=== PATIENT | female | born 1950 | race Caucasian/White ===

== ENCOUNTER 2019-12-30 11:19 | Outpatient (CLI) | payer MEDICARE, SELFPAY ==
--- NOTE | ~2019-12-30 | MM_ITS ---
EXAMINATION: MM screening marie BI w melnida HISTORY: Screening mammogram TECHNIQUE: Craniocaudal and mediolateral oblique 3-D tomosynthesis images were obtained and synthetic 2-D images were generated. CAD analysis was submitted and interpreted. COMPARISON: No prior mammogram is available for comparison at this institution. BREAST PARENCHYMAL COMPOSITION: The breasts are almost entirely fatty. FINDINGS: There is no evidence of suspicious mass, calcification, or architectural distortion to sugg est malignancy in either breast. There has been no suspicious interval change. IMPRESSION: 1. No mammographic evidence of malignancy. 2. Recommend routine screening mammography in one year. BI-RADS Category 1: Negative Reviewed, dictated and finalized at location A. [employer]
== END 2019-12-30 11:20 | disposition home or self-care (01) ==
LOC: ANHIMG 11:23
PROVIDERS: PCP Internal Medicine; Visit Provider Obstetrics & Gynecology
DX: Z12.31 Encounter for screening mammogram for malignant neoplasm of breast (principal)
CPT/HCPCS: 77063; 77067

== ENCOUNTER 2021-01-09 09:30 | Outpatient (CLI) | payer MEDICARE, SELFPAY ==
--- NOTE | ~2021-01-09 | MM_ITS ---
EXAMINATION: MM screening marie BI w melinda HISTORY: Screening mammogram TECHNIQUE: Craniocaudal and mediolateral oblique 3-D tomosynthesis images were obtained and synthetic 2-D images were generated. CAD analysis was submitted and interpreted. COMPARISON: 12/30/2019, 12/21/2018, 10/25/2017 bilateral digital screening mammogram examinations BREAST PARENCHYMAL COMPOSITION: The breasts are almost entirely fatty. FINDINGS: There is no evidence of suspicious mass, calcification, or architectural distortion to sugg est malignancy in either breast. There has been no suspicious interval change. IMPRESSION: 1. No mammographic evidence of malignancy. 2. Recommend routine screening mammography in one year. BI-RADS Category 1: Negative Reviewed, dictated and finalized at location A. [employer]
== END 2021-01-09 09:31 | disposition home or self-care (01) ==
LOC: ANHIMG 09:32
PROVIDERS: Family Provider Internal Medicine; PCP Internal Medicine; Visit Provider Obstetrics & Gynecology
DX: Z12.31 Encounter for screening mammogram for malignant neoplasm of breast (principal)
CPT/HCPCS: 77063; 77067

== ENCOUNTER 2021-10-02 02:57 | Emergency (ER) | payer MEDICARE, SELFPAY ==
--- NOTE | ~2021-10-02 | CT_ITS ---
EXAMINATION: CT abdomen pelvis wo con DATE: 10/02/2021 03:56 INDICATION: Left flank pain TECHNIQUE: Computed tomography (CT) of the abdomen and pelvis was performed without intravenous contr ast. The dose-length product (DLP) was 681.24 mGy-cm. Automated exposure control and iterative recons truction technique were employed. COMPARISON: 07/17/2013 FINDINGS: Minimal dependent atelectasis is present in the lung bases. The heart size is normal. There is a small sliding hiatal hernia. The liver, spleen, pancreas, gallbladder, and adrenal glands are n ormal. The right kidney is unremarkable. There is an 8 mm stone proximal left ureter which causes mod erate hydroureteronephrosis. No pathologically enlarged abdominal or pelvic lymph nodes are identifie d. There is no free intraperitoneal gas or evidence of bowel obstruction. Colonic diverticulosis is p resent without evidence of diverticulitis. There is a moderate-sized right inguinal hernia containing fat and nonobstructed small bowel. There is a fat-containing left inguinal hernia. There is severe l umbar spondylosis. IMPRESSION: 1. 8 mm stone of the proximal left ureter causing moderate hydroureteronephrosis. 2. Moderate size right inguinal hernia containing fat and nonobstructed small bowel. Reviewed, dictated and finalized at location B. IMPRESSION: 1. 8 mm stone of the proximal left ureter causing moderate hydroureteronephrosi s. 2. Moderate size right inguinal hernia containing fat and nonobstructed small b owel.
[2021-10-02 03:03] VITALS: BP 169/117; PULSE 85; RESP 20; TEMP 36.7; O2SAT 97
--- NOTE | 2021-10-02 03:32 | ED.ABDPAIN ---
HPI - Abdominal Pain General Chief Complaint: Abdominal Pain Stated Complaint: SICKNESS Time Seen by Provider: 10/02/21 02:59 Source: patient and RN notes reviewed Mode of arrival: ambulatory Limitations: no limitations History of Present Illness MD elicited complaint: abdominal pain and flank pain Pertinent past history: kidney stones Onset (ago): hour(s) (6) Pain Consistency: constant Location: L flank Severity: moderate Pain scale (0-10): 6 Quality: cramping and aching Radiation: L flank Migration to: no migration Exacerbating factors: nothing Relieving factors: nothing Associated symptoms: nausea and vomiting Treatments prior to arrival: other (none) Related Data Home Medications Medication Instructions Recorded Confirmed lisinopril 10 mg PO DAILY 10/02/21 10/02/21 Allergies Allergy/AdvReac Type Severity Reaction Status Date / Time No Known Allergies Allergy Unknown Unverified 10/02/21 03:09 Review of Systems Review of Systems: All systems reviewed & are unremarkable except as noted in HPI and below Gastrointestinal: Gastrointestinal: Reports nausea and Reports vomiting Comments: left flank pain PMFSH Past Medical History Medical History (Updated 10/02/21 @ 06:00 by Matthew Hernandez MD) Flank pain Kidney stones Exam Const: General: no acute distress and alert Nutritional Appearance: obese Orientation/consciousness: patient oriented x3 Limitations: no limitations HENMT: Head: normal to inspection Ears: external ears normal and TM's normal bilaterally General nose exam: Normal external nose present and Normal nares present Face and sinus: normal facial exam Mouth: Yes lip normal and Yes moist mucous membranes Teeth and gingiva: dentition normal Eyes: Conjunctivae: conjunctivae normal Pupils: Equal, round and reactive pupils present EOM: EOMs intact bilaterally Neck: Neck: normal visual inspection Chest: Chest palpation & inspection: normal inspection of the chest Resp: Effort & Inspection: normal respiratory effort Auscultation: clear to auscultation bilaterally Cardio: Rate: regular rate Rhythm: regular rhythm GI: GI Palp: Yes Soft to palpation and No Tenderness to palpation present (GI) Percussion: Yes normal to percussion Auscultation: normal bowel sounds : General: Yes CVA tenderness (minimal left CVA to left flank tenderness) Back/Spine/Pelvis: Back: no CVA tenderness Skin: General skin exam: normal color Rashes: no rashes Neuro: General: patient oriented x3, moves all extremities, no meningeal signs, no focal motor deficits and CN's II-XI intact bilaterally Extrem: General: normal to inspection Psych: Appearance: grossly normal and well kempt Mental Status: mental status grossly normal Affect: normal affect Thought content: Yes Normal thought content present Course Course Emergency Course: Pt was stable in the ED with less abdominal pain. She had a 9mm left ureteric stone and will be transferred to Urology at [facility]. Reevaluation(s) Reevaluation #1: Pt had decreased left flank pain. Date: 10/02/21 Time: 01:55 Vital Signs Vital signs: Vital Signs Temperature 36.7 C 10/02/21 03:03 Pulse Rate 85 10/02/21 03:03 Respiratory Rate 20 10/02/21 03:03 Blood Pressure 169/117 H 10/02/21 03:03 Pulse Oximetry 97 10/02/21 03:03 Temperature 36.7 C 10/02/21 03:03 Pulse Rate 85 10/02/21 03:03 Respiratory Rate 20 10/02/21 03:03 Blood Pressure 169/117 H 10/02/21 03:03 Pulse Oximetry 97 10/02/21 03:03 MDM - Abdominal Pain Differential Diagnosis Differential diagnosis: Likely abdominal pain, calculus of kidney, diverticulitis, gastroenteritis and small bowel obstruction Medical Records Attestation: I reviewed the patient's medical records. Lab Data Attestation: I reviewed the patient's lab results. Result diagrams: 10/02/21 03:41 10/02/21 03:41 Labs: Lab Results 10/02/21 10/02/21 1
[2021-10-02] MEDS: ONDANSETRON INJ 4 MG/2 ML VIAL IV PUSH (03:39)
[2021-10-02] MEDS: MORPHINE SULFATE (*CRX) 2 MG/ML INJ IV PUSH ×2 (03:41→04:47)
[2021-10-02] MEDS: PANTOPRAZOLE SODIUM IV 40 MG VIAL IV PUSH (03:41)
[2021-10-02] MEDS: SODIUM CHLORIDE 0.9% IV 1,000 ML 999 ML IV CONT (03:41)
--- NOTE | 2021-10-02 03:46 | PC.NURSE ---
pt states moved heavy desk on saturday.
--- NOTE | 2021-10-02 03:49 | PC.NURSE ---
pt to xray per wheelchair with xray staff --cally.
[2021-10-02 03:52] LABS: Basophils Absolute Auto 0.03 K/mm3 (0.00-0.10); Basophils Percent Auto 0.3 % (0.0-1.0); Eosinophils Absolute Auto 0.01 K/mm3 (0.02-0.50); Eosinophils Percent Auto 0.1 % (1.0-6.0); Hematocrit 38.1 % (35.0-42.0); Immature Granulocyte Absolute 0.02 K/mm3 (0.00-0.00); Immature Granulocyte Percent A 0.2 % (0.0-0.0); Lymphocytes Absolute Auto 0.71 K/mm3 (1.10-4.50); Lymphocytes Percent Auto 6.8 % (18.0-42.0); Mean Corpuscular HGB Conc 31.5 g/dL (32.0-36.0); Mean Corpuscular Hemoglobin 29.9 pg (27.0-31.0); Mean Corpuscular Volume 94.8 fL (78.0-102.0); Mean Platelet Volume 9.1 fl (9.2-11.8); Monocytes Absolute Auto 0.65 K/mm3 (0.10-0.90); Monocytes Percent Auto 6.2 % (2.0-11.0); Neutrophils Absolute Auto 9.1 K/mm3 (1.7-7.2); Neutrophils Percent Auto 86.4 % (50.0-70.0); Platelet Count Result 229 K/mm3 (150-420); Red Blood Count 4.02 M/mm3 (4.20-5.40); Red Cell Distribution Width 13.5 % (11.6-14.4); White Blood Count 10.5 K/mm3 (4.8-10.8)
[2021-10-02 03:59] LABS: Alanine Aminotransferase 23 U/L (14-59); Albumin Level 3.5 g/dL (3.4-5.0); Alkaline Phosphatase 80 U/L (46-116); Anion Gap 11 mmol/L (8-16); Aspartate Amino Transferase 15 U/L (15-37); Bilirubin,Total 0.7 mg/dL (0.00-1.00); Blood Urea Nitrogen 16 mg/dL (7-18); Calcium 8.5 mg/dL (8.5-10.1); Carbon Dioxide 26 mmol/L (21-32); Chloride 103 mmol/L (98-108); Estimated CRCL calculation 58 ml/min; Estimated Glomerular Filt Rate 58; Glucose 163 mg/dL (70-99); Lipase 116 U/L (73-393); Osmolality Calculated 295 mOsm/kg (285-295); Potassium 3.7 mmol/L (3.5-5.1); Sodium 140 mmol/L (136-145); Total Protein 7.1 g/dL (6.4-8.2)
--- NOTE | 2021-10-02 04:48 | PC.NURSE ---
pt declines need to urinate. erp dr jung notified
[2021-10-02] MEDS: KETOROLAC (*BKC) 60 MG/2 ML VIAL IM (05:35)
--- NOTE | 2021-10-02 06:23 | PC.NURSE ---
0500 138/79, 80, 20, 95% ra 0600 137/66. 80. 18. 97% ra
[2021-10-02 06:47] VITALS: BP 133/66; PULSE 80; RESP 18; TEMP 37.1; O2SAT 97
== END 2021-10-02 07:20 | disposition short-term general hospital (02) ==
PROVIDERS: Emergency Provider Emergency Medicine; PCP Internal Medicine
DX: N20.0 Calculus of kidney (principal)
CPT/HCPCS: 36415; 74176; 80053; 83605; 83690; 85025; 96361; 96372; 96374; 96375; 96376; 99285; A9270; C9113; J1885; J2270; J2405; J7030

== ENCOUNTER 2021-10-02 08:53 | Observation (INO) | payer MEDICARE, SELFPAY ==
[2021-10-02] VITALS (11 sets, daily range): BP systolic 111–163; BP diastolic 51–102; PULSE 86–114; RESP 14–22; TEMP 36–37.7; O2SAT 86–100; BMI 41.8
--- NOTE | ~2021-10-02 | XR_ITS ---
EXAMINATION: XR retrograde pyelo w/stent LT EXAM DATE: 10/02/2021 21:21 INDICATION: Left ureteral stone removal, stent placement. TECHNIQUE: Fluoroscopy used during XR retrograde pyelo w/stent LT performed by Dr. Alberto Bennett MD, urologist. The radiologist Reilly Edward M.D. dictating this report of the image(s) available wa s not present for the procedure. Total fluoroscopic time of 30 seconds. The DAP for this procedure was 670 radcm2. A total of 24 images sent to PACS from the exam. Cine run(s) available for review. FINDINGS: Left ureter was cannulated and injected. There is mild left hydroureteronephrosis. A doubl e-J ureteral stent was placed. Correlate with procedure note. IMPRESSION: Mild left hydroureteronephrosis. Stent in position. Reviewed, dictated and finalized at location A.
--- NOTE | 2021-10-02 07:50 | ADMGEN ---
This patient, Dia Hall, was admitted to Medical Room 349-01. Patient/family oriented to hospital policies and general routines including ID bracelet, bed and alarms, visiting hours, pain management, procedures, bathroom and other care routines, personal items, smoking policy, room service/diet, and visiting hours. Information on how to activate the Rapid Response Team has been discussed. Patient/Family are encouraged to report perceived risks to care and to ask questions if they do not understand what they are told or what they should do.
[2021-10-02] MEDS: CIPROFLOXACIN 400 MG/D5W 200ML 200 ML 200 MG IVPB ×2 (09:36→22:42)
[2021-10-02 10:04] LABS: INR 0.9; Prothrombin Time 12.5 Seconds (11.1-14.7)
[2021-10-02 10:05] LABS: Partial Thromboplastin Time 25.2 SECONDS (22.3-36.8)
[2021-10-02 10:27] LABS: Anion Gap 7 mmol/L (8-16); Blood Urea Nitrogen 20 mg/dL (7-17); Calcium 8.7 mg/dL (8.4-10.2); Carbon Dioxide 26 mmol/L (22-30); Chloride 105 mmol/L (98-107); Estimated Glomerular Filt Rate > 60; Glucose 133 mg/dL (65-110); Potassium 4.3 mmol/L (3.4-5.0); Sodium 138 mmol/L (137-145)
[2021-10-02 10:51] LABS: Thyroid Stimulating Hormone Reflex 0.734 uIU/mL (0.465-4.68)
[2021-10-02 11:38] LABS: Glucose Point of Care 114 mg/dl (65-105)
--- NOTE | 2021-10-02 12:52 | WPDURCON ---
Assessment and Plan Assessment and plan (1) Left ureteral stone: Code(s): N20.1 - Calculus of ureter Status: Acute Assessment and Plan: cystoscopy, laser lithotripsy with ureteral stone extraction and stent placement Urology Consult Note HPI Date Seen: 10/02/21 Requesting Physician: Kimmy Hampton MD Primary Care Provider: Loi Chen, MD Consult Narrative Narrative: Dia Hall is a 70 year old female who spontaneously passed 1 ureteral calculus several years ago. She is transferred from [facility] ER where she presented with a 2 day history of intermittent, progressively severe left flank pain. This was associated with nausea vomiting but no fevers chills or gross hematuria. Imaging reveals an obstructing left mid ureteral calculus PMFSH Past Medical History Medical History Flank pain Kidney stones Social History Social History Smoking status: Never smoker Alcohol intake: never Substance use: never Substance use type: does not use Spiritual care concerns: No Meds Home Medications and Allergies Home Medications Medication Instructions Recorded Confirmed Type lisinopril 10 mg PO DAILY 10/02/21 10/02/21 History multivit with min-folic acid 1 tablet PO DAILY 10/02/21 10/02/21 History [Adult One Daily Multivitamin] Allergies Allergy/AdvReac Type Severity Reaction Status Date / Time No Known Allergies Allergy Unknown Unverified 10/02/21 03:09 Vital Signs Vital Signs - 24 hr 10/02/21 08:52 Temperature 96.8 F L Pulse Rate 86 Respiratory Rate 16 Blood Pressure 124/65 Pulse Oximetry 86 L Exam Const: General: no acute distress Resp: Effort & Inspection: normal respiratory effort GI: Inspection: non-distended GI Palp: No abdominal tenderness and No Guarding due to palpation present (GI) Auscultation: normal bowel sounds Results Labs CBC & Chem 7: 10/02/21 09:33 Labs: BMP 10/02/21 09:33 Sodium 138 Potassium 4.3 Chloride 105 Carbon Dioxide 26 BUN 20 H Creatinine 0.80 Glucose 133 H Calcium 8.7
--- NOTE | 2021-10-02 13:03 | WPDHPUPDATE1 ---
History and Physical Update Update Date/Time: 10/02/21 13:03 History and Physical has been reviewed, including an updated exam of the patient. There are NO changes in the patient's condition. Risks, benefits, and alternatives have been discussed and questions answered. Patient agrees to proceed with procedure.
--- NOTE | 2021-10-02 13:04 | PM.IMHP ---
H&P: HPI History of Present Illness Date/Time: PATIENT ADMITTED UNDER OBSERVATION STATUS 10/02/21 13:04 Chief Complaint: Abdominal pain Narrative: 70yo female with HTn and hx of kidney stones here for abdominal pain. Patient developed abdominal pain left upper quadrant radiating to the back 1 day prior to admission. Later in the evening she developed nausea and vomiting with dry heaves. No hematuria or dysuria. Nothing seemed to make the pain better. For this reason she presented to an outside emergency room and ultimately was transferred to our facility for further management when she was found to have a left 9 mm ureteral stone with hydronephrosis. She does have a history of kidney stones in 2012 and she states she was given a medication to 'dissolve the stone'. Review of system negative. She has mild chronic pedal edema. In the Emergency room, her blood pressure was 169/117. She was treated with pain medications with improvement. She is transferred for further care. Review of Systems Review of Systems: All systems reviewed & are unremarkable except as noted in HPI and below PMFSH Past Medical History Medical History (Updated 10/02/21 @ 13:19 by Per Zafar MD) Essential hypertension Kidney stones Surgical History Surgical History (Updated 10/02/21 @ 13:11 by Per Zafar MD) H/O total vaginal hysterectomy 2004 Family History Family History (Updated 10/02/21 @ 13:12 by Per Zafar MD) Mother Fibromyalgia Father Heart disease Social History Social History (Updated 10/02/21 @ 13:14 by Per Zafar MD) Social History: Patient lives alone. She is . Her granddaughter may be moving in with her in November. She is a lifelong nonsmoker. She rarely drinks alcohol. No drug use. She is a full code. She nominated her son Alberto Hall to be the individual would make medical decisions for her if she is unable. Smoking status: Never smoker Alcohol intake: never Substance use: never Substance use type: does not use Spiritual care concerns: No Meds Home Medications and Allergies Home Medications Medication Instructions Recorded Confirmed Type lisinopril 10 mg PO DAILY 10/02/21 10/02/21 History multivit with min-folic acid 1 tablet PO DAILY 10/02/21 10/02/21 History [Adult One Daily Multivitamin] hydrocodone-acetaminophen 1 - 2 tablet PO Q6H PRN #20 tablet 10/03/21 Rx Allergies Allergy/AdvReac Type Severity Reaction Status Date / Time No Known Allergies Allergy Unknown Verified 10/02/21 18:10 Vital Signs Vital Signs - 24 hr 10/02/21 08:52 Temperature 96.8 F L Pulse Rate 86 Respiratory Rate 16 Blood Pressure 124/65 Pulse Oximetry 86 L Exam Narrative: AF 96.8 124/65 86 16 97% ra Gen - well-nourished, well-developed female in no acute respiratory distress who is nontoxic-appearing lying semi recumbent in bed. HEENT - normocephalic. Atraumatic. Pupils equal round and reactive. Extraocular motions intact. Sclera clear and anicteric. Nares patent. Oropharynx was not visualized. No oral lesions. Moist mucous membranes. Tongue was midline. Palate marcello symmetrically. No facial asymmetry. mild lid lag. Neck - neck was supple. No dominant adenopathy, thyromegaly or masses. 2+ carotid upstrokes without bruits. Chest - lungs are clear to auscultation bilaterally. No wheezes or crackles. Breast exam was deferred. CV - heart was regular rate and rhythm wih a 2/6 systolic murmur Rt USB. S1-S2. No gallops or rubs. Abd - abdomen was soft. Nontender. Nondistended. Positive bowel sounds. No organomegaly or masses. Back - no CVA tenderness Ext - trace pedal edema. 2+ DP pulses bilaterally. Neuro - patient is alert and oriented x4. Strength is 5/5 in both upper and lower extremities. Cranial nerves 2-12 are intact. Speech is clear. Psych - normal mood and affect. Patient is pleasant and cooperative. Skin - warm and
[2021-10-02 13:34] LABS: Add Urine Microscopic? YES; Appearance Urine Cloudy (Clear); Bacteria Urine Trace /hpf; Bilirubin Urine Negative (Negative); Blood Urine 2+ (Negative); Color Urine Amber (Yellow); Glucose Urine UA Negative (Negative); Ketones Urine Trace mg/dL (Negative); Leukocyte Esterase Ur 2+ LEU/UL (Negative); Mucus Urine Heavy /lpf; Nitrate Urine Positive (Negative); Protein Urine 2+ mg/dL (Negative); RBC Urine 21-50 /hpf (0-2); Specific Grav Ur 1.025 (1.001-1.035); Squamous Epithelial Cell Urine Few /hpf (Few); WBC Urine >75 /hpf
[2021-10-02] MEDS: SODIUM CHLORIDE 0.9% IV 1,000 ML 100 ML IV CONT (13:36)
[2021-10-02 16:34] LABS: Glucose Point of Care 110 mg/dl (65-105)
--- NOTE | 2021-10-02 17:36 | WPDANESEPPF ---
Anes - Initial Pre Proc Eval Procedure: Operation Date: 10/02/21 18:00 Proposed Procedures p Cystoscopy, Left Ureteroscopy, Left Stone Extraction, Possible Left Stent Placement, - Alberto Bennett MD s Laser Lithotripsy - Alberto Bennett MD Date/Time: 10/02/21 17:36 Surgeon: Sabrina Pre Op Diagnosis: 09x5 mid l ureyeral stone Patient Data Age: 70 Gender: F Height: Weight: Last Vital Signs Temp 36.4 C 10/02/21 16:08 Pulse 103 H 10/02/21 16:08 Resp 16 10/02/21 16:08 BP 142/68 H 10/02/21 16:08 Pulse Ox 94 10/02/21 16:08 Allergies Allergy/AdvReac Type Severity Reaction Status Date / Time No Known Allergies Allergy Unknown Verified 10/02/21 18:10 Home Medications Medication Instructions Recorded Confirmed Type lisinopril 10 mg PO DAILY 10/02/21 10/02/21 History multivit with min-folic acid 1 tablet PO DAILY 10/02/21 10/02/21 History [Adult One Daily Multivitamin] Laboratory Tests 10/02/21 10/02/21 10/02/21 09:33 09:33 09:33 PT 12.5 Seconds Seconds (11.1-14.7) INR 0.9 APTT 25.2 SECONDS SECONDS (22.3-36.8) Sodium 138 mmol/L mmol/L (137-145) Potassium 4.3 mmol/L mmol/L (3.4-5.0) Chloride 105 mmol/L mmol/L (98-107) Carbon Dioxide 26 mmol/L mmol/L (22-30) Anion Gap 7 mmol/L L mmol/L (8-16) BUN 20 mg/dL H mg/dL (7-17) Creatinine 0.80 mg/dL mg/dL (0.7-1.0) Estim Creat Clear Calc Not Reportable Estimated GFR > 60 (59 - ) Glucose 133 mg/dL H mg/dL (65-110) POC Capillary Glucose Hemoglobin A1c Calcium 8.7 mg/dL mg/dL (8.4-10.2) TSH (Reflex) 0.734 uIU/mL uIU/mL (0.465-4.68) Urine Color Urine Appearance Urine pH Ur Specific Radcliffe Urine Protein Urine Glucose (UA) Urine Ketones Ur Blood (Man) Urine Nitrate Urine Bilirubin Urine Urobilinogen Leukocyte Esterase Rfl Urine RBC Urine WBC Ur Squamous Epith Cells Urine Bacteria Urine Mucus 10/02/21 10/02/21 10/02/21 09:33 11:35 13:12 PT INR APTT Sodium Potassium Chloride Carbon Dioxide Anion Gap BUN Creatinine Estim Creat Clear Calc Estimated GFR Glucose POC Capillary Glucose 114 mg/dl H mg/dl (65-105) Hemoglobin A1c Pending Calcium TSH (Reflex) Urine Color Sherrie (Yellow) Urine Appearance Cloudy H (Clear) Urine pH 5.0 (5.0-9.0) Ur Specific Radcliffe 1.025 (1.001-1.035) Urine Protein 2+ mg/dL H mg/dL (Negative) Urine Glucose (UA) Negative mg/dL mg/dL (Negative) Urine Ketones Trace mg/dL mg/dL (Negative) Ur Blood (Man) 2+ H (Negative) Urine Nitrate Positive H (Negative) Urine Bilirubin Negative (Negative) Urine Urobilinogen 4.0 mg/dL H mg/dL (<2.0) Leukocyte Esterase Rfl 2+ JOSEPH/UL H JOSEPH/UL (Negative) Urine RBC 21-50 /hpf H /hpf (0-2) Urine WBC >75 /hpf H /hpf Ur Squamous Epith Cells Few /hpf /hpf (Few) Urine Bacteria Trace /hpf /hpf Urine Mucus Heavy /lpf H /lpf 10/02/21 16:32 PT INR APTT Sodium Potassium Chloride Carbon Dioxide Anion Gap BUN Creatinine Estim Creat Clear Calc Estimated GFR Glucose POC Capillary Glucose 110 mg/dl H mg/dl (65-105) Hemoglobin A1c Calcium TSH (Reflex) Urine Color Ur
--- NOTE | 2021-10-02 17:41 | PC.NURSE ---
To OR per TONY parra RAC. Report given to Rebeca ARAGON.
--- NOTE | 2021-10-02 20:11 | SUR.PHASEI ---
PATIENT AND FAMILY UPDATED ON TIME DELAY
[2021-10-02] MEDS: LIDOCAINE HCL 2% GEL UROJET 10 ML PKG MUCOUS MEM (21:01)
--- NOTE | 2021-10-02 21:20 | W.PM.PROC2 ---
Procedure Note - Detailed Date of Procedure 10/02/21 Pre-op Diagnosis Left ureteral stone Post-op Diagnosis same Procedure Performed Cystoscopy, left ureteroscopy with laser lithotripsy, ureteral stone extraction, left retrograde pyelogram and ureteral stent placement Surgeon Alberto Bennett MD Anesthesia general Description of Procedure The patient was brought to the operative suite where she is prepped and draped in a routine sterile fashion while in the dorsal lithotomy position after the uneventful induction of a general LMA anesthetic. A 19F rigid cystoscope was placed in the bladder. The patient had no evidence of urethral stricture or bladder neck contracture. The bladder mucosa was endoscopically normal without hyperemia or neoplasm. There was a single, orthotopic ureteral orifice bilaterally. A 0.035 glidewire was advanced into the left renal pelvis under fluoroscopy. The distal ureter was dilated with an 8F/10F ureteral dilator. Ureteroscopy was undertaken with a short tapered semi-rigid ureteroscope. With ureteroscopy I fractured the stone into smaller pieces using a 273micron Holmium laser fiber with the Holmium laser. I was able to then extract the stone pieces using a 1.9F Escape, Nitinol, disposable stone basket. Due to the extent of this manipulation I did place a 4.8F double-J ureteral stent. The proximal coil of the stent was confirmed to be in the renal pelvis and the distal coil in the bladder. The patient's bladder was emptied and he was taken to the recovery room having tolerated this procedure well. Estimated Blood Loss 0 Drains Yes Packing No Pathology yes Complications No immediate complications Condition stable Disposition PACU
[2021-10-02] MEDS: LACTATED RINGERS 1,000 ML 30 ML IV CONT (21:24)
[2021-10-02 21:44] LABS: Hemoglobin A1C 5.3 % (<5.7)
[2021-10-02 22:00] LABS: Glucose Point of Care 103 mg/dl (65-105)
--- NOTE | 2021-10-02 23:02 | PCDIET ---
Received from PACU alert and oriented voices no c/o pain , ambulated to bed with assist of 1.Skin warm and dry.
[2021-10-03 00:22] VITALS: BP 124/68; PULSE 107; RESP 20; TEMP 37.3; O2SAT 94
[2021-10-03 06:04] VITALS: BP 106/48; PULSE 99; RESP 18; TEMP 37; O2SAT 94
[2021-10-03] MEDS: SODIUM CHLORIDE 0.9% IV 1,000 ML 100 ML IV CONT (06:08)
--- NOTE | 2021-10-03 06:45 | WPDUROPN2 ---
Progress Note: A&P Assessment and Plan (1) Left ureteral stone: Code(s): N20.1 - Calculus of ureter Status: Acute Assessment and Plan: Doing well following ureteral stone removal. Home today. My office will contact regarding stent removal 5-7 days. Subjective Subjective Date/Time Seen: 10/03/21 06:45 Comfortable, minimal stent discomfort with voiding. Review of Systems Cardiovascular: Cardiovascular: Denies chest pain, Denies lightheadedness, Denies palpitations and Denies dyspnea Respiratory: Respiratory: Denies dyspnea Gastrointestinal: Gastrointestinal: Denies diarrhea, Denies nausea and Denies vomiting Genitourinary: Genitourinary: Denies hematuria and Denies dysuria Endocrine: Endocrine: Denies palpitations Exam Const: General: no acute distress Resp: Effort & Inspection: normal respiratory effort GI: Inspection: non-distended GI Palp: No abdominal tenderness and No Guarding due to palpation present (GI) Auscultation: normal bowel sounds Objective Data Vital Signs Vital Signs: Vital Signs - 24 hr 10/02/21 08:52 10/02/21 13:26 10/02/21 16:08 Temperature 96.8 F L 97.1 F L 97.6 F Pulse Rate 86 91 103 H Respiratory Rate 16 16 16 Blood Pressure 124/65 156/81 H 142/68 H Pulse Oximetry 86 L 99 94 10/02/21 17:50 10/02/21 21:24 10/02/21 21:35 Temperature 99.9 F H 97.6 F Pulse Rate 101 H 110 H 114 H Respiratory Rate 18 14 20 Blood Pressure 111/51 L 148/56 H 123/102 H Pulse Oximetry 92 100 100 10/02/21 21:50 10/02/21 22:05 10/02/21 22:20 Temperature Pulse Rate 108 H 106 H 104 H Respiratory Rate 16 20 22 H Blood Pressure 163/98 H 156/83 H 131/80 Pulse Oximetry 98 93 95 10/02/21 22:44 10/02/21 22:59 10/03/21 00:22 Temperature 98.5 F 99.1 F Pulse Rate 110 H 110 H 107 H Respiratory Rate 20 20 20 Blood Pressure 150/74 H 124/68 Pulse Oximetry 92 92 94 10/03/21 06:04 Temperature 98.6 F Pulse Rate 99 Respiratory Rate 18 Blood Pressure 106/48 L Pulse Oximetry 94 Intake/Output Intake/Output: Intake & Output 09/30/21 10/01/21 10/02/21 10/03/21 23:59 23:59 23:59 23:59 Intake Total 1450 400 Output Total 200 300 Balance 1250 100 Meds/Results Medications: Active Medications Generic Name Dose Route Start Last Admin Trade Name Freq PRN Reason Stop Dose Admin Acetaminophen 650 mg 10/02/21 08:53 Acetaminophen 325 Mg Tablet PO Q4H PRN Mild Pain (1-3) or Fever Hydrocodone Bitart/Acetaminophen 1 tab 10/02/21 08:59 Hydrocodone/Acetaminophen (*Crx) 5-325 Mg Tablet PO Q4H PRN Moderate Pain (4-6) Al Hydrox/Mg Hydrox/Simethicone 30 ml 10/02/21 08:53 Mag Hydrox/Al Hydrox/Simeth 30 Ml Udc PO QID PRN Dyspepsia Dextrose 12.5 gm 10/02/21 08:53 Dextrose 50% 25 Gm/50 Ml Syringe IV PUSH PRN PRN Hypoglycemia Protocol Glucagon 1 mg 10/02/21 08:53 Glucagon For Inj 1 Mg Vial IM PRN PRN Hypoglycemia Protocol Glucose 15 gm 10/02/21 08:53 Glucose Oral Gel 15 Gm Of Glucse In 37.5 Gm Tube PO PRN PRN Hypoglycemia Protocol Dextrose 1,000 mls @ 100 mls/hr 10/02/21 08:53 Dextrose 5% 1,000 Ml IVPB PRN PRN Hypoglycemia Protocol Ciprofloxacin/Dextrose 200 mls @ 200 mls/hr 10/02/21 09:00 10/02/21 23:50 Cipro 400 Mg/D5w 200 Ml IVPB Infused Q12H SAAD Infusion Sodium Chloride 1,000 mls @ 100 mls/hr 10/02/21 13:30 10/03/21 06:08 Normal Saline Iv IV CONT 100 mls/hr .Q10H SAAD Administration Insulin Aspart 3 - 6 units 10/02/21 12:00 10/02/21 16:32 Insulin Aspart (*Bkc) 100 Units/Ml SUB-Q Not Given TIDWM SAAD Protocol Lisinopril 10 mg 10/03/21 09:00 Lisinopril 10 Mg Tablet PO DAILY SAAD Morphine Sulfate 2 mg 10/02/21 08:53 Morphine Sulfate (*Crx) 2 Mg/Ml Inj IV PUSH Q4H PRN Pain Rated 7-10 Multivitamins/Calcium 1 tablet 10/03/21 09:00 Therapeutic Multivitamins/Minerals
[2021-10-03 07:53] LABS: Glucose Point of Care 136 mg/dl (65-105)
[2021-10-03] MEDS: CIPROFLOXACIN 400 MG/D5W 200ML 200 ML 200 MG IVPB (09:56)
[2021-10-03] MEDS: lisinopriL 10 MG TABLET PO (09:57)
[2021-10-03] MEDS: THERAPEUTIC MULTIVITAMINS/MINERALS TAB (*BKC) 1 TABLET PO (09:57)
--- NOTE | 2021-10-03 10:43 | PM.DS ---
DS: Admitting Diagnosis Discharge Date 10/03/21 Admitting Diagnosis Abdominal pain DS: Discharge Diagnosis Discharge Diagnosis (1) Left ureteral stone: Code(s): N20.1 - Calculus of ureter Status: Acute (2) Hydronephrosis due to obstruction of ureter: Code(s): N13.1 - Hydronephrosis with ureteral stricture, not elsewhere classified Status: Acute (3) Inguinal hernia: Code(s): K40.90 - Unilateral inguinal hernia, without obstruction or gangrene, not specified as recurrent Status: Acute (4) Hyperglycemia: Code(s): R73.9 - Hyperglycemia, unspecified Status: Acute (5) Essential hypertension: Code(s): I10 - Essential (primary) hypertension Status: Acute DS: Summary Hospital Course Reason for hospitalization: 70yo female with HTN and hx of kidney stones here for abdominal pain. Please see H&P for details Hospital Course: Patient developed abdominal pain left upper quadrant radiating to the back 1 day prior to admission. For this reason she presented to an outside emergency room and ultimately was transferred to our facility for further management when she was found to have a left 9 mm ureteral stone with hydronephrosis. In the Emergency room, her blood pressure was 169/117. She was treated with pain medications with improvement. CT scan also showed moderate size right inguinal containing fat and nonobstructed small bowel. Lab evaluation was mostly unrevealing. She did have mildly elevated glucose levels but her hemoglobin A1c was 5.3. Urinalysis was concerning for UTI. Urine culture is pending. She was started on ciprofloxacin. Urology was consulted and she underwent a cystoscopy with left ureteroscopy with laser lithotripsy, ureteral stone extraction, left retrograde pyelogram and ureteral stent placement. She tolerated this well. Pain has resolved. Patient overall did well as a to be discharged home on 10/03/2021. Status at Discharge Cognitive/behavioral status at discharge: Stable Time Spent with Patient Time attestation: Total time spent providing and/or coordinating discharge services: 32 minutes Time spent: Greater than 30 minutes Specific discharge activities: Discussed with patient Exam Narrative: AF 98.6 106/48 99 18 94% ra Gen - NARD Chest - CTA bilaterally, nml RR CV - RRR S1/S2 Abd - soft, NT/ND, +BS Ext - trace pedal edema. Neuro - patient is alert and appropriate Psych - normal mood and affect. Skin - warm and dry. DS: Data Data Completed and Pending Pending studies at discharge: Pending at discharge 10/02/21 21:08 Surgical [PTH] Routine Labs on day of discharge: Labs from last 24 hours 10/03/21 10/02/21 10/02/21 07:51 21:58 16:32 POC Capillary Glucose 136 H 103 110 H Hemoglobin A1c TSH (Reflex) Urine Color Urine Appearance Urine pH Ur Specific [place] Urine Protein Urine Glucose (UA) Urine Ketones Ur Blood (Man) Urine Nitrate Urine Bilirubin Urine Urobilinogen Leukocyte Esterase Rfl Urine RBC Urine WBC Ur Squamous Epith Cells Urine Bacteria Urine Mucus 10/02/21 10/02/21 10/02/21 13:12 11:35 09:33 POC Capillary Glucose 114 H Hemoglobin A1c 5.3 TSH (Reflex) Urine Color Sherrie Urine Appearance Cloudy H Urine pH 5.0 Ur Specific [place] 1.025 Urine Protein 2+ H Urine Glucose (UA) Negative Urine Ketones Trace Ur Blood (Man) 2+ H Urine Nitrate Positive H Urine Bilirubin Negative Urine Urobilinogen 4.0 H Leukocyte Esterase Rfl 2+ H Urine RBC 21-50 H Urine WBC >75 H Ur Squamous Epith Cells Few Urine Bacteria Trace Urine Mucus Heavy H 10/02/21 09:33 POC Capillary Glucose Hemoglobin A1c TSH (Reflex) 0.734 Urine Color Urine Appearance Urine pH Ur Specific [place] Urine Protein Urine Glucose (UA) Urine Ketones Ur Blood (Man) Urine Nitrate U
[2021-10-03 12:08] LABS: Glucose Point of Care 118 mg/dl (65-105)
--- NOTE | 2021-10-06 10:02 | PC.NURSE ---
Urine cx is negative.
--- NOTE | 2021-10-06 11:42 | PC.NURSE ---
Urine cx is negative.
== END 2021-10-03 13:00 | disposition home or self-care (01) ==
PROVIDERS: Urology; Admitting Provider Internal Medicine; PCP Internal Medicine; Visit Provider Internal Medicine
PROC: (CPT 52352; principal; 2021-10-02 18:00)
DX: N13.2 Hydronephrosis with renal and ureteral calculous obstruction (principal); Z87.442 Personal history of urinary calculi; I10 Essential (primary) hypertension; K40.90 Unilateral inguinal hernia, without obstruction or gangrene, not specified as recurrent; R73.9 Hyperglycemia, unspecified
CPT/HCPCS: 52356; 36415; 74420; 80048; 81001; 82365; 82948; 83036; 84443; 85610; 85730; 87086; 87088; 88300; 96361; 96365; A9270; C1769; C2617; G0378; G0379; J0744; J3010; J7030; J7120; Q9966

== ENCOUNTER 2022-03-07 13:45 | Outpatient (CLI) | payer MEDICARE, SELFPAY ==
--- NOTE | ~2022-03-07 | MM_ITS ---
EXAMINATION: MM screening [facility] BI w melinda HISTORY: Screening TECHNIQUE: Craniocaudal and mediolateral oblique 3-D tomosynthesis images were obtained and synthetic 2-D images were generated. CAD analysis was submitted and interpreted. COMPARISON: Comparison to multiple prior studies sequentially, with oldest reviewed study dated 10/02. BREAST PARENCHYMAL COMPOSITION: The breasts are almost entirely fatty. FINDINGS: There is no evidence of suspicious mass, calcification, or architectural distortion to sugg est malignancy in either breast. There has been no suspicious interval change. IMPRESSION: 1. No mammographic evidence of malignancy. 2. Recommend routine screening mammography in one year. BI-RADS Category 1: Negative Reviewed, dictated and finalized at location A.
== END 2022-03-07 13:46 | disposition home or self-care (01) ==
LOC: ANHIMG 13:47
PROVIDERS: PCP Internal Medicine; Visit Provider Obstetrics & Gynecology
DX: Z12.31 Encounter for screening mammogram for malignant neoplasm of breast (principal)
CPT/HCPCS: 77063; 77067

== ENCOUNTER 2022-08-20 09:37 | Outpatient (CLI) | payer MEDICARE, SELFPAY ==
--- NOTE | ~2022-08-20 | XR_ITS ---
EXAM: XR abdomen/kub 1V DATE: 08/20/2022 09:56 HISTORY: LEFT URETERAL STONE ANNUAL. HX HYSTERECTOMY . COMPARISON: CT abdomen pelvis 10/02/2021. FINDINGS: Clear lung bases. Tubal ligation clips. Normal bowel gas pattern. Right inguinal hernia co ntaining loops of bowel. No organomegaly. Pelvic phleboliths. 8 by 13 mm ovoid calcification projecti ng over the midline pelvis. Degenerative changes in the lumbar spine and bilateral hips. Scattered pr oximal femoral and pelvic enthesopathy. IMPRESSION: Left ureteral stone appears to have passed into the bladder. Reviewed, dictated and finalized at location K.
== END 2022-08-20 09:38 | disposition home or self-care (01) ==
PROVIDERS: PCP Internal Medicine; Visit Provider Urology
DX: N20.1 Calculus of ureter (principal)
CPT/HCPCS: 74018

== ENCOUNTER 2023-04-17 08:28 | Outpatient (CLI) | payer MEDICARE, SELFPAY ==
--- NOTE | ~2023-04-17 | MM_ITS ---
EXAMINATION: MM screening [facility] BI w melinda HISTORY: Screening mammogram TECHNIQUE: Craniocaudal and mediolateral oblique 3-D tomosynthesis images were obtained and synthetic 2-D images were generated. CAD analysis was submitted and interpreted. COMPARISON: 03/07/2022, 01/09/2021, 12/30/2019 BREAST PARENCHYMAL COMPOSITION: The breasts are almost entirely fatty. FINDINGS: No suspicious mass, calcification, or architectural distortion are identified in either david ast to suggest malignancy. There has been no suspicious interval change. IMPRESSION: 1. No mammographic evidence of malignancy. 2. Recommend routine screening mammography in one year. BI-RADS Category 1: Negative Reviewed, dictated and finalized at location A.
== END 2023-04-17 08:29 | disposition home or self-care (01) ==
LOC: ANHIMG 08:30
PROVIDERS: PCP Internal Medicine; Visit Provider Obstetrics & Gynecology
DX: Z12.31 Encounter for screening mammogram for malignant neoplasm of breast (principal)
CPT/HCPCS: 77063; 77067

== ENCOUNTER 2024-04-24 08:20 | Outpatient (CLI) | payer MEDICARE, SELFPAY ==
--- NOTE | ~2024-04-24 | MM_ITS ---
EXAMINATION: MM screening marie BI w melinda HISTORY: Screening mammogram TECHNIQUE: Craniocaudal and mediolateral oblique 3-D tomosynthesis images were obtained and synthetic 2-D images were generated. CAD analysis was submitted and interpreted. COMPARISON: 04/17/2023, 03/07/2022 bilateral screening mammogram examinations BREAST PARENCHYMAL COMPOSITION: The breasts are almost entirely fatty. FINDINGS: There is no evidence of suspicious mass, calcification, or architectural distortion to sugg est malignancy in either breast. There has been no suspicious interval change. IMPRESSION: 1. No mammographic evidence of malignancy. 2. Recommend routine screening mammography in one year. BI-RADS Category 1: Negative Reviewed, dictated and finalized at location B.
== END 2024-04-24 08:21 | disposition home or self-care (01) ==
LOC: ANHIMG 08:22
PROVIDERS: PCP Internal Medicine; Visit Provider Obstetrics & Gynecology
DX: Z12.31 Encounter for screening mammogram for malignant neoplasm of breast (principal)
CPT/HCPCS: 77063; 77067

== ENCOUNTER 2024-09-02 00:37 | Day surgery (SDC) | payer MEDICARE, SELFPAY ==
[2024-08-11 10:04] VITALS: BMI 36.3
[2024-09-02 06:50] VITALS: BMI 36.3
[2024-09-02 07:00] VITALS: BP 151/79; PULSE 77; RESP 16; TEMP 36.3; O2SAT 95
[2024-09-02] MEDS: LACTATED RINGERS 1,000 ML 150 ML IV CONT (07:16)
--- NOTE | 2024-09-02 07:28 | WPDANESEPPF ---
Anes - Initial Pre Proc Eval Procedure: Operation Date: 09/02/24 08:00 Proposed Procedures p Screening Colonoscopy - Dudley Gipson MD Date/Time: 09/02/24 07:28 Surgeon: Dudley Gipson MD Pre Op Diagnosis: screening neoplasm of colon Patient Data Age: 73 Gender: F Height: 1.63 m Weight: 95.9 kg Allergies Allergy/AdvReac Type Severity Reaction Status Date / Time Sulfa (Sulfonamide Allergy Mild Rash Verified 09/02/24 06:49 Antibiotics) sulfamethoxazole Allergy Mild Rash Verified 09/02/24 06:49 [From Bactrim] trimethoprim [From Bactrim] Allergy Mild Rash Verified 09/02/24 06:49 Home Medications Medication Instructions Recorded Confirmed Type lisinopril 10 mg tablet 10 mg PO DAILY 10/02/21 09/02/24 History multivitamin with minerals-folic 1 tablet PO DAILY 10/02/21 09/02/24 History acid 0.4 mg tablet Patient hx anesthesia problems: none Family hx anesthesia problems: none Results Review: All pre-operative results and documents have been reviewed as part of the pre-operative evaluation. [facility] Past Medical History Medical History Essential hypertension Kidney stones (~10/2021) Peripheral venous insufficiency Screening mammogram, encounter for Surgical History Surgical History History of arthroscopic knee surgery (09/11/22) w/medial meniscectomy History of colposcopy (07/23/02) colpo/ bx History of vaginal hysterectomy (~2004) total vaginal hysterectomy/posterior colphorrhapy Family History Family History Mother Fibromyalgia Hypertension Osteoporosis Father Heart disease Hypertension Social History Social History Social History: Patient lives alone. She is . Her granddaughter may be moving in with her in November. She is a lifelong nonsmoker. She rarely drinks alcohol. No drug use. She is a full code. She nominated her son Alberto Hall to be the individual would make medical decisions for her if she is unable. Smoking status: Never smoker Alcohol intake: never Substance use: never Substance use type: does not use Living arrangements: with family Additional living arrangements comments: GRANDDAUGHTER LIVES WITH PT Occupation/Education: retired Gender identity (if verbalized by the patient): Female Sexual Orientation (if Verbalized by the Patient): Straight or Heterosexual Spiritual care concerns: No Anes - Eval Final PreProcedure Day of Procedure 09/02/24 07:28 Patient weight: obese Heart: regular rate and rhythm Lungs: clear to auscultation Airway: Mallampati scale class II Neurological: alert and oriented Last oral intake: >/= 8 hours ASA classification: II Emergent: no Anesthetic plan: proceed Anesthesia type and monitoring: general GIVS and standard monitoring Results Review: All pre-operative results and documents have been reviewed as part of the pre-operative evaluation. Informed Consent: The patient's anesthetic plan and its attendant risks and benefits were discussed with the patient/family/POA. Questions were solicited and answers provided to the satisfaction of the patient/family/POA.
--- NOTE | 2024-09-02 08:07 | PM.IMHP ---
H&P: HPI History of Present Illness Date/Time: 09/02/24 08:07 Chief Complaint: This patient is here for her surveillance colonoscopy. She has a history of colonic polyps, her last colonoscopy was about 10 years ago. [facility] Past Medical History Medical History Essential hypertension Kidney stones (~10/2021) Peripheral venous insufficiency Screening mammogram, encounter for Surgical History Surgical History History of arthroscopic knee surgery (09/11/22) w/medial meniscectomy History of colposcopy (07/23/02) colpo/ bx History of vaginal hysterectomy (~2004) total vaginal hysterectomy/posterior colphorrhapy Family History Family History Mother Fibromyalgia Hypertension Osteoporosis Father Heart disease Hypertension Social History Social History Social History: Patient lives alone. She is . Her granddaughter may be moving in with her in November. She is a lifelong nonsmoker. She rarely drinks alcohol. No drug use. She is a full code. She nominated her son Alberto Hall to be the individual would make medical decisions for her if she is unable. Smoking status: Never smoker Alcohol intake: never Substance use: never Substance use type: does not use Living arrangements: with family Additional living arrangements comments: GRANDDAUGHTER LIVES WITH PT Occupation/Education: retired Gender identity (if verbalized by the patient): Female Sexual Orientation (if Verbalized by the Patient): Straight or Heterosexual Spiritual care concerns: No Meds Home Medications and Allergies Home Medications Medication Instructions Recorded Confirmed Type lisinopril 10 mg tablet 10 mg PO DAILY 10/02/21 09/02/24 History multivitamin with minerals-folic 1 tablet PO DAILY 10/02/21 09/02/24 History acid 0.4 mg tablet Allergies Allergy/AdvReac Type Severity Reaction Status Date / Time Sulfa (Sulfonamide Allergy Mild Rash Verified 09/02/24 06:49 Antibiotics) sulfamethoxazole Allergy Mild Rash Verified 09/02/24 06:49 [From Bactrim] trimethoprim [From Bactrim] Allergy Mild Rash Verified 09/02/24 06:49 Vital Signs Vital Signs - 24 hr 09/02/24 07:00 Temperature 97.3 F L Pulse Rate 77 Respiratory Rate 16 Blood Pressure 151/79 H Pulse Oximetry 95 Oxygen Delivery Room Air Exam Narrative: Physical exam within normal limits. Assessment and Plan Assessment and plan (1) Screening for malignant neoplasm of colon performed: Code(s): Z12.11 - Encounter for screening for malignant neoplasm of colon Status: Acute Plan patient is a good candidate for colonoscopy, will proceed.
[2024-09-02 08:35] VITALS: BP 116/64; PULSE 68; RESP 13; O2SAT 98
[2024-09-02 08:45] VITALS: BP 124/69; PULSE 76; RESP 18; O2SAT 99
[2024-09-02 08:55] VITALS: BP 127/71; PULSE 68; RESP 18; O2SAT 100
== END 2024-09-02 09:02 | disposition home or self-care (01) ==
PROVIDERS: PCP Internal Medicine; Visit Provider Internal Medicine Gastroenterology
PROC: 0DJD8ZZ Inspection of Lower Intestinal Tract, Via Natural or Artificial Opening Endoscopic (ICD-10-PCS; CPT 45378; principal; 2024-09-02 08:00)
DX: Z12.11 Encounter for screening for malignant neoplasm of colon (principal); I87.2 Venous insufficiency (chronic) (peripheral); I10 Essential (primary) hypertension
CPT/HCPCS: G0105; J2003; J2704; J7120

== ENCOUNTER 2025-01-27 12:29 | Outpatient (CLI) | payer MEDICARE, SELFPAY ==
[2025-01-27 12:50] LABS: Basophils Absolute Auto 0.02 K/mm3 (0.00-0.10); Basophils Percent Auto 0.4 % (0.0-1.0); Eosinophils Absolute Auto 0.14 K/mm3 (0.02-0.50); Eosinophils Percent Auto 2.7 % (1.0-6.0); Hematocrit 37.7 % (35.0-42.0); Hemoglobin 11.5 g/dL (11.7-13.8); Immature Granulocyte Absolute 0.02 K/mm3 (0.00-0.00); Immature Granulocyte Percent A 0.4 % (0.0-0.0); Lymphocytes Absolute Auto 1.99 K/mm3 (1.10-4.50); Lymphocytes Percent Auto 38.1 % (18.0-42.0); Mean Corpuscular HGB Conc 30.5 g/dL (32-36); Mean Corpuscular Volume 98.4 fL (78.0-102.0); Mean Platelet Volume 8.8 fl (9.2-11.8); Monocytes Absolute Auto 0.41 K/mm3 (0.10-0.90); Monocytes Percent Auto 7.9 % (2.0-11.0); Neutrophils Absolute Auto 2.64 K/mm3 (1.70-7.20); Neutrophils Percent Auto 50.5 % (50.0-70.0); Platelet Count Result 227 K/mm3 (150-420); Red Blood Count 3.83 M/mm3 (4.20-5.40); Red Cell Distribution Width 13.6 % (11.6-14.4); White Blood Count 5.2 K/mm3 (4.8-10.8)
[2025-01-27 13:15] LABS: Alanine Aminotransferase 17 U/L (14-59); Albumin Level 3.6 g/dL (3.4-5.0); Alkaline Phosphatase 82 U/L (46-116); Anion Gap 7 mmol/L (4-12); Aspartate Amino Transferase 14 U/L (15-37); Bilirubin,Total 0.5 mg/dL (0.00-1.00); Blood Urea Nitrogen 19 mg/dL (7-18); Calcium 8.6 mg/dL (8.5-10.1); Carbon Dioxide 32 mmol/L (21-32); Chloride 106 mmol/L (98-108); Cholesterol 148 mg/dL (0-200); Estimated Glomerular Filt Rate > 60; Glucose 87 mg/dL (70-99); HDL Direct 78 mg/dL (40-60); LDL Cholesterol Calculated 61 mg/dL (<130); Osmolality Calculated 301 mOsm/kg (285-295); Potassium 3.9 mmol/L (3.5-5.1); Sodium 145 mmol/L (136-145); Total Protein 6.9 g/dL (6.4-8.2); Triglycerides 43 mg/dL (0-150)
--- OUTSIDE RECORDS SUMMARY | 2025-01-27 14:01 | XMS_ITS | CONTINUITY OF CARE DOCUMENT ---
Author Name don ochoa Address Unknown Organization [facility] Address [address] [place] [address] Phone [phone] Care Team Providers Care Design Lead Name Role Phone Carlos PARKER, [facility] Unavailable [phone] ANJANA BRAVO MD Unavailable ANJANA BRAVO MD Unavailable INSURANCE PROVIDERS Payer name Policy type / Coverage type [place] [employer] party ID [id number] [employer] Medicare [id number]
--- OUTSIDE RECORDS SUMMARY | 2025-01-27 14:01 | XMS_ITS | Data Portability ---
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 Worse with activity somewhat relieved by rest she is tender laterally has pain to palpation manipulation the knee is stable quadriceps strength intact neurovascular examination unremarkable she walks with a bit of antalgic gait. Her x-rays show some degenerative change not [id number]. Recommended we try conservative treatment I injected with 20 mg Kenalog 4 cc 1% lidocaine the left knee. For prescription drug management will try Voltaren for pain and inflammation. I will see her back in a month for follow-up if she has any changes or problems she will call discussed. [email or web address] Not available 05/20/2023 11:43:58 06/20/2023 06/20/2023 Continue with current therapy diagnosis discussed see me in 6 months [email or web address] Not available 06/21/2023 18:26:23 06/24/2023 06/24/2023 Patient returns knee pain left grade continues to be symptomatic on left knee has pain mostly anteriorly. She has degenerative changes in the knee she has wear of not interested in a flexed knee surgery. She overall she is doing okay we will change her prescription to Voltaren for prescription drug management pain and inflammation she can wrap the knee and use as tolerated in the meantime. If gets worse or changes will reassess. [email or web address] Not available 06/24/2023 11:12:53 12/12/2023 12/12/2023 Continue current therapy stay physically active by walking little bit of strength training follow-up in 6 months [email or web address] Not available 01/03/2024 08:51:05 Plan of Treatment Reminders Order Date Submit Date Provider Last Modified By Organization Details Last Modified Time Details Appointments None recorded. Lab lipid panel, serum 2023 024 SCOTT Not available 4 13:56:46 CBC w/ auto diff 2023 024 SCOTT Not available 4 13:48:27 CMP, serum or plasma 2023 024 SCOTT Not available 4 13:56:51 Referral None recorded. Procedures injection/a spiration joint/bursa (PROC) - in office procedure, administere d by provider 2022 023 [email or web address] In-Office Order, Internal Use Only DO Not Attach Compendium DO Not Attach Compendium, Do Not Delete/merge, 119[address] 3 10:32:52 Surgeries None recorded. Imaging XR, knee 2022 023 alexy 158 [facility] [place], [facility] [facility] [address], [place], [address], 3 11:42:51 Medication Orders diclofenac sodium 75 mg tablet,latonia yed release 2022 023 alexy 158 [facility] [address] [place], [address], 3 11:10:35 Kenalog 10 mg/mL suspension for injection 2022 023 [id number] 223 [facility] [address] [place], [address], 4 07:40:33 ropivacaine (PF) 5 mg/mL (0.5 %) injection solution 2022 023 [id number] 223 [facility] [address] [place], [address], 4 07:40:33 diclofenac sodium 75 mg tablet,latonia yed release 2022 023 alexy 158 [facility] [address] [place], [address], 3 10:40:37 Patient TargetsNo targets recorded. Patient InstructionsNo instructions recorded. Reason for Referral None Reported. Results Created Date Observation Date Name Description Value Unit Range Abnormal Flag Note LastModifiedBy Organization Detail LastModifiedTime 12/12/19 24 12/12/2023 CBC/C OMPLE TE BLD COUNT W/DIF F white blood cells 6.5 x10'3 /uL 4.2-10 .8 Not Available [facility] (Lab) [address] [place], [address], 12/12/2023 13:48:27 12/12/19 24 12/12/2023 CBC/C OMPLE TE BLD COUNT W/DIF F red blood cells 4.03 x10'6 /uL 3.80-5 .20 Not Available [facility] (Lab) [address] [place], [address], 12/12/2023 13:48:27 12/12/19 24 12/12/2023 CBC/C OMPLE TE BLD COUNT W/DIF F hemoglobin 12.2 g/dL 12.0-1 5.6 Not Available [facility] (Lab) [address] [place], [address], 12/12/2023 13:48:27 12/12/19 24 12/12/2023 CBC/C OMPLE TE BLD COUNT W/DIF F hematocrit 40.4 % 35.7-4 5.7 Not Available [facility] (Lab) [address] [place], [address], 12/12/2023 13:48:27 12/12/19 24 12/12/2023 CBC/C OMPLE TE BLD COUNT W/DIF F mean red cell volume 100.2 fL 82.0-9 9.0 high Not Available [facility] (Lab) [address] [place], [address], 12/12/2023 13:48:27 12/12/19 24 12/12/2023 CBC/C OMPLE TE BLD COUNT W/DIF F mean red cell hemoglobin 30.3 pg 27.0-3 3.0 Not Available [facility] (Lab) [address] [place], [address], 12/12/2023 13:48:27 12/12/19 24 12/12/2023 CBC/C OMPLE TE BLD COUNT W/DIF F mean RBC HGB concentratio n 30.2 g/dL 31.0-3 6.0 low Not Available [facility] (Lab) [address] [facility] [place], [address], 12/12/2023 13:48:27 12/12/19 24 12/12/2023 CBC/C OMPLE TE BLD COUNT W/DIF F red cell distribution width 14.2 % 11.8-1 5.5 Not Available [facility] (Lab) [address] [place], [address], 12/12/2023 13:48:27 12/12/19 24 12/12/2023 CBC/C OMPLE TE BLD COUNT W/DIF F platelets 263 x10'3 /uL 150-40 0 Not Available [facility] (Lab) [address] [place], [address], 12/12/2023 13:48:27 12/12/19 24 12/12/2023 CBC/C OMPLE TE BLD COUNT W/DIF F mean platelet volume 9.8 fL 9.0-12 .4 Not Available [facility] (Lab) [address] [place], [address], 12/12/2023 13:48:27 12/12/19 24 12/12/2023 CBC/C OMPLE TE BLD COUNT W/DIF F neutrophils 60.1 % 39.0-7 2.0 Not Available [facility] (Lab) [address] [place], [address], 12/12/2023 13:48:27 12/12/19 24 12/12/2023 CBC/C OMPLE TE BLD COUNT W/DIF F lymphocytes 28.4 % 16.0-4 7.0 Not Available [facility] (Lab) [address] [place], [address], 12/12/2023 13:48:27 12/12/19 24 12/12/2023 CBC/C OMPLE TE BLD COUNT W/DIF F monocytes 8.1 % 5.0-12 .0 Not Available [facility] (Lab) [address] [place], [address], 12/12/2023 13:48:27 12/12/19 24 12/12/2023 CBC/C OMPLE TE BLD COUNT W/DIF F eosinophils 2.5 % 1.0-7. 0 Not Available [facility] (Lab) [address] [place], [address], 12/12/2023 13:48:27 12/12/19 24 12/12/2023 CBC/C OMPLE TE BLD COUNT W/DIF F basophils 0.6 % 0.0-2. 0 Not Available [facility] (Lab) [address] [place], [address], 12/12/2023 13:48:27 12/12/19 24 12/12/2023 CBC/C OMPLE TE BLD COUNT W/DIF F immature granulocytes 0.3 % 0.00-0 .50 Not Available [facility] (Lab) [address] [place], [address], 12/12/2023 13:48:27 12/12/19 24 12/12/2023 CBC/C OMPLE TE BLD COUNT W/DIF F neutrophils, absolute count 3.91 x10'3 /uL 1.5-8. 0 Not Available [facility] (Lab) [address] [place], [address], 12/12/2023 13:48:27 12/12/19 24 12/12/2023 CBC/C OMPLE TE BLD COUNT W/DIF F lymphocytes, absolute count 1.85 x10'3 /uL 1.07-3 .43 Not Available [facility] (Lab) [address] [place], [address], 12/12/2023 13:48:27 12/12/19 24 12/12/2023 CBC/C OMPLE TE BLD COUNT W/DIF F monocytes, absolute count 0.53 x10'3 /uL 0.29-0 .99 Not Available [facility] (Lab) [address] [place], [address], 12/12/2023 13:48:27 12/12/19 24 12/12/2023 CBC/C OMPLE TE BLD COUNT W/DIF F eosinophils, absolute count 0.16 x10'3 /uL 0.02-0 .53 Not Available [facility] (Lab) [address] [place], [address], 12/12/2023 13:48:27 12/12/19 24 12/12/2023 CBC/C OMPLE TE BLD COUNT W/DIF F basophils, absolute count 0.04 x10'3 /uL 0.01-0 .08 Not Available [facility] (Lab) [address] [place], [address], 12/12/2023 13:48:27 12/12/19 24 12/12/2023 CBC/C OMPLE TE BLD COUNT W/DIF F immature granulocytes ,absolute 0.02 x10'3 /uL 0.00-0 .05 Not Available [facility] (Lab) [address] [place], [address], 12/12/2023 13:48:27 12/12/19 24 12/12/2023 CBC/C OMPLE TE BLD COUNT W/DIF F nucleated red blood cells 0.0 % -0 Not Available [facility] (Lab) [address] [place], [address], 12/12/2023 13:48:27 12/12/19 24 12/12/2023 CBC/C OMPLE TE BLD COUNT W/DIF F NRBC# 0.00 x10'3 /uL Not Available [facility] (Lab) [address] [place], [address], 12/12/2023 13:48:27 12/12/19 24 12/12/2023 LIPID PANEL cholesterol 160 mg/dL 140-19 9 NIH CHEL NSUS RECOM MENDA TION FOR TONYA STERO L: ADULT CHILD LOW RISK: <200 <170 BORDE RLINE : <200- 239 ----- HIGH RISK: >240 >200 Not Available [facility] (Lab) [address] [place], [address], 12/12/2023 13:56:46 12/12/19 24 12/12/2023 LIPID PANEL triglyceride s 79 mg/dL 0-150 NIH CHEL NSUS REPOR T RECOM MENDA TION FOR TRIGL YCERI GUIDO: ADULT CHILD LOW RISK: <150 ----- BODER LINE: 150-1 99 ----- HIGH RISK: >200 ----- Not Available [facility] (Lab) [address] [place], [address], 12/12/2023 13:56:46 12/12/19 24 12/12/2023 LIPID PANEL HDL cholesterol 79 mg/dL 40- Not Available [facility] (Lab) [address] [place], [address], 12/12/2023 13:56:46 12/12/19 24 12/12/2023 LIPID PANEL LDL cholesterol, calculated 65 mg/dL 0-130 NIH CHEL NSUS REPOR T RECOM MENDA TIONS FOR LDL: ADULT CHILD LOW RISK <130 <110 (OPTI MAL LDL) <100 ----- MALCOLM RLINE : 130-1 59 ----- HIGH RISK: >160 >130 A TRIGL YCERI DE RESUL T >400 INVAL IDATE S THE CALCU LATIO N FOR LDL FRACT IONAT ION - THE LDL RESUL T WILL NOT BE REPOR XAVIER. Not Available [facility] (Lab) [address] [place], [address], 12/12/2023 13:56:46 12/12/19 24 12/12/2023 COMPR EHENS NIELS METAB OLIC PANEL sodium 141 mmol/ L 137-14 5 Not Available [facility] (Lab) [address] [place], [address], 12/12/2023 13:56:51 12/12/19 24 12/12/2023 COMPR EHENS NIELS METAB OLIC PANEL potassium 4.4 mmol/ L 3.5-5. 1 Not Available [facility] (Lab) [address] [place], [address], 12/12/2023 13:56:51 12/12/19 24 12/12/2023 COMPR EHENS NIELS METAB OLIC PANEL chloride 106 mmol/ L 98-107 Not Available [facility] (Lab) [address] [place], [address], 12/12/2023 13:56:51 12/12/19 24 12/12/2023 COMPR EHENS NIELS METAB OLIC PANEL carbon dioxide 29 mmol/ L 22-30 Not Available [facility] (Lab) [address] [place], [address], 12/12/2023 13:56:51 12/12/19 24 12/12/2023 COMPR EHENS NIELS METAB OLIC PANEL anion gap 10.4 mmol/ L 14-22 low Not Available [facility] (Lab) [address] [place], [address], 12/12/2023 13:56:51 12/12/19 24 12/12/2023 COMPR EHENS NIELS METAB OLIC PANEL glucose 99 mg/dL 70-99 Not Available [facility] (Lab) [address] [place], [address], 12/12/2023 13:56:51 12/12/19 24 12/12/2023 COMPR EHENS NIELS METAB OLIC PANEL BUN 20 mg/dL 8-19 high Not Available [facility] (Lab) [address] [place], [address], 12/12/2023 13:56:51 12/12/19 24 12/12/2023 COMPR EHENS NIELS METAB OLIC PANEL creatinine 0.62 mg/dL 0.66-1 .25 low Not Available [facility] (Lab) [address] [place], [address], 12/12/2023 13:56:51 12/12/19 24 12/12/2023 COMPR EHENS NIELS METAB OLIC PANEL GFR >60 Refer ence Range : [place] ge GFR Healt hy Adult : >60 mL/mi n/1.7 3 m2 Chron ic Kidne y Disea se: 15-60 mL/mi n/1.7 3 m2 Kidne y Failu re: <15/m L/min /1.73 m2 www.n iddk. nih.g ov The MDRD study equat ion has not been valid ated in child katarzyna <18 years of age; pregn ant women ; the elder ly >85 years of age; or in some racia l or ethni c subgr oups, such as Hispa nics. Outsi de the valid ated nerissa eters , estim ated GFR is less accur ate, requi ring clini angie judgm ent on a case- by-ca se basis . Clini angie inter preta tion for other races and ages must be made by the clini faheem. The MDRD study equat ion has not been valid ated for the evalu ation of serum creat inine relat ed to nutri diana l statu s or medic ation usage . For perso ns <18 years of age, a pedia tric GFR calcu laturvashi is avail able on the [facility] websi te: https ://samra villalobos.o rg/pr ofess ional s/kdo qi/gf r_cal culat or Not Available [facility] (Lab) [address] [place], [address], 12/12/2023 13:56:51 12/12/19 24 12/12/2023 COMPR EHENS NIELS METAB OLIC PANEL alkaline phosphatase 72 U/L 38-126 Not Available [facility] (Lab) [address] [place], [address], 12/12/2023 13:56:51 12/12/19 24 12/12/2023 COMPR EHENS NIELS METAB OLIC PANEL alanine aminotransfe rase 18 U/L 0-35 Not Available [facility] (Lab) [address] [place], [address], 12/12/2023 13:56:51 12/12/19 24 12/12/2023 COMPR EHENS NIELS METAB OLIC PANEL aspartate aminotransfe rase 25 U/L 15-37 Not Available [facility] (Lab) [address] [place], [address], 12/12/2023 13:56:51 12/12/19 24 12/12/2023 COMPR EHENS NIELS METAB OLIC PANEL bilirubin, total 0.60 mg/dL 0.20-1 .30 Not Available [facility] (Lab) [address] [place], [address], 12/12/2023 13:56:51 12/12/19 24 12/12/2023 COMPR EHENS NIELS METAB OLIC PANEL calcium 9.3 mg/dL 8.4-10 .2 Not Available [facility] (Lab) [address] [place], [address], 12/12/2023 13:56:51 12/12/19 24 12/12/2023 COMPR EHENS NIELS METAB OLIC PANEL total protein 7.1 g/dL 6.3-8. 2 Not Available [facility] (Lab) [address] [place], [address], 12/12/2023 13:56:51 12/12/19 24 12/12/2023 COMPR EHENS NIELS METAB OLIC PANEL albumin 4.0 g/dL 3.0-4. 4 Not Available [facility] (Lab) [address] [place], [address], 12/12/2023 13:56:51 12/12/19 24 12/12/2023 COMPR EHENS NIELS METAB OLIC PANEL globulin 3.1 g/dL 2.6-4. 2 Not Available [facility] (Lab) [address] [place], [address], 12/12/2023 13:56:51 12/12/19 24 12/12/2023 COMPR EHENS NIELS METAB OLIC PANEL A/G ratio 1.3 ratio 1.0-2. 0 Not Available [facility] (Lab) [address] [place], [address], 12/12/2023 13:56:51 04/17/20 23 04/17/2023 MAMMO , scree shahnaz, digit al, bilat eral No observ ation record ed. [email or web address] [place] [address] [address], [place], [address], 06/21/2023 09:34:28 05/20/20 23 XR, knee No observ ation record ed. [email or web address] [facility] [address], [place], [address], 05/20/2023 11:42:50 Result Notes None recorded. Problems Name Problem SNOMED Code Status Onset Date Resolution Date Notes Provider Name and Address Organization Details Recorded Time Benign essential hypertensi on 5688831 Active Not Available [facility] 4 07:40:33 Acquired trigger finger 3093131 Active Not Available [facility] 4 07:40:33 Chondromal acia of right patella 8341472617589 9108 Active 2021 Not Available [facility] 4 07:40:33 Peripheral venous insufficie ncy 31283404 Active Not Available [facility] 4 07:40:33 Pain in thumb 629875371 Active Not Available [facility] 4 07:40:33 Tear of medial meniscus of knee 248995819 Active 2021 Not Available [facility] 4 07:40:34 Tear of medial meniscus of knee 529670632 Active 2021 Not Available [facility] 4 07:40:33 Tear of lateral meniscus of knee 817691059 Active 2021 Not Available [facility] 4 07:40:34 Tear of lateral meniscus of knee 838481951 Active 2021 Not Available [facility] 4 07:40:34 Knee pain Active Not Available [facility] 4 07:40:34 Ureteric stone 24537848 Active Not Available [facility] 4 07:40:34 Diastolic dysfunctio n 5346225 Active Not Available [facility] 4 07:40:34 Pain of left knee joint 4738144904793 07 Active 2021 Not Available [facility] 4 07:40:34 Pain of bilateral knee joints 9827296637563 04 Active 2021 Not Available [facility] 4 07:40:34 Upper respirator y infection 99123300 Active Not Available [facility] 4 07:40:34 Heart disease 18048305 Active Not Available [facility] 4 07:40:34 Carpal tunnel syndrome 93544969 Active Not Available [facility] 4 07:40:34 COVID-19 758446716 Active 2021 Not Available [facility] 4 07:40:34 Osteoarthr itis 150525066 Active 2022 Not Available [facility] 4 07:40:34 Osteoarthr itis of right knee joint 8924412323093 00 Active 2022 Not Available [facility] 4 07:40:34 Problem Notes None recorded. Procedures Surgical History Date Name Laterality Status Provider Name and Address Organization Details Recorded Time 05/20/20 23 Ortho - Cortisone Injection completed Marco Antonio Soliz MD [address] [place] [address], [facility] [address], [place], [address], [facility] 05/20/2023 11:45:09 09/12/20 22 KNEE ARTHROSCOPY WITH MEDIAL MENISCECTOMY (SURG) completed Not Available [facility] 01/30/2023 01:31:46 09/11/20 22 KNEE ARTHROSCOPY WITH MEDIAL MENISCECTOMY (SURG) completed Not Available [facility] 01/30/2023 01:31:46 09/11/20 22 KNEE ARTHROSCOPY WITH MEDIAL MENISCECTOMY (SURG) completed Not Available [facility] 01/30/2023 01:31:46 02/16/20 21 Most Recent Bone Density completed Not Available [facility] 01/30/2023 00:58:34 02/06/20 18 Date of Last Colonoscopy completed Not Available [facility] 01/30/2023 00:58:34 07/23/20 02 colposcopy completed Not Available [facility] 00:58:42 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, [place], [address], 05/20/2023 11:42:50 Procedure Notes None recorded. Medical Equipment None Reported. Allergies Allergen ID Allergen Name Allergen Category Reaction Reaction Severity Criticality Documentation Date Start Date Code Code System Note Provider Name and Address Organization Details Recorded Time 2583 Substance with sulfonami de structure and antibacte rial mechanism of action (substanc e) medicatio n rash Not available Not available 01/30/2023 69261 8003 SNOMED Not Available [facility] 3 01:31:03 2585 Bactrim medicatio n rash Not available Not available 01/30/2023 32754 9 RxNorm Not Available [facility] 3 01:31:03 Medications Name Sig Start Date Stop Date Status Note LastModified by Organization Details LastModified Time prednisone 10 mg tablet TAKE 1 TABLET BY MOUTH 3 TIMES DAILY FOR 3 DAYS, THEN TAKE 1 TABLET TWICE DAILY FOR 2 DAYS, THEN TAKE 1 TABLET DAILY FOR 1 DAY. 08/16 completed Not Available Not Available Not Available hydrocodone 5 mg-acetamin ophen 325 mg tablet TAKE 1 TABLET BY MOUTH EVERY 4 HOURS NEEDED 12/20 completed Not Available Not Available Not Available phenazopyri dine 200 mg tablet active Not Available Not Available Not Available Zithromax Z-Delvis 250 mg tablet use as directed 05/12 completed Not Available Not Available Not Available ciprofloxac in 500 mg tablet 09/10 completed Not Available Not Available Not Available prednisone 10 mg tablets in a dose pack Take 1 tab by mouth, 3 times a day for 3 daysTake 1 tab by mouth 2 times a day for 2 daysTake 1 tab by mouth once a day for 1 day 08/16 completed Not Available Not Available Not Available Celebrex 200 mg capsule Take 1 capsule every day by oral route. 08/16 completed Not Available Not Available Not Available tamsulosin 0.4 mg capsule 09/10 completed Not Available Not Available Not Available Kenalog 10 mg/mL suspension for injection in office 2022 active ND: 0003- 0494- 20 Not Available Not Available Not Available cephalexin 500 mg capsule 03/01 completed Not Available Not Available Not Available lisinopril 10 mg tablet active Not Available Not Available Not Available Xylocaine 20 mg/mL (2 %) injection solution Take 80 mg by injection route. 08/16 completed Not Available Not Available Not Available diclofenac sodium 75 mg tablet,latonia yed release Take 1 tablet by mouth twice daily 2023 active Not Available Not Available Not Avai lable hydrocodone 5 mg-acetamin ophen 500 mg tablet 09/10 completed Not Available Not Available Not Available ondansetron 4 mg disintegrat ing tablet 09/10 completed Not Available Not Available Not Available fluticasone propionate 50 mcg/actuati on nasal spray,suspe nsion 09/10 completed Not Available Not Available Not Available diazepam 5 mg tablet 09/10 completed Not Available Not Available Not Available Ventolin HFA 90 mcg/actuati on aerosol inhaler 09/10 completed Not Available Not Available Not Available multivitami n 1 Gummy daily 03/08 completed Not Available Not Available Not Available Suprep Bowel Prep Kit 17.5 gram-3.13 gram-1.6 gram oral solution 09/10 completed Not Available Not Available Not Available ropivacaine (PF) 5 mg/mL (0.5 %) injection solution in office 2022 active [facility] [phone] Not Available Not Available Not Available Paxlovid 300 mg (150 mg x 2)-100 mg tablets in a dose pack TAKE 3 TABLETS TWICE A DAY BY ORAL ROUTE FOR 5 DAYS 05/20 completed Not Available Not Available Not Available Vitals Date Recorded Body mass index (BMI) Body height Heart rate Body temperature Body weight Systolic blood pressure Diastolic blood pressure Provider Name and Address Organization Details Last Updated DateTime 3 41.2 kg/m2 162.56 cm 72 /min 98.7 [degF] 040643. 17 g 120 mm[Hg] 76 mm[Hg] Not Available [facility] 3 01:02:22 Date Recorded Body height Body mass index (BMI) Body weight Provider Name and Address Organization Details Last Updated DateTime 05/20/2023 162.56 cm 38.6 kg/m2 102315.28 g RANDY Phelps - [facility] [employer] [facility] 05/20/2023 09:46:56 Date Recorded Body height Body mass index (BMI) Body weight Body temperature Heart rate Systolic blood pressure Diastolic blood pressure Provider Name and Address Organization Details Last Updated DateTime 3 162.56 cm 38.8 kg/m2 087711. 88 g 97.4 [degF] 70 /min 136 mm[Hg] 80 mm[Hg] Rita Jeffries [facility] [employer] [facility] 3 10:10:40 Date Recorded Body height Body mass index (BMI) Body weight Provider Name and Address Organization Details Last Updated DateTime 06/24/2023 162.56 cm 28.8 kg/m2 22396.52 g Ruma Jone [facility] [employer] [facility] 06/24/2023 09:18:31 Date Recorded Body height Body mass index (BMI) Body weight Body temperature Heart rate Systolic blood pressure Diastolic blood pressure Provider Name and Address Organization Details Last Updated DateTime 4 162.56 cm 36.7 kg/m2 24693.7 7 g 97.5 [degF] 78 /min 136 mm[Hg] 90 mm[Hg] Rita Jeffries Kailash [facility] [employer] [facility] 4 10:19:27 Social History Question Answer Notes LastModified by Organization Details LastModified Time Tobacco Smoking Status Never Smoker Elijah Car[facility] [employer] [facility] 12/12/2023 10:15:25 Do You Have An Advance Directive? No Patient Declined Informatio n. [id number] Information not available 01/30/2023 What Is Your Level Of Alcohol Consumption? Occasional MIGRATION.[id number] Information not available 01/30/2023 Are You Blind Or Do You Have Difficulty Seeing? No Information not available 12/12/2023 What Is Your Level Of Caffeine Consumption? Heavy MIGRATION.030 [id number] Information not available 01/30/2023 How Much Tobacco Do You Chew? None [id number].030 [id number] Information not available 01/30/2023 In The 14 Days Before Symptom Onset, Have You Had Close Contact With A Laboratory-conf jenn REEDERID-19 While That Case Was Ill? No Information not available 12/12/2023 In The 14 Days Before Symptom Onset, Have You Had Close Contact With A Person Who Is Under Investigation For COVID-19 While That Person Was Ill? No Information not available 12/12/2023 Are You Deaf Or Do You Have Serious Difficulty Hearing? No Information not available 12/12/2023 What Type Of Diet Are You Following? REGULAR [id number] Information not available 01/30/2023 Which Illicit Or Recreational Drugs Have You Used? None Information not available 12/12/2023 Do You Or Have You Ever Used E-cigarettes Or Vape? Never Used Electronic Cigarettes Information not available 12/12/2023 What Is The Highest Grade Or Level Of School You Have Completed Or The Highest Degree You Have Received? [id number] Information not available 12/12/2023 What Is Your Occupation? Retired Information not available 12/12/2023 Have There Been Any Changes To Your Family Or Social Situation? No Information not available 12/12/2023 What Is The Fluoride Status Of Your Home? Unknown Information not available 12/12/2023 Are There Any Guns Present In Your Home? No Information not available 12/12/2023 Do You Use Insect Repellent Routinely? No Information not available 12/12/2023 Where Do You Live? SingleLevelHouse Information not available 12/12/2023 Do You Have A Medical Power Of Senior It Auditor? No Information not available 12/12/2023 What Was The Date Of Your Most Recent Tobacco Screening? 12/12/2023 [email or web address] Information not available 12/12/2023 Have You Ever Been Counseled For Unhealthy Alcohol Use? No Information not available 12/12/2023 Do You Have Any Pets? Yes Information not available 12/12/2023 What Is Your Relationship Status? [id number] Information not available 01/30/2023 Do You Use Your Seat Belt Or Car Seat Routinely? Yes Information not available 12/12/2023 Do You Have Smoke And Carbon Monoxide Detectors In Your Home? Yes Information not available 12/12/2023 Are You Passively Exposed To Smoke? No Information not available 12/12/2023 Do You Or Have You Ever Used Smokeless Tobacco? Never Used Smokeless Tobacco MIGRATION.[id number] Information not available 01/30/2023 Are There Any Smokers In Your House? No Information not available 12/12/2023 How Much Tobacco Do You Smoke? No MIGRATION.[id number] [id number] Information not available 01/30/2023 What Types Of Sporting Activities Do You Participate In? None Information not available 12/12/2023 Do You Feel Stressed (tense, Restless, Nervous, Or Anxious, Or Unable To Sleep At Night)? [id number] Information not available 12/12/2023 Do You Use Any Illicit Or Recreational Drugs? No Information not available 12/12/2023 Do You Use Sunscreen Routinely? Yes Information not available 12/12/2023 Has Tobacco Cessation Counseling Been Provided? No Not Needed-nev er Smoked Information not available 12/12/2023 How Many Years Have You Smoked Tobacco? 0 Information not available 12/12/2023 Have You Recently Traveled Abroad? No Information not available 12/12/2023 Do You Have Any Dietary Restrictions? No Information not available 12/12/2023 Do You Or Have You Ever Used Any Other Forms Of Tobacco Or Nicotine? No Information not available 12/12/2023 Sex: Female Functional Status Question Answer Note LastModified by Organizat ion Details LastModified Time Do you have difficulty walking or climbing stairs? No Information not available 12/12/2023 Do you have transportation difficulties? No Information not available 12/12/2023 Are you able to walk? YESWOREST Information not available 12/12/2023 Do you have difficulty doing errands alone? No Information not available 12/12/2023 Are you able to care for yourself? Yes Information n ot available 12/12/2023 Do you have difficulty dressing or bathing? No Information not available 12/12/2023 What is your exercise level? None [id number] Information not available 01/30/2023 Mental Status Question Answer Note LastModified by Organization D etails LastModified Time Do you have difficulty concentrating, remembering or making decisions? No Information no t available 12/12/2023 Family History Relationship Description Onset Age of this Age Resolved Age Notes LastModified by Organization Details LastModified Time Father Heart disease [id number] Not available 01/30/2023 00:58:45 Father Hypertensive disorder [id number].[id number] Not available 01/30/2023 00:58:45 Father Kidney disease MIGRATION.685 [id number] Not available 01/30/2023 00:58:45 Mother Osteoporosis cyahl Not availab le 12/12/2023 10:15:25 Mother Hypertensive disorder MIGRATION.008 [id number] Not available 01/30/2023 00:58:45 Notes:GRANDMOTHER & AUNT - [facility] Medical History Condition Response NERVE DISEASE N BLINDNESS N RHEUMATIC FEVER N KIDNEY STONES Y BLADDER PROBLEMS N MRSA N OTHER # 1 Y POLIO N LUNG DISEASE/DISORDER N HISTORY OF DRUG ABUSE N RADIATION / CHEMOTHERAPY N COPD N Other # 2 N BLOOD DISEASES N EAR OR HEARING PROBLEMS N MUMPS N SHINGLES N BOWEL PROBLEMS N DEPRESSION (INCLUDING POST ) N STROKE/TIA N ULCERS N BENIGN PROSTATIC HYPERPLASIA N MEASLES N HYPOTENSION N MYOCARDIAL INFARCTION N OBESITY N GERD/NAUSEA N ANEURYSM N URINARY/BLADDER/KIDNEY PROBLEMS Y CORONARY ARTERY DISEASE (CAD) N ADDICTION CONCERNS N ENDOMETRIOSIS N Impotence N USE OF BLOOD THINNERS N SKIN PROBLEMS N GASTROINTESTINAL DISORDER N PERIPHERAL VASCULAR DISEASE N MUSCLE,JOINT OR BONE PROBLEMS N GASTROINTESTINAL BLEEDING N BLOOD CLOTS N ASTHMA N CATARACTS N ERECTILE DYSFUNCTION N VARICOSITIES N GI PROBLEMS N Low Testosterone N INFERTILITY N AIDS/HIV N CHEMOTHERAPY / RADIATION N LIVER DISEASE N MALE HYPOGONADISM N HYPERTENSION Y Deficiency N TOURETTE'S N ANXIETY DISORDER N BLOOD TRANSFUSION N ANEMIA/BLOOD DISORDER N CHRONIC EAR INFECTIONS N BRONCHITIS N TUBERCULOSIS N GLAUCOMA N FOOT PROBLEM N DIVERTICULITIS N CHICKENPOX N SLEEP APNEA N INFECTIOUS DISEASE N HEART ARRHYTHMIA N PROSTATE N INSOMNIA N HIGH CHOLESTEROL / HYPERLIPIDEMIA N HYPERTHYROIDISM N EYE PROBLEMS N EDEMA N CHRONIC PAIN SYNDROME N HYPOTHYROIDISM N CAROTID BLOCKAGE N CONSTIPATION N BACK / NECK PROBLEMS N HAVE YOU BEEN HOSPITALIZED OR SEEN IN [facility] IN THE PAST YEAR ? N ATHEROSCLEROSIS N BREAST PROBLEMS N DIALYSIS N ECZEMA N OSTEOPOROSIS N ARTHRITIS N APPENDICITIS N DIABETES, TYPE N BAD TEETH N ENT N HEARTBURN / REFLUX N AUTISM SPECTRUM DISORDER (ASD) N HEPATITIS / LIVER DISEASE N GOUT N SLEEP DISORDER N ALZHEIMER'S DISEASE N Brain Problems N HERPES N DEMENTIA N HEADACHES/MIGRAINES N SEIZURES/EPILEPSY N VASCULAR DISEASE N PACEMAKER N Blood Disorder N DIZZINESS N HEART DISEASE/HEART PROBLEMS Y KIDNEY DISEASE N MULTIPLE SCLEROSIS N CARDIAC ARRHYTHMIA N CANCER: SPECIFY N ATRIAL FIBRILLATION N Gall Stones N PULMONARY EMBOLISM N AUTOIMMUNE DISEASE N Gynecological History Statement/Question Response Menses Monthly N How many live births 2 Abnormal Pap Y Date of Last Pap 12/19/2020 Date of Last Mammogram 01/09/2021 Date of Last Colonoscopy 02/05/2018 Most Recent Bone Density 02/15/2021 Obstetrics History GPAL:G 2 P 2 0 0 2 Type Value Full Term 2 Living 2 Total 2 Immunizations Vaccine Type Date Status Note Provider Nam e and Address Organization Details Recorded Time COVID-19, mRNA, LNP-S, PF, 100 mcg/0.5mL dose or 50 mcg/0.25mL dose 03/10/2021 completed Not Available [facility] 4 07:40:34 COVID-19, mRNA, LNP-S, PF, 100 mcg/0.5mL dose or 50 mcg/0.25mL dose 02/08/2021 completed Not Available [facility] 4 07:40:34 COVID-19, mRNA, LNP-S, bivalent, PF, 50 mcg/0.5 mL or 25mcg/0.25 mL dose 12/27/2022 completed Not Available [facility] 4 07:40:34 Tdap 10/08/2014 completed Not Available [facility] 12/16/2023 07:40:34 Past Encounters Encounter ID Performer Location Encounter Start Date Encounter Closed Date Diagnosis/Indication Diagnosis SNOMED-CT Code Diagnosis ICD10 Code Diagnosis Note [id number] [facility] [address] , [facility] [address] [place] [address] 01/30/2021 00:00:00 02/18/2021 13:50:36 [id number] [facility] [place] [address] [facility] [address] [facility] [place] [address] 08/03/2021 00:00:00 08/06/2021 20:42:37 [id number] [facility] [place] [address] [facility] [place] [address] [address] [place] [address] 03/01/2022 00:00:00 03/01/2022 13:22:34 [id number] [facility] [place] [address] [place] [address] 03/08/2022 00:00:00 03/08/2022 11:18:56 [id number] [facility] [place] [address] [place] [address] 03/19/2022 00:00:00 03/19/2022 11:47:59 [id number] [facility] [place] [address] [place] [address] 04/16/2022 00:00:00 04/16/2022 09:22:09 [id number] [facility] [place] [address] [place] [address] 05/28/2022 00:00:00 05/28/2022 09:36:34 [id number] [facility] [place] [address] [place] [address] 07/26/2022 00:00:00 07/26/2022 13:01:01 [id number] [facility] [place] [address] [place] [address] 08/02/2022 00:00:00 08/02/2022 10:48:03 [id number] [facility] [address] [place] [address], [facility] [address] [place] [address] 08/16/2022 00:00:00 09/23/2022 21:07:54 [id number] [facility] [place] [address] [place] [address] 09/24/2022 00:00:00 09/24/2022 11:09:36 [id number] [facility] [place] [address] [place] [address] 12/20/2022 00:00:00 01/06/2023 22:23:11 [id number] Marco Antonio Soliz MD [facility] [place] [address] [place] [address] 05/20/2023 09:21:24 05/20/2023 11:08:02 Pain of bilateral knee joints 7744109070 39173 M25.561 M25.562 Tear of la teral meniscus of knee 149695520 S83.282D Chondromal acia of right patella 5566898614 [id number] M22.41 [id number] Anjana Chen MD [facility] [place] [address] [facility] [place] [address] 06/20/2023 10:05:31 06/20/2023 10:45:42 Benign essential hypertension 3031336 I10 Diastolic dysfunction 35 50055 I51.9 Osteoarthritis 861309265 M19.90 [id number] Marco Antonio Soliz MD [facility] [place] [address] [place] [address] 06/24/2023 09:10:14 06/24/2023 11:13:34 Osteoarthritis of right knee joint 9512483529 83453 M17.11 Tear of la teral meniscus of knee 149220902 S83.282D [id number] Anjana Chen MD [facility] [place] [address] [facility] [place] [address] 12/12/2023 10:14:20 12/12/2023 11:06:23 Benign essential hypertension 5465996 I10 Osteoarthritis 260469824 M19.90 Diastolic dysfunction 35 09356 I51.9 Health Concerns Section Related Observation LastModified by Organization Detai ls LastModified Time None Recorded Concern Status LastModified by Organization Details LastModified Time None Recorded Advance Directives Directive N: Patient declined informat ion. Payers Encounter Date Sequence Insurance Name Policy Number Policy Walsh Covered Member ID Walsh Member ID Guarantor Name 05/20/2023 1 [place] Dia Hall [id number] Dia Hall 05/20/2023 2 [employer] OPTIONS (MEDICARE SUPPLEMENT) Dia Hall [id number] Dia Hall 06/20/2023 1 [place] Dia Hall [id number] Dia Hall 06/20/2023 2 [employer] OPTIONS (MEDICARE SUPPLEMENT) Dia Hall [id number] Dia Hall 06/24/2023 1 [place] Dia Hall [id number] Dia Hall 06/24/2023 2 [employer] OPTIONS (MEDICARE SUPPLEMENT) Dia Hall [id number] Dia Hall 12/12/2023 1 [place] Dia Hall [id number] Dia Hall 12/12/2023 2 [employer] OPTIONS (MEDICARE SUPPLEMENT) Dia Hall [id number] Dia Lord [facility] Notes Date Note Type Note Provider Name and Address Organization Details Recorded Time 05/20/2023 text/html Patient returns knee pain LEFT. I scoped her knee 8 months ago over the last month the pain is begun returning primarily with activity. She has she has a catching and locking but mostly pain and aching in the knee. This is her left knee. Marco Antonio Soliz MD [address] [employer] [place], [address], [employer] 05/20/2023 11:45:46 06/20/2023 text/html Hypertension no headache or dizziness diastolic dysfunction no PND orthopnea osteoarthritis stable uses anti-inflammatories sparingly Anjana Chen MD [address], [place], [address], [employer] 06/21/2023 18:26:40 06/24/2023 text/html Patient returns knee pain LEFT. I scoped her knee 8 months ago over the last month the pain is begun returning primarily with activity. She has she has a catching and locking but mostly pain and aching in the knee. This is her left knee. Marco Antonio Soliz MD [address], [place], [address], [employer] 06/24/2023 11:13:25 12/12/2023 text/html Hypertension no headache or dizziness diastolic dysfunction no PND orthopnea osteoarthritis stable uses anti-inflammatories sparingly Anjana Chen MD [address] [facility], [facility] [address], [place], [address], [facility] [employer] [facility] 01/03/2024 08:51:21 OBGyn Episode No OBEpisode recorded.
--- OUTSIDE RECORDS SUMMARY | 2025-01-27 14:01 | XMS_ITS | Data Portability ---
Author Organization [facility] Address [address] [facility] [place] [address] Care Team Providers Care Leach Cell Operator Name Role Phone LOI CHEN Primary Care Provider AMBAR TOMPKINS Medical Laboratory Technical Officer Assessment Encounter Date Assessment Date Assessment LastModified by Organization Details LastModified Time 06/29/2024 06/29/2024 obtain old records. Blood pressure appears to be controlled. use diclofenac sparingly we will get set up for colonoscopy screening. Follow up with me in 6 months she had blood work earlier this year we will get her old records so that can be looked at Not available 07/02/2024 18:36:08 Plan of Treatment Reminders Order Date Submit Date Provider Last Modified By Organization Details Last Modified Time Details Appointments ANY 15 2024 09:30A M Loi Chen MD Not available Not available Not available Lab None recorded. Referral None recorded. Procedures colonosco py screening (PROC) 2023 024 [facility], [address], [address], [address], 10/01/2024 16:22:39 Surgeries None recorded. Imaging None recorded. Medication Orders None recorded. Patient TargetsNo targets recorded. Patient InstructionsNo instructions recorded. Reason for Referral None Reported. Results Created Date Observation Date Name Description Value Unit Range Abnormal Flag Note LastModifiedBy Organization Detail LastModifiedTime 07/03/20 24 02/05/2018 colon oscop y proce dure (PROC ) No observ ation record ed. [facility] [id number], [place], [address], 07/03/2024 15:58:13 07/03/20 24 04/17/2023 MAMMO , chapoe shahnaz, digit al, bilat eral No observ ation record ed. BARCODE Not Available 2023 15:58:14 Result Notes None recorded. Problems Name Problem SNOMED Code Status Onset Date Resolution Date Notes Provider Name and Address Organization Details Recorded Time Essential hypertension 33921705 Active 2023 Loi Chen MD Attn: Rox schofield,[address] [facility], [place], [address], [place] - [facility] 4 18:35:38 Osteoarthritis 386720774 Active 2023 Loi Chen MD Attn: Rox schofield,[address] [facility], [place], [address], [facility] - [facility] 4 18:35:39 Peripheral venous insufficiency 96021195 Active 2023 Loi Chen MD Attn: Rox schofield,[address] [facility], [place], [address], [place] - [facility] 4 18:35:40 Hyperlipidemia 60707275 Active 2023 Loi Chen MD Attn: Rox schofield,[address] [facility], [place], [address], [place] [facility] 4 18:35:43 Left ventricular diastolic dysfunction 753582405 Active 2023 Loi Chen MD Attn: Rox schofield,[address] [facility], [place], [address], [place] - [facility] 4 18:35:45 Problem Notes None recorded. Procedures Surgical History Date Name Laterality Status Provider Name and Address Organization Details Recorded Time 12/02/19 15 Partial hysterectomy completed Tanja Soliz MA [place] - [facility] 06/29/2024 10:27:13 Imaging Results Imaging Date Name Status LastModified by Organization Details LastModified Time 02/05/2018 colonoscopy procedure (PROC) completed [facility] [address] [facility], [place], [address], 07/03/2024 15:58:13 04/17/2023 MAMMO, screening, digital, bilateral completed BARCODE Information not available 07/03/2024 15:58:14 Procedure Notes None recorded. Medical Equipment None Reported. Allergies Allergen ID Allergen Name Allergen Category Reaction Reaction Severity Criticality Documentation Date Start Date Code Code System Note Provider Name and Address Organization Details Recorded Time 829658 Bactrim medicatio n rash Not available Not available 01/18/2025 79314 9 RxNorm Not Available Not Available Not Available 083425 Substance with sulfonami de structure and antibacte rial mechanism of action (substanc e) medicatio n rash Not available Not available 01/18/2025 34490 8003 SNOMED Not Available Not Available Not Available Medications Name Sig Start Date Stop Date Status Note LastModified by Organization Details LastModified Time lisinopril 10 mg tablet Take 1 tablet by mouth once daily 2023 active Not Available Not Available Not Avai lable diclofenac sodium 75 mg tablet,delay ed release TAKE 1 TABLET BY MOUTH TWICE DAILY 01/18 completed Not Available Not Available Not Available Vitals Date Recorded Body height Body mass index (BMI) Body weight Oxygen saturation Oxygen saturation in Arterial blood by Pulse oximetry Heart rate Systolic blood pressure Diastolic blood pressure Provider Name and Address Organization Details Last Updated DateTime 4 162.56 cm 36.9 kg/m2 76072.3 6 g 96 % 96 % 67 /min 126 mm[Hg] 74 mm[Hg] Tanja Soliz MA [facility] 4 10:29:32 Date Recorded Body height Body mass index (BMI) Body weight Heart rate Oxygen saturation Oxygen saturation in Arterial blood by Pulse oximetry Systolic blood pressure Diastolic blood pressure Provider Name and Address Organization Details Last Updated DateTime 5 162.56 cm 37.7 kg/m2 69149.8 8 g 75 /min 96 % 96 % 124 mm[Hg] 78 mm[Hg] Kiki Smith MA [facility] 5 11:38:17 Date Recorded Pain severity - 0-10 verbal numeric rating [Score] - Reported Provider Name and Address Organization Details Last Updated DateTime 01/18/2025 0 Alexa Clements [facility] 01/18/2025 11:42:02 Social History Question Answer Notes LastModified by Organizat ion Details LastModified Time Tobacco Smoking Status Never Smoker Tanja Soliz MA [facility], [place] - [facility] 06/29/2024 10:25:11 Do You Have An Advance Directive? No Information not available 06/29/2024 What Is Your Level Of Alcohol Consumption? Occasional Information not available 06/29/2024 Are You Blind Or Do You Have Difficulty Seeing? No Information not available 06/29/2024 What Is Your Level Of Caffeine Consumption? Occasional Information not available 06/29/2024 In The 14 Days Before Symptom Onset, Have You Had Close Contact With A Person Who Is Under Investigation For COVID-19 While That Person Was Ill? No Information not available 01/18/2025 Have You Been To An Area Known To Be High Risk For COVID-19? No Information not available 01/18/2025 Are You Currently Employed? No Retired/ Part-time Information not available 06/29/2024 Are You Deaf Or Do You Have Serious Difficulty Hearing? No Information not available 06/29/2024 What Type Of Diet Are You Following? REGULAR Information not available 06/29/2024 Are There Any Guns Present In Your Home? No Information not available 01/18/2025 In The Past 7 Days, How Many Days Did You Exercise? -1 Information not available 01/18/2025 In The Past 7 Days, How Much Pain Have You [place]? None Information not available 01/18/2025 In General, Would You Say You Health Is: Good Information not available 01/18/2025 How Would You Describe The Condition Of Your Mouth And Teeth- Including False Teeth Or Dentures? Good Information not available 01/18/2025 Each Night, How Many Hours Of Sleep Do You Get? 5 Information no t available 01/18/2025 Has Anyone Ever Told You That You Snore? Yes Information not available 01/18/2025 In The Past 7 Days, How Often Have You [place] Sleepy In The Daytime? Sometimes Information not available 01/18/2025 # Alcohol Drinks Per Week 0 Information not available 01/18/2025 What Was The Date Of Your Most Recent Tobacco Screening? 01/18/2025 Information not available 01/18/2025 What Is Your Relationship Status? Information not available 01/18/2025 Do You Use Your Seat Belt Or Car Seat Routinely? Yes Information not available 06/29/2024 Do You Have Smoke And Carbon Monoxide Detectors In Your Home? Yes Information not available 06/29/2024 Do You Feel Stressed (tense, Restless, Nervous, Or Anxious, Or Unable To Sleep At Night)? [id number] Information not available 06/29/2024 Do You Use Any Illicit Or Recreational Drugs? No Information not available 06/29/2024 Do You Use Sunscreen Routinely? No Information not available 01/18/2025 Has Tobacco Cessation Counseling Been Provided? No Information not available 06/29/2024 Do You Or Have You Ever Used Any Other Forms Of Tobacco Or Nicotine? No Information not available 06/29/2024 Sex: Female Functional Status Question Answer Note LastModified by Organizat ion Details LastModified Time Are you able to care for yourself? Yes Information not available 06/29/2024 What is your exercise level? None active lifestyle Information not available 01/18/2025 Mental Status None recorded. Family History Relationship Description Onset Age of this Age Resolved Age Notes LastModified by Organization Details LastModified Time Father Heart disease bandersonma Not available 06/02 10:24:22 Father Kidney disease bandersonma Not available 06/02 10:24:34 Father Migraine bandersonma Not availa ble 06/29/2024 10:24:46 Medical History Condition Response Coronary Artery Disease N Other N High Blood Pressure Y Atrial Fibrillation N Kidney or Bladder Problems N Thyroid Problems N GI Problems N Depression N COPD N Blood Clots N Have you had a mammogram in the last yea r? Y Skin Problems N Anemia N Heart Attack (SD) N Anxiety Disorder N Diabetes N Muscle, Joint, or Bone Problems Y Seizures/Epilepsy N Have you had a colonoscopy in the last 1 0 years? Y Acid Reflux (GERD) N Cancer N Stroke N Asthma N Allergies N Have you had a PSA blood test in the t year? N High Cholesterol Y Hepatitis N Liver Disease N Headaches N Heart Failure N Osteoporosis N Gynecological HistoryNo gynecological history recorded. Obstetrics History GPAL:G 0 P 0 0 0 0 Immunizations Vaccine Type Date Status Note Provider Nam e and Address Organization Details Recorded Time COVID-19, mRNA, LNP-S, PF, 100 mcg/0.5mL dose or 50 mcg/0.25mL dose 02/08/2021 completed [place], [place] - [facility] 06/29/2024 10:23:27 COVID-19, mRNA, LNP-S, PF, 100 mcg/0.5mL dose or 50 mcg/0.25mL dose 03/10/2021 [place], [place] - [facility] 06/29/2024 10:23:27 COVID-19, mRNA, LNP-S, bivalent, PF, 50 mcg/0.5 mL or 25mcg/0.25 mL dose 12/27/2022 [place] [facility] 06/29/2024 10:23:27 Tdap 10/08/2014 [place] - [facility] 06/29/2024 10:23:27 Hep A, adult 05/03/2000 [facility] [place], [place] - [facility] 06/29/2024 10:23:27 Past Encounters Encounter ID Performer Location Encounter Start Date Encounter Closed Date Diagnosis/Indication Diagnosis SNOMED-CT Code Diagnosis ICD10 Code Diagnosis Note [id number] Loi Chen MD [facility] [place] [address] [place] [address] 06/29/2024 10:01:45 06/29/2024 10:41:01 Screening for malignant neoplasm of colon 546199141 Z12.11 Essential hypertension 39605368 I10 Osteoarthritis 298941591 M19.90 Peripheral venous insufficiency 97955720 I87.2 Hyperlipidemia 11070347 E78.5 Left ventr icular diastolic dysfunction 718221749 I51.9 [id number] Elijah Carrera MA [facility] [employer] [place] [address] [place] [address] 01/18/2025 11:01:56 01/18/2025 12:12:01 Body mass index 30+ - obesity 576927177 Z68.37 Obesity 812819278 E66.9 Adult heal th examination 552049212 Z00.00 Health Risk Assessment collected and reviewed Left ventr icular diastolic dysfunction 865721418 I51.9 Osteoarthritis 464091375 M19.90 Peripheral venous insufficiency 51061471 I87.2 Hyperlipidemia 17961241 E78.5 Essential hypertension 65411216 I10 Health Concerns Section Related Observation LastModified by Organization Detai ls LastModified Time None Recorded Concern Status LastModified by Organization Details LastModified Time None Recorded Advance Directives Directive N: Payers Encounter Date Sequence Insurance Name Policy Number Policy Walsh Covered Member ID Walsh Member ID Guarantor Name 06/29/2024 1 [place] ([place]ARE[place] [facility] [id number] [facility] 06/29/2024 2 [employer] OPTIONS (MEDICARE SUPPLEMENT) [facility] [id number] [facility] Notes Date Note Type Note Provider Name and Address Organization Details Recorded Time 06/29/2024 text/html 73-year-old following problems hypertension or chest pain or shortness breath palpitations. Osteoarthritis does use diclofenac sparingly. History of kidney stones stable peripheral venous insufficiency some swelling from time to time Loi Chen MD Attn: [employer] [place], [address], [facility] - [facility] 07/02/2024 18:36:28 OBGyn Episode No OBEpisode recorded.
== END 2025-01-27 12:30 | disposition home or self-care (01) ==
LOC: CHSLAB 12:33
PROVIDERS: PCP Internal Medicine; Visit Provider Internal Medicine
DX: I10 Essential (primary) hypertension (principal)
CPT/HCPCS: 36415; 80053; 80061; 85025

== ENCOUNTER 2025-02-04 09:14 | Outpatient (CLI) | payer MEDICARE, SELFPAY ==
--- NOTE | ~2025-02-04 | CT_ITS ---
EXAMINATION: CT abdomen pelvis w con DATE: 02/04/2025 10:07 INDICATION: Right lower quadrant abdominal swelling TECHNIQUE: Computed tomography (CT) of the abdomen and pelvis was performed with 100 mL Omnipaque-350 intravenous contrast. Automated exposure control and iterative reconstruction technique were employe d. The dose-length product was 1056.50 mGy-cm. COMPARISON: 10/02/2021 FINDINGS: Mild dependent atelectasis in the bilateral lower lobes. Heart size is normal. No pericardial or pleu ral effusion. Small sliding-type hiatal hernia. Liver, gallbladder, spleen, pancreas, bilateral adren al glands and kidneys are normal. Sigmoid predominant diverticulosis without adjacent inflammatory ch jasper to suggest diverticulitis. A loop of nonobstructed distal small bowel extends into a moderate-s ized right inguinal hernia. Small fat-containing left inguinal hernia. Bladder is normal. The uterus and bilateral ovaries are not identified and have likely been surgically resected with surgical clips at the bilateral adnexal regions. No free intraperitoneal gas or fluid. No pathologically enlarged a bdominal or pelvic lymphadenopathy. Severe lumbar spondylosis. IMPRESSION: 1. Loop of nonobstructed small bowel extends into a moderate-sized right inguinal hernia. 2. Small fat-containing left inguinal hernia. 2. Small sliding-type hiatal hernia. 4. Sigmoid diverticulosis. Reviewed, dictated and finalized at location L. RIFUGAL DRIER OPERATOR IMPRESSION: 1. Loop of nonobstructed small bowel extends into a moderate-sized right inguin al hernia. 2. Small fat-containing left inguinal hernia. 2. Small sliding-type hiatal hernia. 4. Sigmoid diverticulosis.
[2025-02-04 09:43] LABS: Estimated Glomerular Filt Rate > 60
== END 2025-02-04 09:15 | disposition home or self-care (01) ==
LOC: GOSHIMG 09:15
PROVIDERS: PCP Internal Medicine; Visit Provider Obstetrics & Gynecology
DX: K40.20 Bilateral inguinal hernia, without obstruction or gangrene, not specified as recurrent (principal); K44.9 Diaphragmatic hernia without obstruction or gangrene; K57.32 Diverticulitis of large intestine without perforation or abscess without bleeding
CPT/HCPCS: 74177; Q9967

== ENCOUNTER 2025-02-22 08:24 | Outpatient (CLI) | payer MEDICARE, SELFPAY ==
--- NOTE | 2025-02-22 08:34 | ECG_ITS ---
Test Date: 2025-02-22 08:45:27 Measurements Intervals [place] Rate: 70 P: 39 IN: 134 QRS: 4 QRSD: 97 T: 12 QT: 395 QTc: 427 Interpretive Statements SINUS RHYTHM POSSIBLE ANTERIOR MYOCARDIAL INFARCTION [30 ms Q WAVE IN V3/V4, OR R < 0.2 mV IN V4], PROBABLY OLD No previous ECG available for comparison Electronically Signed On 02-23-2025 15:28:30 CDT by Kobe Bautista M.D.
--- OUTSIDE RECORDS SUMMARY | 2025-02-22 08:53 | XMS_ITS | Data Portability ---
Author Organization [place] - [facility] [employer], Main Office Address [address] [place] [address] Care Team Providers Care Geography Professor Name Role Phone ANJANA CHEN Primary Care Provider ANJANA CHEN Referring Provider Assessment Encounter Date [...] Her x-rays show some degenerative change not ucij-[id number]. Recommended we try conservative treatment I injected with 20 mg Kenalog 4 cc 1% lidocaine the left knee. For prescription drug management will try Voltaren for pain and inflammation. I will see her back in a month for follow-up if she has any changes or problems she will call discussed. [email or web address] Not available 05/20/2023 11:43:58 06/20/2023 06/20/2023 Continue with current therapy diagnosis discussed see me in 6 months [email or web address] Not available 06/21/2023 18:26:23 06/24/2023 06/24/2023 Patient [...] If gets worse or changes will reassess. [email or web address] Not available 06/24/2023 11:12:53 12/12/2023 12/12/2023 Continue current therapy stay physically active by walking little bit of strength training follow-up in 6 months [email or web address] Not available 01/03/2024 08:51:05 Plan of Treatment [...] procedure, administere d by provider 2022 023 In-Office Order, Internal Use Only DO Not Attach Compendium DO Not Attach Compendium, Do Not Delete/merge, [id number] 3 10:32:52 Surgeries None recorded. Imaging XR, knee 2022 023 alexy 158 [facility] [place], [facility] [facility] [address], [place], [address], 3 11:42:51 Medication Orders diclofenac sodium 75 mg tablet,latonia yed release 2022 023 alexy 158 [facility] [address] [place], [address], 3 11:10:35 Kenalog 10 mg/mL suspension for injection 2022 023 [id number] 223 [facility] [address] [place], [address], 4 07:40:33 ropivacaine (PF) 5 mg/mL (0.5 %) injection solution 2022 023 [id number] 223 [facility] [address] [place], [address], 4 07:40:33 diclofenac sodium 75 mg tablet,latonia yed release 2022 023 alexy 158 [facility] [address] [place], [address], 3 10:40:37 Patient TargetsNo targets recorded. Patient InstructionsNo instructions recorded. Reason for Referral None Reported. Results Created Date Observation Date Name Description Value Unit Range Abnormal Flag Note LastModifiedBy Organization Detail LastModifiedTime 12/12/19 24 12/12/2023 CBC/C OMPLE TE BLD COUNT W/DIF F white blood cells 6.5 x10'3 /uL 4.2-10 .8 Not Available [facility] (Lab) [address] [place], [address], 12/12/2023 13:48:27 12/12/19 24 12/12/2023 CBC/C OMPLE TE BLD COUNT W/DIF F red blood cells 4.03 x10'6 /uL 3.80-5 .20 Not Available [facility] (Lab) [address] [place], [address], 12/12/2023 13:48:27 12/12/19 24 12/12/2023 CBC/C OMPLE TE BLD COUNT W/DIF F hemoglobin 12.2 g/dL 12.0-1 5.6 Not Available [facility] (Lab) [address] [place], [address], 12/12/2023 13:48:27 12/12/19 24 12/12/2023 CBC/C OMPLE TE BLD COUNT W/DIF F hematocrit 40.4 % 35.7-4 5.7 Not Available [facility] (Lab) [address] [place], [address], 12/12/2023 13:48:27 12/12/19 24 12/12/2023 CBC/C OMPLE TE BLD COUNT W/DIF F mean red cell volume 100.2 fL 82.0-9 9.0 high Not Available [facility] (Lab) [address] [place], [address], 12/12/2023 13:48:27 12/12/19 24 12/12/2023 CBC/C OMPLE TE BLD COUNT W/DIF F mean red cell hemoglobin 30.3 pg 27.0-3 3.0 Not Available [facility] (Lab) [address] [place], [address], 12/12/2023 13:48:27 12/12/19 24 12/12/2023 CBC/C OMPLE TE BLD COUNT W/DIF F mean RBC HGB concentratio n 30.2 g/dL 31.0-3 6.0 low Not Available [facility] (Lab) [address] [facility] [place], [address], 12/12/2023 13:48:27 12/12/19 24 12/12/2023 CBC/C OMPLE TE BLD COUNT W/DIF F red cell distribution width 14.2 % 11.8-1 5.5 Not Available [facility] (Lab) [address] [place], [address], 12/12/2023 13:48:27 12/12/19 24 12/12/2023 CBC/C OMPLE TE BLD COUNT W/DIF F platelets 263 x10'3 /uL 150-40 0 Not Available [facility] (Lab) [address] [place], [address], 12/12/2023 13:48:27 12/12/19 24 12/12/2023 CBC/C OMPLE TE BLD COUNT W/DIF F mean platelet volume 9.8 fL 9.0-12 .4 Not Available [facility] (Lab) [address] [place], [address], 12/12/2023 13:48:27 12/12/19 24 12/12/2023 CBC/C OMPLE TE BLD COUNT W/DIF F neutrophils 60.1 % 39.0-7 2.0 Not Available [facility] (Lab) [address] [place], [address], 12/12/2023 13:48:27 12/12/19 24 12/12/2023 CBC/C OMPLE TE BLD COUNT W/DIF F lymphocytes 28.4 % 16.0-4 7.0 Not Available [facility] (Lab) [address] [place], [address], 12/12/2023 13:48:27 12/12/19 24 12/12/2023 CBC/C OMPLE TE BLD COUNT W/DIF F monocytes 8.1 % 5.0-12 .0 Not Available [facility] (Lab) [address] [place], [address], 12/12/2023 13:48:27 12/12/19 24 12/12/2023 CBC/C OMPLE TE BLD COUNT W/DIF F eosinophils 2.5 % 1.0-7. 0 Not Available [facility] (Lab) [address] [place], [address], 12/12/2023 13:48:27 12/12/19 24 12/12/2023 CBC/C OMPLE TE BLD COUNT W/DIF F basophils 0.6 % 0.0-2. 0 Not Available [facility] (Lab) [address] [place], [address], 12/12/2023 13:48:27 12/12/19 24 12/12/2023 CBC/C OMPLE TE BLD COUNT W/DIF F immature granulocytes 0.3 % 0.00-0 .50 Not Available [facility] (Lab) [address] [place], [address], 12/12/2023 13:48:27 12/12/19 24 12/12/2023 CBC/C OMPLE TE BLD COUNT W/DIF F neutrophils, absolute count 3.91 x10'3 /uL 1.5-8. 0 Not Available [facility] (Lab) [address] [place], [address], 12/12/2023 13:48:27 12/12/19 24 12/12/2023 CBC/C OMPLE TE BLD COUNT W/DIF F lymphocytes, absolute count 1.85 x10'3 /uL 1.07-3 .43 Not Available [facility] (Lab) [address] [place], [address], 12/12/2023 13:48:27 12/12/19 24 12/12/2023 CBC/C OMPLE TE BLD COUNT W/DIF F monocytes, absolute count 0.53 x10'3 /uL 0.29-0 .99 Not Available [facility] (Lab) [address] [place], [address], 12/12/2023 13:48:27 12/12/19 24 12/12/2023 CBC/C OMPLE TE BLD COUNT W/DIF F eosinophils, absolute count 0.16 x10'3 /uL 0.02-0 .53 Not Available [facility] (Lab) [address] [place], [address], 12/12/2023 13:48:27 12/12/19 24 12/12/2023 CBC/C OMPLE TE BLD COUNT W/DIF F basophils, absolute count 0.04 x10'3 /uL 0.01-0 .08 Not Available [facility] (Lab) [address] [place], [address], 12/12/2023 13:48:27 12/12/19 24 12/12/2023 CBC/C OMPLE TE BLD COUNT W/DIF F immature granulocytes ,absolute 0.02 x10'3 /uL 0.00-0 .05 Not Available [facility] (Lab) [address] [place], [address], 12/12/2023 13:48:27 12/12/19 24 12/12/2023 CBC/C OMPLE TE BLD COUNT W/DIF F nucleated red blood cells 0.0 % -0 Not Available [facility] (Lab) [address] [place], [address], 12/12/2023 13:48:27 12/12/19 24 12/12/2023 CBC/C OMPLE TE BLD COUNT W/DIF F NRBC# 0.00 x10'3 /uL Not Available [facility] (Lab) [address] [place], [address], 12/12/2023 13:48:27 12/12/19 24 12/12/2023 LIPID PANEL cholesterol 160 mg/dL 140-19 9 NIH CHEL NSUS RECOM MENDA TION FOR TONYA STERO L: ADULT CHILD LOW RISK: <200 <170 BORDE RLINE : <200- 239 ----- HIGH RISK: >240 >200 Not Available [facility] (Lab) [address] [place], [address], 12/12/2023 13:56:46 12/12/19 24 12/12/2023 LIPID PANEL triglyceride s 79 mg/dL 0-150 NIH CHEL NSUS REPOR T RECOM MENDA TION FOR TRIGL YCERI GUIDO: ADULT CHILD LOW RISK: <150 ----- BODER LINE: 150-1 99 ----- HIGH RISK: >200 ----- Not Available [facility] (Lab) [address] [place], [address], 12/12/2023 13:56:46 12/12/19 24 12/12/2023 LIPID PANEL HDL cholesterol 79 mg/dL 40- Not Available [facility] (Lab) [address] [place], [address], 12/12/2023 13:56:46 12/12/19 24 12/12/2023 LIPID PANEL [...] WILL NOT BE REPOR XAVIER. Not Available [facility] (Lab) [address] [place], [address], 12/12/2023 13:56:46 12/12/19 24 12/12/2023 COMPR EHENS NIELS METAB OLIC PANEL sodium 141 mmol/ L 137-14 5 Not Available [facility] (Lab) [address] [place], [address], 12/12/2023 13:56:51 12/12/19 24 12/12/2023 COMPR EHENS NIELS METAB OLIC PANEL potassium 4.4 mmol/ L 3.5-5. 1 Not Available [facility] (Lab) [address] [place], [address], 12/12/2023 13:56:51 12/12/19 24 12/12/2023 COMPR EHENS NIELS METAB OLIC PANEL chloride 106 mmol/ L 98-107 Not Available [facility] (Lab) [address] [place], [address], 12/12/2023 13:56:51 12/12/19 24 12/12/2023 COMPR EHENS NIELS METAB OLIC PANEL carbon dioxide 29 mmol/ L 22-30 Not Available [facility] (Lab) [address] [place], [address], 12/12/2023 13:56:51 12/12/19 24 12/12/2023 COMPR EHENS NIELS METAB OLIC PANEL anion gap 10.4 mmol/ L 14-22 low Not Available [facility] (Lab) [address] [place], [address], 12/12/2023 13:56:51 12/12/19 24 12/12/2023 COMPR EHENS NIELS METAB OLIC PANEL glucose 99 mg/dL 70-99 Not Available [facility] (Lab) [address] [place], [address], 12/12/2023 13:56:51 12/12/19 24 12/12/2023 COMPR EHENS NIELS METAB OLIC PANEL BUN 20 mg/dL 8-19 high Not Available [facility] (Lab) [address] [place], [address], 12/12/2023 13:56:51 12/12/19 24 12/12/2023 COMPR EHENS NIELS METAB OLIC PANEL creatinine 0.62 mg/dL 0.66-1 .25 low Not Available [facility] (Lab) [address] [place], [address], 12/12/2023 13:56:51 12/12/19 24 12/12/2023 COMPR EHENS NIELS METAB OLIC PANEL GFR >60 Refer ence Range : [place] ge GFR Healt hy Adult : >60 [...] calcu laturvashi is avail able on the [facility] websi te: https ://samra villalobos.o rg/pr ofess ional s/kdo qi/gf r_cal culat or Not Available [facility] (Lab) [address] [place], [address], 12/12/2023 13:56:51 12/12/19 24 12/12/2023 COMPR EHENS NIELS METAB OLIC PANEL alkaline phosphatase 72 U/L 38-126 Not Available [facility] (Lab) [address] [place], [address], 12/12/2023 13:56:51 12/12/19 24 12/12/2023 COMPR EHENS NIELS METAB OLIC PANEL alanine aminotransfe rase 18 U/L 0-35 Not Available [facility] (Lab) [address] [place], [address], 12/12/2023 13:56:51 12/12/19 24 12/12/2023 COMPR EHENS NIELS METAB OLIC PANEL aspartate aminotransfe rase 25 U/L 15-37 Not Available [facility] (Lab) [address] [place], [address], 12/12/2023 13:56:51 12/12/19 24 12/12/2023 COMPR EHENS NIELS METAB OLIC PANEL bilirubin, total 0.60 mg/dL 0.20-1 .30 Not Available [facility] (Lab) [address] [place], [address], 12/12/2023 13:56:51 12/12/19 24 12/12/2023 COMPR EHENS NIELS METAB OLIC PANEL calcium 9.3 mg/dL 8.4-10 .2 Not Available [facility] (Lab) [address] [place], [address], 12/12/2023 13:56:51 12/12/19 24 12/12/2023 COMPR EHENS NIELS METAB OLIC PANEL total protein 7.1 g/dL 6.3-8. 2 Not Available [facility] (Lab) [address] [place], [address], 12/12/2023 13:56:51 12/12/19 24 12/12/2023 COMPR EHENS NIELS METAB OLIC PANEL albumin 4.0 g/dL 3.0-4. 4 Not Available [facility] (Lab) [address] [place], [address], 12/12/2023 13:56:51 12/12/19 24 12/12/2023 COMPR EHENS NIELS METAB OLIC PANEL globulin 3.1 g/dL 2.6-4. 2 Not Available [facility] (Lab) [address] [place], [address], 12/12/2023 13:56:51 12/12/19 24 12/12/2023 COMPR EHENS NIELS METAB OLIC PANEL A/G ratio 1.3 ratio 1.0-2. 0 Not Available [facility] (Lab) [address] [place], [address], 12/12/2023 13:56:51 04/17/20 23 04/17/2023 MAMMO , scree shahnaz, digit al, bilat eral No observ ation record ed. [email or web address] [place] [address] [address], [place], [address], 06/21/2023 09:34:28 05/20/20 23 XR, knee No observ ation record ed. [facility] [place] [address], [place], [address], 05/20/2023 11:42:50 Result Notes None recorded. Problems Name Problem SNOMED Code Status Onset Date Resolution Date Notes Provider Name and Address Organization Details Recorded Time Benign essential hypertensi on 3282252 Active Not Available [employer] 4 07:40:33 Acquired trigger finger 6981388 Active Not Available [employer] 4 07:40:33 Chondromal acia of right patella 6370270970669 9108 Active 2021 Not Available [employer] 4 07:40:33 Peripheral venous insufficie ncy 41173132 Active Not Available [facility] 4 07:40:33 Pain in thumb 828972095 Active Not Available [facility] 4 07:40:33 Tear of medial meniscus of knee 016841545 Active 2021 Not Available [facility] 4 07:40:34 Tear of medial meniscus of knee 260696706 Active 2021 Not Available [facility] 4 07:40:33 Tear of lateral meniscus of knee 768982913 Active 2021 Not Available [facility] 4 07:40:34 Tear of lateral meniscus of knee 646300361 Active 2021 Not Available [facility] 4 07:40:34 Knee pain Active Not Available [facility] 4 07:40:34 Ureteric stone 99467597 Active Not Available [facility] 4 07:40:34 Diastolic dysfunctio n 1270060 Active Not Available [facility] 4 07:40:34 Pain of left knee joint 3430851977085 07 Active 2021 Not Available [facility] 4 07:40:34 Pain of bilateral knee joints 4320559762336 04 Active 2021 Not Available [facility] 4 07:40:34 Upper respirator y infection 11770129 Active Not Available [facility] 4 07:40:34 Heart disease 22042792 Active Not Available [facility] 4 07:40:34 Carpal tunnel syndrome 43072449 Active Not Available [employer] 4 07:40:34 COVID-19 690932521 Active 2021 Not Available [facility] 4 07:40:34 Osteoarthr itis 819423925 Active 2022 Not Available [facility] 4 07:40:34 Osteoarthr itis of right knee joint 3611805038859 00 Active 2022 Not Available [facility] 4 07:40:34 Problem Notes None recorded. Procedures Surgical History Date Name Laterality Status Provider Name and Address Organization Details Recorded Time 05/20/20 23 Ortho - Cortisone Injection completed Marco Antonio Soliz MD [address] [place] [address], [facility] [address], [place], [address], [facility] 05/20/2023 11:45:09 09/12/20 22 KNEE ARTHROSCOPY WITH MEDIAL MENISCECTOMY (SURG) completed Not Available [facility] 01/30/2023 01:31:46 09/11/20 22 KNEE ARTHROSCOPY WITH MEDIAL MENISCECTOMY (SURG) completed Not Available [facility] 01/30/2023 01:31:46 09/11/20 22 KNEE ARTHROSCOPY WITH MEDIAL MENISCECTOMY (SURG) completed Not Available [facility] 01/30/2023 01:31:46 02/16/20 21 Most Recent Bone Density completed Not Available formerly [facility] 01/30/2023 00:58:34 02/06/20 18 Date of Last Colonoscopy completed Not Available [facility] 01/30/2023 00:58:34 07/23/20 02 colposcopy completed Not Available formerly [facility] 00:58:42 ADVICE NURSE Surgery completed Not Available [facility] 01/30/2023 00:58:42 Kidney Stones completed Not Available [facility] 01/30/2023 00:58:42 Imaging Results Imaging Date Name Status LastModified by Organiz ation Details LastModified Time 04/17/2023 MAMMO, screening, digital, bilateral completed [email or web address] [place] [address] [address], [place], [address], 06/21/2023 09:34:28 05/20/2023 XR, knee completed [email or web address] [facility] [place] [address], [place], [address], 05/20/2023 11:42:50 Procedure Notes None recorded. Medical Equipment None Reported. Allergies Allergen ID Allergen Name Allergen Category Reaction Reaction Severity Criticality Documentation Date Start Date Code Code System Note Provider Name and Address Organization Details Recorded Time 2583 Substance with sulfonami de structure and antibacte rial mechanism of action (substanc e) medicatio n rash Not available Not available 01/30/2023 93509 8003 SNOMED Not Available [facility] 3 01:31:03 2585 Bactrim medicatio n rash Not available Not available 01/30/2023 22075 9 RxNorm Not Available formerly [facility] 3 01:31:03 Medications Name Sig Start Date [...] %) injection solution in office 2022 active [facility] 13824 -064- 01 Not Available Not Available Not [...] kg/m2 162.56 cm 72 /min 98.7 [degF] 726460. 17 g 120 mm[Hg] 76 mm[Hg] Not Available [facility] 3 01:02:22 Date Recorded Body height Body mass index (BMI) Body weight Provider Name and Address Organization Details Last Updated DateTime 05/20/2023 162.56 cm 38.6 kg/m2 798398.28 g RANDY Phelps - [facility] [facility] 05/20/2023 09:46:56 Date Recorded Body height Body mass index (BMI) Body weight Body temperature Heart rate Systolic blood pressure Diastolic blood pressure Provider Name and Address Organization Details Last Updated DateTime 3 162.56 cm 38.8 kg/m2 839970. 88 g 97.4 [degF] 70 /min 136 mm[Hg] 80 mm[Hg] Rita Jeffries [facility] 3 10:10:40 Date Recorded Body height Body mass index (BMI) Body weight Provider Name and Address Organization Details Last Updated DateTime 06/24/2023 162.56 cm 28.8 kg/m2 10173.52 g Ruma Jone [facility] 06/24/2023 09:18:31 Date Recorded Body height Body mass index (BMI) Body weight Body temperature Heart rate Systolic blood pressure Diastolic blood pressure Provider Name and Address Organization Details Last Updated DateTime 4 162.56 cm 36.7 kg/m2 00070.7 7 g 97.5 [degF] 78 /min 136 mm[Hg] 90 mm[Hg] Rita Jeffries Kailash [facility] 4 10:19:27 Social History Question Answer Notes LastModified by Organization Details LastModified Time Tobacco Smoking Status Never Smoker Elijah Carrera [facility] [employer] [facility] 12/12/2023 10:15:25 Do You Have An Advance Directive? No Patient Declined Informatio n. [id number] Information not available 01/30/2023 What Is Your Level Of Alcohol Consumption? Occasional MIGRATION.030 [id number] Information not available 01/30/2023 Are You Blind Or Do You Have Difficulty Seeing? No Information not available 12/12/2023 What Is Your Level Of Caffeine Consumption? Heavy MIGRATION.030 [id number] Information not available 01/30/2023 How Much Tobacco Do You Chew? None MIGRATION.030 [id number] Information not available 01/30/2023 In The 14 [...] Of Diet Are You Following? REGULAR MIGRATION.0301 [id number] Information not available 01/30/2023 Which Illicit Or Recreational Drugs Have You Used? None Information not available 12/12/2023 Do You Or Have You Ever Used E-cigarettes Or Vape? Never Used Electronic Cigarettes Information not available 12/12/2023 What Is The Highest Grade Or Level Of School You Have Completed Or The Highest Degree You Have Received? VC03435-2 Information not available 12/12/2023 What Is Your [...] Do You Have A Medical Power Of Actuarial Analyst? No Information not available 12/12/2023 What Was The Date Of Your Most Recent Tobacco Screening? 12/12/2023 Information not available 12/12/2023 Have You Ever Been Counseled For Unhealthy Alcohol Use? No Information not available 12/12/2023 Do You Have Any Pets? Yes Information not available 12/12/2023 What Is Your Relationship Status? MIGRATION.0301 [id number] Information not available 01/30/2023 Do You Use Your Seat Belt Or Car Seat Routinely? Yes Information not available 12/12/2023 Do You Have Smoke And Carbon Monoxide Detectors In Your Home? Yes Information not available 12/12/2023 Are You Passively Exposed To Smoke? No Information not available 12/12/2023 Do You Or Have You Ever Used Smokeless Tobacco? Never Used Smokeless Tobacco MIGRATION.0301 [id number] Information not available 01/30/2023 Are There Any Smokers In Your House? No Information not available 12/12/2023 How Much Tobacco Do You Smoke? No MIGRATION.0301 [id number] Information not available 01/30/2023 What Types Of Sporting Activities Do You Participate In? None Information not available 12/12/2023 Do You Feel Stressed (tense, Restless, Nervous, Or Anxious, Or Unable To Sleep At Night)? [id number] Information not available 12/12/2023 Do You Use [...] 12/12/2023 What is your exercise level? None [id number] Information not available 01/30/2023 Mental Status Question Answer Note LastModified by Organization D etails LastModified Time Do you have difficulty concentrating, remembering or making decisions? No Information no t available 12/12/2023 Family History Relationship Description Onset Age of this Age Resolved Age Notes LastModified by Organization Details LastModified Time Father Heart disease [id number].653 [id number] Not available 01/30/2023 00:58:45 Father Hypertensive disorder MIGRATION.284 [id number] Not available 01/30/2023 00:58:45 Father Kidney disease MIGRATION.435 [id number] Not available 01/30/2023 00:58:45 Mother Osteoporosis cyahl Not availab le 12/12/2023 10:15:25 Mother Hypertensive disorder MIGRATION.870 [id number] Not available 01/30/2023 00:58:45 Notes:GRANDMOTHER & AUNT [...] HAVE YOU BEEN HOSPITALIZED OR SE[facility] IN [facility] IN THE PAST YEAR ? N [...] 50 mcg/0.25mL dose 03/10/2021 completed Not Available formerly [facility] 4 07:40:34 COVID-19, mRNA, LNP-S, PF, 100 mcg/0.5mL dose or 50 mcg/0.25mL dose 02/08/2021 completed Not Available formerly [facility] 4 07:40:34 COVID-19, mRNA, LNP-S, bivalent, PF, 50 mcg/0.5 mL or 25mcg/0.25 mL dose 12/27/2022 completed Not Available formerly [facility] 4 07:40:34 Tdap 10/08/2014 completed Not Available formerly [facility] 12/16/2023 07:40:34 Past Encounters Encounter ID Performer Location Encounter Start Date Encounter Closed Date Diagnosis/Indication Diagnosis SNOMED-CT Code Diagnosis ICD10 Code Diagnosis Note [id number] [facility] [address] , [facility] [address] [place] [address] 01/30/2021 00:00:00 02/18/2021 13:50:36 [id number] [facility] [place] [address] [facility] [address] [facility] [place] [address] 08/03/2021 00:00:00 08/06/2021 20:42:37 [id number] [facility] [place] [address] [facility] [place] [address] [address] [address] 03/01/2022 00:00:00 03/01/2022 13:22:34 [id number] [facility] [place] [address] [place] [address] 03/08/2022 00:00:00 03/08/2022 11:18:56 [id number] [facility] [place] [address] [place] [address] 03/19/2022 00:00:00 03/19/2022 11:47:59 [id number] [facility] [place] [address] [place] [address] 04/16/2022 00:00:00 04/16/2022 09:22:09 [id number] [facility] [place] [address] [place] [address] 05/28/2022 00:00:00 05/28/2022 09:36:34 [id number] [facility] [place] [address] [place] [address] 07/26/2022 00:00:00 07/26/2022 13:01:01 [id number] [facility] [place] [address] [place] [address] 08/02/2022 00:00:00 08/02/2022 10:48:03 [id number] [facility] [address] [place] [address], [facility] [address] [place] [address] 08/16/2022 00:00:00 09/23/2022 21:07:54 [id number] [facility] [place] [address] [place] [address] 09/24/2022 00:00:00 09/24/2022 11:09:36 [id number] [facility] Prabhu llbertha [address] [place] [address] [address] 12/20/2022 00:00:00 01/06/2023 22:23:11 [id number] Marco Antonio Soliz MD [facility] [place] [address] [place] [address] 05/20/2023 09:21:24 05/20/2023 11:08:02 Pain of bilateral knee joints 6677156627 25889 M25.561 M25.562 Tear of la teral meniscus of knee 867122077 S83.282D Chondromal acia of right patella 1810744905 [id number] M22.41 [id number] Anjana Chen MD [facility] [facility] [place] [address] [facility] [place] [address] 06/20/2023 10:05:31 06/20/2023 10:45:42 Benign essential hypertension 0044455 I10 Diastolic dysfunction 35 92670 I51.9 Osteoarthritis 144069669 M19.90 [id number] Marco Antonio Soliz MD [facility] [place] [address] [place] [address] 06/24/2023 09:10:14 06/24/2023 11:13:34 Osteoarthritis of right knee joint 9159627364 25256 M17.11 Tear of la teral meniscus of knee 194481737 S83.282D [id number] Anjana Chen MD [facility] [place] [address] [facility] [place] [address] 12/12/2023 10:14:20 12/12/2023 11:06:23 Benign essential hypertension 5650273 I10 Osteoarthritis 282304611 M19.90 Diastolic dysfunction 35 75418 I51.9 Health Concerns Section Related Observation LastModified by Organization Detai ls LastModified Time None Recorded Concern Status LastModified by Organization Details LastModified Time None Recorded Advance Directives Directive N: Patient declined informat ion. Payers Encounter Date Sequence Insurance Name Policy Number Policy Walsh Covered Member ID Walsh Member ID Guarantor Name 05/20/2023 1 [place] Dia Hall [id number] Dia Hall 05/20/2023 2 AARP HEALTHCARE OPTIONS (MEDICARE SUPPLEMENT) Dia Hall [id number] Dia Hall 06/20/2023 1 [place] Dia [place] [id number] Dia Hall 06/20/2023 2 [employer]ARP HEALTHCARE OPTIONS (MEDICARE SUPPLEMENT) Dia Hall [id number] Dia Hall 06/24/2023 1 [place] Dia Hall [id number] Dia Hall 06/24/2023 2 [employer]ARP HE[employer] OPTIONS (MEDICARE SUPPLEMENT) Dia Hall [id number] Dia Hall 12/12/2023 1 [place] Dia Hall [id number] Dia Hall 12/12/2023 2 [employer] HE[employer] OPTIONS (MEDICARE SUPPLEMENT) Dia Hall [id number] Dia Lord [facility] Notes Date Note Type [...] left knee. Marco Antonio Soliz MD [address], [place], [address], [facility] 05/20/2023 11:45:46 06/20/2023 text/html Hypertension no headache or dizziness diastolic dysfunction no PND orthopnea osteoarthritis stable uses anti-inflammatories sparingly Anjana Chen MD [address], [place], [address], [facility] 06/21/2023 18:26:40 06/24/2023 text/html Patient returns knee pain LEFT. I scoped her knee 8 months ago over the last month the pain is begun returning primarily with activity. She has she has a catching and locking but mostly pain and aching in the knee. This is her left knee. Marco Antonio Soliz MD [address], [place], [address], [facility] 06/24/2023 11:13:25 12/12/2023 text/html Hypertension no headache or dizziness diastolic dysfunction no PND orthopnea osteoarthritis stable uses anti-inflammatories sparingly Anjana Chen MD [address] [facility] [facility] [address], [place], [address], [facility] 01/03/2024 08:51:21 OBGyn Episode No OBEpisode recorded.
--- OUTSIDE RECORDS SUMMARY | 2025-02-22 08:53 | XMS_ITS | CONTINUITY OF CARE DOCUMENT ---
Author Name don ochoa Address Unknown Organization [facility] Address [address] [place] [address] Phone [phone] Care Team Providers Care Telegraphic Typewriter Mechanic Name Role Phone Carlos PARKER, [facility] Unavailable ANJANA BRAVO MD Unavailable ANJANA BRAVO MD Unavailable INSURANCE PROVIDERS Payer name Policy type / Coverage type [place] red libertarian [place] [id number]
--- OUTSIDE RECORDS SUMMARY | 2025-02-22 08:54 | XMS_ITS | Data Portability ---
Author Organization [facility] [place] Address [address] [place] [address] Care Team Providers Care Lactation Specialist Name Role Phone LOI CHEN Primary Care Provider AMBAR TOMPKINS Transportation Inspector Assessment Encounter Date Assessment Date Assessment LastModified by Organization Details LastModified Time 06/29/2024 06/29/2024 obtain old records. Blood pressure appears to be controlled. use diclofenac sparingly we will get set up for colonoscopy screening. Follow up with me in 6 months she had blood work earlier this year we will get her old records so that can be looked at [email or web address] Not available 07/02/2024 18:36:08 01/18/2025 01/18/2025 blood work ordered continue current therapy assessments screenings and immunizations ordered and give him where appropriate and patient agreeable healthy lifestyle care instructions. She declined a DEXA she will follow up in 4 months declined flu declined pneumonia and declined Tdap [email or web address] Not available 02/01/2025 20:46:13 Plan of Treatment Reminders Order Date Submit Date Provider Last Modified By Organization Details Last Modified Time Details Appointments ANY 15 2024 09:30A M Loi Chen MD Not available Not available Not available Lab lipid panel, serum 2024 025 [facility]), [address] [place] [address], [address], 01/27/2025 17:27:06 CBC w/ auto diff 2024 025 [facility]), [address] [place] [address], [address], 01/27/2025 17:27:06 CMP, serum or plasma 2024 025 [facility]), [address] [facility], [place], [address], 01/27/2025 17:27:05 Referral None recorded. Procedures colonosco py screening (PROC) 2023 024 [facility], [address], [place], [address], 10/01/2024 16:22:39 Surgeries None recorded. Imaging None recorded. Medication Orders None recorded. Patient TargetsNo targets recorded. Patient Instructions Encounter Date Encounter Id Patient Instructions Last Modified By Organization Details Last Modified Time 01/18/2025 [id number] A healthy lifestyle: care instructions Not available 01/18/2025 11:48:06 Medicare [facility] Preventive Checklist [email or web address] Not available 01/18/2025 11:48:06 Reason for Referral None Reported. Results Created Date Observation Date Name Description Value Unit Range Abnormal Flag Note LastModifiedBy Organization Detail LastModifiedTime 07/03/20 24 02/05/2018 colon oscop y proce dure (PROC ) No observ ation record ed. [facility] [address], [place], [address], 07/03/2024 15:58:13 07/03/20 24 04/17/2023 MAMMO , scree shahnaz, digit al, bilat eral No observ ation record ed. BARCODE Not Available 2023 15:58:14 02/05/20 25 02/04/2025 CT, abdom en + pelvi s, w/ contr ast No observ ation record ed. [facility] [address] [facility] [address], [place], [address], 02/05/2025 15:58:47 Result Notes None recorded. Problems Name Problem SNOMED Code Status Onset Date Resolution Date Notes Provider Name and Address Organization Details Recorded Time Essential hypertension 57170463 Active 2023 Loi Chen MD Attn: Rox chandu,[address] [facility], [place], [address], [place] [facility] 4 18:35:38 Osteoarthritis 513288983 Active 2023 Loi Chen MD Attn: Rox schofield,[address] [facility], [place], [address], [place] [facility] 4 18:35:39 Peripheral venous insufficiency 80938912 Active 2023 Loi Chen MD Attn: Rox schofield,[address] [facility], [place], [address], [place] [facility] 4 18:35:40 Hyperlipidemia 73642093 Active 2023 Loi Chen MD Attn: Rox schofield,[address] [facility], [place], [address], [place] [facility] 4 18:35:43 Left ventricular diastolic dysfunction 785104831 Active 2023 Loi Chen MD Attn: Rox schofield,[address] [facility], [place], [address], [place] [facility] 4 18:35:45 Pneumococcal vaccination declined 649901626 Active 2024 Loi Chen MD Attn: Rox schofield,[address] [facility], [place], [address], [place] [facility] 5 20:46:41 Tetanus vaccination declined by patient 238502449 Active 2024 Loi Chen MD Attn: Rox schofield,[address] [facility], [place], [address], [place] [facility] 5 20:46:41 Influenza vaccination declined 376125145 Active 2024 Loi Chen MD Attn: Rox schofield,[address] [facility], [place], [address], [place] [facility] 5 20:46:43 Problem Notes None recorded. Procedures Surgical History Date Name Laterality Status Provider Name and Address Organization Details Recorded Time 12/02/19 15 Partial hysterectomy completed Tanja Soliz [place] [facility] 06/29/2024 10:27:13 Imaging Results Imaging Date Name Status LastModified by Organization Details LastModified Time 02/05/2018 colonoscopy procedure (PROC) completed [facility] [address], [place], [address], 07/03/2024 15:58:13 04/17/2023 MAMMO, screening, digital, bilateral completed BARCODE Information not available 07/03/2024 15:58:14 02/04/2025 CT, abdomen + pelvis, w/ contrast completed [facility] [address] [facility] [address], [place], [address], 02/05/2025 15:58:47 Procedure Notes None recorded. Medical Equipment None Reported. Allergies Allergen ID Allergen Name Allergen Category Reaction Reaction Severity Criticality Documentation Date Start Date Code Code System Note Provider Name and Address Organization Details Recorded Time 959778 Bactrim medicatio n rash Not available Not available 01/18/2025 02917 9 RxNorm Not Available Not Available Not Available 417525 Substance with sulfonami de structure and antibacte rial mechanism of action (substanc e) medicatio n rash Not available Not available 01/18/2025 93702 8003 SNOMED Not Available Not Available Not [...] Updated DateTime 4 162.56 cm 36.9 kg/m2 31227.3 6 g 96 % 96 % 67 /min 126 mm[Hg] 74 mm[Hg] Tanja Soliz [place] [facility] 4 10:29:32 Date Recorded Body height Body mass index (BMI) Body weight Heart rate Oxygen saturation Oxygen saturation in Arterial blood by Pulse oximetry Systolic blood pressure Diastolic blood pressure Provider Name and Address Organization Details Last Updated DateTime 162.56 cm 37.7 kg/m2 39117.8 8 g 75 /min 96 % 96 % 124 mm[Hg] 78 mm[Hg] Kiki Smith MA [facility] 11:38:17 Date Recorded Pain severity - 0-10 verbal numeric rating [Score] - Reported Provider Name and Address Organization Details Last Updated DateTime 01/18/2025 Thomas Clements [facility] 01/18/2025 11:42:02 Social History Question Answer Notes LastModified by Organizat ion Details LastModified Time Tobacco Smoking Status Never Smoker VAL Monsalve, [facility] 06/29/2024 10:25:11 Do You [...] 7 Days, How Much Pain Have You [place]? None Information not available 01/18/2025 In General, [...] Past 7 Days, How Often Have You [place] Sleepy In The Daytime? Sometimes Information not [...] Anxious, Or Unable To Sleep At Night)? [id number] Information not available 06/29/2024 Do You Use [...] Response Coronary Artery Disease N Other N Atrial Fibrillation N High Blood Pressure Y Kidney or Bladder Problems N Thyroid Problems N GI Problems N Depression N COPD N Blood Clots N Have you had a mammogram in the last yea r? Y Skin Problems N Anemia N Heart Attack ([place]) N Anxiety Disorder N Diabetes N Muscle, Joint, or Bone Problems Y Seizures/Epilepsy N Have you had a colonoscopy in the last 1 0 years? Y Acid Reflux (GERD) N Cancer N Stroke N Asthma N Allergies N Have you had a PSA blood test in the las t year? N High Cholesterol Y Hepatitis N Liver Disease N Headaches N Heart Failure N Osteoporosis N Gynecological HistoryNo gynecological history recorded. Obstetrics History GPAL:G 0 P 0 0 0 0 Immunizations Vaccine Type Date Status Note Provider Nam e and Address Organization Details Recorded Time COVID-19, mRNA, LNP-S, PF, 100 mcg/0.5mL dose or 50 mcg/0.25mL dose 02/08/2021 [place], [place] - [facility] 06/29/2024 10:23:27 COVID-19, mRNA, LNP-S, PF, 100 mcg/0.5mL dose or 50 mcg/0.25mL dose 03/10/2021 [place] [facility] 06/29/2024 10:23:27 COVID-19, mRNA, LNP-S, bivalent, PF, 50 mcg/0.5 mL or 25mcg/0.25 mL dose 12/27/2022 [place] [facility] 06/29/2024 10:23:27 Tdap 10/08/2014 [place] [facility] 06/29/2024 10:23:27 Hep A, adult 05/03/2000 [place], [place] [facility] 06/29/2024 10:23:27 Past Encounters Encounter ID Performer Location Encounter Start Date Encounter Closed Date Diagnosis/Indication Diagnosis SNOMED-CT Code Diagnosis ICD10 Code Diagnosis Note [id number] Loi Chen MD [facility] [place] [address] [place] [address] 06/29/2024 10:01:45 06/29/2024 10:41:01 Screening for malignant neoplasm of colon 498139596 Z12.11 Essential hypertension 47835156 I10 Osteoarthritis 068303895 M19.90 Peripheral venous insufficiency 65557386 I87.2 Hyperlipidemia 12844227 E78.5 Left ventr icular diastolic dysfunction 996767887 I51.9 [id number] Loi Chen MD [facility] [place] [address] [place] [address] 01/18/2025 11:01:56 01/18/2025 12:12:01 Body mass index 30+ - obesity 980703083 Z68.37 Obesity 871556664 E66.9 Adult heal th examination 354895770 Z00.00 Health Risk Assessment collected and reviewed Left ventr icular diastolic dysfunction 249883527 I51.9 Osteoarthritis 123928957 M19.90 Peripheral venous insufficiency 83638802 I87.2 Hyperlipidemia 33628158 E78.5 Essential hypertension 77974504 I10 Influenza vaccination declined 269088853 Z28.21 Tetanus va ccination declined by patient 424971652 Z28.21 Pneumococc al vaccination declined 793664789 Z28.21 Health Concerns Section Related Observation LastModified by Organization Detai ls LastModified Time None Recorded Concern Status LastModified by Organization Details LastModified Time None Recorded Advance Directives Directive N: Payers Encounter Date Sequence Insurance Name Policy Number Policy Walsh Covered Member ID Walsh Member ID Guarantor Name 06/29/2024 1 [place] [facility] [id number] [facility] 06/29/2024 2 AARP HEALTHCARE OPTIONS (MEDICARE SUPPLEMENT) [facility] [id number] [facility] 01/18/2025 2 AARP HEALTHCARE OPTIONS (MEDICARE SUPPLEMENT) [facility] [id number] [facility] 01/18/2025 [place] NGS - C - [facility] [id number] [facility] Notes Date Note Type Note Provider Name and Address Organization Details Recorded Time 06/29/2024 text/html 73-year-old following problems hypertension or chest pain or shortness breath palpitations. Osteoarthritis does use diclofenac sparingly. History of kidney stones stable peripheral venous insufficiency some swelling from time to time Loi Chen MD Attn: Accounting,[address], [place], [address], [facility] 07/02/2024 18:36:28 01/18/2025 text/html MAW 2Reported bypatient.Diet and Nutrition:healthy diet Fracture Risk:no history of fractures; no sudden unexplained fractures Concentration and Memory:no decreased concentrating ability; no memory lapses or loss; does not forget words Speech/Motor difficulties:no speech difficulties; no difficulty expressing formulated concepts; no difficulty with fine manipulative tasks; no difficulty writing/copying; no slowed reaction time; does not knock things over when trying to pick them up Hearing:no loss of hearing Vision:worse with distance(glasses) Activities of Daily Living:able to bathe with limited or no assistance; able to contol urination and bowels; able to dress with limited or no assistance; able to feed self with limited or no assistance; able to get out of chair or bed with limited or no assistance; able to groom with limited or no assistance; able to toilet with limited or no assistance Instrumental Activities of Daily Living:able to do house work with limited or no assistance; able to grocery shop with limited or no assistance; able to manage medications with limited or no assistance; able to manage money with limited or no assistance; able to prepare meals with limited or no assistance; able to use the phone with limited or no assistance Falls Risk Assessment:no frequent falls while walking; no fall in the past year; no fall since last visit; no dizziness/vertigo Home Safety:reviewed sun protection; no unsafe karie hazzards; no unsafe stairs; working smoke/CO detectors; practicing 'safer sex'; no fire arms; has hand bars in the bathroom/shower; good lighting in the home hypertension has been controlled she has not had any problems with decompensated left ventricular diastolic dysfunction osteoarthritis in his doing okay peripheral venous insufficiency stable trying to follow low-fat for dyslipidemia Loi Chen MD Attn: Accounting,[address], [place], [address], [facility] 02/01/2025 20:47:06 OBGyn Episode No OBEpisode recorded.
== END 2025-02-22 08:25 | disposition home or self-care (01) ==
LOC: ANHSURGERY 08:29
PROVIDERS: PCP Internal Medicine; Visit Provider Surgery
DX: Z01.818 Encounter for other preprocedural examination (principal); K40.20 Bilateral inguinal hernia, without obstruction or gangrene, not specified as recurrent; I10 Essential (primary) hypertension
CPT/HCPCS: 36415; 86850; 86900; 86901; 93005

== ENCOUNTER 2025-03-19 08:06 | Outpatient (CLI) | payer MEDICARE, SELFPAY ==
--- NOTE | 2025-03-19 | EST_ITS ---
Patient Info Name: Dia Hall Age: 74 years : 1950 Gender: Female Ht: 64 in Wt: 220 lbs BSA: 2.17 m2 HR: 69 bpm BP: 135 / 73 mmHg Heart Rhythm: Sinus Rhythm Exam Date: 03/19/2025 9:08 AM Exam Location: Echo Lab Patient Status: Outpatient Admit Date: 03/19/2025 Staff Ordering Physician: Gustavo, Loi PARKER Attending Provider: Gustavo, Loi PARKER Exercise Technologist: Genesis Suarez [facility] Exercise Physician: Kevin Eldridge DO Exam Type: CA stress jorge alberto w NM Study Info Indications R94.31 - Abnormal electrocardiogram ECG EKG A regadenoson stress test was performed. Summary 1. 1. Negative lexiscan stress test for ischemic ST changes by ECG criteria. 2. 2. Stable hemodynamics throughout the test. 3. 3. Nuclear scan to follow and will be reported separately. Please correlate with it. 4. 4. Patient informed of the above results. Protocol: Lexiscan Stress ECG Details Stage: REST Duration (min): 1 min : 0 sec HR (bpm): 69 SBP (mmHg): 135 DBP (mmHg): 73 Stage: REST Duration (min): 4 min : 11 sec HR (bpm): 67 SBP (mmHg): 135 DBP (mmHg): 73 Stage: STAGE 1 Duration (min): 1 min : 0 sec HR (bpm): 86 SBP (mmHg): 133 DBP (mmHg): 78 Stage: RECOVERY Duration (min): 1 min : 0 sec HR (bpm): 93 SBP (mmHg): 133 DBP (mmHg): 78 Stage: RECOVERY Duration (min): 2 min : 0 sec HR (bpm): 89 SBP (mmHg): 133 DBP (mmHg): 78 Stage: RECOVERY Duration (min): 3 min : 0 sec HR (bpm): 88 SBP (mmHg): 128 DBP (mmHg): 74 Stage: RECOVERY Duration (min): 3 min : 5 sec HR (bpm): 88 SBP (mmHg): 128 DBP (mmHg): 74 Rest HR: 67 bpm Peak HR: 94 bpm Rest Sys BP: 135 mmHg Peak Sys BP: 133 mmHg Max Pred HR: 147 bpm % Max Pred HR: 64 % Target HR: 125 bpm Max RPP: 12,502 bpm*mmHg Termination Reason: Completed protocol Cardiac Symptoms: None Total Time: 1 min : 0 sec Rest Pulido BP: 73 mmHg Peak Pulido BP: 78 mmHg Total Dose: 0.4 mg Resting ECG Sinus rhythm. Stress ECG No ST changes. Arrhythmias None. Report Signatures
--- NOTE | 2025-03-19 | ECHO_ITS ---
Patient Info Name: Dia Hall Age: 74 years : 1950 Gender: Female Ht: 65 in Wt: 220 lbs BSA: 2.18 m2 HR: 66 bpm BP: 170 / 94 mmHg Heart Rhythm: Sinus Arrhythmia Technical Quality: Fair Exam Date: 03/19/2025 10:00 AM Exam Location: Echo Lab Patient Status: Outpatient Admit Date: 03/19/2025 Staff Ordering Physician: GustavoLoi MD Engineer: Kari Conley RDCS Attending Provider: IanLoi MD Exam Type: CA echo doppler color flow Study Info Indications - Abnormal EKG Complete two-dimensional, color flow and Doppler transthoracic echocardiogram is performed. Summary 1. Complete two-dimensional, color flow and Doppler transthoracic echocardiogram is performed. 2. Left ventricular chamber dimension is normal. 3. Left ventricular systolic function is normal, estimated at 60-65%. 4. The left ventricular diastolic function is grade I diastolic dysfunction. 5. E/e' 9 is minimally elevated. 6. Left atrial chamber dimension is mildly enlarged. 7. Right atrial chamber dimension is mildly enlarged. 8. The mitral valve has moderately calcified annulus. 9. There is mild tricuspid valve regurgitation. 10. Moderate pulmonary hypertension, estimated pulmonary arterial systolic pressure is 51 mmHg. 11. Dilated inferior vena cava with >50% collapse upon inspiration consistent with elevated right atrial pressure, 10 mmHg. Left Ventricle E/e' 9 is minimally elevated. Left ventricular chamber dimension is normal. Left ventricular systolic function is normal, estimated at 60-65%. The left ventricular diastolic function is grade I diastolic dysfunction. Right Ventricle Right ventricular chamber dimension is normal. Right ventricular systolic function is normal. Left Atria Left atrial chamber dimension is mildly enlarged. Right Atria Right atrial chamber dimension is mildly enlarged. Aortic Valve The aortic valve is trileaflet. There is no aortic valve stenosis. There is no aortic valve regurgitation. Pulmonic Valve There is no pulmonic regurgitation. Mitral Valve The mitral valve has moderately calcified annulus. There is no mitral valve stenosis. There is no mitral valve regurgitation. Tricuspid Valve There is mild tricuspid valve regurgitation. Moderate pulmonary hypertension, estimated pulmonary arterial systolic pressure is 51 mmHg. Pericardium/Pleural There is no pericardial effusion. Inferior Vena Cava Dilated inferior vena cava with >50% collapse upon inspiration consistent with elevated right atrial pressure, 10 mmHg. Aorta The aortic root size at the sinus of Valsalva is normal. Left Ventricular Outflow Tract Name Value Normal LVOT 2D LVOT Diameter 2.0 cm LVOT Doppler LVOT Peak Gradient 7 mmHg LVOT Mean Gradient 3 mmHg LVOT VTI 31 cm LVOT VTI/AV VTI Ratio 0.9 LVOT Stroke Volume 93 ml LVOT CO 14.1 l/min LVOT CI 6.5 l/min/m2 Pulmonic Valve Name Value Normal RVOT Doppler RVOT Peak Gradient 2 mmHg PV Doppler PV Peak Gradient 4 mmHg Mitral Valve Name Value Normal MV Doppler MV Decel [place] 321 cm/s2 MV PHT 64 ms MV Area (PHT) 3.5 cm2 4.0-5.0 MV Diastolic Function MV E Peak Velocity 70 cm/s MV A Peak Velocity 117 cm/s MV E/A 0.6 MV Decel Time 219 ms MV Annular TDI MV E/e' (Septal) 9.8 <=8.0 MV E/e' (Lateral) 9.2 <=8.0 MV E/e' (Average) 9.5 Tricuspid Valve Name Value Normal TV Regurgitation Doppler TR Peak Velocity 319 cm/s TR Peak Gradient 41 mmHg Estimated PAP/RSVP RA Pressure 10 mmHg <=5 PA Systolic Pressure 51 mmHg <36 RV Systolic Pressure 51 mmHg <36 Aortic Valve Name Value Normal AV Doppler AV Peak Velocity 165 cm/s AV Peak Gradient 11 mmHg AV Mean Gradient 5 mmHg AV VTI 34 cm AV Area (Cont Eq VTI) 2.7 cm2 >=3.0 AV Area (Cont Eq Rebel) 2.4 cm2 AV Regurgitation 2D LVOT Area 3.0 cm2 Ventricles Name Value Normal LV Dimensions 2D/MM IVS Diastolic Thickness (2D) 1.1 cm 0.6-1.0 LVID Diastole (2D) 4.8 cm 3.8-5.2 LVIW Diastolic Thickness (2D) 0.9 cm 0.6-0.9 LVID Systole (2D) 3.0 cm 2.2-3.5 LVOT Diameter 2.0 cm LV Mass (2D Cubed) 173.89 g 67.00-162.00 LV Mass Index (2D Cubed) 80 g/m2 43-95 Relative Wall Thickness (2D) 0.39 LV Fractional Shortening/Ejection Fraction 2D/MM LV Fractional Shortening (2D) 37 % 27-45 LV EF (2D Teicholz) 67 % 54-74 LV Diastolic Volume (4C MOD) 135 ml LV EF (4C MOD) 64 % LV Diastolic Volume (2C MOD) 169 ml LV EF (2C MOD) 65 % LV Diastolic Volume (BP MOD) 153 ml 46-106 LV Diastolic Volume Index (BP MOD) 70 ml/m2 29-61 LV Systolic Volume (BP MOD) 55 ml 14-42 LV Systolic Volume Index (BP MOD) 25 ml/m2 8-24 LV EF (BP MOD) 64 % 54-74 LV Diastolic Length (4C) 8.9 cm LV Systolic Length (4C) 6.5 cm LV Stroke Volume (4C MOD) 87 ml Atria Name Value Normal LA Dimensions LA Volume (4C A-L) 79 ml LA Volume (BP A-L) 74 ml RA Dimensions RA Area (4C) 20.8 cm2 <=18.0 Report Signatures
--- NOTE | ~2025-03-19 | NM_ITS ---
EXAMINATION: NM jorge alberto stress w perfusion DATE: 03/19/2025 10:40 CDT INDICATION: Abnormal EKG TECHNIQUE: Rest images were obtained following intravenous administration of 10 mCi Tc99m tetrofosmin (Myoview). The patient was infused intravenously with Lexiscan (regadenoson). Then, 32.8 mCi Tc99m t etrofosmin (Myoview) was administered intravenously, and stress images were obtained. Data was recons tructed into short axis and horizontal and vertical long axis SPECT images. Gated SPECT images were a lso obtained. COMPARISON: None. FINDINGS: There is a small reversible perfusion abnormality of the anterior wall. There is no segmen heather wall motion abnormality. Left ventricular ejection fraction measures 73%. IMPRESSION: 1. Small reversible perfusion abnormality of the anterior wall, consistent with impaired coronary joselin w reserve. 2. Normal left ventricular ejection fraction measuring 73%. Reviewed, dictated and finalized at location B. IMPRESSION: 1. Small reversible perfusion abnormality of the anterior wall, consistent with impaired coronary flow reserve. 2. Normal left ventricular ejection fraction measuring 73%.
--- OUTSIDE RECORDS SUMMARY | 2025-03-19 08:12 | XMS_ITS | CONTINUITY OF CARE DOCUMENT ---
Author Name don ochoa Address Unknown Organization [facility] Address [address] [place] [address] Phone [phone] Care Team Providers Care Newspaper Photo Editor Name Role Phone Carlos PARKER, [facility] Unavailable ANJNAA BRAVO MD Unavailable [phone] ANJANA BRAVO MD Unavailable INSURANCE PROVIDERS Payer name Policy type / Coverage type [employer] red alliance party ID [place] Medicare [id number]
--- OUTSIDE RECORDS SUMMARY | 2025-03-19 08:12 | XMS_ITS | Data Portability ---
Author Organization [place] [facility], Main Office Address [address] [place] [address] Care Team Providers Care Alarm Operator Name Role Phone ANJANA CHEN Primary Care Provider ANJANA CHEN Referring Provider [phone] Assessment Encounter Date Assessment Date Assessment LastModified by Organization Details LastModified Time 05/20/2023 05/20/2023 Patient presents knee pain left. Worse with activity somewhat relieved by rest she is tender laterally has pain to palpation manipulation the knee is stable quadriceps strength intact neurovascular examination unremarkable she walks with a bit of antalgic gait. Her x-rays show some degenerative change not [id number]. Recommended we try conservative treatment I injected with 20 mg Kenalog 4 cc 1% lidocaine the left knee. For prescription drug management will try Voltaren for pain and inflammation. I will see her back in a month for follow-up if she has any changes or problems she will call discussed. [email or web address] Not available 05/20/2023 11:43:58 06/20/2023 06/20/2023 Continue with current therapy diagnosis discussed see me in 6 months Not available 06/21/2023 18:26:23 06/24/2023 06/24/2023 Patient [...] If gets worse or changes will reassess. [email or web address] Not available 06/24/2023 11:12:53 12/12/2023 12/12/2023 Continue current therapy stay physically active by walking little bit of strength training follow-up in 6 months [email or web address] Not available 01/03/2024 08:51:05 Plan of Treatment [...] procedure, administere d by provider 2022 023 [email or web address] In-Office Order, Internal Use Only DO Not Attach Compendium DO Not Attach Compendium, Do Not Delete/merge, [id number] 3 10:32:52 Surgeries None recorded. Imaging XR, knee 2022 023 alexy 158 [facility] [place], [facility] [facility] [address], [place], [address], 3 11:42:51 Medication Orders diclofenac sodium 75 mg tablet,latonia yed release 2022 023 alexy 158 [facility] [address] [place], [address], 3 11:10:35 Kenalog 10 mg/mL suspension for injection 2022 023 [id number] 223 [facility] [address], [address] [place], [address], 4 07:40:33 ropivacaine (PF) 5 mg/mL (0.5 %) injection solution 2022 023 [id number] 223 [facility] [address], [address] [place], [address], 4 07:40:33 diclofenac sodium 75 mg tablet,latonia yed release 2022 023 alexy 158 [facility] [address] [place], [address], 3 10:40:37 Patient TargetsNo targets recorded. Patient InstructionsNo instructions recorded. Reason for Referral None Reported. Results Created Date Observation Date Name Description Value Unit Range Abnormal Flag Note LastModifiedBy Organization Detail LastModifiedTime 12/12/19 24 12/12/2023 CBC/C OMPLE TE BLD COUNT W/DIF F white blood cells 6.5 x10'3 /uL 4.2-10 .8 Not Available [facility] (Lab) [address] [place], [address], 12/12/2023 13:48:27 12/12/19 24 12/12/2023 CBC/C OMPLE TE BLD COUNT W/DIF F red blood cells 4.03 x10'6 /uL 3.80-5 .20 Not Available [facility] (Lab) [address] [place], [address], 12/12/2023 13:48:27 12/12/19 24 12/12/2023 CBC/C OMPLE TE BLD COUNT W/DIF F hemoglobin 12.2 g/dL 12.0-1 5.6 Not Available [facility] (Lab) [address] [place], [address], 12/12/2023 13:48:27 12/12/19 24 12/12/2023 CBC/C OMPLE TE BLD COUNT W/DIF F hematocrit 40.4 % 35.7-4 5.7 Not Available [facility] (Lab) [address] [place], [address], 12/12/2023 13:48:27 12/12/19 24 12/12/2023 CBC/C OMPLE TE BLD COUNT W/DIF F mean red cell volume 100.2 fL 82.0-9 9.0 high Not Available [facility] (Lab) [address] [place], [address], 12/12/2023 13:48:27 12/12/19 24 12/12/2023 CBC/C OMPLE TE BLD COUNT W/DIF F mean red cell hemoglobin 30.3 pg 27.0-3 3.0 Not Available [facility] (Lab) [address] [place], [address], 12/12/2023 13:48:27 12/12/19 24 12/12/2023 CBC/C OMPLE TE BLD COUNT W/DIF F mean RBC HGB concentratio n 30.2 g/dL 31.0-3 6.0 low Not Available [facility] (Lab) [address] [facility] [place], [address], 12/12/2023 13:48:27 12/12/19 24 12/12/2023 CBC/C OMPLE TE BLD COUNT W/DIF F red cell distribution width 14.2 % 11.8-1 5.5 Not Available [facility] (Lab) [address] [place], [address], 12/12/2023 13:48:27 12/12/19 24 12/12/2023 CBC/C OMPLE TE BLD COUNT W/DIF F platelets 263 x10'3 /uL 150-40 0 Not Available [facility] (Lab) [address] [place], [address], 12/12/2023 13:48:27 12/12/19 24 12/12/2023 CBC/C OMPLE TE BLD COUNT W/DIF F mean platelet volume 9.8 fL 9.0-12 .4 Not Available [facility] (Lab) [address] [place], [address], 12/12/2023 13:48:27 12/12/19 24 12/12/2023 CBC/C OMPLE TE BLD COUNT W/DIF F neutrophils 60.1 % 39.0-7 2.0 Not Available [facility] (Lab) [address] [place], [address], 12/12/2023 13:48:27 12/12/19 24 12/12/2023 CBC/C OMPLE TE BLD COUNT W/DIF F lymphocytes 28.4 % 16.0-4 7.0 Not Available [facility] (Lab) [address] [place], [address], 12/12/2023 13:48:27 12/12/19 24 12/12/2023 CBC/C OMPLE TE BLD COUNT W/DIF F monocytes 8.1 % 5.0-12 .0 Not Available [facility] (Lab) [address] [place], [address], 12/12/2023 13:48:27 12/12/19 24 12/12/2023 CBC/C OMPLE TE BLD COUNT W/DIF F eosinophils 2.5 % 1.0-7. 0 Not Available [facility] (Lab) [address] [place], [address], 12/12/2023 13:48:27 12/12/19 24 12/12/2023 CBC/C OMPLE TE BLD COUNT W/DIF F basophils 0.6 % 0.0-2. 0 Not Available [facility] (Lab) [address] [place], [address], 12/12/2023 13:48:27 12/12/19 24 12/12/2023 CBC/C OMPLE TE BLD COUNT W/DIF F immature granulocytes 0.3 % 0.00-0 .50 Not Available [facility] (Lab) [address] [place], [address], 12/12/2023 13:48:27 12/12/19 24 12/12/2023 CBC/C OMPLE TE BLD COUNT W/DIF F neutrophils, absolute count 3.91 x10'3 /uL 1.5-8. 0 Not Available [facility] (Lab) [address] [place], [address], 12/12/2023 13:48:27 12/12/19 24 12/12/2023 CBC/C OMPLE TE BLD COUNT W/DIF F lymphocytes, absolute count 1.85 x10'3 /uL 1.07-3 .43 Not Available [facility] (Lab) [address] [place], [address], 12/12/2023 13:48:27 12/12/19 24 12/12/2023 CBC/C OMPLE TE BLD COUNT W/DIF F monocytes, absolute count 0.53 x10'3 /uL 0.29-0 .99 Not Available [facility] (Lab) [address] [place], [address], 12/12/2023 13:48:27 12/12/19 24 12/12/2023 CBC/C OMPLE TE BLD COUNT W/DIF F eosinophils, absolute count 0.16 x10'3 /uL 0.02-0 .53 Not Available [facility] (Lab) [address] [place], [address], 12/12/2023 13:48:27 12/12/19 24 12/12/2023 CBC/C OMPLE TE BLD COUNT W/DIF F basophils, absolute count 0.04 x10'3 /uL 0.01-0 .08 Not Available [facility] (Lab) [address] [place], [address], 12/12/2023 13:48:27 12/12/19 24 12/12/2023 CBC/C OMPLE TE BLD COUNT W/DIF F immature granulocytes ,absolute 0.02 x10'3 /uL 0.00-0 .05 Not Available [facility] (Lab) [address] [place], [address], 12/12/2023 13:48:27 12/12/19 24 12/12/2023 CBC/C OMPLE TE BLD COUNT W/DIF F nucleated red blood cells 0.0 % -0 Not Available [facility] (Lab) [address] [place], [address], 12/12/2023 13:48:27 12/12/19 24 12/12/2023 CBC/C OMPLE TE BLD COUNT W/DIF F NRBC# 0.00 x10'3 /uL Not Available [facility] (Lab) [address] [place], [address], 12/12/2023 13:48:27 12/12/19 24 12/12/2023 LIPID PANEL cholesterol 160 mg/dL 140-19 9 NIH CHEL NSUS RECOM MENDA TION FOR TONYA STERO L: ADULT CHILD LOW RISK: <200 <170 BORDE RLINE : <200- 239 ----- HIGH RISK: >240 >200 Not Available [facility] (Lab) [address] [place], [address], 12/12/2023 13:56:46 12/12/19 24 12/12/2023 LIPID PANEL triglyceride s 79 mg/dL 0-150 NIH CHEL NSUS REPOR T RECOM MENDA TION FOR TRIGL YCERI GUIDO: ADULT CHILD LOW RISK: <150 ----- BODER LINE: 150-1 99 ----- HIGH RISK: >200 ----- Not Available [facility] (Lab) [address] [place], [address], 12/12/2023 13:56:46 12/12/19 24 12/12/2023 LIPID PANEL HDL cholesterol 79 mg/dL 40- Not Available [facility] (Lab) [address] [place], [address], 12/12/2023 13:56:46 12/12/19 24 12/12/2023 LIPID PANEL [...] WILL NOT BE REPOR XAVIER. Not Available [facility] (Lab) [address] [place], [address], 12/12/2023 13:56:46 12/12/19 24 12/12/2023 COMPR EHENS NIELS METAB OLIC PANEL sodium 141 mmol/ L 137-14 5 Not Available [facility] (Lab) [address] [place], [address], 12/12/2023 13:56:51 12/12/19 24 12/12/2023 COMPR EHENS NIELS METAB OLIC PANEL potassium 4.4 mmol/ L 3.5-5. 1 Not Available [facility] (Lab) [address] [place], [address], 12/12/2023 13:56:51 12/12/19 24 12/12/2023 COMPR EHENS NIELS METAB OLIC PANEL chloride 106 mmol/ L 98-107 Not Available [facility] (Lab) [address] [place], [address], 12/12/2023 13:56:51 12/12/19 24 12/12/2023 COMPR EHENS NIELS METAB OLIC PANEL carbon dioxide 29 mmol/ L 22-30 Not Available [facility] (Lab) [address] [place], [address], 12/12/2023 13:56:51 12/12/19 24 12/12/2023 COMPR EHENS NIELS METAB OLIC PANEL anion gap 10.4 mmol/ L 14-22 low Not Available [facility] (Lab) [address] [place], [address], 12/12/2023 13:56:51 12/12/19 24 12/12/2023 COMPR EHENS NIELS METAB OLIC PANEL glucose 99 mg/dL 70-99 Not Available [facility] (Lab) [address] [place], [address], 12/12/2023 13:56:51 12/12/19 24 12/12/2023 COMPR EHENS NIELS METAB OLIC PANEL BUN 20 mg/dL 8-19 high Not Available [facility] (Lab) [address] [place], [address], 12/12/2023 13:56:51 12/12/19 24 12/12/2023 COMPR EHENS NIELS METAB OLIC PANEL creatinine 0.62 mg/dL 0.66-1 .25 low Not Available [facility] (Lab) [address] [place], [address], 12/12/2023 13:56:51 12/12/19 24 12/12/2023 COMPR EHENS NIELS METAB OLIC PANEL GFR >60 Refer ence Range : [place] ge GFR Healt hy Adult : >60 [...] calcu laturvashi is avail able on the [facility] websi te: https :[email or web address] villalobos.o rg/pr ofess ional s/kdo qi/gf r_cal culat or Not Available [facility] (Lab) [address] [place], [address], 12/12/2023 13:56:51 12/12/19 24 12/12/2023 COMPR EHENS NIELS METAB OLIC PANEL alkaline phosphatase 72 U/L 38-126 Not Available [facility] (Lab) [address] [place], [address], 12/12/2023 13:56:51 12/12/19 24 12/12/2023 COMPR EHENS NIELS METAB OLIC PANEL alanine aminotransfe rase 18 U/L 0-35 Not Available [facility] (Lab) [address] [place], [address], 12/12/2023 13:56:51 12/12/19 24 12/12/2023 COMPR EHENS NIELS METAB OLIC PANEL aspartate aminotransfe rase 25 U/L 15-37 Not Available [facility] (Lab) [address] [place], [address], 12/12/2023 13:56:51 12/12/19 24 12/12/2023 COMPR EHENS NIELS METAB OLIC PANEL bilirubin, total 0.60 mg/dL 0.20-1 .30 Not Available [facility] (Lab) [address] [place], [address], 12/12/2023 13:56:51 12/12/19 24 12/12/2023 COMPR EHENS NIELS METAB OLIC PANEL calcium 9.3 mg/dL 8.4-10 .2 Not Available [facility] (Lab) [address] [place], [address], 12/12/2023 13:56:51 12/12/19 24 12/12/2023 COMPR EHENS NIELS METAB OLIC PANEL total protein 7.1 g/dL 6.3-8. 2 Not Available [facility] (Lab) [address] [place], [address], 12/12/2023 13:56:51 12/12/19 24 12/12/2023 COMPR EHENS NIELS METAB OLIC PANEL albumin 4.0 g/dL 3.0-4. 4 Not Available [facility] (Lab) [address] [place], [address], 12/12/2023 13:56:51 12/12/19 24 12/12/2023 COMPR EHENS NIELS METAB OLIC PANEL globulin 3.1 g/dL 2.6-4. 2 Not Available [facility] (Lab) [address] [place], [address], 12/12/2023 13:56:51 12/12/19 24 12/12/2023 COMPR EHENS NIELS METAB OLIC PANEL A/G ratio 1.3 ratio 1.0-2. 0 Not Available [facility] (Lab) [address] [place], [address], 12/12/2023 13:56:51 04/17/20 23 04/17/2023 MAMMO , scree shahnaz, digit al, bilat eral No observ ation record ed. [email or web address] [place] [address] [address], [place], [address], 06/21/2023 09:34:28 05/20/20 23 XR, knee No observ ation record ed. [email or web address] [facility] [place] [address], [place], [address], 05/20/2023 11:42:50 Result Notes None recorded. Problems Name Problem SNOMED Code Status Onset Date Resolution Date Notes Provider Name and Address Organization Details Recorded Time Benign essential hypertensi on 2112689 Active Not Available [facility] 4 07:40:33 Acquired trigger finger 1616799 Active Not Available [facility] 4 07:40:33 Chondromal acia of right patella 8054801255011 9108 Active 2021 Not Available [facility] 4 07:40:33 Peripheral venous insufficie ncy 55867302 Active Not Available [facility] 4 07:40:33 Pain in thumb 115580172 Active Not Available [facility] 4 07:40:33 Tear of medial meniscus of knee 911381110 Active 2021 Not Available [facility] 4 07:40:34 Tear of medial meniscus of knee 798284010 Active 2021 Not Available [facility] 4 07:40:33 Tear of lateral meniscus of knee 306175549 Active 2021 Not Available [facility] 4 07:40:34 Tear of lateral meniscus of knee 829791831 Active 2021 Not Available [facility] 4 07:40:34 Knee pain Active Not Available [facility] 4 07:40:34 Ureteric stone 59164008 Active Not Available [facility] 4 07:40:34 Diastolic dysfunctio n 6613194 Active Not Available [facility] 4 07:40:34 Pain of left knee joint 6943248808693 07 Active 2021 Not Available [facility] 4 07:40:34 Pain of bilateral knee joints 6300703529304 04 Active 2021 Not Available [facility] 4 07:40:34 Upper respirator y infection 50517388 Active Not Available [facility] 4 07:40:34 Heart disease 88081971 Active Not Available [facility] 4 07:40:34 Carpal tunnel syndrome 97928446 Active Not Available [facility] 4 07:40:34 COVID-19 463071780 Active 2021 Not Available [facility] 4 07:40:34 Osteoarthr itis 556914335 Active 2022 Not Available [facility] 4 07:40:34 Osteoarthr itis of right knee joint 9371039239879 00 Active 2022 Not Available [facility] 4 07:40:34 Problem Notes None recorded. Procedures Surgical History Date Name Laterality Status Provider Name and Address Organization Details Recorded Time 05/20/20 23 Ortho - Cortisone Injection completed Marco Antonio Soliz MD [address] [place] [address], [facility] [address], [place], [address], [facility] 05/20/2023 11:45:09 09/12/20 22 KNEE ARTHROSCOPY WITH MEDIAL MENISCECTOMY (SURG) completed Not Available [facility] 01/30/2023 01:31:46 09/11/20 22 KNEE ARTHROSCOPY WITH MEDIAL MENISCECTOMY (SURG) completed Not Available [facility] 01/30/2023 01:31:46 09/11/20 22 KNEE ARTHROSCOPY WITH MEDIAL MENISCECTOMY (SURG) completed Not Available [facility] 01/30/2023 01:31:46 02/16/20 21 Most Recent Bone Density completed Not Available [facility] 01/30/2023 00:58:34 02/06/20 18 Date of Last Colonoscopy completed Not Available [facility] 01/30/2023 00:58:34 07/23/20 02 colposcopy completed Not Available [facility] hospital 00:58:42 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, [place], [address], 05/20/2023 11:42:50 Procedure Notes None recorded. Medical Equipment None Reported. Allergies Allergen ID Allergen Name Allergen Category Reaction Reaction Severity Criticality Documentation Date Start Date Code Code System Note Provider Name and Address Organization Details Recorded Time 2583 Substance with sulfonami de structure and antibacte rial mechanism of action (substanc e) medicatio n rash Not available Not available 01/30/2023 53511 8003 SNOMED Not Available [facility] 3 01:31:03 2585 Bactrim medicatio n rash Not available Not available 01/30/2023 62169 9 RxNorm Not Available [facility] hospital 3 01:31:03 Medications Name Sig Start Date [...] %) injection solution in office 2022 active [facility] [address]20 -064- 01 Not Available Not Available Not [...] kg/m2 162.56 cm 72 /min 98.7 [degF] 716286. 17 g 120 mm[Hg] 76 mm[Hg] Not Available [facility] 3 01:02:22 Date Recorded Body height Body mass index (BMI) Body weight Provider Name and Address Organization Details Last Updated DateTime 05/20/2023 162.56 cm 38.6 kg/m2 741151.28 g RANDY Phelps - [facility] 05/20/2023 09:46:56 Date Recorded Body height Body mass index (BMI) Body weight Body temperature Heart rate Systolic blood pressure Diastolic blood pressure Provider Name and Address Organization Details Last Updated DateTime 3 162.56 cm 38.8 kg/m2 984909. 88 g 97.4 [degF] 70 /min 136 mm[Hg] 80 mm[Hg] Rita Jeffries [facility] [employer] [facility] 3 10:10:40 Date Recorded Body height Body mass index (BMI) Body weight Provider Name and Address Organization Details Last Updated DateTime 06/24/2023 162.56 cm 28.8 kg/m2 [address]57.[address] [facility] [employer] [facility] 06/24/2023 09:18:31 Date Recorded Body height Body mass index (BMI) Body weight Body temperature Heart rate Systolic blood pressure Diastolic blood pressure Provider Name and Address Organization Details Last Updated DateTime 4 162.56 cm 36.7 kg/m2 21572.7 7 g 97.5 [degF] 78 /min 136 mm[Hg] 90 mm[Hg] Rita Jeffries Kailash [facility] [employer] [facility] 4 10:19:27 Social History Question Answer Notes LastModified by Organization Details LastModified Time Tobacco Smoking Status Never Smoker Elijah Carrera MOUNAKailash [facility]ED[facility] [employer] [facility] 12/12/2023 10:15:25 Do You Have An Advance Directive? No Patient Declined Informatio n. [id number] Information not available 01/30/2023 What Is Your Level Of Alcohol Consumption? Occasional [id number].030 [id number] Information not available 01/30/2023 Are You Blind Or Do You Have Difficulty Seeing? No Information not available 12/12/2023 What Is Your Level Of Caffeine Consumption? Heavy MIGRATION.030 [id number] Information not available 01/30/2023 How Much Tobacco Do You Chew? None [id number].030 [id number] Information not available 01/30/2023 In The 14 [...] Of Diet Are You Following? REGULAR [id number] [id number] Information not available 01/30/2023 Which Illicit Or Recreational Drugs Have You Used? None Information not available 12/12/2023 Do You Or Have You Ever Used E-cigarettes Or Vape? Never Used Electronic Cigarettes Information not available 12/12/2023 What Is The Highest Grade Or Level Of School You Have Completed Or The Highest Degree You Have Received? [id number] Information not available 12/12/2023 What Is Your [...] Do You Have A Medical Power Of Director [facility]? No Information not available 12/12/2023 What Was The Date Of Your Most Recent Tobacco Screening? 12/12/2023 [email or web address] Information not available 12/12/2023 Have You Ever Been Counseled For Unhealthy Alcohol Use? No Information not available 12/12/2023 Do You Have Any Pets? Yes Information not available 12/12/2023 What Is Your Relationship Status? MIGRATION.0301 [id number] Information not available 01/30/2023 Do You Use Your Seat Belt Or Car Seat Routinely? Yes Information not available 12/12/2023 Do You Have Smoke And Carbon Monoxide Detectors In Your Home? Yes Information not available 12/12/2023 Are You Passively Exposed To Smoke? No Information not available 12/12/2023 Do You Or Have You Ever Used Smokeless Tobacco? Never Used Smokeless Tobacco [id number].[id number] [id number] Information not available 01/30/2023 Are There Any Smokers In Your House? No Information not available 12/12/2023 How Much Tobacco Do You Smoke? No MIGRATION.0301 [id number] Information not available 01/30/2023 What Types Of Sporting Activities Do You Participate In? None Information not available 12/12/2023 Do You Feel Stressed (tense, Restless, Nervous, Or Anxious, Or Unable To Sleep At Night)? [id number] Information not available 12/12/2023 Do You Use [...] 12/12/2023 What is your exercise level? None [id number] Information not available 01/30/2023 Mental Status Question Answer Note LastModified by Organization D etails LastModified Time Do you have difficulty concentrating, remembering or making decisions? No Information no t available 12/12/2023 Family History Relationship Description Onset Age of this Age Resolved Age Notes LastModified by Organization Details LastModified Time Father Heart disease [id number].665 [id number] Not available 01/30/2023 00:58:45 Father Hypertensive disorder [id number].113 [id number] Not available 01/30/2023 00:58:45 Father Kidney disease MIGRATION.551 [id number] Not available 01/30/2023 00:58:45 Mother Osteoporosis cyahl Not availab le 12/12/2023 10:15:25 Mother Hypertensive disorder [id number].506 [id number] Not available 01/30/2023 00:58:45 Notes:GRANDMOTHER & AUNT [...] GLAUCOMA N FOOT PROBLEM N DIVERTICULITIS N SLEEP APNEA N CHICKENPOX N INFECTIOUS DISEASE N PROSTATE N HEART ARRHYTHMIA N INSOMNIA N HIGH CHOLESTEROL / HYPERLIPIDEMIA N EYE PROBLEMS N HYPERTHYROIDISM N EDEMA N CHRONIC PAIN SYNDROME N HYPOTHYROIDISM N CAROTID BLOCKAGE N CONSTIPATION N BACK / NECK PROBLEMS N HAVE YOU BEEN HOSPITALIZED OR SEEN IN [facility] IN THE PAST YEAR ? N ATHEROSCLEROSIS N BREAST PROBLEMS N DIALYSIS N ECZEMA N OSTEOPOROSIS N ARTHRITIS N APPENDICITIS N DIABETES, TYPE N BAD TEETH N ENT N HEARTBURN / REFLUX N AUTISM SPECTRUM DISORDER (ASD) N HEPATITIS / LIVER DISEASE N GOUT N SLEEP DISORDER N ALZHEIMER'S DISEASE N Brain Problems N DEMENTIA N HERPES N SEIZURES/EPILEPSY N HEADACHES/MIGRAINES N VASCULAR DISEASE N PACEMAKER N Blood Disorder N DIZZINESS N HEART DISEASE/HEART PROBLEMS Y KIDNEY DISEASE N MULTIPLE SCLEROSIS N CANCER: SPECIFY N CARDIAC ARRHYTHMIA N ATRIAL FIBRILLATION N Gall Stones N [...] 50 mcg/0.25mL dose 03/10/2021 completed Not Available [facility] 4 07:40:34 COVID-19, mRNA, LNP-S, PF, 100 mcg/0.5mL dose or 50 mcg/0.25mL dose 02/08/2021 completed Not Available [facility] 4 07:40:34 COVID-19, mRNA, LNP-S, bivalent, PF, 50 mcg/0.5 mL or 25mcg/0.25 mL dose 12/27/2022 completed Not Available [facility] hospital 4 07:40:34 Tdap 10/08/2014 completed Not Available [facility] hospital 12/16/2023 07:40:34 Past Encounters Encounter ID Performer Location Encounter Start Date Encounter Closed Date Diagnosis/Indication Diagnosis SNOMED-CT Code Diagnosis ICD10 Code Diagnosis Note [id number] [facility] [address] , [facility] [address] [place] [address] 01/30/2021 00:00:00 02/18/2021 13:50:36 [id number] [facility] [place] [address] [facility] [place] [address] 08/03/2021 00:00:00 08/06/2021 20:42:37 [id number] [facility] [place] [address] [facility] [place] [address] [address] [address] 03/01/2022 00:00:00 03/01/2022 13:22:34 [id number] [facility] [place] [address] [place] [address] 03/08/2022 00:00:00 03/08/2022 11:18:56 [id number] [facility] [place] [address] [place] [address] 03/19/2022 00:00:00 03/19/2022 11:47:59 [id number] [facility] [place] [address] [place] [address] 04/16/2022 00:00:00 04/16/2022 09:22:09 [id number] [facility] [place] [address] [place] [address] 05/28/2022 00:00:00 05/28/2022 09:36:34 [id number] [facility] [place] [address] [place] [address] 07/26/2022 00:00:00 07/26/2022 13:01:01 [id number] [facility] [place] [address] [place] [address] 08/02/2022 00:00:00 08/02/2022 10:48:03 [id number] [facility] [address] [place] [address], [facility] 15 [place] [address] 08/16/2022 00:00:00 09/23/2022 21:07:54 [id number] [facility] [place] [address] [place] [address] 09/24/2022 00:00:00 09/24/2022 11:09:36 [id number] [facility] [address] [place] [address] 12/20/2022 00:00:00 01/06/2023 22:23:11 [id number] Marco Antonio Soliz MD [facility] [place] [address] [place] [address] 05/20/2023 09:21:24 05/20/2023 11:08:02 Pain of bilateral knee joints 1109282306 82070 M25.561 M25.562 Tear of la teral meniscus of knee 499453888 S83.282D Chondromal acia of right patella [id number] 4016946 M22.41 [id number] Anjana Chen MD [facility] Internal [facility] [place] [address] [facility] [place] [address] 06/20/2023 10:05:31 06/20/2023 10:45:42 Benign essential hypertension 0032513 I10 Diastolic dysfunction 35 31597 I51.9 Osteoarthritis 208752377 M19.90 [id number] Marco Antonio Soliz MD [facility] [place] [address] [place] [address] 06/24/2023 09:10:14 06/24/2023 11:13:34 Osteoarthritis of right knee joint 1860868209 91569 M17.11 Tear of la teral meniscus of knee 081854975 S83.282D [id number] Anjana Chen MD [facility] Internal [facility] [place] [address] [facility] [place] [address] 12/12/2023 10:14:20 12/12/2023 11:06:23 Benign essential hypertension 8736260 I10 Osteoarthritis 363929015 M19.90 Diastolic dysfunction 35 12226 I51.9 Health Concerns Section Related Observation LastModified by Organization Detai ls LastModified Time None Recorded Concern Status LastModified by Organization Details LastModified Time None Recorded Advance Directives Directive N: Patient declined informat ion. Payers Encounter Date Sequence Insurance Name Policy Number Policy Walsh Covered Member ID Walsh Member ID Guarantor Name 05/20/2023 1 [place] Dia Hall [id number] Dia Hall 05/20/2023 2 [employer] OPTIONS (MEDICARE SUPPLEMENT) Dia Hall [id number] Dia Hall 06/20/2023 1 [place] Dia Hall [id number] Dia Hall 06/20/2023 2 [employer] OPTIONS (MEDICARE SUPPLEMENT) Dia Hall [id number] Dia Hall 06/24/2023 1 [place] Dia Hall [id number] Dia Hall 06/24/2023 2 [employer] OPTIONS (MEDICARE SUPPLEMENT) Dia Hall [id number] Dia Hall 12/12/2023 1 [place] Dia Hall [id number] Dia Hall 12/12/2023 2 [employer] OPTIONS (MEDICARE SUPPLEMENT) Dia Hall [id number] Dia [facility] Notes Date Note Type [...] left knee. Marco Antonio Soliz MD [address], [place], [address], Pounce 05/20/2023 11:45:46 06/20/2023 text/html Hypertension no headache or dizziness diastolic dysfunction no PND orthopnea osteoarthritis stable uses anti-inflammatories sparingly Anjana Chen MD [address], [place], [address], Pounce 06/21/2023 18:26:40 06/24/2023 text/html Patient returns knee pain LEFT. I scoped her knee 8 months ago over the last month the pain is begun returning primarily with activity. She has she has a catching and locking but mostly pain and aching in the knee. This is her left knee. Marco Antonio Soliz MD [address], [place], [address], Pounce 06/24/2023 11:13:25 12/12/2023 text/html Hypertension no headache or dizziness diastolic dysfunction no PND orthopnea osteoarthritis stable uses anti-inflammatories sparingly Anjana Chen MD [address] [facility], [facility] [address], [place], [address], [facility] [employer] [facility] 01/03/2024 08:51:21 OBGyn Episode No OBEpisode recorded.
== END 2025-03-19 08:07 | disposition home or self-care (01) ==
PROVIDERS: PCP Internal Medicine; Visit Provider Internal Medicine
DX: R94.31 Abnormal electrocardiogram [ECG] [EKG] (principal); R94.39 Abnormal result of other cardiovascular function study
CPT/HCPCS: 78452; 93017; 93306; A9502

== ENCOUNTER 2025-04-21 09:05 | Outpatient (CLI) | payer MEDICARE, SELFPAY ==
--- OUTSIDE RECORDS SUMMARY | 2025-04-21 09:50 | XMS_ITS | CONTINUITY OF CARE DOCUMENT ---
Author Name don ochoa Address Unknown Organization [facility] Address [address] [place] [address] Phone [phone] Care Team Providers Care Family Law Mediator Name Role Phone José Luis PARKER, Ramona Unavailable LAWRENCE PARKER, ANJANA Gerber Unavailable [phone] LAWRENCE PARKER, ANJANA Gerber Unavailable PROBLEMS Condition Status Date Provider Notes Cardiology examination active Ramona mike MD Hypertension active Ramona Ordonez MD Abnormal nuclear stress test active Grace Ordonez MD Preoperative cardiovascular examination active Ramona Ordonez MD ENCOUNTERS Date Type Provider Location Encounter Diag nosis - In-person encounter Office Visit Ramona Ordonez MD [facility] Cardiology examinationPreoperative cardiovascular examinationAbnormal nuclear stress testHypertension VITAL SIGNS Date Observation Value Provider Body Mass Index (Ratio) 37.76 kg/m2 Analilia Ordonez MD blood pressure, diastolic 95 mm[Hg] Abida Andrew blood pressure, systolic 157 mm[Hg] Katty Andrew oxygen saturation, oximetry 97 % Ruby Andrew pulse rate 70 /min Ruby Andrew respiratory rate E&M 12 /min Ruby Andrew weight E&M 220 [lb_av] Ruby Andrew height E&M 64 [in_i] Ruby Andrew blood pressure, cuff size regular An josevilma Andrew ALLERGIES No Known Drug Allergies HISTORY OF MEDICATION USE Medication Status Instructions Dates Provider Indications Com ments lisinopril 10 mg tablet active TAKE 1 TABLET BY MOUTH ONCE DAILY Ruby Kamran INSURANCE PROVIDERS Payer name Policy type / Coverage type Soquel red republican ID A[employer] Commercial insurance company [id number] [place] Medicare [id number] ADVANCE DIRECTIVES Name Date DISCUSSED - NO DECISION MADE TREATMENT PLAN Date Name Performer Cardiology:Letter of clearance p rovided to the patient. Ramona Ordonez MD Cardiology: H er updated medication list for this problem includes: Lisinopril 10 Mg Tablet (Lisinopril) ..... Take 1 tablet by mouth once daily BP today: 157/95 Ramona Ordonez MD HISTORY OF PROCEDURES Procedure Date Procedure Name Provider Procedure Notes S tatus EKG Ramona Ordonez MD complet ed
--- OUTSIDE RECORDS SUMMARY | 2025-04-21 09:50 | XMS_ITS | Data Portability ---
Author Organization [place] - [facility], Main Office Address [address] [place] [address] Care Team Providers Care Summer Associate Name Role Phone ANJANA CHEN Primary Care Provider [phone] ANJANA CHEN Referring Provider Assessment Encounter Date [...] Her x-rays show some degenerative change not [id number]. Recommended we try conservative treatment I injected with 20 mg Kenalog 4 cc 1% lidocaine the left knee. For prescription drug management will try Voltaren for pain and inflammation. I will see her back in a month for follow-up if she has any changes or problems she will call discussed. [email or web address] Not available 05/20/2023 11:43:58 06/20/2023 06/20/2023 Continue with current therapy diagnosis discussed see me in 6 months [email or web address] Not available 06/21/2023 18:26:23 06/24/2023 06/24/2023 Patient [...] If gets worse or changes will reassess. [email or web address] Not available 06/24/2023 11:12:53 12/12/2023 12/12/2023 Continue current therapy stay physically active by walking little bit of strength training follow-up in 6 months [email or web address] Not available 01/03/2024 08:51:05 Plan of Treatment [...] procedure, administere d by provider 2022 023 [email or web address] In-Office Order, Internal Use Only DO Not Attach Compendium DO Not Attach Compendium, Do Not Delete/merge, 97800 3 10:32:52 Surgeries None recorded. Imaging XR, knee 2022 023 [email or web address] 158 [facility] [place], [facility] [facility] [address], [place], [address], 3 11:42:51 Medication Orders diclofenac sodium 75 mg tablet,latonia yed release 2022 023 [email or web address] 158 [facility] [address] [place], [address], 3 11:10:35 Kenalog 10 mg/mL suspension for injection 2022 023 [id number] 223 [facility] [address], [address] [place], [address], 4 07:40:33 ropivacaine (PF) 5 mg/mL (0.5 %) injection solution 2022 023 [id number] 223 [facility] [address], [address] [place], [address], 4 07:40:33 diclofenac sodium 75 mg tablet,latonia yed release 2022 023 [email or web address] 158 [facility] [address] [place], [address], 3 10:40:37 Patient TargetsNo targets recorded. Patient InstructionsNo instructions recorded. Reason for Referral None Reported. Results Created Date Observation Date Name Description Value Unit Range Abnormal Flag Note LastModifiedBy Organization Detail LastModifiedTime 12/12/19 24 12/12/2023 CBC/C OMPLE TE BLD COUNT W/DIF F white blood cells 6.5 x10'3 /uL 4.2-10 .8 Not Available [facility] (Lab) [address] [place], [address], 12/12/2023 13:48:27 12/12/19 24 12/12/2023 CBC/C OMPLE TE BLD COUNT W/DIF F red blood cells 4.03 x10'6 /uL 3.80-5 .20 Not Available [facility] (Lab) [address] [place], [address], 12/12/2023 13:48:27 12/12/19 24 12/12/2023 CBC/C OMPLE TE BLD COUNT W/DIF F hemoglobin 12.2 g/dL 12.0-1 5.6 Not Available [facility] (Lab) [address] [place], [address], 12/12/2023 13:48:27 12/12/19 24 12/12/2023 CBC/C OMPLE TE BLD COUNT W/DIF F hematocrit 40.4 % 35.7-4 5.7 Not Available [facility] (Lab) [address] [place], [address], 12/12/2023 13:48:27 12/12/19 24 12/12/2023 CBC/C OMPLE TE BLD COUNT W/DIF F mean red cell volume 100.2 fL 82.0-9 9.0 high Not Available [facility] (Lab) [address] [place], [address], 12/12/2023 13:48:27 12/12/19 24 12/12/2023 CBC/C OMPLE TE BLD COUNT W/DIF F mean red cell hemoglobin 30.3 pg 27.0-3 3.0 Not Available [facility] (Lab) [address] [place], [address], 12/12/2023 13:48:27 12/12/19 24 12/12/2023 CBC/C OMPLE TE BLD COUNT W/DIF F mean RBC HGB concentratio n 30.2 g/dL 31.0-3 6.0 low Not Available [facility] (Lab) [address] [facility] [place], [address], 12/12/2023 13:48:27 12/12/19 24 12/12/2023 CBC/C OMPLE TE BLD COUNT W/DIF F red cell distribution width 14.2 % 11.8-1 5.5 Not Available [facility] (Lab) [address] [place], [address], 12/12/2023 13:48:27 12/12/19 24 12/12/2023 CBC/C OMPLE TE BLD COUNT W/DIF F platelets 263 x10'3 /uL 150-40 0 Not Available [facility] (Lab) [address] [place], [address], 12/12/2023 13:48:27 12/12/19 24 12/12/2023 CBC/C OMPLE TE BLD COUNT W/DIF F mean platelet volume 9.8 fL 9.0-12 .4 Not Available [facility] (Lab) [address] [place], [address], 12/12/2023 13:48:27 12/12/19 24 12/12/2023 CBC/C OMPLE TE BLD COUNT W/DIF F neutrophils 60.1 % 39.0-7 2.0 Not Available [facility] (Lab) [address] [place], [address], 12/12/2023 13:48:27 12/12/19 24 12/12/2023 CBC/C OMPLE TE BLD COUNT W/DIF F lymphocytes 28.4 % 16.0-4 7.0 Not Available [facility] (Lab) [address] [place], [address], 12/12/2023 13:48:27 12/12/19 24 12/12/2023 CBC/C OMPLE TE BLD COUNT W/DIF F monocytes 8.1 % 5.0-12 .0 Not Available [facility] (Lab) [address] [place], [address], 12/12/2023 13:48:27 12/12/19 24 12/12/2023 CBC/C OMPLE TE BLD COUNT W/DIF F eosinophils 2.5 % 1.0-7. 0 Not Available [facility] (Lab) [address] [place], [address], 12/12/2023 13:48:27 12/12/19 24 12/12/2023 CBC/C OMPLE TE BLD COUNT W/DIF F basophils 0.6 % 0.0-2. 0 Not Available [facility] (Lab) [address] [place], [address], 12/12/2023 13:48:27 12/12/19 24 12/12/2023 CBC/C OMPLE TE BLD COUNT W/DIF F immature granulocytes 0.3 % 0.00-0 .50 Not Available [facility] (Lab) [address] [place], [address], 12/12/2023 13:48:27 12/12/19 24 12/12/2023 CBC/C OMPLE TE BLD COUNT W/DIF F neutrophils, absolute count 3.91 x10'3 /uL 1.5-8. 0 Not Available [facility] (Lab) [address] [place], [address], 12/12/2023 13:48:27 12/12/19 24 12/12/2023 CBC/C OMPLE TE BLD COUNT W/DIF F lymphocytes, absolute count 1.85 x10'3 /uL 1.07-3 .43 Not Available [facility] (Lab) [address] [place], [address], 12/12/2023 13:48:27 12/12/19 24 12/12/2023 CBC/C OMPLE TE BLD COUNT W/DIF F monocytes, absolute count 0.53 x10'3 /uL 0.29-0 .99 Not Available [facility] (Lab) [address] [place], [address], 12/12/2023 13:48:27 12/12/19 24 12/12/2023 CBC/C OMPLE TE BLD COUNT W/DIF F eosinophils, absolute count 0.16 x10'3 /uL 0.02-0 .53 Not Available [facility] (Lab) [address] [place], [address], 12/12/2023 13:48:27 12/12/19 24 12/12/2023 CBC/C OMPLE TE BLD COUNT W/DIF F basophils, absolute count 0.04 x10'3 /uL 0.01-0 .08 Not Available [facility] (Lab) [address] [place], [address], 12/12/2023 13:48:27 12/12/19 24 12/12/2023 CBC/C OMPLE TE BLD COUNT W/DIF F immature granulocytes ,absolute 0.02 x10'3 /uL 0.00-0 .05 Not Available [facility] (Lab) [address] [place], [address], 12/12/2023 13:48:27 12/12/19 24 12/12/2023 CBC/C OMPLE TE BLD COUNT W/DIF F nucleated red blood cells 0.0 % -0 Not Available [facility] (Lab) [address] [place], [address], 12/12/2023 13:48:27 12/12/19 24 12/12/2023 CBC/C OMPLE TE BLD COUNT W/DIF F NRBC# 0.00 x10'3 /uL Not Available [facility] (Lab) [address] [place], [address], 12/12/2023 13:48:27 12/12/19 24 12/12/2023 LIPID PANEL cholesterol 160 mg/dL 140-19 9 NIH CHEL NSUS RECOM MENDA TION FOR TONYA STERO L: ADULT CHILD LOW RISK: <200 <170 BORDE RLINE : <200- 239 ----- HIGH RISK: >240 >200 Not Available [facility] (Lab) [address] [place], [address], 12/12/2023 13:56:46 12/12/19 24 12/12/2023 LIPID PANEL triglyceride s 79 mg/dL 0-150 NIH CHEL NSUS REPOR T RECOM MENDA TION FOR TRIGL YCERI GUIDO: ADULT CHILD LOW RISK: <150 ----- BODER LINE: 150-1 99 ----- HIGH RISK: >200 ----- Not Available [facility] (Lab) [address] [place], [address], 12/12/2023 13:56:46 12/12/19 24 12/12/2023 LIPID PANEL HDL cholesterol 79 mg/dL 40- Not Available [facility] (Lab) [address] [place], [address], 12/12/2023 13:56:46 12/12/19 24 12/12/2023 LIPID PANEL [...] WILL NOT BE REPOR XAVIER. Not Available [facility] (Lab) [address] [place], [address], 12/12/2023 13:56:46 12/12/19 24 12/12/2023 COMPR EHENS NIELS METAB OLIC PANEL sodium 141 mmol/ L 137-14 5 Not Available [facility] (Lab) [address] [place], [address], 12/12/2023 13:56:51 12/12/19 24 12/12/2023 COMPR EHENS NIELS METAB OLIC PANEL potassium 4.4 mmol/ L 3.5-5. 1 Not Available [facility] (Lab) [address] [place], [address], 12/12/2023 13:56:51 12/12/19 24 12/12/2023 COMPR EHENS NIELS METAB OLIC PANEL chloride 106 mmol/ L 98-107 Not Available [facility] (Lab) [address] [place], [address], 12/12/2023 13:56:51 12/12/19 24 12/12/2023 COMPR EHENS NIELS METAB OLIC PANEL carbon dioxide 29 mmol/ L 22-30 Not Available [facility] (Lab) [address] [place], [address], 12/12/2023 13:56:51 12/12/19 24 12/12/2023 COMPR EHENS NIELS METAB OLIC PANEL anion gap 10.4 mmol/ L 14-22 low Not Available [facility] (Lab) [address] [place], [address], 12/12/2023 13:56:51 12/12/19 24 12/12/2023 COMPR EHENS NIELS METAB OLIC PANEL glucose 99 mg/dL 70-99 Not Available [facility] (Lab) [address] [place], [address], 12/12/2023 13:56:51 12/12/19 24 12/12/2023 COMPR EHENS NIELS METAB OLIC PANEL BUN 20 mg/dL 8-19 high Not Available [facility] (Lab) [address] [place], [address], 12/12/2023 13:56:51 12/12/19 24 12/12/2023 COMPR EHENS NIELS METAB OLIC PANEL creatinine 0.62 mg/dL 0.66-1 .25 low Not Available [facility] (Lab) [address] [place], [address], 12/12/2023 13:56:51 12/12/19 24 12/12/2023 COMPR EHENS NIELS METAB OLIC PANEL GFR >60 Refer ence Range : Dutton ge GFR Healt hy Adult : >60 [...] calcu laturvashi is avail able on the [facility] websi te: [email or web address] :[email or web address] [email or web address] rg/pr ofess ional s/kdo qi/gf r_cal culat or Not Available [facility] (Lab) [address] [place], [address], 12/12/2023 13:56:51 12/12/19 24 12/12/2023 COMPR EHENS NIELS METAB OLIC PANEL alkaline phosphatase 72 U/L 38-126 Not Available [facility] (Lab) [address] [place], [address], 12/12/2023 13:56:51 12/12/19 24 12/12/2023 COMPR EHENS NIELS METAB OLIC PANEL alanine aminotransfe rase 18 U/L 0-35 Not Available [facility] (Lab) [address] [place], [address], 12/12/2023 13:56:51 12/12/19 24 12/12/2023 COMPR EHENS NIELS METAB OLIC PANEL aspartate aminotransfe rase 25 U/L 15-37 Not Available [facility] (Lab) [address] [place], [address], 12/12/2023 13:56:51 12/12/19 24 12/12/2023 COMPR EHENS NIELS METAB OLIC PANEL bilirubin, total 0.60 mg/dL 0.20-1 .30 Not Available [facility] (Lab) [address] [place], [address], 12/12/2023 13:56:51 12/12/19 24 12/12/2023 COMPR EHENS NIELS METAB OLIC PANEL calcium 9.3 mg/dL 8.4-10 .2 Not Available [facility] (Lab) [address] [place], [address], 12/12/2023 13:56:51 12/12/19 24 12/12/2023 COMPR EHENS NIELS METAB OLIC PANEL total protein 7.1 g/dL 6.3-8. 2 Not Available [facility] (Lab) [address] [place], [address], 12/12/2023 13:56:51 12/12/19 24 12/12/2023 COMPR EHENS NIELS METAB OLIC PANEL albumin 4.0 g/dL 3.0-4. 4 Not Available [facility] (Lab) [address] [place], [address], 12/12/2023 13:56:51 12/12/19 24 12/12/2023 COMPR EHENS NIELS METAB OLIC PANEL globulin 3.1 g/dL 2.6-4. 2 Not Available [facility] (Lab) [address] [place], [address], 12/12/2023 13:56:51 12/12/19 24 12/12/2023 COMPR EHENS NIELS METAB OLIC PANEL A/G ratio 1.3 ratio 1.0-2. 0 Not Available [facility] (Lab) [address] [place], [address], 12/12/2023 13:56:51 04/17/20 23 04/17/2023 MAMMO , scree shahnaz, digit al, bilat eral No observ ation record ed. [email or web address] [place] [address] [address], [place], [address], 06/21/2023 09:34:28 05/20/20 23 XR, knee No observ ation record ed. [email or web address] [facility] [place] [address], [place], [address], 05/20/2023 11:42:50 Result Notes None recorded. Problems Name Problem SNOMED Code Status Onset Date Resolution Date Notes Provider Name and Address Organization Details Recorded Time Benign essential hypertensi on 6616372 Active Not Available [facility] 4 07:40:33 Acquired trigger finger 6692828 Active Not Available [facility] 4 07:40:33 Chondromal acia of right patella 7284184798533 9108 Active 2021 Not Available [facility] 4 07:40:33 Peripheral venous insufficie ncy 62517906 Active Not Available [facility] 4 07:40:33 Pain in thumb 483638966 Active Not Available [facility] 4 07:40:33 Tear of medial meniscus of knee 921426919 Active 2021 Not Available [facility] 4 07:40:34 Tear of medial meniscus of knee 979147448 Active 2021 Not Available [facility] 4 07:40:33 Tear of lateral meniscus of knee 562592049 Active 2021 Not Available [facility] 4 07:40:34 Tear of lateral meniscus of knee 610100407 Active 2021 Not Available [facility] 4 07:40:34 Knee pain Active Not Available [facility] 4 07:40:34 Ureteric stone 68064257 Active Not Available [facility] 4 07:40:34 Diastolic dysfunctio n 0656812 Active Not Available [facility] 4 07:40:34 Pain of left knee joint 6633127346994 07 Active 2021 Not Available [facility] 4 07:40:34 Pain of bilateral knee joints 8836577363070 04 Active 2021 Not Available [facility] 4 07:40:34 Upper respirator y infection 56364858 Active Not Available [facility] 4 07:40:34 Heart disease 01971530 Active Not Available [facility] 4 07:40:34 Carpal tunnel syndrome 15829602 Active Not Available [facility] 4 07:40:34 COVID-19 222168382 Active 2021 Not Available [facility] 4 07:40:34 Osteoarthr itis 970659456 Active 2022 Not Available [facility] 4 07:40:34 Osteoarthr itis of right knee joint 3831269432280 00 Active 2022 Not Available [facility] 4 07:40:34 Problem Notes None recorded. Procedures Surgical History Date Name Laterality Status Provider Name and Address Organization Details Recorded Time 05/20/20 23 Ortho - Cortisone Injection completed Marco Antonio Soliz MD [address] [place] [address], [facility] [address], [place], [address], [facility] 05/20/2023 11:45:09 09/12/20 22 KNEE ARTHROSCOPY WITH MEDIAL MENISCECTOMY (SURG) completed Not Available [facility] 01/30/2023 01:31:46 09/11/20 22 KNEE ARTHROSCOPY WITH MEDIAL MENISCECTOMY (SURG) completed Not Available [facility] 01/30/2023 01:31:46 09/11/20 22 KNEE ARTHROSCOPY WITH MEDIAL MENISCECTOMY (SURG) completed Not Available [facility] 01/30/2023 01:31:46 02/16/20 21 Most Recent Bone Density completed Not Available [facility] 01/30/2023 00:58:34 02/06/20 18 Date of Last Colonoscopy completed Not Available [facility] 01/30/2023 00:58:34 07/23/20 02 colposcopy completed Not Available [facility] 00:58:42 [employer] Surgery completed Not Available [facility] 01/30/2023 00:58:42 Kidney Stones completed [facility] 01/30/2023 00:58:42 Imaging Results Imaging Date Name Status LastModified by Organiz ation Details LastModified Time 04/17/2023 MAMMO, screening, digital, bilateral completed [email or web address] [place] [address] [address], [place], [address], 06/21/2023 09:34:28 05/20/2023 XR, knee completed [email or web address] [facility] [place] [address], [place], [address], 05/20/2023 11:42:50 Procedure Notes None recorded. Medical Equipment None Reported. Allergies Allergen ID Allergen Name Allergen Category Reaction Reaction Severity Criticality Documentation Date Start Date Code Code System Note Provider Name and Address Organization Details Recorded Time 2583 Substance with sulfonami de structure and antibacte rial mechanism of action (substanc e) medicatio n rash Not available Not available 01/30/2023 41903 8003 SNOMED Not Available [facility] 3 01:31:03 2585 Bactrim medicatio n rash Not available Not available 01/30/2023 36908 9 RxNorm Not Available [facility] 3 01:31:03 Medications Name Sig Start [...] %) injection solution in office 2022 active [facility] 35619 -[phone]- [phone] Not Available Not Available Not [...] kg/m2 162.56 cm 72 /min 98.7 [degF] 367597. 17 g 120 mm[Hg] 76 mm[Hg] Not Available [facility] 3 01:02:22 Date Recorded Body height Body mass index (BMI) Body weight Provider Name and Address Organization Details Last Updated DateTime 05/20/2023 162.56 cm 38.6 kg/m2 893491.28 g RANDY Phelps - [facility] Simmery [facility] 05/20/2023 09:46:56 Date Recorded Body height Body mass index (BMI) Body weight Body temperature Heart rate Systolic blood pressure Diastolic blood pressure Provider Name and Address Organization Details Last Updated DateTime 3 162.56 cm 38.8 kg/m2 216900. 88 g 97.4 [degF] 70 /min 136 mm[Hg] 80 mm[Hg] Rita Jeffries [facility] 3 10:10:40 Date Recorded Body height Body mass index (BMI) Body weight Provider Name and Address Organization Details Last Updated DateTime 06/24/2023 162.56 cm 28.8 kg/m2 16515.52 g Ruma Jone [facility] 06/24/2023 09:18:31 Date Recorded Body height Body mass index (BMI) Body weight Body temperature Heart rate Systolic blood pressure Diastolic blood pressure Provider Name and Address Organization Details Last Updated DateTime 4 162.56 cm 36.7 kg/m2 66417.7 7 g 97.5 [degF] 78 /min 136 mm[Hg] 90 mm[Hg] Rita Jeffries Kailash [facility] 4 10:19:27 Social History Question Answer Notes LastModified by Organization Details LastModified Time Tobacco Smoking Status Never Smoker Elijah Carrera [facility] 12/12/2023 10:15:25 Do You Have An Advance Directive? No Patient Declined Informatio n. [id number] Information not available 01/30/2023 Are You Blind Or Do You Have Difficulty Seeing? No Information not available 12/12/2023 What Is Your Level Of Caffeine Consumption? Heavy [id number] Information not available 01/30/2023 How Much Tobacco Do You Chew? None [id number] [id number] Information not available 01/30/2023 In The 14 Days Before Symptom Onset, Have You Had Close Contact With A Laboratory-confi rmed COVID-19 While That Case Was Ill? No Information [...] Type Of Diet Are You Following? REGULAR MIGRATION.030 [id number] Information not available 01/30/2023 Which Illicit Or Recreational Drugs Have You Used? None Information not available 12/12/2023 What Is The Highest Grade Or Level Of School You Have Completed Or The Highest Degree You Have Received? [id number] Information not available 12/12/2023 Have There Been [...] Do You Have A Medical Power Of Blender Helper? No Information not available 12/12/2023 What Was The Date Of Your Most Recent Tobacco Screening? 12/12/2023 [email or web address] Information not available 12/12/2023 Have You Ever Been Counseled For Unhealthy Alcohol Use? No Information not available 12/12/2023 Do You Have Any Pets? Yes Information not available 12/12/2023 What Is Your Relationship Status? MIGRATION.030 [id number] Information not available 01/30/2023 Do You Use Your Seat Belt Or Car Seat Routinely? Yes Information not available 12/12/2023 Do You Have Smoke And Carbon Monoxide Detectors In Your Home? Yes Information not available 12/12/2023 Are You Passively Exposed To Smoke? No Information not available 12/12/2023 Are There Any Smokers In Your House? No Information not available 12/12/2023 How Much Tobacco Do You Smoke? No MIGRATION.030 [id number] Information not available 01/30/2023 What Types Of Sporting Activities Do You Participate In? None Information not available 12/12/2023 Do You Use Sunscreen Routinely? Yes Information not available 12/12/2023 Has Tobacco Cessation Counseling Been Provided? No Not Needed-nev er Smoked Information not available 12/12/2023 How Many Years Have You Smoked Tobacco? 0 Information not available 12/12/2023 Have You Recently Traveled Abroad? No Information not available 12/12/2023 Do You Have Difficulty Walking Or Climbing Stairs? No Information not available 12/12/2023 Do You Have Any Dietary Restrictions? No Information not available 12/12/2023 Sex: Female Functional Status Question Answer Note LastModified by Organizat ion Details LastModified Time Do you use any illicit or recreational drugs? No Information not available 12/12/2023 Do you or have you ever used any other forms of tobacco or nicotine? No Information not available 12/12/2023 What is your level of alcohol consumption? Occasional [id number] Information not available 01/30/2023 Do you or have you ever used smokeless tobacco? Never used smokeless tobacco [id number] Information not available 01/30/2023 Do you have transportation difficulties? No Information not available 12/12/2023 Are you able to walk? YESWOREST Information not available 12/12/2023 Do you have difficulty doing errands alone? No Information not available 12/12/2023 Are you able to care for yourself? Yes Information n ot available 12/12/2023 What is your occupation? Retired Information not available 12/12/2023 Do you have difficulty dressing or bathing? No Information not available 12/12/2023 Do you or have you ever used e-cigarettes or vape? Never used electronic cigarettes Information not available 12/12/2023 What is your exercise level? None [id number] Information not available 01/30/2023 Mental Status Question Answer Note LastModified by Organizat ion Details LastModified Time Do you feel stressed (tense, restless, nervous, or anxious, or unable to sleep at night)? [id number] Information not available 12/12/2023 Do you have difficulty concentrating, remembering or making decisions? No Information no t available 12/12/2023 Family History Relationship Description Onset Age of this Age Resolved Age Notes LastModified by Organization Details LastModified Time Father Heart disease [id number] [id number] Not available 01/30/2023 00:58:45 Father Hypertensive disorder [id number].366 [id number] Not available 01/30/2023 00:58:45 Father Kidney disease MIGRATION.150 [id number] Not available 01/30/2023 00:58:45 Mother Osteoporosis cyahl Not availab le 12/12/2023 10:15:25 Mother Hypertensive disorder [id number].253 [id number] Not available 01/30/2023 00:58:45 Notes:GRANDMOTHER & AUNT [...] HAVE YOU BEEN HOSPITALIZED OR SEEN IN [facility] IN THE PAST YEAR ? N [...] 50 mcg/0.25mL dose 03/10/2021 completed Not Available [facility] 4 07:40:34 COVID-19, mRNA, LNP-S, PF, 100 mcg/0.5mL dose or 50 mcg/0.25mL dose 02/08/2021 completed Not Available [facility] 4 07:40:34 COVID-19, mRNA, LNP-S, bivalent, PF, 50 mcg/0.5 mL or 25mcg/0.25 mL dose 12/27/2022 completed Not Available [facility] 4 07:40:34 Tdap 10/08/2014 completed Not Available [facility] 12/16/2023 07:40:34 Past Encounters Encounter ID Performer Location Encounter Start Date Encounter Closed Date Diagnosis/Indication Diagnosis SNOMED-CT Code Diagnosis ICD10 Code Diagnosis Note [id number] Anjana Chen MD [facility] Internal Med [facility] [address] [facility] [address] [place] [address] 01/30/2021 00:00:00 02/18/2021 13:50:36 [id number] Anjana Chen MD [facility] Internal Med [place] freedman [address] [facility] [place] [address] 08/03/2021 00:00:00 08/06/2021 20:42:37 [id number] Anjana Chen MD [facility] [place] [address] [facility], [facility] [place] [address] 03/01/2022 00:00:00 03/01/2022 13:22:34 [id number] Marco Antonio Soliz MD [facility] [place] [address] [place] [address] 03/08/2022 00:00:00 03/08/2022 11:18:56 [id number] Marco Antonio Soliz MD [facility] [place] [address] [place] [address] 03/19/2022 00:00:00 03/19/2022 11:47:59 [id number] Marco Antonio Soliz MD [facility] [place] [address] [place] [address] 04/16/2022 00:00:00 04/16/2022 09:22:09 [id number] Marco Antonio Soliz MD [facility] [place] [address] [place] [address] 05/28/2022 00:00:00 05/28/2022 09:36:34 [id number] Marco Antonio Soliz MD [facility] [place] [address] [place] [address] 07/26/2022 00:00:00 07/26/2022 13:01:01 [id number] Marco Antonio Soliz MD [facility] [place] [address] [place] [address] 08/02/2022 00:00:00 08/02/2022 10:48:03 [id number] Anjana Chen MD [facility] Internal Med [facility] [address] [facility], [address] [place] [address] 08/16/2022 00:00:00 09/23/2022 21:07:54 [id number] Marco Antonio Soliz MD [facility] [place] [address] [place] [address] 09/24/2022 00:00:00 09/24/2022 11:09:36 [id number] Anjana Chen MD [facility] Internal [place] [address] [place] [address] [place] [address] 12/20/2022 00:00:00 01/06/2023 22:23:11 [id number] Marco Antonio Soliz MD [facility] [place] [address] [place] [address] 05/20/2023 09:21:24 05/20/2023 11:08:02 Pain of bilateral knee joints 5161626682 09740 M25.561 M25.562 Tear of la teral meniscus of knee 393829722 S83.282D Chondromal acia of right patella 4793212340 5711344 M22.41 [id number] Anjnaa Chen MD [facility] [place] [address] [place] [address] [place] [address] 06/20/2023 10:05:31 06/20/2023 10:45:42 Benign essential hypertension 4130481 I10 Diastolic dysfunction 35 17454 I51.9 Osteoarthritis 787964398 M19.90 [id number] Marco Antonio Soliz MD [facility] [place] [address] [place] [address] 06/24/2023 09:10:14 06/24/2023 11:13:34 Osteoarthritis of right knee joint 8734597657 44445 M17.11 Tear of la teral meniscus of knee 255735378 S83.282D [id number] Anjana Chen MD [facility] Internal [facility] [place] [address] [place] [address] [place] [address] 12/12/2023 10:14:20 12/12/2023 11:06:23 Benign essential hypertension 3006836 I10 Osteoarthritis 273437660 M19.90 Diastolic dysfunction 35 92580 I51.9 Health Concerns Section Related Observation LastModified by Organization Detai ls LastModified Time None Recorded Concern Status LastModified by Organization Details LastModified Time None Recorded Advance Directives Directive N: Patient declined informat ion. Payers Encounter Date Sequence Insurance Name Policy Number Policy Walsh Covered Member ID Walsh Member ID Guarantor Name 05/20/2023 1 [place] Dia Hall [id number] Dia Hall 05/20/2023 2 AARP (MEDICARE SUPPLEMENT) Dia Hall [id number] Dia Hall 06/20/2023 1 [place] [id number] Dia Hall 06/20/2023 2 AARP (MEDICARE SUPPLEMENT) Dia Hall [id number] Dia Hall 06/24/2023 1 [place] Dia [place] [id number] Dia Hall 06/24/2023 2 AARP (MEDICARE SUPPLEMENT) Dia Hall [id number] Dia Hall 12/12/2023 1 [place] Dia [place] [id number] Dia Hall 12/12/2023 2 AARP (MEDICARE SUPPLEMENT) Dia Hall [id number] Dia Hall Notes Date Note Type Note [...] left knee. Marco Antonio Soliz MD [address], [place], [address], [facility] 05/20/2023 11:45:46 06/20/2023 text/html Hypertension no headache or dizziness diastolic dysfunction no PND orthopnea osteoarthritis stable uses anti-inflammatories sparingly Anjana Chen MD [address], [place], [address], [facility] 06/21/2023 18:26:40 06/24/2023 text/html Patient returns knee pain LEFT. I scoped her knee 8 months ago over the last month the pain is begun returning primarily with activity. She has she has a catching and locking but mostly pain and aching in the knee. This is her left knee. Marco Antonio Soliz MD [address] [email or web address], [place], [address], [facility] 06/24/2023 11:13:25 12/12/2023 text/html Hypertension no headache or dizziness diastolic dysfunction no PND orthopnea osteoarthritis stable uses anti-inflammatories sparingly Anjana Chen MD [address] [place] [address], [address] [address], [place], [address], [facility] 01/03/2024 08:51:21 OBGyn Episode No OBEpisode recorded.
--- OUTSIDE RECORDS SUMMARY | 2025-04-21 09:50 | XMS_ITS | Data Portability ---
Author Organization [facility] [address] [place] Address [address] [facility] [place] [address] Care Team Providers Care Pickup Driver Name Role Phone ANJANA CHEN Primary Care Provider AMBAR TOMPKINS Gold Frame Assembler Assessment Encounter Date Assessment Date Assessment LastModified by Organization Details LastModified Time 06/29/2024 06/29/2024 obtain old records. Blood pressure appears to be controlled. use diclofenac sparingly we will get set up for colonoscopy screening. Follow up with me in 6 months she had blood work earlier this year we will get her old records so that can be looked at [email or web address] Not available 07/02/2024 18:36:08 01/18/2025 01/18/2025 blood work ordered continue current therapy assessments screenings and immunizations ordered and give him where appropriate and patient agreeable healthy lifestyle care instructions. She declined a DEXA she will follow up in 4 months declined flu declined pneumonia and declined Tdap [email or web address] Not available 02/01/2025 20:46:13 Plan of Treatment Reminders Order Date Submit Date Provider Last Modified By Organization Details Last Modified Time Details Appointments ANY 15 2024 09:30A M Anjana Chen MD Not available Not available Not available Lab lipid panel, serum 2024 025 [facility] [address] [place] [address], [address], 01/27/2025 17:27:06 CBC w/ auto diff 2024 025 [facility] [address] [place] [address], [address], 01/27/2025 17:27:06 CMP, serum or plasma 2024 025 [facility] [address] [facility], [place], [address], 01/27/2025 17:27:05 Referral None recorded. Procedures colonosco py screening (PROC) 2023 024 [facility], [address], [id number], [place], [address], 10/01/2024 16:22:39 Surgeries None recorded. Imaging None recorded. Medication Orders None recorded. Patient TargetsNo targets recorded. Patient Instructions Encounter Date Encounter Id Patient Instructions Last Modified By Organization Details Last Modified Time 01/18/2025 [id number] A healthy lifestyle: care instructions Not available 01/18/2025 11:48:06 Medicare Well[facility] s Preventive Checklist [email or web address] Not available 01/18/2025 11:48:06 Reason for Referral None Reported. Results Created Date Observation Date Name Description Value Unit Range Abnormal Flag Note LastModifiedBy Organization Detail LastModifiedTime 07/03/2002/05/2018 colon oscop y proce dure (PROC ) No observ ation record ed. [facility] [id number], [place], [address], 07/03/2024 15:58:13 07/03/20 24 04/17/2023 MAMMO , scree shahnaz, digit al, bilat eral No observ ation record ed. BARCODE Not Available 2023 15:58:14 02/05/20 25 02/04/2025 CT, abdom en + pelvi s, w/ contr ast No observ ation record ed. [facility] [address] [facility] [address], [place], [address], 02/05/2025 15:58:47 02/27/20 25 02/26/2025 elect mercedez preston am No observ ation record ed. [address], [place], [address], 03/01/2025 10:58:24 03/19/20 25 03/19/2025 gregorio can cardi olite stres s test (PROC ) No observ ation record ed. [address], [place], [address], 03/23/2025 15:12:20 03/19/20 25 03/19/2025 gregorio can cardi olite stres s test (PROC ) No observ ation record ed. [address], [place], [address], 03/23/2025 15:12:20 03/19/20 25 03/19/2025 , echo ardio gram No observ ation record ed. [address] [address], [place], [address], 03/26/2025 00:20:34 03/19/2003/19/2025 gregorio can cardi olite stres s test (PROC ) No observ ation record ed. [address], [place], [address], 03/23/2025 15:12:21 Result Notes None recorded. Problems Name Problem SNOMED Code Status Onset Date Resolution Date Notes Provider Name and Address Organization Details Recorded Time Essential hypertension 33045617 Active 2023 Anjana Chen MD Attn: Rox schofield,[address] [facility], [place], [address], [facility] 18:35:38 Osteoarthritis 460987602 Active 2023 Anjana Chen MD Attn: Rox schofield,[address] [facility], [place], [address], [facility] 18:35:39 Peripheral venous insufficiency 31729181 Active 2023 Anjana Chen MD Attn: Rox schofield,[address] [facility], [place], [address], [place] [facility] 4 18:35:40 Hyperlipidemia 17335752 Active 2023 Anjana Chen MD Attn: Rox schofield,[address] [facility], [place], [address], [place] [facility] 4 18:35:43 Left ventricular diastolic dysfunction 312224898 Active 2023 Anjana Chen MD Attn: Flaviakan schofield,[address] [facility], [place], [address], [place] [facility] 4 18:35:45 Pneumococcal vaccination declined 554133814 Active 2024 Anjana Chen MD Attn: Rox schofield,[address] [facility], [place], [place], [address] [place] [address], [place] [facility] 5 20:46:41 Tetanus vaccination declined by patient 253596721 Active 2024 Anjana Chen MD Attn: Flaviakan schofield,[address] [facility], [place], [address], [place] [facility] 5 20:46:41 Influenza vaccination declined 730033958 Active 2024 Anjana Chen MD Attn: Flaviakan schofield,[address] [facility], [place], [address], [place] [facility] 5 20:46:43 Electrocardiog [place] abnormal 334969372 Active 2024 Elijah Carrera MA null, [place] - [facility] 5 15:12:33 Problem Notes None recorded. Procedures Surgical History Date Name Laterality Status Provider Name and Address Organization Details Recorded Time 12/02/19 15 Partial hysterectomy completed Tanja Soliz MA [place] [facility] [place] 06/29/2024 10:27:13 Imaging Results Imaging Date Name Status LastModified by Organization Details LastModified Time 02/05/2018 colonoscopy procedure (PROC) completed [facility] [address] [facility], [place], [address], 07/03/2024 15:58:13 04/17/2023 MAMMO, screening, digital, bilateral completed BAR[facility] Information not available 07/03/2024 15:58:14 02/04/2025 CT, abdomen + pelvis, w/ contrast completed [facility] [address] [address], [place], [address], 02/05/2025 15:58:47 02/26/2025 electrocardiogram completed [address], [address], 03/01/2025 10:58:24 03/19/2025 lexiscan cardiolite stress test (PROC) completed [address], [address], 03/23/2025 15:12:20 03/19/2025 lexiscan cardiolite stress test (PROC) completed [address], [address], 03/23/2025 15:12:20 03/19/2025 US, echocardiogram completed [address], [address], 03/26/2025 00:20:34 03/19/2025 lexiscan cardiolite stress test (PROC) completed [address], [address], 03/23/2025 15:12:21 Procedure Notes None recorded. Medical Equipment None Reported. Allergies Allergen ID Allergen Name Allergen Category Reaction Reaction Severity Criticality Documentation Date Start Date Code Code System Note Provider Name and Address Organization Details Recorded Time 954051 Bactrim medicatio n rash Not available Not available 01/18/2025 31372 9 RxNorm [place] [facility] 11:38:31 245269 Substance with sulfonami de structure and antibacte rial mechanism of action (substanc e) medicatio n rash Not available Not available 01/18/2025 22958 8003 SNOMED [place] [facility] 5 11:38:34 Medications Name Sig Start Date Stop Date [...] Updated DateTime 4 162.56 cm 36.9 kg/m2 50389.3 6 g 96 % 96 % 67 /min 126 mm[Hg] 74 mm[Hg] Tanja Soliz MA [facility] 4 10:29:32 Date Recorded Body height Body mass index (BMI) Body weight Heart rate Oxygen saturation Oxygen saturation in Arterial blood by Pulse oximetry Systolic blood pressure Diastolic blood pressure Provider Name and Address Organization Details Last Updated DateTime 5 162.56 cm 37.7 kg/m2 42902.8 8 g 75 /min 96 % 96 % 124 mm[Hg] 78 mm[Hg] Kiki Smith MA [facility] 5 11:38:17 Social History Question Answer Notes LastModified by Organizat ion Details LastModified Time Tobacco Smoking Status [facility] 06/29/2024 10:25:11 Do You Have An Advance Directive? No Information n ot available 06/29/2024 Are You Blind Or Do You Have Difficulty Seeing? No Information n ot available 06/29/2024 What Is Your Level Of [...] No Information not available 01/18/2025 Are You Deaf Or Do You Have Serious Difficulty Hearing? No Information not available 06/29/2024 What Type Of Diet Are You Following? REGULAR Information n ot available 06/29/2024 Are There Any Guns Present In Your Home? No Information not available 01/18/2025 In The Past 7 Days, How Many Days Did You Exercise? -1 Information not available 01/18/2025 In The Past 7 Days, How Much Pain Have You [place]? None Information not available 01/18/2025 In General, Would You Say You Health Is: Good Information not available 01/18/2025 How Would You Describe The Condition Of Your Mouth And Teeth- Including False Teeth Or Dentures? Good Information n ot available 01/18/2025 Each Night, How Many Hours Of Sleep Do You Get? 5 Information no t available 01/18/2025 Has Anyone Ever Told You That You Snore? Yes Information not available 01/18/2025 In The Past 7 Days, How Often Have You [place] Sleepy In The Daytime? Sometimes Information not [...] Yes Information not available 06/29/2024 Do You Use Sunscreen Routinely? No Information not available 01/18/2025 Has Tobacco Cessation Counseling Been Provided? No Information not available 06/29/2024 Sex: Female Functional Status Question Answer Note LastModified by Organizat ion Details LastModified Time Do you use any illicit or recreational drugs? No Information not available 06/29/2024 Do you or have you ever used any other forms of tobacco or nicotine? No Information not available 06/29/2024 What is your level of alcohol consumption? Occasional Information not available 06/29/2024 Are you currently employed? No retired/ part-time Information not available 06/29/2024 Are you able to care for yourself? Yes Information not available 06/29/2024 What is your exercise level? None active lifestyle Information not available 01/18/2025 Mental Status Question Answer Note LastModified by Organization D etails LastModified Time Do you feel stressed (tense, restless, nervous, or anxious, or unable to sleep at night)? [id number] Information not available 06/29/2024 Family History Relationship Description Onset Age of [...] Skin Problems N Anemia N Heart Attack (DE) N Anxiety Disorder N Diabetes N Muscle, [...] dose or 50 mcg/0.25mL dose 03/10/2021 completed [place] [facility] 06/29/2024 10:23:27 COVID-19, mRNA, LNP-S, bivalent, PF, 50 mcg/0.5 mL or 25mcg/0.25 mL dose 12/27/2022 completed [place], [place] - [facility] 06/29/2024 10:23:27 Tdap 10/08/2014 completed [place] [facility] 06/29/2024 10:23:27 Hep A, adult 05/03/2000 completed [place], [place] [facility] 06/29/2024 10:23:27 Past Encounters Encounter ID Performer Location Encounter Start Date Encounter Closed Date Diagnosis/Indication Diagnosis SNOMED-CT Code Diagnosis ICD10 Code Diagnosis Note [id number] Anjana Chen MD [facility] [address] [place] [address] 06/29/2024 10:01:45 06/29/2024 10:41:01 Screening for malignant neoplasm of colon 889456692 Z12.11 Essential hypertension 09481718 I10 Osteoarthritis 431202140 M19.90 Peripheral venous insufficiency 82316780 I87.2 Hyperlipidemia 64783140 E78.5 Left ventr icular diastolic dysfunction 845183895 I51.9 [id number] Anjana Chen MD [facility] [address] [place] [address] 01/18/2025 11:01:56 01/18/2025 12:12:01 Body mass index 30+ - obesity 451997016 Z68.37 Obesity 666947714 E66.9 Adult heal th examination 988440538 Z00.00 Health Risk Assessment collected and reviewed Left ventr icular diastolic dysfunction 707601153 I51.9 Osteoarthritis 728535233 M19.90 Peripheral venous insufficiency 05916397 I87.2 Hyperlipidemia 16020961 E78.5 Essential hypertension 40189204 I10 Influenza vaccination declined 925442541 Z28.21 Tetanus va ccination declined by patient 413712864 Z28.21 Pneumococc al vaccination declined 921130577 Z28.21 Health Concerns Section Related Observation LastModified by Organization Detai ls LastModified Time None Recorded Concern Status LastModified by Organization Details LastModified Time None Recorded Advance Directives Directive N: Payers Encounter Date Sequence Insurance Name Policy Number Policy Walsh Covered Member ID Walsh Member ID Guarantor Name 06/29/2024 1 [place] Dia Hall [id number] [facility] 06/29/2024 2 AARP (MEDICARE SUPPLEMENT) Dia Hall [id number] [facility] 01/18/2025 2 AARP (MEDICARE SUPPLEMENT) Dia Hall [id number] [facility] 01/18/2025 [place] [facility] Dia Hall [id number] [facility] Notes Date Note Type Note Provider Name and Address Organization Details Recorded Time 06/29/2024 text/html 73-year-old following problems hypertension or chest pain or shortness breath palpitations. Osteoarthritis does use diclofenac sparingly. History of kidney stones stable peripheral venous insufficiency some swelling from time to time Anjana Chen MD Attn: [address] [place], [address], [facility] 07/02/2024 18:36:28 01/18/2025 text/html MAW [...] stable trying to follow low-fat for dyslipidemia Anjana Chen MD Attn: [address] [place], [address], [facility] 02/01/2025 20:47:06 OBGyn Episode No OBEpisode recorded.
== END 2025-04-21 09:06 | disposition home or self-care (01) ==
LOC: ANHSURGERY 09:10
PROVIDERS: PCP Internal Medicine; Visit Provider Surgery
DX: Z01.812 Encounter for preprocedural laboratory examination (principal); K40.20 Bilateral inguinal hernia, without obstruction or gangrene, not specified as recurrent
CPT/HCPCS: 36415; 86850; 86900; 86901

== ENCOUNTER 2025-04-28 00:21 | Day surgery (SDC) | payer MEDICARE, SELFPAY ==
[2025-02-18 15:04] VITALS: BMI 37.0
--- NOTE | 2025-02-18 15:24 | PC.NURSE ---
Report to the Outpatient Waiting Room, entrance under the green pavilion located off [facility], at time __12:00PM on date ___03/03/25____. Planned Procedure Time: ___2:00PM .? Time changes happen often and if your time is changed the preop area will call you the afternoon before. - You and your visitor will be asked to self-screen and do not enter if you have any COVID symptoms. Please call surgeon if you need to reschedule. - A mask is optional within the hospital at this time. Patients may have clear liquids (water, carbonated beverages, clear teas, apple juice) until 3 hours prior to surgery (11:00AM) with a maximum of 20 ounces. - No food from midnight until time of surgery and no smoking, or chewing tobacco (or any form of nicotine). No chewing gum, candy or mints. Take only the following medications with a SIP of water on the morning of surgery: NONE DO NOT STOP ANY OF YOUR OTHER PRESCRIPTION MEDICATIONS PRIOR TO SURGERY EXCEPT THE FOLLOWING Hold all vitamins and supplements for 3 days per anesthesiologist.-LAST DOSE 02/27/25 Medications to discontinue per physician __HOLD IBUPROFEN/NSAIDS PER DR MERIDA Date to take last dose Please no make-up, nail hungarian, hairspray, perfume, deodorant, or body powder the day of surgery.? No jewelry (including any body piercings) or valuables the day of surgery, leave them at home.? Please take a shower or bath the night before, or the morning of, surgery with an antibacterial soap.? Wear comfortable, loose fitting clothing.? - Jewelry must be removed prior to entering the operating room.? Rings and piercings that are not removed may be cut off. - The hospital will not accept responsibility for valuables.? - Please leave all valuables, including medications, at home the day of surgery. If you are going home after surgery, a licensed helper driver must drive you home.? - NO public transportation without another adult if you receive anesthesia. - We recommend that an adult stay with you for 24 hours following discharge. - We also recommend that you do not drive, make important decision, drink alcoholic beverages, or take any drugs that were not prescribed by your health care provider for at least 24 hours after your discharge time. Follow any additional instructions given to you from your surgeon. Telephone instructions given to ____PATIENT and asked if any additional questions and then verbalized understanding. Patient advised to call surgeon office or pre surgery nurse liaison [phone] if any additional questions.
--- OUTSIDE RECORDS SUMMARY | 2025-03-03 00:27 | XMS_ITS | CONTINUITY OF CARE DOCUMENT ---
Author Name don ochoa Address Unknown Organization [facility] Address [address] [place] [address] Phone [phone] Care Team Providers Care Senior Infrastructure Architect Name Role Phone Carlos PARKER, [facility] Unavailable [phone] ANJANA BRAVO MD Unavailable ANJANA BRAVO MD Unavailable INSURANCE PROVIDERS Payer name Policy type / Coverage type [place] red libertarian ID [place] Medicare [id number]
--- OUTSIDE RECORDS SUMMARY | 2025-03-03 00:27 | XMS_ITS | Data Portability ---
Author Organization [place] [facility], Main Office Address [address] [place] [address] Care Team Providers Care Blow Torch Burner Name Role Phone ANJANA CHEN Primary Care Provider [phone] ANJANA CHEN Referring Provider Assessment Encounter Date [...] Her x-rays show some degenerative change not nceh-qj-hyci. Recommended we try conservative treatment I injected with 20 mg Kenalog 4 cc 1% lidocaine the left knee. For prescription drug management will try Voltaren for pain and inflammation. I will see her back in a month for follow-up if she has any changes or problems she will call discussed. [email or web address] Not available 05/20/2023 11:43:58 06/20/2023 06/20/2023 Continue with current therapy diagnosis discussed see me in 6 months [email or web address] Not available 06/21/2023 18:26:23 06/24/2023 06/24/2023 Patient [...] If gets worse or changes will reassess. [email or web address] Not available 06/24/2023 11:12:53 12/12/2023 12/12/2023 Continue current therapy stay physically active by walking little bit of strength training follow-up in 6 months [email or web address] Not available 01/03/2024 08:51:05 Plan of Treatment [...] procedure, administere d by provider 2022 023 [email or web address] In-Office Order, Internal Use Only DO Not Attach Compendium DO Not Attach Compendium, Do Not Delete/merge, [id number] 3 10:32:52 Surgeries None recorded. Imaging XR, knee 2022 023 alexy 158 [facility], [facility] [facility] [address], [place], [address], 3 11:42:51 Medication Orders diclofenac sodium 75 mg tablet,latonia yed release 2022 023 alexy 158 [facility] [address] [place], [address], 3 11:10:35 Kenalog 10 mg/mL suspension for injection 2022 023 [id number] 223 [facility] [address] [place], [address], 4 07:40:33 ropivacaine (PF) 5 mg/mL (0.5 %) injection solution 2022 023 [id number] 223 [facility] [address] [place], [address], 4 07:40:33 diclofenac sodium 75 mg tablet,latonia yed release 2022 023 alexy 158 [facility] [address] [place], [address], 3 10:40:37 Patient TargetsNo targets recorded. Patient InstructionsNo instructions recorded. Reason for Referral None Reported. Results Created Date Observation Date Name Description Value Unit Range Abnormal Flag Note LastModifiedBy Organization Detail LastModifiedTime 12/12/19 24 12/12/2023 CBC/C OMPLE TE BLD COUNT W/DIF F white blood cells 6.5 x10'3 /uL 4.2-10 .8 Not Available [facility] (Lab) [address] [place], [address], 12/12/2023 13:48:27 12/12/19 24 12/12/2023 CBC/C OMPLE TE BLD COUNT W/DIF F red blood cells 4.03 x10'6 /uL 3.80-5 .20 Not Available [facility] (Lab) [address] [place], [address], 12/12/2023 13:48:27 12/12/19 24 12/12/2023 CBC/C OMPLE TE BLD COUNT W/DIF F hemoglobin 12.2 g/dL 12.0-1 5.6 Not Available [facility] (Lab) [address] [place], [address], 12/12/2023 13:48:27 12/12/19 24 12/12/2023 CBC/C OMPLE TE BLD COUNT W/DIF F hematocrit 40.4 % 35.7-4 5.7 Not Available [facility] (Lab) [address] [place], [address], 12/12/2023 13:48:27 12/12/19 24 12/12/2023 CBC/C OMPLE TE BLD COUNT W/DIF F mean red cell volume 100.2 fL 82.0-9 9.0 high Not Available [facility] (Lab) [address] [place], [address], 12/12/2023 13:48:27 12/12/19 24 12/12/2023 CBC/C OMPLE TE BLD COUNT W/DIF F mean red cell hemoglobin 30.3 pg 27.0-3 3.0 Not Available [facility] (Lab) [address] [place], [address], 12/12/2023 13:48:27 12/12/19 24 12/12/2023 CBC/C OMPLE TE BLD COUNT W/DIF F mean RBC HGB concentratio n 30.2 g/dL 31.0-3 6.0 low Not Available [facility] (Lab) [address] [facility] [place], [address], 12/12/2023 13:48:27 12/12/19 24 12/12/2023 CBC/C OMPLE TE BLD COUNT W/DIF F red cell distribution width 14.2 % 11.8-1 5.5 Not Available [facility] (Lab) [address] [place], [address], 12/12/2023 13:48:27 12/12/19 24 12/12/2023 CBC/C OMPLE TE BLD COUNT W/DIF F platelets 263 x10'3 /uL 150-40 0 Not Available [facility] (Lab) [address] [place], [address], 12/12/2023 13:48:27 12/12/19 24 12/12/2023 CBC/C OMPLE TE BLD COUNT W/DIF F mean platelet volume 9.8 fL 9.0-12 .4 Not Available [facility] (Lab) [address] [place], [address], 12/12/2023 13:48:27 12/12/19 24 12/12/2023 CBC/C OMPLE TE BLD COUNT W/DIF F neutrophils 60.1 % 39.0-7 2.0 Not Available [facility] (Lab) [address] [place], [address], 12/12/2023 13:48:27 12/12/19 24 12/12/2023 CBC/C OMPLE TE BLD COUNT W/DIF F lymphocytes 28.4 % 16.0-4 7.0 Not Available [facility] (Lab) [address] [place], [address], 12/12/2023 13:48:27 12/12/19 24 12/12/2023 CBC/C OMPLE TE BLD COUNT W/DIF F monocytes 8.1 % 5.0-12 .0 Not Available [facility] (Lab) [address] [place], [address], 12/12/2023 13:48:27 12/12/19 24 12/12/2023 CBC/C OMPLE TE BLD COUNT W/DIF F eosinophils 2.5 % 1.0-7. 0 Not Available [facility] (Lab) [address] [place], [address], 12/12/2023 13:48:27 12/12/19 24 12/12/2023 CBC/C OMPLE TE BLD COUNT W/DIF F basophils 0.6 % 0.0-2. 0 Not Available [facility] (Lab) [address] [place], [address], 12/12/2023 13:48:27 12/12/19 24 12/12/2023 CBC/C OMPLE TE BLD COUNT W/DIF F immature granulocytes 0.3 % 0.00-0 .50 Not Available [facility] (Lab) [address] [place], [address], 12/12/2023 13:48:27 12/12/19 24 12/12/2023 CBC/C OMPLE TE BLD COUNT W/DIF F neutrophils, absolute count 3.91 x10'3 /uL 1.5-8. 0 Not Available [facility] (Lab) [address] [place], [address], 12/12/2023 13:48:27 12/12/19 24 12/12/2023 CBC/C OMPLE TE BLD COUNT W/DIF F lymphocytes, absolute count 1.85 x10'3 /uL 1.07-3 .43 Not Available [facility] (Lab) [address] [place], [address], 12/12/2023 13:48:27 12/12/19 24 12/12/2023 CBC/C OMPLE TE BLD COUNT W/DIF F monocytes, absolute count 0.53 x10'3 /uL 0.29-0 .99 Not Available [facility] (Lab) [address] [place], [address], 12/12/2023 13:48:27 12/12/19 24 12/12/2023 CBC/C OMPLE TE BLD COUNT W/DIF F eosinophils, absolute count 0.16 x10'3 /uL 0.02-0 .53 Not Available [facility] (Lab) [address] [place], [address], 12/12/2023 13:48:27 12/12/19 24 12/12/2023 CBC/C OMPLE TE BLD COUNT W/DIF F basophils, absolute count 0.04 x10'3 /uL 0.01-0 .08 Not Available [facility] (Lab) [address] [place], [address], 12/12/2023 13:48:27 12/12/19 24 12/12/2023 CBC/C OMPLE TE BLD COUNT W/DIF F immature granulocytes ,absolute 0.02 x10'3 /uL 0.00-0 .05 Not Available [facility] (Lab) [address] [place], [address], 12/12/2023 13:48:27 12/12/19 24 12/12/2023 CBC/C OMPLE TE BLD COUNT W/DIF F nucleated red blood cells 0.0 % -0 Not Available [facility] (Lab) [address] [place], [address], 12/12/2023 13:48:27 12/12/19 24 12/12/2023 CBC/C OMPLE TE BLD COUNT W/DIF F NRBC# 0.00 x10'3 /uL Not Available [facility] (Lab) [address] [place], [address], 12/12/2023 13:48:27 12/12/19 24 12/12/2023 LIPID PANEL cholesterol 160 mg/dL 140-19 9 NIH CHEL NSUS RECOM MENDA TION FOR TONYA STERO L: ADULT CHILD LOW RISK: <200 <170 BORDE RLINE : <200- 239 ----- HIGH RISK: >240 >200 Not Available [facility] (Lab) [address] [place], [address], 12/12/2023 13:56:46 12/12/19 24 12/12/2023 LIPID PANEL triglyceride s 79 mg/dL 0-150 NIH CHEL NSUS REPOR T RECOM MENDA TION FOR TRIGL YCERI GUIDO: ADULT CHILD LOW RISK: <150 ----- BODER LINE: 150-1 99 ----- HIGH RISK: >200 ----- Not Available [facility] (Lab) [address] [place], [address], 12/12/2023 13:56:46 12/12/19 24 12/12/2023 LIPID PANEL HDL cholesterol 79 mg/dL 40- Not Available [facility] (Lab) [address] [place], [address], 12/12/2023 13:56:46 12/12/19 24 12/12/2023 LIPID PANEL [...] WILL NOT BE REPOR XAVIER. Not Available [facility] (Lab) [address] [place], [address], 12/12/2023 13:56:46 12/12/19 24 12/12/2023 COMPR EHENS NIELS METAB OLIC PANEL sodium 141 mmol/ L 137-14 5 Not Available [facility] (Lab) [address] [place], [address], 12/12/2023 13:56:51 12/12/19 24 12/12/2023 COMPR EHENS NIELS METAB OLIC PANEL potassium 4.4 mmol/ L 3.5-5. 1 Not Available [facility] (Lab) [address] [place], [address], 12/12/2023 13:56:51 12/12/19 24 12/12/2023 COMPR EHENS NIELS METAB OLIC PANEL chloride 106 mmol/ L 98-107 Not Available [facility] (Lab) [address] [place], [address], 12/12/2023 13:56:51 12/12/19 24 12/12/2023 COMPR EHENS NIELS METAB OLIC PANEL carbon dioxide 29 mmol/ L 22-30 Not Available [facility] (Lab) [address] [place], [address], 12/12/2023 13:56:51 12/12/19 24 12/12/2023 COMPR EHENS NIELS METAB OLIC PANEL anion gap 10.4 mmol/ L 14-22 low Not Available [facility] (Lab) [address] [place], [address], 12/12/2023 13:56:51 12/12/19 24 12/12/2023 COMPR EHENS NIELS METAB OLIC PANEL glucose 99 mg/dL 70-99 Not Available [facility] (Lab) [address] [place], [address], 12/12/2023 13:56:51 12/12/19 24 12/12/2023 COMPR EHENS NIELS METAB OLIC PANEL BUN 20 mg/dL 8-19 high Not Available [facility] (Lab) [address] [place], [address], 12/12/2023 13:56:51 12/12/19 24 12/12/2023 COMPR EHENS NIELS METAB OLIC PANEL creatinine 0.62 mg/dL 0.66-1 .25 low Not Available [facility] (Lab) [address] [place], [address], 12/12/2023 13:56:51 12/12/19 24 12/12/2023 COMPR EHENS NIELS METAB OLIC PANEL GFR >60 Refer ence Range : [place] ge GFR Healt hy Adult : >60 [...] calcu laturvashi is avail able on the [facility] websi te: https :[email or web address] [email or web address].o rg/pr ofess ional s/kdo qi/gf r_cal culat or Not Available [facility] (Lab) [address] [place], [address], 12/12/2023 13:56:51 12/12/19 24 12/12/2023 COMPR EHENS NIELS METAB OLIC PANEL alkaline phosphatase 72 U/L 38-126 Not Available [facility] (Lab) [address] [place], [address], 12/12/2023 13:56:51 12/12/19 24 12/12/2023 COMPR EHENS NIELS METAB OLIC PANEL alanine aminotransfe rase 18 U/L 0-35 Not Available [facility] (Lab) [address] [place], [address], 12/12/2023 13:56:51 12/12/19 24 12/12/2023 COMPR EHENS NIELS METAB OLIC PANEL aspartate aminotransfe rase 25 U/L 15-37 Not Available [facility] (Lab) [address] [place], [address], 12/12/2023 13:56:51 12/12/19 24 12/12/2023 COMPR EHENS NIELS METAB OLIC PANEL bilirubin, total 0.60 mg/dL 0.20-1 .30 Not Available [facility] (Lab) [address] [place], [address], 12/12/2023 13:56:51 12/12/19 24 12/12/2023 COMPR EHENS NIELS METAB OLIC PANEL calcium 9.3 mg/dL 8.4-10 .2 Not Available [facility] (Lab) [address] [place], [address], 12/12/2023 13:56:51 12/12/19 24 12/12/2023 COMPR EHENS NIELS METAB OLIC PANEL total protein 7.1 g/dL 6.3-8. 2 Not Available [facility] (Lab) [address] [place], [address], 12/12/2023 13:56:51 12/12/19 24 12/12/2023 COMPR EHENS NIELS METAB OLIC PANEL albumin 4.0 g/dL 3.0-4. 4 Not Available [facility] (Lab) [address] [place], [address], 12/12/2023 13:56:51 12/12/19 24 12/12/2023 COMPR EHENS NIELS METAB OLIC PANEL globulin 3.1 g/dL 2.6-4. 2 Not Available [facility] (Lab) [address] [place], [address], 12/12/2023 13:56:51 12/12/19 24 12/12/2023 COMPR EHENS NIELS METAB OLIC PANEL A/G ratio 1.3 ratio 1.0-2. 0 Not Available [facility] (Lab) [address] [place], [address], 12/12/2023 13:56:51 04/17/20 23 04/17/2023 MAMMO , scree shahnaz, digit al, bilat eral No observ ation record ed. [email or web address] [place] [address] [address], [place], [address], 06/21/2023 09:34:28 05/20/20 23 XR, knee No observ ation record ed. [facility] [address], [place], [address], 05/20/2023 11:42:50 Result Notes None recorded. Problems Name Problem SNOMED Code Status Onset Date Resolution Date Notes Provider Name and Address Organization Details Recorded Time Benign essential hypertensi on 6421950 Active Not Available [facility] 4 07:40:33 Acquired trigger finger 4480214 Active Not Available [facility] 4 07:40:33 Chondromal acia of right patella 3979622681795 9108 Active 2021 Not Available [facility] 4 07:40:33 Peripheral venous insufficie ncy 21875923 Active Not Available [facility] 4 07:40:33 Pain in thumb 172295365 Active Not Available [facility] 4 07:40:33 Tear of medial meniscus of knee 810270606 Active 2021 Not Available [facility] 4 07:40:34 Tear of medial meniscus of knee 894609122 Active 2021 Not Available [facility] 4 07:40:33 Tear of lateral meniscus of knee 151867770 Active 2021 Not Available [facility] 4 07:40:34 Tear of lateral meniscus of knee 406034427 Active 2021 Not Available [facility] 4 07:40:34 Knee pain Active Not Available [facility] 4 07:40:34 Ureteric stone 32238894 Active Not Available [facility] 4 07:40:34 Diastolic dysfunctio n 8081548 Active Not Available [facility] 4 07:40:34 Pain of left knee joint 6342601468907 07 Active 2021 Not Available [facility] 4 07:40:34 Pain of bilateral knee joints 8667443962147 04 Active 2021 Not Available [facility] 4 07:40:34 Upper respirator y infection 84728508 Active Not Available [facility] 4 07:40:34 Heart disease 35878604 Active Not Available [facility] 4 07:40:34 Carpal tunnel syndrome 38854728 Active Not Available [facility] 4 07:40:34 COVID-19 588219555 Active 2021 Not Available [facility] 4 07:40:34 Osteoarthr itis 074607688 Active 2022 Not Available [facility] 4 07:40:34 Osteoarthr itis of right knee joint 2200937884119 00 Active 2022 Not Available [facility] 4 07:40:34 Problem Notes None recorded. Procedures Surgical History Date Name Laterality Status Provider Name and Address Organization Details Recorded Time 05/20/20 23 Ortho - Cortisone Injection completed Marco Antonio Soliz MD [address] [place] [address], [facility] [address], [place], [address], [facility] 05/20/2023 11:45:09 09/12/20 22 KNEE ARTHROSCOPY WITH MEDIAL MENISCECTOMY (SURG) completed Not Available [facility] 01/30/2023 01:31:46 09/11/20 22 KNEE ARTHROSCOPY WITH MEDIAL MENISCECTOMY (SURG) completed Not Available [facility] 01/30/2023 01:31:46 09/11/20 22 KNEE ARTHROSCOPY WITH MEDIAL MENISCECTOMY (SURG) completed Not Available [facility] 01/30/2023 01:31:46 02/16/20 21 Most Recent Bone Density completed Not Available [facility] 01/30/2023 00:58:34 02/06/20 18 Date of Last Colonoscopy completed Not Available [facility] 01/30/2023 00:58:34 07/23/20 02 colposcopy completed Not Available [facility] 00:58:42 LEAD PRESSMAN Surgery completed Not Available [facility] 01/30/2023 00:58:42 Kidney Stones completed Not Available [facility] 01/30/2023 00:58:42 Imaging Results Imaging Date Name Status LastModified by Organiz ation Details LastModified Time 04/17/2023 MAMMO, screening, digital, bilateral completed [email or web address] [place] [address] [address], [place], [address], 06/21/2023 09:34:28 05/20/2023 XR, knee completed [email or web address] [facility] [place] [address], [place], [address], 05/20/2023 11:42:50 Procedure Notes None recorded. Medical Equipment None Reported. Allergies Allergen ID Allergen Name Allergen Category Reaction Reaction Severity Criticality Documentation Date Start Date Code Code System Note Provider Name and Address Organization Details Recorded Time 2583 Substance with sulfonami de structure and antibacte rial mechanism of action (substanc e) medicatio n rash Not available Not available 01/30/2023 91077 8003 SNOMED Not Available [facility] 3 01:31:03 2585 Bactrim medicatio n rash Not available Not available 01/30/2023 11418 9 RxNorm Not Available [facility] 3 01:31:03 Medications Name Sig Start Date [...] %) injection solution in office 2022 active [facility] [address] -064- 01 Not Available Not Available Not [...] kg/m2 162.56 cm 72 /min 98.7 [degF] 547814. 17 g 120 mm[Hg] 76 mm[Hg] Not Available [facility] 3 01:02:22 Date Recorded Body height Body mass index (BMI) Body weight Provider Name and Address Organization Details Last Updated DateTime 05/20/2023 162.56 cm 38.6 kg/m2 269544.28 g RANDY Phelps - [facility] [employer] [facility] 05/20/2023 09:46:56 Date Recorded Body height Body mass index (BMI) Body weight Body temperature Heart rate Systolic blood pressure Diastolic blood pressure Provider Name and Address Organization Details Last Updated DateTime 3 162.56 cm 38.8 kg/m2 229709. 88 g 97.4 [degF] 70 /min 136 mm[Hg] 80 mm[Hg] Rita Jeffries [facility] [employer] [facility] 3 10:10:40 Date Recorded Body height Body mass index (BMI) Body weight Provider Name and Address Organization Details Last Updated DateTime 06/24/2023 162.56 cm 28.8 kg/m2 08369.52 g Ruma Jone [facility] [employer] [facility] 06/24/2023 09:18:31 Date Recorded Body height Body mass index (BMI) Body weight Body temperature Heart rate Systolic blood pressure Diastolic blood pressure Provider Name and Address Organization Details Last Updated DateTime 4 162.56 cm 36.7 kg/m2 85403.7 7 g 97.5 [degF] 78 /min 136 mm[Hg] 90 mm[Hg] Rita Jeffries Kailash [facility] [employer] [facility] 4 10:19:27 Social History Question Answer Notes LastModified by Organization Details LastModified Time Tobacco Smoking Status Never Smoker Elijah Carrera [facility]utation [facility] 12/12/2023 10:15:25 Do You Have An Advance Directive? No Patient Declined Informatio n. [id number] Information not available 01/30/2023 What Is Your Level Of Alcohol Consumption? Occasional MIGRATION.030 [id number] Information not available 01/30/2023 Are You Blind Or Do You Have Difficulty Seeing? No Information not available 12/12/2023 What Is Your Level Of Caffeine Consumption? Heavy MIGRATION.030 [id number] Information not available 01/30/2023 How Much Tobacco Do You Chew? None MIGRATION.030 [id number] Information not available 01/30/2023 In The 14 [...] Of Diet Are You Following? REGULAR MIGRATION.0301 [id number] Information not available 01/30/2023 Which Illicit Or Recreational Drugs Have You Used? None Information not available 12/12/2023 Do You Or Have You Ever Used E-cigarettes Or Vape? Never Used Electronic Cigarettes Information not available 12/12/2023 What Is The Highest Grade Or Level Of School You Have Completed Or The Highest Degree You Have Received? [id number] Information not available 12/12/2023 What Is Your [...] Do You Have A Medical Power Of [employer]? No Information not available 12/12/2023 What Was The Date Of Your Most Recent Tobacco Screening? 12/12/2023 [email or web address] Information not available 12/12/2023 Have You Ever Been Counseled For Unhealthy Alcohol Use? No Information not available 12/12/2023 Do You Have Any Pets? Yes Information not available 12/12/2023 What Is Your Relationship Status? MIGRATION.0301 [id number] Information not available 01/30/2023 Do You Use Your Seat Belt Or Car Seat Routinely? Yes Information not available 12/12/2023 Do You Have Smoke And Carbon Monoxide Detectors In Your Home? Yes Information not available 12/12/2023 Are You Passively Exposed To Smoke? No Information not available 12/12/2023 Do You Or Have You Ever Used Smokeless Tobacco? Never Used Smokeless Tobacco MIGRATION.0301 [id number] Information not available 01/30/2023 Are There Any Smokers In Your House? No Information not available 12/12/2023 How Much Tobacco Do You Smoke? No MIGRATION.0301 [id number] Information not available 01/30/2023 What Types Of Sporting Activities Do You Participate In? None Information not available 12/12/2023 Do You Feel Stressed (tense, Restless, Nervous, Or Anxious, Or Unable To Sleep At Night)? [id number] Information not available 12/12/2023 Do You Use [...] 12/12/2023 What is your exercise level? None [id number] Information not available 01/30/2023 Mental Status Question Answer Note LastModified by Organization D etails LastModified Time Do you have difficulty concentrating, remembering or making decisions? No Information no t available 12/12/2023 Family History Relationship Description Onset Age of this Age Resolved Age Notes LastModified by Organization Details LastModified Time Father Heart disease [id number].640 [id number] Not available 01/30/2023 00:58:45 Father Hypertensive disorder MIGRATION.291 [id number] Not available 01/30/2023 00:58:45 Father Kidney disease MIGRATION.729 [id number] Not available 01/30/2023 00:58:45 Mother Osteoporosis cyahl Not availab le 12/12/2023 10:15:25 Mother Hypertensive disorder MIGRATION.939 [id number] Not available 01/30/2023 00:58:45 Notes:GRANDMOTHER & AUNT - [facility] Medical History Condition Response NERVE DISEASE N BLINDNESS N RHEUMATIC FEVER N KIDNEY STONES Y BLADDER PROBLEMS N MRSA N OTHER # 1 Y POLIO N LUNG DISEASE/DISORDER N HISTORY OF DRUG ABUSE N COPD N RADIATION / CHEMOTHERAPY N Other # 2 N BLOOD DISEASES N EAR OR HEARING PROBLEMS N MUMPS N SHINGLES N DEPRESSION (INCLUDING POST ) N BOWEL PROBLEMS N STROKE/TIA N ULCERS N BENIGN PROSTATIC HYPERPLASIA N MEASLES N HYPOTENSION N MYOCARDIAL INFARCTION N OBESITY N GERD/NAUSEA N ANEURYSM N URINARY/BLADDER/KIDNEY PROBLEMS Y CORONARY ARTERY DISEASE (CAD) N ADDICTION CONCERNS N Impotence N ENDOMETRIOSIS N USE OF BLOOD THINNERS N SKIN [...] INSOMNIA N HIGH CHOLESTEROL / HYPERLIPIDEMIA N EYE PROBLEMS N HYPERTHYROIDISM N EDEMA N CHRONIC PAIN SYNDROME N HYPOTHYROIDISM N CAROTID BLOCKAGE N CONSTIPATION N BACK / NECK PROBLEMS N HAVE YOU BEEN HOSPITALIZED OR SEEN IN [facility] IN THE PAST YEAR ? N ATHEROSCLEROSIS N BREAST PROBLEMS N DIALYSIS N ECZEMA N OSTEOPOROSIS N ARTHRITIS N APPENDICITIS N DIABETES, TYPE N BAD TEETH N ENT N HEARTBURN / REFLUX N AUTISM SPECTRUM DISORDER (ASD) N HEPATITIS / LIVER DISEASE N GOUT N SLEEP DISORDER N ALZHEIMER'S DISEASE N Brain Problems N HERPES N DEMENTIA N SEIZURES/EPILEPSY N HEADACHES/MIGRAINES N VASCULAR DISEASE N PACEMAKER N Blood Disorder N DIZZINESS N KIDNEY DISEASE N HEART DISEASE/HEART PROBLEMS Y MULTIPLE SCLEROSIS N CARDIAC ARRHYTHMIA N CANCER: SPECIFY N Gall Stones N ATRIAL FIBRILLATION N PULMONARY EMBOLISM N AUTOIMMUNE DISEASE N [...] 50 mcg/0.25mL dose 03/10/2021 completed Not Available [facility] 4 07:40:34 COVID-19, mRNA, LNP-S, PF, 100 mcg/0.5mL dose or 50 mcg/0.25mL dose 02/08/2021 completed Not Available [facility] 4 07:40:34 COVID-19, mRNA, LNP-S, bivalent, PF, 50 mcg/0.5 mL or 25mcg/0.25 mL dose 12/27/2022 completed Not Available [facility] 4 07:40:34 Tdap 10/08/2014 completed Not Available [facility] 12/16/2023 07:40:34 Past Encounters Encounter ID Performer Location Encounter Start Date Encounter Closed Date Diagnosis/Indication Diagnosis SNOMED-CT Code Diagnosis ICD10 Code Diagnosis Note [id number] [facility] [address] , [facility] [address] [place] [address] 01/30/2021 00:00:00 02/18/2021 13:50:36 [id number] [facility] [place] [address] [facility] [address] [facility] [place] [address] 08/03/2021 00:00:00 08/06/2021 20:42:37 [id number] [facility] [place] [address] [facility] [place] [address] [address] 03/01/2022 00:00:00 03/01/2022 13:22:34 [id number] [facility] [address] [place] [address] 03/08/2022 00:00:00 03/08/2022 11:18:56 [id number] [facility] [address] [place] [address] 03/19/2022 00:00:00 03/19/2022 11:47:59 [id number] [facility] [address] [place] [address] 04/16/2022 00:00:00 04/16/2022 09:22:09 [id number] [facility] [address] [place] [address] 05/28/2022 00:00:00 05/28/2022 09:36:34 [id number] [facility] [address] [place] [address] 07/26/2022 00:00:00 07/26/2022 13:01:01 [id number] [facility] [address] [place] [address] 08/02/2022 00:00:00 08/02/2022 10:48:03 [id number] [facility] [address] [place] [address], [facility] [address] [place] [address] 08/16/2022 00:00:00 09/23/2022 21:07:54 [id number] [facility] [address] [place] [address] 09/24/2022 00:00:00 09/24/2022 11:09:36 [id number] [facility] Prabhu llbertha [address] [place] [address] 12/20/2022 00:00:00 01/06/2023 22:23:11 [id number] Marco Antonio Soliz MD [facility] [address] [place] [address] 05/20/2023 09:21:24 05/20/2023 11:08:02 Pain of bilateral knee joints 0295795618 79015 M25.561 M25.562 Tear of la teral meniscus of knee 449624970 S83.282D Chondromal acia of right patella 0300721860 1011363 M22.41 [id number] Anjana Chen MD [facility] [place] [address] [facility] [place] [address] 06/20/2023 10:05:31 06/20/2023 10:45:42 Benign essential hypertension 2341023 I10 Diastolic dysfunction 35 87318 I51.9 Osteoarthritis 950806052 M19.90 [id number] Marco Antonio Soliz MD [facility] [address] [place] [address] 06/24/2023 09:10:14 06/24/2023 11:13:34 Osteoarthritis of right knee joint 2828129432 22805 M17.11 Tear of la teral meniscus of knee 845219808 S83.282D [id number] Anjana Chen MD [facility] Internal [facility] [place] [address] [facility] [address] 12/12/2023 10:14:20 12/12/2023 11:06:23 Benign essential hypertension 9719669 I10 Osteoarthritis 312048672 M19.90 Diastolic dysfunction 35 53607 I51.9 Health Concerns Section Related Observation LastModified by Organization Detai ls LastModified Time None Recorded Concern Status LastModified by Organization Details LastModified Time None Recorded Advance Directives Directive N: Patient declined informat ion. Payers Encounter Date Sequence Insurance Name Policy Number Policy Walsh Covered Member ID Walsh Member ID Guarantor Name 05/20/2023 1 [place] Dia Hall [id number] Dia Hall 05/20/2023 2 AARP HEALTHCARE OPTIONS (MEDICARE SUPPLEMENT) Dia Hall [id number] Dia Hall 06/20/2023 1 [place] Dia Hall [id number] Dia Hall 06/20/2023 2 [employer] HEALTHCARE OPTIONS (MEDICARE SUPPLEMENT) Dia Hall [id number] Dia Hall 06/24/2023 1 [place] Dia Hall [id number] Dia Hall 06/24/2023 2 [employer] HE[employer]CARE OPTIONS (MEDICARE SUPPLEMENT) Dia Hall [id number] Dia Hall 12/12/2023 1 [place] Dia Hall [id number] Dia Hall 12/12/2023 2 [employer] HE[employer]CARE OPTIONS (MEDICARE SUPPLEMENT) Dia Hall [id number] Dia Lord Hall Notes Date Note Type [...] left knee. Marco Antonio Soliz MD [address], [place], [address], [facility] 05/20/2023 11:45:46 06/20/2023 text/html Hypertension no headache or dizziness diastolic dysfunction no PND orthopnea osteoarthritis stable uses anti-inflammatories sparingly Anjana Chen MD [address], [place], [address], [facility] 06/21/2023 18:26:40 06/24/2023 text/html Patient returns knee pain LEFT. I scoped her knee 8 months ago over the last month the pain is begun returning primarily with activity. She has she has a catching and locking but mostly pain and aching in the knee. This is her left knee. Marco Antonio Soliz MD [address], [place], [address], [facility] 06/24/2023 11:13:25 12/12/2023 text/html Hypertension no headache or dizziness diastolic dysfunction no PND orthopnea osteoarthritis stable uses anti-inflammatories sparingly Anjana Chen MD [address] [facility], [facility] [address], [place], [address], [facility] [employer] [facility] 01/03/2024 08:51:21 OBGyn Episode No OBEpisode recorded.
--- OUTSIDE RECORDS SUMMARY | 2025-03-03 00:27 | XMS_ITS | Data Portability ---
Author Organization [facility] [place] Sanchez Address [address] [facility] [place] [id number] Care Team Providers Care Director Family Name Role Phone LOI CHEN Primary Care Provider AMBAR TOMPKINS Commercial Designer Assessment Encounter Date Assessment Date Assessment LastModified by Organization Details LastModified Time 06/29/2024 06/29/2024 obtain old records. Blood pressure appears to be controlled. use diclofenac sparingly we will get set up for colonoscopy screening. Follow up with me in 6 months she had blood work earlier this year we will get her old records so that can be looked at [email or web address] Not available 07/02/2024 18:36:08 01/18/2025 01/18/2025 blood work ordered continue current therapy assessments screenings and immunizations ordered and give him where appropriate and patient agreeable healthy lifestyle care instructions. She declined a DEXA she will follow up in 4 months declined flu declined pneumonia and declined Tdap [email or web address] Not available 02/01/2025 20:46:13 Plan of Treatment Reminders Order Date Submit Date Provider Last Modified By Organization Details Last Modified Time Details Appointments ANY 15 2024 09:30A M Loi Chen MD Not available Not available Not available Lab lipid panel, serum 2024 025 [facility]), [address] [place] [address], [address], 01/27/2025 17:27:06 CBC w/ auto diff 2024 025 [facility]), [address] [place] [address], [address], 01/27/2025 17:27:06 CMP, serum or plasma 2024 025 [facility]), [address] [facility], [place], [address], 01/27/2025 17:27:05 Referral None recorded. Procedures colonosco py screening (PROC) 2023 024 [facility], [address], [place], [address], 10/01/2024 16:22:39 Surgeries None recorded. Imaging None recorded. Medication Orders None recorded. Patient TargetsNo targets recorded. Patient Instructions Encounter Date Encounter Id Patient Instructions Last Modified By Organization Details Last Modified Time 01/18/2025 [id number] A healthy lifestyle: care instructions [email or web address] Not available 01/18/2025 11:48:06 Medicare [facility] Preventive Checklist [email or web address] Not available 01/18/2025 11:48:06 Reason for Referral None Reported. Results Created Date Observation Date Name Description Value Unit Range Abnormal Flag Note LastModifiedBy Organization Detail LastModifiedTime 07/03/2002/05/2018 colon oscop y proce dure (PROC ) No observ ation record ed. [facility] [id number], [place], [address], 07/03/2024 15:58:13 07/03/20 24 04/17/2023 MAMMO , scree shahnaz, digit al, bilat eral No observ ation record ed. BARCODE Not Available 2023 15:58:14 02/05/20 25 02/04/2025 CT, abdom en + pelvi s, w/ contr ast No observ ation record ed. [facility] [address] [facility] [address], [place], [address], 02/05/2025 15:58:47 02/27/20 25 02/26/2025 elect mercedez preston am No observ ation record ed. [facility] [address], [place], [address], 03/01/2025 10:58:24 Result Notes None recorded. Problems Name Problem SNOMED Code Status Onset Date Resolution Date Notes Provider Name and Address Organization Details Recorded Time Essential hypertension 10407655 Active 2023 Loi Chen MD Attn: Rox g,[address] [facility], [place], [address], [place] [facility] 4 18:35:38 Osteoarthritis 830739746 Active 2023 Loi Chen MD Attn: Accountin g,[address] [facility], [place], [address], [place] [facility] 4 18:35:39 Peripheral venous insufficiency 27490193 Active 2023 Loi Chen MD Attn: Rox g,[address] [facility], [place], [address], [place] [facility] 4 18:35:40 Hyperlipidemia 86778206 Active 2023 Loi Chen MD Attn: Rox g,[address] [facility], [place], [address], [place] [facility] 4 18:35:43 Left ventricular diastolic dysfunction 817411562 Active 2023 Loi Chen MD Attn: Rox schofield,[address] [facility], [place], [address], [place] [facility] 4 18:35:45 Pneumococcal vaccination declined 870804631 Active 2024 Loi Chen MD Attn: Rox g,[address] [facility], [place], [address], [place] [facility] 5 20:46:41 Tetanus vaccination declined by patient 012604355 Active 2024 Loi Chen MD Attn: Rox schofield,[address] [facility], [place], [address], [place] [facility] 5 20:46:41 Influenza vaccination declined 488733945 Active 2024 Loi Chen MD Attn: Rox schofield,[address], [place], [address], [facility] - [facility] 20:46:43 Problem Notes None recorded. Procedures Surgical History Date Name Laterality Status Provider Name and Address Organization Details Recorded Time 12/02/19 15 Partial hysterectomy completed Tanja Soliz MA [place] - [place] 06/29/2024 10:27:13 Imaging Results Imaging Date Name Status LastModified by Organization Details LastModified Time 02/05/2018 colonoscopy procedure (PROC) completed [facility] [address] [facility] [id number], [place], [address], 07/03/2024 15:58:13 04/17/2023 MAMMO, screening, digital, bilateral completed BARCODE Information not available 07/03/2024 15:58:14 02/04/2025 CT, abdomen + pelvis, w/ contrast completed [facility] [address] [facility] [address], [place], [address], 02/05/2025 15:58:47 02/26/2025 electrocardiogram completed [facility] [address] [facility] [address], [place], [address], 03/01/2025 10:58:24 Procedure Notes None recorded. Medical Equipment None Reported. Allergies Allergen ID Allergen Name Allergen Category Reaction Reaction Severity Criticality Documentation Date Start Date Code Code System Note Provider Name and Address Organization Details Recorded Time 665077 Bactrim medicatio n rash Not available Not available 01/18/2025 33402 9 RxNorm Not Available Not Available Not Available 679870 Substance with sulfonami de structure and antibacte rial mechanism of action (substanc e) medicatio n rash Not available Not available 01/18/2025 79094 8003 SNOMED Not Available Not Available Not [...] Updated DateTime 4 162.56 cm 36.9 kg/m2 77692.3 6 g 96 % 96 % 67 /min 126 mm[Hg] 74 mm[Hg] Tanja Soliz MA [facility] 4 10:29:32 Date Recorded Body height Body mass index (BMI) Body weight Heart rate Oxygen saturation Oxygen saturation in Arterial blood by Pulse oximetry Systolic blood pressure Diastolic blood pressure Provider Name and Address Organization Details Last Updated DateTime 5 162.56 cm 37.7 kg/m2 38420.8 8 g 75 /min 96 % 96 % 124 mm[Hg] 78 mm[Hg] Kiki Smith MA [facility] 5 11:38:17 Date Recorded Pain severity - 0-10 verbal numeric rating [Score] - Reported Provider Name and Address Organization Details Last Updated DateTime 01/18/2025 Thomas Liu Tyree [facility] 01/18/2025 11:42:02 Social History Question Answer Notes LastModified by Organizat ion Details LastModified Time Tobacco Smoking Status Never Smoker Tanja Soliz MA null, [facility] 06/29/2024 10:25:11 Do You Have An Advance [...] 7 Days, How Much Pain Have You Zenda? None Information not available 01/18/2025 In General, [...] Past 7 Days, How Often Have You Zenda Sleepy In The Daytime? Sometimes Information not [...] Anxious, Or Unable To Sleep At Night)? [id number] Information not available 06/29/2024 Do You Use [...] Atrial Fibrillation N High Blood Pressure Y Thyroid Problems N Kidney or Bladder Problems N Depression N COPD N Blood Clots N GI Problems N Have you had a mammogram in the last yea r? Y Skin Problems N Anemia N Heart Attack (DC) N Diabetes N Anxiety Disorder N Muscle, Joint, or Bone Problems Y Seizures/Epilepsy N Have you had a colonoscopy in the last 1 0 years? Y Acid Reflux (GERD) N Cancer N Stroke N Allergies N Asthma N Have you had a PSA blood test in the las t year? N High Cholesterol Y Hepatitis N Liver Disease N Headaches N Osteoporosis N Heart Failure N Gynecological HistoryNo gynecological history recorded. Obstetrics History GPAL:G 0 P 0 0 0 0 Immunizations Vaccine Type Date Status Note Provider Nam e and Address Organization Details Recorded Time COVID-19, mRNA, LNP-S, PF, 100 mcg/0.5mL dose or 50 mcg/0.25mL dose 02/08/2021 completed Tanja Sol[place], [place] [facility] 06/29/2024 10:23:27 COVID-19, mRNA, LNP-S, PF, 100 mcg/0.5mL dose or 50 mcg/0.25mL dose 03/10/2021 completed Tanja [place], [place] [facility] 06/29/2024 10:23:27 COVID-19, mRNA, LNP-S, bivalent, PF, 50 mcg/0.5 mL or 25mcg/0.25 mL dose 12/27/2022 completed Tanja Soliz [place], [place] [facility] 06/29/2024 10:23:27 Tdap 10/08/2014 completed Tanja Soliz MA null, [place] - [place] 06/29/2024 10:23:27 Hep A, adult 05/03/2000 completed Tanja Soliz MA null, [place] - [place] 06/29/2024 10:23:27 Past Encounters Encounter ID Performer Location Encounter Start Date Encounter Closed Date Diagnosis/Indication Diagnosis SNOMED-CT Code Diagnosis ICD10 Code Diagnosis Note [id number] Loi Chen MD [facility] [place] [address] [place] [address] [place] [address] 06/29/2024 10:01:45 06/29/2024 10:41:01 Screening for malignant neoplasm of colon 550719492 Z12.11 Essential hypertension 93164753 I10 Osteoarthritis 807958164 M19.90 Peripheral venous insufficiency 42803187 I87.2 Hyperlipidemia 73157501 E78.5 Left ventr icular diastolic dysfunction 262582230 I51.9 [id number] Loi Chen MD [facility] [place] [address] [place] [address] 01/18/2025 11:01:56 01/18/2025 12:12:01 Body mass index 30+ - obesity 699345534 Z68.37 Obesity 405954638 E66.9 Adult heal th examination 774713404 Z00.00 Health Risk Assessment collected and reviewed Left ventr icular diastolic dysfunction 888600722 I51.9 Osteoarthritis 472437280 M19.90 Peripheral venous insufficiency 01683040 I87.2 Hyperlipidemia 27424673 E78.5 Essential hypertension 94059004 I10 Influenza vaccination declined 014775331 Z28.21 Tetanus va ccination declined by patient 859789404 Z28.21 Pneumococc al vaccination declined 004552517 Z28.21 Health Concerns Section Related Observation LastModified by Organization Detai ls LastModified Time None Recorded Concern Status LastModified by Organization Details LastModified Time None Recorded Advance Directives Directive N: Payers Encounter Date Sequence Insurance Name Policy Number Policy Walsh Covered Member ID Wlash Member ID Guarantor Name 06/29/2024 1 [place] Dia Hall [id number] Dia Hall 06/29/2024 2 AARP HEALTHCARE OPTIONS (MEDICARE SUPPLEMENT) Dia Hall [id number] Dia Hall 01/18/2025 2 [employer]AR HEALTHCARE OPTIONS (MEDICARE SUPPLEMENT) Dia Hall [id number] Dia Hall 01/18/2025 [place] NGS - RHC - FQHC Dia Hall [id number] Dia Hall Notes Date Note Type Note Provider Name and Address Organization Details Recorded Time 06/29/2024 text/html 73-year-old following problems hypertension or chest pain or shortness breath palpitations. Osteoarthritis does use diclofenac sparingly. History of kidney stones stable peripheral venous insufficiency some swelling from time to time Loi Chen MD Attn: Accounting,[address] [facility], [place], [address], [facility] - [facility] 07/02/2024 18:36:28 01/18/2025 text/html MAW 2Reported bypatient.Diet [...] dyslipidemia Loi Chen MD Attn: [address] [facility], [place], [address], [place] [facility] 02/01/2025 20:47:06 OBGyn Episode No OBEpisode recorded.
[2025-04-15 09:24] VITALS: BMI 37.8
--- NOTE | 2025-04-15 09:47 | PC.NURSE ---
Report to the Outpatient Waiting Room, entrance under the green pavilion located off [facility], at time ___11:00AM___ on date ___04/28/25____. Planned Procedure Time: ____1:00PM___.? Time changes happen often and if your time is changed the preop area will call you the afternoon before. - You and your visitor will be asked to self-screen and do not enter if you have any COVID symptoms. Please call surgeon if you need to reschedule. - A mask is optional within the hospital at this time. Patients may have clear liquids (water, carbonated beverages, clear teas, apple juice) until 3 hours prior to surgery (10:00AM) with a maximum of 20 ounces. - No food from midnight until time of surgery and no smoking, or chewing tobacco (or any form of nicotine). No chewing gum, candy or mints. Take only the following medications with a SIP of water on the morning of surgery: ____NONE DO NOT STOP ANY OF YOUR OTHER PRESCRIPTION MEDICATIONS PRIOR TO SURGERY EXCEPT THE FOLLOWING Hold all vitamins and supplements for 3 days per anesthesiologist.- LAST DOSE 04/24/25. Please no make-up, nail kiswahili, hairspray, perfume, deodorant, or body powder the day of surgery.? No jewelry (including any body piercings) or valuables the day of surgery, leave them at home.? Please take a shower or bath the night before, or the morning of, surgery with an antibacterial soap.? Wear comfortable, loose fitting clothing.? - Jewelry must be removed prior to entering the operating room.? Rings and piercings that are not removed may be cut off. - The hospital will not accept responsibility for valuables.? - Please leave all valuables, including medications, at home the day of surgery. If you are going home after surgery, a licensed van cdl driver must drive you home.? - NO public transportation without another adult if you receive anesthesia. - We recommend that an adult stay with you for 24 hours following discharge. - We also recommend that you do not drive, make important decision, drink alcoholic beverages, or take any drugs that were not prescribed by your health care provider for at least 24 hours after your discharge time. Follow any additional instructions given to you from your surgeon. Telephone instructions given to ____PATIENT and asked if any additional questions and then verbalized understanding. Patient advised to call surgeon office or pre surgery nurse liaison [phone] if any additional questions.
[2025-04-28] VITALS (10 sets, daily range): BP systolic 152–196; BP diastolic 74–110; PULSE 61–90; RESP 12–16; TEMP 36.4–36.9; O2SAT 93–100
--- OUTSIDE RECORDS SUMMARY | 2025-04-28 00:26 | XMS_ITS | Data Portability ---
Author Organization [facility] [place] Address [address] [facility] [place] [address] Care Team Providers Care Residential Real Estate Appraiser Name Role Phone ANJANA CHEN Primary Care Provider AMBAR TOMPKINS Assembler [employer] [place] Assessment Encounter Date Assessment Date Assessment LastModified by Organization Details LastModified Time 06/29/2024 06/29/2024 obtain old records. Blood pressure appears to be controlled. use diclofenac sparingly we will get set up for colonoscopy screening. Follow up with me in 6 months she had blood work earlier this year we will get her old records so that can be looked at [email or web address] Not available 07/02/2024 18:36:08 01/18/2025 01/18/2025 blood work ordered continue current therapy assessments screenings and immunizations ordered and give him where appropriate and patient agreeable healthy lifestyle care instructions. She declined a DEXA she will follow up in 4 months declined flu declined pneumonia and declined Tdap [email or web address] Not available 02/01/2025 20:46:13 Plan of Treatment Reminders Order Date Submit Date Provider Last Modified By Organization Details Last Modified Time Details Appointments ANY 15 2024 09:30A M Anjana Chen MD Not available Not available Not available Lab lipid panel, serum 2024 025 [facility]), [address] [place] [address], [id number], 01/27/2025 17:27:06 CBC w/ auto diff 2024 025 [facility]), [address] [place] [address], [id number], 01/27/2025 17:27:06 CMP, serum or plasma 2024 025 [facility]), [address] [facility], [place], [address], 01/27/2025 17:27:05 Referral None recorded. Procedures colonosco py screening (PROC) 2023 024 [facility], [address], [address], [place], [address], 10/01/2024 16:22:39 Surgeries None recorded. Imaging None recorded. Medication Orders None recorded. Patient TargetsNo targets recorded. Patient Instructions Encounter Date Encounter Id Patient Instructions Last Modified By Organization Details Last Modified Time 01/18/2025 [id number] A healthy lifestyle: care instructions [email or web address] Not available 01/18/2025 11:48:06 Medicare Wellnes s Preventive Checklist [email or web address] Not available 01/18/2025 11:48:06 Reason for Referral None Reported. Results Created Date Observation Date Name Description Value Unit Range Abnormal Flag Note LastModifiedBy Organization Detail LastModifiedTime 07/03/2002/05/2018 colon oscop y proce dure (PROC ) No observ ation record ed. [facility] [address], [place], [address], 07/03/2024 15:58:13 07/03/20 24 04/17/2023 MAMMO , scree shahnaz, digit al, bilat eral No observ ation record ed. BARCODE Not Available 2023 15:58:14 02/05/20 25 02/04/2025 CT, abdom en + pelvi s, w/ contr ast No observ ation record ed. [facility] [address] [facility] [address], [place], [address], 02/05/2025 15:58:47 02/27/20 25 02/26/2025 elect mercedez preston am No observ ation record ed. [address], [place], [address], 03/01/2025 10:58:24 03/19/20 25 03/19/2025 gregorio can cardi olite stres s test (PROC ) No observ ation record ed. [address], [place], [address], 03/23/2025 15:12:20 03/19/20 25 03/19/2025 gregorio can cardi olite stres s test (PROC ) No observ ation record ed. [address], [place], [address], 03/23/2025 15:12:20 03/19/20 25 03/19/2025 , echo ardio gram No observ ation record ed. [address] [address], [place], [address], 03/26/2025 00:20:34 03/19/2003/19/2025 gregorio can cardi olite stres s test (PROC ) No observ ation record ed. [address], [place], [address], 03/23/2025 15:12:21 Result Notes None recorded. Problems Name Problem SNOMED Code Status Onset Date Resolution Date Notes Provider Name and Address Organization Details Recorded Time Essential hypertension 49338969 Active 2023 Anjana Chen MD Attn: Rox schofield,[address] [facility], [place], [address], [facility] 18:35:38 Osteoarthritis 810764713 Active 2023 Anjana Chen MD Attn: Rox schofield,[address] [facility], [place], [address], [facility] - [facility] 18:35:39 Peripheral venous insufficiency 49378251 Active 2023 Anjana Chen MD Attn: Rxo schofield,[address] [facility], [place], [address], [place] - [facility] 4 18:35:40 Hyperlipidemia 02716027 Active 2023 Anjana Chen MD Attn: Rox schofield,[address] [facility], [place], [address], [place] [facility] 4 18:35:43 Left ventricular diastolic dysfunction 722095876 Active 2023 Anjana Chen MD Attn: Flaviakan schofield,[address] [facility], [place], [place], [address] [place] [address] 2, [place] [facility] 4 18:35:45 Pneumococcal vaccination declined 655494099 Active 2024 Anjana Chen MD Attn: Rox schofield,[address] [facility], [place], [place], [address] [place] [address], [place] - [facility] 5 20:46:41 Tetanus vaccination declined by patient 916304839 Active 2024 Anjana Chen MD Attn: Flaviakan schofield,[address] [facility], [place], [address], [place] [facility] 5 20:46:41 Influenza vaccination declined 327276605 Active 2024 Anjana Chen MD Attn: Rox chandu,[address] [facility], [place], [address], [place] [facility] 5 20:46:43 Electrocardiog [place] abnormal 645935650 Active 2024 Elijah Carrera MA null, [place] - [facility] 5 15:12:33 Problem Notes None recorded. Procedures Surgical History Date Name Laterality Status Provider Name and Address Organization Details Recorded Time 12/02/19 15 Partial hysterectomy completed Tanja Soliz [place] - [place] 06/29/2024 10:27:13 Imaging Results None recorded. Procedure Notes None recorded. Medical Equipment None Reported. Allergies Allergen ID Allergen Name Allergen Category Reaction Reaction Severity Criticality Documentation Date Start Date Code Code System Note Provider Name and Address Organization Details Recorded Time 116897 Bactrim medicatio n rash Not available Not available 01/18/2025 62411 9 [facility] 11:38:31 428543 Substance with sulfonami de structure and antibacte rial mechanism of action (substanc e) medicatio n rash Not available Not available 01/18/2025 72835 8003 SNOMED VAL Ernandez, [facility] 5 11:38:34 Medications Name Sig Start Date [...] in Arterial blood by Pulse oximetry Systolic And Diastolic Provider Name and Address Organization Details Last Updated DateTime 5 162.56 cm 37.7 kg/m2 35279.8 8 g 75 /min 96 % 96 % 124/78 mm[Hg] Kiki Smith MA [facility] 5 11:38:17 Date Recorded Body height Body mass index (BMI) Body weight Oxygen saturation Oxygen saturation in Arterial blood by Pulse oximetry Heart rate Systolic And Diastolic Provider Name and Address Organization Details Last Updated DateTime 4 162.56 cm 36.9 kg/m2 31874.3 6 g 96 % 96 % 67 /min 126/74 mm[Hg] Tanja Soliz MA [facility] 4 10:29:32 Social History Question Answer Notes LastModified by Organizat ion Details LastModified Time Tobacco Smoking Status Never Smoker Tanja Soliz MA jovany, [facility] 06/29/2024 10:25:11 Do You Have An Advance [...] 7 Days, How Much Pain Have You [place]? None Information not available 01/18/2025 In General, [...] Past 7 Days, How Often Have You [place] Sleepy In The Daytime? Sometimes Information not [...] anxious, or unable to sleep at night)? [id number] Information not available 06/29/2024 Family History Relationship Description Onset Age of this Age Resolved Age Notes LastModified by Organization Details LastModified Time Father Heart disease [email or web address] Not available 06/02 10:24:22 Father Kidney disease bandersonma Not available 06/02 10:24:34 Father Migraine bandersonma Not availa ble 06/29/2024 10:24:46 Medical History Condition Response Coronary Artery Disease N Other N Atrial Fibrillation N High Blood Pressure Y Depression N COPD N Blood Clots N Anxiety Disorder N Muscle, Joint, or Bone Problems Y Acid Reflux (GERD) N Cancer N Stroke N High Cholesterol Y Liver Disease N Headaches N Kidney or Bladder Problems N Thyroid Problems N GI Problems N Have you had a mammogram in the last yea r? Y Skin Problems N Anemia N Heart Attack ([place]) N Diabetes N Seizures/Epilepsy N Have you had a colonoscopy in the last 1 0 years? Y Asthma N Allergies N Have you had a PSA blood test in the las t year? N Hepatitis N Osteoporosis N Heart Failure N Gynecological HistoryNo gynecological history recorded. Obstetrics History GPAL:G 0 P 0 0 0 0 Immunizations Vaccine Type Date Status Note Provider Nam bertha and Address Organization Details Recorded Time COVID-19, [...] 25mcg/0.25 mL dose 12/27/2022 completed [place] [facility] 06/29/2024 10:23:27 Tdap 10/08/2014 completed [place] [facility] 06/29/2024 10:23:27 Hep A, adult 05/03/2000 completed [place] [facility] 06/29/2024 10:23:27 Past Encounters Encounter ID Performer Location Encounter Start Date Encounter Closed Date Diagnosis/Indication Diagnosis SNOMED-CT Code Diagnosis ICD10 Code Diagnosis Note [id number] Anjana Chen MD [facility] [place] [address] [place] [id number] 06/29/2024 10:01:45 06/29/2024 10:41:01 Screening for malignant neoplasm of colon 678368844 Z12.11 Essential hypertension 07783642 I10 Osteoarthritis 452021908 M19.90 Peripheral venous insufficiency 29617754 I87.2 Hyperlipidemia 41801979 E78.5 Left ventr icular diastolic dysfunction 142559748 I51.9 [id number] Anjana Chen MD [facility] [place] [place] [address] [place] [id number] 01/18/2025 11:01:56 01/18/2025 12:12:01 Body mass index 30+ - obesity 122504593 Z68.37 Obesity 154378419 E66.9 Adult heal th examination 874812530 Z00.00 Health Risk Assessment collected and reviewed Left ventr icular diastolic dysfunction 018093475 I51.9 Osteoarthritis 821241280 M19.90 Peripheral venous insufficiency 27468755 I87.2 Hyperlipidemia 81009085 E78.5 Essential hypertension 16048003 I10 Influenza vaccination declined 838235909 Z28.21 Tetanus va ccination declined by patient 220836760 Z28.21 Pneumococc al vaccination declined 097393625 Z28.21 Health Concerns Section Related Observation LastModified by Organization Detai ls LastModified Time None Recorded Concern Status LastModified by Organization Details LastModified Time None Recorded Advance Directives Directive N: Payers Encounter Date Sequence Insurance Name Policy Number Policy Walsh Covered Member ID Walsh Member ID Guarantor Name 06/29/2024 1 [place] Dia Hall [id number] [facility] 06/29/2024 2 AARP (MEDICARE SUPPLEMENT) Dia Lundbergming [id number] [facility] 01/18/2025 2 [employer]ARP (MEDICARE SUPPLEMENT) Dia Hall [id number] [facility] 01/18/2025 [place] [facility] Dia Pop Hall [id number] [facility] Notes Date Note Type Note Provider Name and Address Organization Details Recorded Time 06/29/2024 text/html 73-year-old following problems hypertension or chest pain or shortness breath palpitations. Osteoarthritis does use diclofenac sparingly. History of kidney stones stable peripheral venous insufficiency some swelling from time to time Anjana Chen MD Attn: [address] [place], [address], [facility] - [facility] 07/02/2024 18:36:28 01/18/2025 text/html [...] dyslipidemia Anjana Chen MD Attn: [address] [place], [address], [facility] 02/01/2025 20:47:06 OBGyn Episode No OBEpisode recorded.
--- OUTSIDE RECORDS SUMMARY | 2025-04-28 00:26 | XMS_ITS | CONTINUITY OF CARE DOCUMENT ---
Author Name don ochoa Address Unknown Organization [facility] Address [address] [facility] [address] [place] [address] Phone [phone] Care Team Providers Care Clinical Laboratory Medical Director Name Role Phone José Luis PARKER, Ramona Unavailable LAWRENCE PARKER, ANJANA Gerber Unavailable [phone] LAWRENCE PARKER, ANJANA Gerber Unavailable [phone] PROBLEMS Condition Status Date Provider Notes Cardiology examination active Ramona mike MD Preoperative cardiovascular examination active Ramona Ordonez MD Abnormal nuclear stress test active Grace Ordonez MD Hypertension active Ramona Ordonez MD ENCOUNTERS Date Type Provider Location Encounter Diag nosis - In-person encounter Office Visit Ramona Ordonez MD [facility] Cardiology examinationPreoperative cardiovascular examinationAbnormal nuclear stress [...] Payer name Policy type / Coverage type [place] red republican ID AARP Commercial insurance company [id number] [place] MED[place] Medicare [id number] ADVANCE DIRECTIVES Name Date DISCUSSED - NO [...]
--- OUTSIDE RECORDS SUMMARY | 2025-04-28 00:26 | XMS_ITS | Data Portability ---
Author Organization [place] [facility], Main Office Address [address] [place] [address] Care Team Providers Care Beater Tender Name Role Phone ANJANA CHEN Primary Care [...] Her x-rays show some degenerative change not [id number]. Recommended we try conservative treatment I injected with 20 mg Kenalog 4 cc 1% lidocaine the left knee. For prescription drug management will try Voltaren for pain and inflammation. I will see her back in a month for follow-up if she has any changes or problems she will call discussed. [email or web address] Not available 05/20/2023 11:43:58 06/20/2023 06/20/2023 Continue with current therapy diagnosis discussed see me in 6 months [email or web address] Not available 06/21/2023 18:26:23 06/24/2023 06/24/2023 Patient [...] If gets worse or changes will reassess. [email or web address] Not available 06/24/2023 11:12:53 12/12/2023 12/12/2023 Continue current therapy stay physically active by walking little bit of strength training follow-up in 6 months Not available 01/03/2024 08:51:05 Plan of Treatment [...] procedure, administere d by provider 2022 023 [email or web address] In-Office Order, Internal Use Only DO Not Attach Compendium DO Not Attach Compendium, Do Not Delete/merge, [id number] 3 10:32:52 Surgeries None recorded. Imaging XR, knee 2022 023 [email or web address] 158 [facility] [place], [facility] [facility] [address], [place], [address], 3 11:42:51 Medication Orders diclofenac sodium 75 mg tablet,latonia yed release 2022 023 alexy 158 [facility] [address] [place], [address], 3 11:10:35 Kenalog 10 mg/mL suspension for injection 2022 023 [id number] 223 [facility] [address], [address] [place], [address], 4 07:40:33 ropivacaine (PF) 5 mg/mL (0.5 %) injection solution 2022 023 [id number] 223 [facility] [address], [address] [place], [address], 4 07:40:33 diclofenac sodium 75 mg tablet,latonia yed release 2022 023 [email or web address] 158 [facility] [address] [place], [address], 3 10:40:37 Patient TargetsNo targets recorded. Patient InstructionsNo instructions recorded. Reason for Referral None Reported. Results Created Date Observation Date Name Description Value Unit Range Abnormal Flag Note LastModifiedBy Organization Detail LastModifiedTime 12/12/19 24 12/12/2023 CBC/C OMPLE TE BLD COUNT W/DIF F white blood cells 6.5 x10'3 /uL 4.2-10 .8 Not Available [facility] (Lab) [address] [place], [address], 12/12/2023 13:48:27 12/12/19 24 12/12/2023 CBC/C OMPLE TE BLD COUNT W/DIF F red blood cells 4.03 x10'6 /uL 3.80-5 .20 Not Available [facility] (Lab) [address] [place], [address], 12/12/2023 13:48:27 12/12/19 24 12/12/2023 CBC/C OMPLE TE BLD COUNT W/DIF F hemoglobin 12.2 g/dL 12.0-1 5.6 Not Available [facility] (Lab) [address] [place], [address], 12/12/2023 13:48:27 12/12/19 24 12/12/2023 CBC/C OMPLE TE BLD COUNT W/DIF F hematocrit 40.4 % 35.7-4 5.7 Not Available [facility] (Lab) [address] [place], [address], 12/12/2023 13:48:27 12/12/19 24 12/12/2023 CBC/C OMPLE TE BLD COUNT W/DIF F mean red cell volume 100.2 fL 82.0-9 9.0 high Not Available [facility] (Lab) [address] [place], [address], 12/12/2023 13:48:27 12/12/19 24 12/12/2023 CBC/C OMPLE TE BLD COUNT W/DIF F mean red cell hemoglobin 30.3 pg 27.0-3 3.0 Not Available [facility] (Lab) [address] [place], [address], 12/12/2023 13:48:27 12/12/19 24 12/12/2023 CBC/C OMPLE TE BLD COUNT W/DIF F mean RBC HGB concentratio n 30.2 g/dL 31.0-3 6.0 low Not Available [facility] (Lab) [address] [facility] [place], [address], 12/12/2023 13:48:27 12/12/19 24 12/12/2023 CBC/C OMPLE TE BLD COUNT W/DIF F red cell distribution width 14.2 % 11.8-1 5.5 Not Available [facility] (Lab) [address] [place], [address], 12/12/2023 13:48:27 12/12/19 24 12/12/2023 CBC/C OMPLE TE BLD COUNT W/DIF F platelets 263 x10'3 /uL 150-40 0 Not Available [facility] (Lab) [address] [place], [address], 12/12/2023 13:48:27 12/12/19 24 12/12/2023 CBC/C OMPLE TE BLD COUNT W/DIF F mean platelet volume 9.8 fL 9.0-12 .4 Not Available [facility] (Lab) [address] [place], [address], 12/12/2023 13:48:27 12/12/19 24 12/12/2023 CBC/C OMPLE TE BLD COUNT W/DIF F neutrophils 60.1 % 39.0-7 2.0 Not Available [facility] (Lab) [address] [place], [address], 12/12/2023 13:48:27 12/12/19 24 12/12/2023 CBC/C OMPLE TE BLD COUNT W/DIF F lymphocytes 28.4 % 16.0-4 7.0 Not Available [facility] (Lab) [address] [place], [address], 12/12/2023 13:48:27 12/12/19 24 12/12/2023 CBC/C OMPLE TE BLD COUNT W/DIF F monocytes 8.1 % 5.0-12 .0 Not Available [facility] (Lab) [address] [place], [address], 12/12/2023 13:48:27 12/12/19 24 12/12/2023 CBC/C OMPLE TE BLD COUNT W/DIF F eosinophils 2.5 % 1.0-7. 0 Not Available [facility] (Lab) [address] [place], [address], 12/12/2023 13:48:27 12/12/19 24 12/12/2023 CBC/C OMPLE TE BLD COUNT W/DIF F basophils 0.6 % 0.0-2. 0 Not Available [facility] (Lab) [address] [place], [address], 12/12/2023 13:48:27 12/12/19 24 12/12/2023 CBC/C OMPLE TE BLD COUNT W/DIF F immature granulocytes 0.3 % 0.00-0 .50 Not Available [facility] (Lab) [address] [place], [address], 12/12/2023 13:48:27 12/12/19 24 12/12/2023 CBC/C OMPLE TE BLD COUNT W/DIF F neutrophils, absolute count 3.91 x10'3 /uL 1.5-8. 0 Not Available [facility] (Lab) [address] [place], [address], 12/12/2023 13:48:27 12/12/19 24 12/12/2023 CBC/C OMPLE TE BLD COUNT W/DIF F lymphocytes, absolute count 1.85 x10'3 /uL 1.07-3 .43 Not Available [facility] (Lab) [address] [place], [address], 12/12/2023 13:48:27 12/12/19 24 12/12/2023 CBC/C OMPLE TE BLD COUNT W/DIF F monocytes, absolute count 0.53 x10'3 /uL 0.29-0 .99 Not Available [facility] (Lab) [address] [place], [address], 12/12/2023 13:48:27 12/12/19 24 12/12/2023 CBC/C OMPLE TE BLD COUNT W/DIF F eosinophils, absolute count 0.16 x10'3 /uL 0.02-0 .53 Not Available [facility] (Lab) [address] [place], [address], 12/12/2023 13:48:27 12/12/19 24 12/12/2023 CBC/C OMPLE TE BLD COUNT W/DIF F basophils, absolute count 0.04 x10'3 /uL 0.01-0 .08 Not Available [facility] (Lab) [address] [place], [address], 12/12/2023 13:48:27 12/12/19 24 12/12/2023 CBC/C OMPLE TE BLD COUNT W/DIF F immature granulocytes ,absolute 0.02 x10'3 /uL 0.00-0 .05 Not Available [facility] (Lab) [address] [place], [address], 12/12/2023 13:48:27 12/12/19 24 12/12/2023 CBC/C OMPLE TE BLD COUNT W/DIF F nucleated red blood cells 0.0 % -0 Not Available [facility] (Lab) [address] [place], [address], 12/12/2023 13:48:27 12/12/19 24 12/12/2023 CBC/C OMPLE TE BLD COUNT W/DIF F NRBC# 0.00 x10'3 /uL Not Available [facility] (Lab) [address] [place], [address], 12/12/2023 13:48:27 12/12/19 24 12/12/2023 LIPID PANEL cholesterol 160 mg/dL 140-19 9 NIH CHEL NSUS RECOM MENDA TION FOR TONYA STERO L: ADULT CHILD LOW RISK: <200 <170 BORDE RLINE : <200- 239 ----- HIGH RISK: >240 >200 Not Available [facility] (Lab) [address] [place], [address], 12/12/2023 13:56:46 12/12/19 24 12/12/2023 LIPID PANEL triglyceride s 79 mg/dL 0-150 NIH CHEL NSUS REPOR T RECOM MENDA TION FOR TRIGL YCERI GUIDO: ADULT CHILD LOW RISK: <150 ----- BODER LINE: 150-1 99 ----- HIGH RISK: >200 ----- Not Available [facility] (Lab) [address] [place], [address], 12/12/2023 13:56:46 12/12/19 24 12/12/2023 LIPID PANEL HDL cholesterol 79 mg/dL 40- Not Available [facility] (Lab) [address] [place], [address], 12/12/2023 13:56:46 12/12/19 24 12/12/2023 LIPID PANEL [...] WILL NOT BE REPOR XAVIER. Not Available [facility] (Lab) [address] [place], [address], 12/12/2023 13:56:46 12/12/19 24 12/12/2023 COMPR EHENS NIELS METAB OLIC PANEL sodium 141 mmol/ L 137-14 5 Not Available [facility] (Lab) [address] [place], [address], 12/12/2023 13:56:51 12/12/19 24 12/12/2023 COMPR EHENS NIELS METAB OLIC PANEL potassium 4.4 mmol/ L 3.5-5. 1 Not Available [facility] (Lab) [address] [place], [address], 12/12/2023 13:56:51 12/12/19 24 12/12/2023 COMPR EHENS NIELS METAB OLIC PANEL chloride 106 mmol/ L 98-107 Not Available [facility] (Lab) [address] [place], [address], 12/12/2023 13:56:51 12/12/19 24 12/12/2023 COMPR EHENS NIELS METAB OLIC PANEL carbon dioxide 29 mmol/ L 22-30 Not Available [facility] (Lab) [address] [place], [address], 12/12/2023 13:56:51 12/12/19 24 12/12/2023 COMPR EHENS NIELS METAB OLIC PANEL anion gap 10.4 mmol/ L 14-22 low Not Available [facility] (Lab) [address] [place], [address], 12/12/2023 13:56:51 12/12/19 24 12/12/2023 COMPR EHENS NIELS METAB OLIC PANEL glucose 99 mg/dL 70-99 Not Available [facility] (Lab) [address] [place], [address], 12/12/2023 13:56:51 12/12/19 24 12/12/2023 COMPR EHENS NIELS METAB OLIC PANEL BUN 20 mg/dL 8-19 high Not Available [facility] (Lab) [address] [place], [address], 12/12/2023 13:56:51 12/12/19 24 12/12/2023 COMPR EHENS NIELS METAB OLIC PANEL creatinine 0.62 mg/dL 0.66-1 .25 low Not Available [facility] (Lab) [address] [place], [address], 12/12/2023 13:56:51 12/12/19 24 12/12/2023 COMPR EHENS NIELS METAB OLIC PANEL GFR >60 Refer ence Range : [place] ge GFR Healt hy Adult : >60 [...] laturvashi is avail able on the [facility] websi te: https :[email or web address] villalobos.o rg/pr ofess ional s/kdo qi/gf r_cal culat or Not Available [facility] (Lab) [address] [place], [address], 12/12/2023 13:56:51 12/12/19 24 12/12/2023 COMPR EHENS NIELS METAB OLIC PANEL alkaline phosphatase 72 U/L 38-126 Not Available [facility] (Lab) [address] [place], [address], 12/12/2023 13:56:51 12/12/19 24 12/12/2023 COMPR EHENS NIELS METAB OLIC PANEL alanine aminotransfe rase 18 U/L 0-35 Not Available [facility] (Lab) [address] [place], [address], 12/12/2023 13:56:51 12/12/19 24 12/12/2023 COMPR EHENS NIELS METAB OLIC PANEL aspartate aminotransfe rase 25 U/L 15-37 Not Available [facility] (Lab) [address] [place], [address], 12/12/2023 13:56:51 12/12/19 24 12/12/2023 COMPR EHENS NIELS METAB OLIC PANEL bilirubin, total 0.60 mg/dL 0.20-1 .30 Not Available [facility] (Lab) [address] [place], [address], 12/12/2023 13:56:51 12/12/19 24 12/12/2023 COMPR EHENS NIELS METAB OLIC PANEL calcium 9.3 mg/dL 8.4-10 .2 Not Available [facility] (Lab) [address] [place], [address], 12/12/2023 13:56:51 12/12/19 24 12/12/2023 COMPR EHENS NIELS METAB OLIC PANEL total protein 7.1 g/dL 6.3-8. 2 Not Available [facility] (Lab) [address] [place], [address], 12/12/2023 13:56:51 12/12/19 24 12/12/2023 COMPR EHENS NIELS METAB OLIC PANEL albumin 4.0 g/dL 3.0-4. 4 Not Available [facility] (Lab) [address] [place], [address], 12/12/2023 13:56:51 12/12/19 24 12/12/2023 COMPR EHENS NIELS METAB OLIC PANEL globulin 3.1 g/dL 2.6-4. 2 Not Available [facility] (Lab) [address] [place], [address], 12/12/2023 13:56:51 12/12/19 24 12/12/2023 COMPR EHENS NIELS METAB OLIC PANEL A/G ratio 1.3 ratio 1.0-2. 0 Not Available [facility] (Lab) [address] [place], [address], 12/12/2023 13:56:51 04/17/20 23 04/17/2023 MAMMO , scree shahnaz, digit al, bilat eral No observ ation record ed. [email or web address] [place] [address] [address], [place], [address], 06/21/2023 09:34:28 05/20/20 23 XR, knee No observ ation record ed. [email or web address] [facility] [place] [address], [place], [address], 05/20/2023 11:42:50 Result Notes None recorded. Problems Name Problem SNOMED Code Status Onset Date Resolution Date Notes Provider Name and Address Organization Details Recorded Time Benign essential hypertensi on 8727319 Active Not Available [facility] 4 07:40:33 Acquired trigger finger 2454689 Active Not Available [facility] 4 07:40:33 Chondromal acia of right patella 6000525765754 9108 Active 2021 Not Available [facility] 4 07:40:33 Peripheral venous insufficie ncy 92084485 Active Not Available [facility] 4 07:40:33 Pain in thumb 598637262 Active Not Available [facility] 4 07:40:33 Tear of medial meniscus of knee 692577275 Active 2021 Not Available [facility] 4 07:40:34 Tear of medial meniscus of knee 671339450 Active 2021 Not Available [facility] 4 07:40:33 Tear of lateral meniscus of knee 877039786 Active 2021 Not Available [facility] 4 07:40:34 Tear of lateral meniscus of knee 463371057 Active 2021 Not Available [facility] 4 07:40:34 Knee pain Active Not Available [facility] 4 07:40:34 Ureteric stone 39893741 Active Not Available [facility] 4 07:40:34 Diastolic dysfunctio n 3144084 Active Not Available [facility] 4 07:40:34 Pain of left knee joint 4844488406552 07 Active 2021 Not Available [facility] 4 07:40:34 Pain of bilateral knee joints 6901139087775 04 Active 2021 Not Available [facility] 4 07:40:34 Upper respirator y infection 86366132 Active Not Available [facility] 4 07:40:34 Heart disease 11416070 Active Not Available [facility] 4 07:40:34 Carpal tunnel syndrome 63622157 Active Not Available [facility] 4 07:40:34 COVID-19 584193690 Active 2021 Not Available [facility] 4 07:40:34 Osteoarthr itis 342057090 Active 2022 Not Available [facility] 4 07:40:34 Osteoarthr itis of right knee joint 0218334926882 00 Active 2022 Not Available [facility] 4 07:40:34 Problem Notes None recorded. Procedures Surgical History Date Name Laterality Status Provider Name and Address Organization Details Recorded Time 05/20/20 23 Ortho - Cortisone Injection completed Marco Antonio Soliz MD [address] [place] [address], [facility] [address], [place], [address], [facility] [employer] 05/20/2023 11:45:09 09/12/20 22 KNEE ARTHROSCOPY WITH MEDIAL MENISCECTOMY (SURG) completed Not Available [facility] 01/30/2023 01:31:46 09/11/20 22 KNEE ARTHROSCOPY WITH MEDIAL MENISCECTOMY (SURG) completed Not Available [facility] 01/30/2023 01:31:46 09/11/20 22 KNEE ARTHROSCOPY WITH MEDIAL MENISCECTOMY (SURG) completed Not Available [facility] 01/30/2023 01:31:46 02/16/20 21 Most Recent Bone Density completed Not Available [facility] 01/30/2023 00:58:34 02/06/20 18 Date of Last Colonoscopy completed Not Available [facility] 01/30/2023 00:58:34 07/23/20 02 colposcopy completed Not Available [facility] 3 00:58:42 OPHTHALMOLOGIST RETINA SPECIALIST Surgery completed Not Available [facility] 01/30/2023 00:58:42 Kidney Stones completed Not Available [facility] 01/30/2023 00:58:42 Imaging Results None recorded. Procedure Notes None recorded. Medical Equipment None Reported. Allergies Allergen ID Allergen Name Allergen Category Reaction Reaction Severity Criticality Documentation Date Start Date Code Code System Note Provider Name and Address Organization Details Recorded Time 2583 Substance with sulfonami de structure and antibacte rial mechanism of action (substanc e) medicatio n rash Not available Not available 01/30/2023 87686 8003 SNOMED Not Available [facility] 3 01:31:03 2585 Bactrim medicatio n rash Not available Not available 01/30/2023 32324 9 RxNorm Not Available [facility] 3 01:31:03 Medications Name Sig Start [...] suspension for injection in office 2022 active [facility]: 0003- 0494- 20 Not Available Not Available [...] injection solution in office 2022 active [facility] 00509 -064- 01 Not Available Not Available Not Available Paxlovid 300 mg (150 mg x 2)-100 mg tablets in a dose pack TAKE 3 TABLETS TWICE A DAY BY ORAL ROUTE FOR 5 DAYS 05/20 completed Not Available Not Available Not Available Vitals Date Recorded Body height Body mass index (BMI) Body weight Body temperature Heart rate Systolic And Diastolic Provider Name and Address Organization Details Last Updated DateTime 4 162.56 cm 36.7 kg/m2 94638.7 7 g 97.5 [degF] 78 /min 136/90 mm[Hg] RANDY Montalvo [employer] [facility] 4 10:19:27 Date Recorded Body mass index (BMI) Body height Heart rate Body temperature Body weight Systolic And Diastolic Provider Name and Address Organization Details Last Updated DateTime 3 41.2 kg/m2 162.56 cm 72 /min 98.7 [degF] 612801. 17 g 120/76 mm[Hg] Not Available [facility] 3 01:02:22 Date Recorded Body height Body mass index (BMI) Body weight Provider Name and Address Organization Details Last Updated DateTime 05/20/2023 162.56 cm 38.6 kg/m2 928987.28 g RANDY Phelps [employer] [facility] 05/20/2023 09:46:56 Date Recorded Body height Body mass index (BMI) Body weight Body temperature Heart rate Systolic And Diastolic Provider Name and Address Organization Details Last Updated DateTime 3 162.56 cm 38.8 kg/m2 980381. 88 g 97.4 [degF] 70 /min 136/80 mm[Hg] Rita JeffriesRANDY [employer] [facility] 3 10:10:40 Date Recorded Body height Body mass index (BMI) Body weight Provider Name and Address Organization Details Last Updated DateTime 06/24/2023 162.56 cm 28.8 kg/m2 37025.52 g Ruma Becerril RANDY [employer] [facility] 06/24/2023 09:18:31 Social History Question Answer Notes LastModified by Organization Details LastModified Time Tobacco Smoking Status Never Smoker RANDY Steele [facility] 12/12/2023 10:15:25 Do You Have An Advance Directive? No Patient Declined Informatio n. [id number] [id number] Information not available 01/30/2023 Are You Blind Or Do You Have Difficulty Seeing? No Information not available 12/12/2023 What Is Your Level Of Caffeine Consumption? Heavy [id number].0301 [id number] Information not available 01/30/2023 How Much Tobacco Do You Chew? None [id number].0301 [id number] Information not available 01/30/2023 In The 14 [...] Of Diet Are You Following? REGULAR MIGRATION.0301 [id number] Information not available 01/30/2023 Which Illicit Or Recreational Drugs Have You Used? None Information not available 12/12/2023 What Is The Highest Grade Or Level Of School You Have Completed Or The Highest Degree You Have Received? [id number] Information not available 12/12/2023 Have There Been [...] Do You Have A Medical Power Of Legal Records Clerk? No Information not available 12/12/2023 What Was The Date Of Your Most Recent Tobacco Screening? 12/12/2023 [email or web address] Information not available 12/12/2023 Have You Ever Been Counseled For Unhealthy Alcohol Use? No Information not available 12/12/2023 Do You Have Any Pets? Yes Information not available 12/12/2023 What Is Your Relationship Status? [id number].0301 [id number] Information not available 01/30/2023 Do You Use [...] Much Tobacco Do You Smoke? No MIGRATION.0301 [id number] Information not available 01/30/2023 What Types Of [...] is your level of alcohol consumption? Occasional [id number] Information not available 01/30/2023 Do you or have you ever used smokeless tobacco? Never used smokeless tobacco [id number] Information not available 01/30/2023 Do you have [...] 12/12/2023 What is your exercise level? None [id number] Information not available 01/30/2023 Mental Status Question Answer Note LastModified by Organizat ion Details LastModified Time Do you feel stressed (tense, restless, nervous, or anxious, or unable to sleep at night)? [id number] Information not available 12/12/2023 Do you have difficulty concentrating, remembering or making decisions? No Information no t available 12/12/2023 Family History Relationship Description Onset Age of this Age Resolved Age Notes LastModified by Organization Details LastModified Time Father Heart disease [id number] [id number] Not available 01/30/2023 00:58:45 Father Hypertensive disorder [id number].639 [id number] Not available 01/30/2023 00:58:45 Father Kidney disease MIGRATION.024 [id number] Not available 01/30/2023 00:58:45 Mother Osteoporosis cyahl Not availab le 12/12/2023 10:15:25 Mother Hypertensive disorder [id number].039 [id number] Not available 01/30/2023 00:58:45 Notes:GRANDMOTHER & AUNT [...] HAVE YOU BEEN HOSPITALIZED OR SEEN IN [facility] IN THE PAST YEAR ? N ATHEROSCLEROSIS [...] mcg/0.25mL dose 03/10/2021 completed Not Available [facility] 4 07:40:34 COVID-19, mRNA, LNP-S, PF, 100 mcg/0.5mL dose or 50 mcg/0.25mL dose 02/08/2021 completed Not Available [facility] 4 07:40:34 COVID-19, mRNA, LNP-S, bivalent, PF, 50 mcg/0.5 mL or 25mcg/0.25 mL dose 12/27/2022 completed Not Available [facility] 4 07:40:34 Tdap 10/08/2014 completed Not Available [facility] 12/16/2023 07:40:34 Past Encounters Encounter ID Performer Location Encounter Start Date Encounter Closed Date Diagnosis/Indication Diagnosis SNOMED-CT Code Diagnosis ICD10 Code Diagnosis Note [id number] Anjana Chen MD [facility] Internal Med [facility] [address] [facility] [address] [place] [address] 01/30/2021 00:00:00 02/18/2021 13:50:36 [id number] Anjana Chen MD [facility] Internal Med [address] [place] [address] 08/03/2021 00:00:00 08/06/2021 20:42:37 [id number] Anjana Chen MD [facility] Internal Med [address] [place] [address] 03/01/2022 00:00:00 03/01/2022 13:22:34 [id number] Marco Antonio Soliz MD [facility] [place] [address] [place] [address] 03/08/2022 00:00:00 03/08/2022 11:18:56 [id number] Marco Antonio Soliz MD [facility] [place] [address] [place] [address] 03/19/2022 00:00:00 03/19/2022 11:47:59 [id number] Marco Antonio Soliz MD [facility] [facility] [place] [address] [place] [address] 04/16/2022 00:00:00 04/16/2022 09:22:09 [id number] Marco Antonio Soliz MD [facility] [place] [facility] [place] [address] [place] [address] 05/28/2022 00:00:00 05/28/2022 09:36:34 [id number] Marco Antonio Soliz MD [facility] [place] [address] [place] [address] 07/26/2022 00:00:00 07/26/2022 13:01:01 [id number] Marco Antonio Soliz MD [facility] [place] [facility] [place] [address] [place] [address] 08/02/2022 00:00:00 08/02/2022 10:48:03 [id number] Anjana Chen MD [facility] [place] [facility] [address] [facility] [address] [place] [address] 08/16/2022 00:00:00 09/23/2022 21:07:54 [id number] Marco Antonio Soliz MD [facility] [place] [facility] [place] [address] [place] [address] 09/24/2022 00:00:00 09/24/2022 11:09:36 [id number] Anjana Chen MD [facility] [place] [facility] [address] [facility] [place] [address] 12/20/2022 00:00:00 01/06/2023 22:23:11 [id number] Marco Antonio Soliz MD [facility] [place] [facility] [place] [address] [place] [address] 05/20/2023 09:21:24 05/20/2023 11:08:02 Pain of bilateral knee joints 6605405204 52348 M25.561 M25.562 Tear of la teral meniscus of knee 805550725 S83.282D Chondromal acia of right patella [id number] M22.41 [id number] Anjana Chen MD [facility] Internal [place] [address] [place] [address] 06/20/2023 10:05:31 06/20/2023 10:45:42 Benign essential hypertension [id number] I10 Diastolic dysfunction 35 12954 I51.9 Osteoarthritis [id number] M19.90 [id number] Marco Antonio Soliz MD [facility] [place] [place] [address] [place] [address] 06/24/2023 09:10:14 06/24/2023 11:13:34 Osteoarthritis of right knee joint [id number] 99855 M17.11 Tear of la teral meniscus of knee [id number] S83.282D [id number] Anjana Chen MD [facility] Internal Med [facility] [address] [place] [address] 12/12/2023 10:14:20 12/12/2023 11:06:23 Benign essential hypertension [id number] I10 Osteoarthritis [id number] M19.90 Diastolic dysfunction 35 71050 I51.9 Health Concerns Section Related Observation LastModified by Organization Detai ls LastModified Time None Recorded Concern Status LastModified by Organization Details LastModified Time None Recorded Advance Directives Directive N: Patient declined informat ion. Payers Encounter Date Sequence Insurance Name Policy Number Policy Walsh Covered Member ID Walsh Member ID Guarantor Name 05/20/2023 1 [place] Dia Hall [id number] Dia Hall 05/20/2023 2 [employer] (MEDICARE SUPPLEMENT) Dia Hall [id number] Dia Hall 06/20/2023 1 [place] Dia Hall [id number] Dia Hall 06/20/2023 2 [employer] (MEDICARE SUPPLEMENT) Dia Hall [id number] Dia Hall 06/24/2023 1 [place] Dia Hall [id number] Dia Hall 06/24/2023 2 [employer] (MEDICARE SUPPLEMENT) Dia Hall [id number] Dia Hall 12/12/2023 1 [place] Dia Hall [id number] Dia Hall 12/12/2023 2 [employer] (MEDICARE SUPPLEMENT) Dia Hall [id number] Dia Hall Notes Date Note Type Note [...] her left knee. Marco Antonio Soliz MD [address], [place], [address], [employer] 05/20/2023 11:45:46 06/20/2023 text/html Hypertension no headache or dizziness diastolic dysfunction no PND orthopnea osteoarthritis stable uses anti-inflammatories sparingly Anjana Chen MD [address], [place], [address], [employer] 06/21/2023 18:26:40 06/24/2023 text/html Patient returns knee pain LEFT. I scoped her knee 8 months ago over the last month the pain is begun returning primarily with activity. She has she has a catching and locking but mostly pain and aching in the knee. This is her left knee. Marco Antonio Soliz MD [address], [place], [address], [employer] 06/24/2023 11:13:25 12/12/2023 text/html Hypertension no headache or dizziness diastolic dysfunction no PND orthopnea osteoarthritis stable uses anti-inflammatories sparingly Anjana Chen MD [address], [place], [address], [employer] 01/03/2024 08:51:21 OBGyn Episode No OBEpisode recorded.
--- NOTE | 2025-04-28 12:22 | P.HP_ITS ---
H&P: HPI History of Present Illness Date/Time: 04/28/25 12:22 Chief Complaint: Bilateral inguinal hernia Narrative: This is a 74-year-old woman who presents for bilateral inguinal hernia repair. She has a prior history of a large right inguinal hernia that was somewhat difficult to reduce. I was able to reduce this in the office with some manual pressure with the patient lying flat. A CT had been performed prior to this which showed evidence of bilateral inguinal hernias. She now presents for repair. She did have to have a stress test prior to proceeding with surgery but stress test was normal. She reports no other changes. Review of Systems Review of Systems: All systems reviewed & are unremarkable except as noted in HPI and below Constitutional: Constitutional: Denies chills, Denies fever(s), Denies headache(s) and Denies weight loss Eyes: Eyes: Denies change in vision ENT: Denies dizziness, Denies headache(s), Denies neck mass and Denies throat swelling Cardiovascular: Cardiovascular: Denies chest pain, Denies lightheadedness and Denies dyspnea Respiratory: Respiratory: Denies cough, Denies dyspnea and Denies wheezing Gastrointestinal: Gastrointestinal: Denies abdominal pain, Denies change in bowel habits, Denies nausea and Denies vomiting Genitourinary: Genitourinary: Denies hematuria and Denies dysuria Musculoskeletal: Musculoskeletal: Reports as per HPI Integumentary/Breasts: Skin/Breast: Reports as per HPI Neurologic: Denies dizziness and Denies headache(s) Allergic/Immunologic: Allergic/Immunologic: Denies throat swelling and Denies wheezing [facility] Past Medical History Medical History (Updated 02/12/25 @ 09:13 by Brooklyn Angel) Screening mammogram, encounter for Peripheral venous insufficiency Essential hypertension Kidney stones (~10/2021) Surgical History Surgical History (Updated 02/12/25 @ 09:09 by Brooklyn Angel) History of repair of rectocele History of arthroscopic knee surgery (09/11/22) w/medial meniscectomy History of vaginal hysterectomy (~2004) total vaginal hysterectomy/posterior colphorrhapy History of colposcopy (07/23/02) colpo/ bx Family History Family History Mother Fibromyalgia Hypertension Osteoporosis Father Heart disease Hypertension Social History Social History Social History: Patient lives alone. She is . Her granddaughter may be moving in with her in November. She is a lifelong nonsmoker. She rarely drinks alcohol. No drug use. She is a full code. She nominated her son Alberto Hall to be the individual would make medical decisions for her if she is unable. Smoking status: Never smoker Second hand tobacco smoke exposure: No Alcohol intake: current Substance use: never Substance use type: does not use Do You Feel Safe in your Home?: Yes Lack of Transportation: No Lack of Food: Never True Current Housing: I Have Housing Concerned About Future Housing: No Difficulty Paying Gas/Electric Bills: No Difficulty Paying for Meds: No Currently Unemployed: No Education: High School Diploma/GED Difficulty w/ Childcare or Family Care: No Living arrangements: alone Occupation/Education: retired Gender identity (if verbalized by the patient): Female Sexual Orientation (if Verbalized by the Patient): Straight or Heterosexual Spiritual care concerns: No Meds Home Medications and Allergies Home Medications ?Medication ?Instructions ?Recorded ?Confirmed ?Type lisinopril 10 mg tablet 10 mg PO DAILY 10/02/21 02/18/25 History multivitamin with minerals-folic 1 tablet PO DAILY 10/02/21 02/18/25 History acid 0.4 mg tablet turmeric root extract 500 mg 1,000 mg PO DAILY 02/18/25 02/18/25 History capsule Allergies Allergy/AdvReac Type Severity Reaction Status Date / Time sulfamethoxazole (From Allergy Mild Rash Verified 04/28/25 11:46 Bactrim) trimethoprim (From Bactrim) Allergy Mild Rash Verified 04/28/25 11:46 Vital Signs Vital Signs - 24 hr 04/28/25 11:49 Temperature 98.5 F Pulse Rate 73 Respiratory Rate 16 Pulse Oximetry 98 Oxygen Delivery Room Air Exam Const: General: no acute distress and alert Orientation/consciousness: patient oriented x3 HENMT: Head: normocephalic and atraumatic Ears: hearing grossly normal bilaterally Face/Nose/Sinus: Normal nares present Mouth: Yes Normal oral and palatal mucosa present Eyes: Periorbital: periorbital findings normal Sclera: sclerae normal EOM: EOMs intact bilaterally Neck: Neck: normal visual inspection, no lymphadenopathy and trachea midline Chest: Chest palpation & inspection: normal inspection of the chest Resp: Effort & Inspection: normal respiratory effort Auscultation: clear to auscultation bilaterally Cardio: Jugular venous distension: no JVD Rate: regular rate Rhythm: regular rhythm Heart sounds: S1 normal heart sound present and S2 normal heart sound present Peripheral pulses: Peripheral pulses 2+ throughout GI: Inspection: normal to inspection GI Palp: Yes Soft to palpation, No Tenderness to palpation present (GI), No Guarding due to palpation present (GI) and No Rebound tenderness present Percussion: Yes normal to percussion Auscultation: normal bowel sounds Other: Bilateral inguinal hernias, right slightly larger than left. : General: Yes no CVA tenderness Back/Spine/Pelvis: Back: no CVA tenderness Neuro: General: patient oriented x3, no focal motor deficits and CN's II-XI intact bilaterally Cognition (Neuro): normal cognition Speech: normal speech Motor exam (neuro): 5/5 motor strength present throughout Extrem: General: capillary refill normal and no clubbing, cyanosis or edema Assessment and Plan Assessment and plan (1) Bilateral inguinal hernia without obstruction or gangrene: Qualifiers: Recurrence: non-recurrent Qualified Code(s): K40.20 - Bilateral inguinal hernia, without obstruction or gangrene, not specified as recurrent Code(s): K40.20 - Bilateral inguinal hernia, without obstruction or gangrene, not specified as recurrent Status: Acute Assessment and Plan: I have recommended laparoscopic bilateral inguinal hernia repair with mesh, da Rochelle assisted. I have discussed the procedure, risks, benefits, and alternatives with the patient. All questions answered. No changes since last seen in office.
--- NOTE | 2025-04-28 12:22 | WPDHPUPDATE1 ---
History and Physical Update Update Date/Time: 04/28/25 12:22 History and Physical has been reviewed, including an updated exam of the patient. There are NO changes in the patient's condition. Risks, benefits, and alternatives have been discussed and questions answered. Patient agrees to proceed with procedure.
--- NOTE | 2025-04-28 12:23 | WPDANESEPPF ---
Anes - Initial Pre Proc Eval Procedure: Operation Date: 04/28/25 13:00 Proposed Procedures p Laparoscopic Bilateral Inguinal Hernia Repair with Mesh, Davinci Assisted - Pio Zafar DO Date/Time: 04/28/25 12:23 Surgeon: Pio Zafar DO Pre Op Diagnosis: bilateral inguinal hernias Patient Data Age: 74 Gender: F Height: 1.63 m Weight: 96.5 kg Last Vital Signs Temp 98.5 F 04/28/25 11:49 Pulse 73 04/28/25 11:49 Resp 16 04/28/25 11:49 Pulse Ox 98 04/28/25 11:49 O2 Del Method Room Air 04/28/25 11:49 Allergies Allergy/AdvReac Type Severity Reaction Status Date / Time sulfamethoxazole (From Allergy Mild Rash Verified 04/28/25 11:46 Bactrim) trimethoprim (From Bactrim) Allergy Mild Rash Verified 04/28/25 11:46 Home Medications ?Medication ?Instructions ?Recorded ?Confirmed ?Type lisinopril 10 mg tablet 10 mg PO DAILY 10/02/21 02/18/25 History multivitamin with minerals-folic 1 tablet PO DAILY 10/02/21 02/18/25 History acid 0.4 mg tablet turmeric root extract 500 mg 1,000 mg PO DAILY 02/18/25 02/18/25 History capsule Patient hx anesthesia problems: none Family hx anesthesia problems: none Results Review: All pre-operative results and documents have been reviewed as part of the pre-operative evaluation. [facility] Past Medical History Medical History Screening mammogram, encounter for Peripheral venous insufficiency Essential hypertension Kidney stones (~10/2021) Surgical History Surgical History History of repair of rectocele History of arthroscopic knee surgery (09/11/22) w/medial meniscectomy History of vaginal hysterectomy (~2004) total vaginal hysterectomy/posterior colphorrhapy History of colposcopy (07/23/02) colpo/ bx Family History Family History Mother Fibromyalgia Hypertension Osteoporosis Father Heart disease Hypertension Social History Social History Social History: Patient lives alone. She is . Her granddaughter may be moving in with her in November. She is a lifelong nonsmoker. She rarely drinks alcohol. No drug use. She is a full code. She nominated her son Alberto Hall to be the individual would make medical decisions for her if she is unable. Smoking status: Never smoker Second hand tobacco smoke exposure: No Alcohol intake: current Substance use: never Substance use type: does not use Do You Feel Safe in your Home?: Yes Lack of Transportation: No Lack of Food: Never True Current Housing: I Have Housing Concerned About Future Housing: No Difficulty Paying Gas/Electric Bills: No Difficulty Paying for Meds: No Currently Unemployed: No Education: High School Diploma/GED Difficulty w/ Childcare or Family Care: No Living arrangements: alone Occupation/Education: retired Gender identity (if verbalized by the patient): Female Sexual Orientation (if Verbalized by the Patient): Straight or Heterosexual Spiritual care concerns: No Anes - Eval Final PreProcedure Day of Procedure 04/28/25 12:23 Patient weight: normal Lungs: normal air movement Airway: Mallampati scale class II Neurological: alert and oriented Last oral intake: >/= 8 hours ASA classification: III Emergent: no Anesthetic plan: proceed Anesthesia type and monitoring: general ETT and standard monitoring Results Review: All pre-operative results and documents have been reviewed as part of the pre-operative evaluation. HTN, obesity. Active w walking without symptoms, no cp or sob. Informed Consent: The patient's anesthetic plan and its attendant risks and benefits were discussed with the patient/family/POA. Questions were solicited and answers provided to the satisfaction of the patient/family/POA.
[2025-04-28] MEDS: LACTATED RINGERS 1,000 ML 30 ML IV CONT ×2 (12:37→14:14)
[2025-04-28] MEDS: ACETAMINOPHEN 500 MG TABLET 1000 MG PO (12:38)
[2025-04-28] MEDS: KETOROLAC 15 MG/ML VIAL (*BKC) IV PUSH (12:39)
[2025-04-28] MEDS: ceFAZolin 2 GM/D5W 50 ML 2 GM/50 ML BAG IVPB (12:42)
[2025-04-28] MEDS: BUPIVACAINE/EPINEPHRINE 0.5% 50 ML VIAL 30 ML INFILTRATE (13:11)
--- NOTE | 2025-04-28 14:02 | P.OP_ITS ---
Procedure Note - Detailed Date of Procedure 04/28/25 Pre-op Diagnosis bilateral inguinal hernias Post-op Diagnosis Same (Bilateral indirect inguinal hernias) Procedure Performed Laparoscopic bilateral inguinal hernia repair with mesh, da Rochelle assisted Surgeon Pio Zafar, Anesthesia General and Local (0.5% bupivacaine with epinephrine) Indications This is a 74-year-old woman who presented with a right groin bulge that she 1st noticed about 4 months ago. She had noticed a bulge but was not having any significant pain. She was seen by her CHECK OUT CASHIER and this area appeared difficult to reduce at the time. She then was sent for CT which showed evidence of bilateral inguinal hernias. The right side was containing a loop of bowel and the left side was fat containing. Discussions were made with the patient about treatment options and decision was made to proceed with robotic assisted laparoscopic bi lateral inguinal hernia repair with mesh. Findings Robotic assisted laparoscopic bilateral inguinal hernia repair with mesh was performed. Patient was found to have a moderate-sized indirect right inguinal hernia defect along with a slightly smaller left inguinal hernia defect. There was no bowel contained within the hernia at the time of surgery. A robotic transabdominal preperitoneal approach was utilized for repair. Once a wide enough preperitoneal pocket was created on each side, a large 3DMax mid mesh was then placed overlying each myopectineal orifice. Description of Procedure Procedure as well as risks, benefits, and alternatives were discussed with the patient. Written consent was obtained and placed in chart prior to procedure. Patient was brought back to surgical suite. She was placed supine on operating table. Time-out was done to confirm patient and procedure. She was then intubated by Anesthesia Department. Her abdomen was prepped and draped in sterile fashion using chlorhexidine prep. 0.5% bupivacaine with epinephrine was infiltrated at each location for incision. An 8 mm incision was made in the left lateral abdomen, and a 5 mm Optiview trocar was advanced through the abdominal layers under direct visualization. Once inside the abdominal cavity, carbon dioxide insufflation was used to create a pneumoperitoneum. A camera was inserted and the abdominal cavity was inspected. The patient was placed in slight Trendelenburg position. An 8 millimeter incision was made on the right lateral abdomen and an 8 millimeter trocar was inserted under direct visualization. Another 8 millimeter incision was made just superior to the umbilicus and an 8 millimeter trocar was inserted under direct visualization. The 5 mm port was then removed and this was replaced with another 8 mm robotic port. The robotic arms were brought up to the patient's bedside and secured to the ports. The camera and instruments were inserted. I then moved over to the robotic console and took control of the camera and instruments. After careful inspection of the abdominal cavity, I began scoring the peritoneum along the right lower quadrant using scissors with electrocautery. The preperitoneal plane was entered and this was carefully dissected caudally along the inferior epigastric vessels. Careful dissection with scissors with electrocautery and blunt dissection was used to continue this dissection. I dissected far enough laterally to allow for mesh placement, and also dissected medially to identify the pubic arch and Eleuterio's ligament. The hernia sac was identified and carefully dissected posteriorly. The round ligament was also identified and the peritoneum was carefully dissected far enough posteriorly to allow for mesh placement. The round ligament was then transected with electrocautery to allow flat mesh placement. Once an adequate pocket was created, I then placed the mesh within the preperitoneal pocket and carefully unfolded it. The mesh was centered on the hernia defect with adequate overlap circumferentially. The inferior edge of the mesh was inspected to ensure that it was far enough away from the peritoneal edge. The mesh appeared in proper position overlying the entire myopectineal orifice. The mesh was secured using 3-0 Vicryl simple interrupted sutures in Eleuterio's ligament, the superior medial edge, and superior lateral edge of the mesh. The peritoneum was then closed over the mesh using a 3-0 V-lock running absorbable suture. I then began scoring the peritoneum along the left lower quadrant using scissors with electrocautery. The preperitoneal plane was entered and this was carefully dissected caudally along the inferior epigastric vessels. Careful dissection with scissors with electrocautery and blunt dissection was used to continue this dissection. I dissected far enough laterally to allow for mesh placement, and also dissected medially to identify the pubic arch and Eleuterio's ligament. The hernia sac was identified and carefully dissected posteriorly. The round ligament was also identified and the peritoneum was carefully dissected far enough posteriorly to allow for mesh placement. The round ligament was then transected with electrocautery to allow flat mesh placement. Once an adequate pocket was created, I then placed the mesh within the preperitoneal pocket and carefully unfolded it. The mesh was centered on the hernia defect with adequate overlap circumferentially. The inferior edge of the mesh was inspected to ensure that it was far enough away from the peritoneal edge. The mesh appeared in proper position overlying the entire myopectineal orifice. The mesh was secured using 3-0 Vicryl simple interrupted sutures in Eleuterio's ligament, the superior medial edge, and superior lateral edge of the mesh. The peritoneum was then closed over the mesh using a 3-0 V-lock running absorbable suture. The robotic instruments were removed. The robotic arms were disengaged from the ports and moved away from the bedside. The patient was flattened out in bed, the ports were removed under direct visualization, and the pneumoperitoneum was released. The skin of the incisions was approximated using 4-0 Monocryl subcuticular suture, and Exofin glue was applied on top. The patient was awakened from anesthesia, extubated, and transferred to recovery. Implants Large right and left 3DMax mid mesh Estimated Blood Loss 5 Complications No immediate complications Condition Stable Disposition Same day [facility] Billing Surgery - Charge Forward: Surgery Billing
[2025-04-28] MEDS: fentaNYL CITRATE INJ (*CRX) 100 MCG/2 ML VIAL 25 MCG IV PUSH ×2 (14:32→14:37)
[2025-04-28] MEDS: oxyCODONE HCL (*CRX) 5 MG TAB IR PO (15:28)
[2025-04-28] MEDS: hydrALAZINE HCL 20 MG/ML VIAL 5 MG IV PUSH (16:45)
== END 2025-04-28 17:07 | disposition home or self-care (01) ==
PROVIDERS: PCP Internal Medicine; Visit Provider Surgery
PROC: 8E0Y4CZ Robotic Assisted Procedure of Lower Extremity, Percutaneous Endoscopic Approach (ICD-10-PCS; CPT 49650; principal; 2025-04-28 13:00)
DX: K40.20 Bilateral inguinal hernia, without obstruction or gangrene, not specified as recurrent (principal); I10 Essential (primary) hypertension; I87.2 Venous insufficiency (chronic) (peripheral); E66.9 Obesity, unspecified; Z68.36 Body mass index [BMI] 36.0-36.9, adult; Z98.890 Other specified postprocedural states; Z87.442 Personal history of urinary calculi; Z82.49 Family history of ischemic heart disease and other diseases of the circulatory system
CPT/HCPCS: 49650; S2900; A9270; C1781; J0360; J0690; J1100; J1885; J2003; J2250; J2405; J2704; J3010; J7120

== ENCOUNTER 2025-05-24 11:50 | Emergency (ER) | payer MEDICARE, SELFPAY ==
[2025-05-24] VITALS (23 sets, daily range): BP systolic 121–137; BP diastolic 65–74; PULSE 70–83; RESP 14–21; TEMP 36.4–36.9; O2SAT 92–98
--- NOTE | ~2025-05-24 | XR_ITS ---
XR chest 1V portable Ordering provider: Kami Webber MD History: 74 years Female with . Syncope . Comparison: None. FINDINGS: MEDIASTINUM: The cardiac silhouette is not enlarged. Soft tissue density in the right hilum which may be a lymph node. Follow-up in 3 months advised. LUNGS: No infiltrates, effusions or pneumothorax. OTHER: No free air under the diaphragm. Degenerative changes of the spine. IMPRESSION: Soft tissue density in the right hilum which may be a lymph node. 3 months follow-up advised. Otherwi se, No acute cardiopulmonary pathology. Reviewed, dictated and finalized at location A. IMPRESSION: Soft tissue density in the right hilum which may be a lymph node. 3 months foll ow-up advised. Otherwise, No acute cardiopulmonary pathology.
--- NOTE | ~2025-05-24 | CT_ITS ---
EXAM: CT brain wo con - 05/24/2025 13:30 CDT History: 74 years old Female with headach COMPARISON: None available. PROCEDURE: CT of the head without contrast. Axial, sagittal and coronal reformatted planes were brandan luated. Automatic exposure control was used for this study. FINDINGS: BRAIN PARENCHYMA: No acute hemorrhage. No mass effect or herniation. Verma-white matter differentiatio n is maintained. Mild chronic volume loss. Scattered hypodensities in subcortical and periventricular white matter, likely representing chronic microvascular ischemic changes in this age group. Atherosc lerotic calcification of the intracranial vessels is noted. VENTRICLES/ EXTRA-AXIAL SPACES: No hydrocephalus or extra-axial fluid collection. EXTRACRANIAL STRUCTURES: No calvarial fracture. IMPRESSION: No evidence for acute intracranial hemorrhage or calvarial fracture. Reviewed, dictated and finalized at location A.
--- NOTE | 2025-05-24 11:56 | ED.SYNCOPE ---
HPI - Syncope General Chief Complaint: Syncope Stated Complaint: syncope Source: patient and family Mode of arrival: ambulatory Limitations: no limitations History of Present Illness HPI narrative: 74 years old white female with history of hypertension was sitting outdoors in very hot weather 94 F, developed blurry vision , nausea then fainted ,patient was able to hear people talking around her at that time,did not fall out of her chair then back to normal with slight left frontal headache and still blurry vision Patient denies any fever, chills, nausea, vomiting, chest pain, shortness of breath or focal neuro deficit. Patient report that it was very hot outdoors today Related Data Home Medications ?Medication ?Instructions ?Recorded ?Confirmed ?Last Taken ?Type lisinopril 10 mg tablet 10 mg PO DAILY 10/02/21 05/14/25 09/01/24 History multivitamin with minerals-folic 1 tablet PO DAILY 10/02/21 05/14/25 09/01/24 History acid 0.4 mg tablet turmeric root extract 500 mg 1,000 mg PO DAILY 02/18/25 05/14/25 Unknown History capsule Allergies Allergy/AdvReac Type Severity Reaction Status Date / Time sulfamethoxazole (From Allergy Mild Rash Verified 05/24/25 11:58 Bactrim) trimethoprim (From Bactrim) Allergy Mild Rash Verified 05/24/25 11:58 Review of Systems Review of Systems: All systems reviewed & are unremarkable except as noted in HPI and below PMFSH Past Medical History Medical History Screening mammogram, encounter for Peripheral venous insufficiency Essential hypertension Kidney stones (~10/2021) Surgical History Surgical History H/O bilateral inguinal hernia repair 04/28/25 Laparoscopic bilateral inguinal hernia repair with mesh, [place] assisted Dr. Zafar History of repair of rectocele History of arthroscopic knee surgery (09/11/22) w/medial meniscectomy History of vaginal hysterectomy (~2004) total vaginal hysterectomy/posterior colphorrhapy History of colposcopy (07/23/02) colpo/ bx Family History Family History Mother Fibromyalgia Hypertension Osteoporosis Father Heart disease Hypertension Social History Social History Social History: Patient lives alone. She is . Her granddaughter may be moving in with her in November. She is a lifelong nonsmoker. She rarely drinks alcohol. No drug use. She is a full code. She nominated her son Alberto Hall to be the individual would make medical decisions for her if she is unable. Smoking status: Never smoker Second hand tobacco smoke exposure: No Alcohol intake: current Substance use: never Substance use type: does not use Do You Feel Safe in your Home?: Yes Lack of Transportation: No Lack of Food: Never True Current Housing: I Have Housing Concerned About Future Housing: No Difficulty Paying Gas/Electric Bills: No Difficulty Paying for Meds: No Currently Unemployed: No Education: High School Diploma/GED Difficulty w/ Childcare or Family Care: No Living arrangements: alone Occupation/Education: retired Gender identity (if verbalized by the patient): Female Sexual Orientation (if Verbalized by the Patient): Straight or Heterosexual Spiritual care concerns: No Exam Narrative: General appearance: Well-developed, well-nourished Skin: Normal color Head: Normocephalic, nontraumatic Eyes: Clear conjunctiva ENT: Oropharynx normal, ears normal, nose normal Neck: Supple, nontender Chest and respiratory: Airway patent, no respiratory distress, no accessory muscle use Heart: Regular rate/rhythm Abdomen: Soft, nontender, no organomegaly, quiet bowel sounds Vascular: Normal peripheral pulses, normal capillary refill. 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, no gross motor deficit Course Vital Signs Vital signs: Vital Signs Temperature 36.4 C 05/24/25 11:50 Pulse Rate 82 05/24/25 11:50 Respiratory Rate 16 05/24/25 11:50 Blood Pressure 121/69 05/24/25 11:50 Pulse Oximetry 95 05/24/25 11:50 Oxygen Delivery Room Air 05/24/25 11:50 Temperature 36.4 C 05/24/25 11:50 Pulse Rate 71 05/24/25 13:51 Respiratory Rate 18 05/24/25 13:47 Blood Pressure 136/65 05/24/25 13:31 Pulse Oximetry 95 05/24/25 13:47 Oxygen Delivery Room Air 05/24/25 11:50 MDM - Syncope MDM Narrative Medical decision making narrative: patient was sitting outdoors for at least 2 hours in very hot environment above 90 for height, felt blurry vision and blacked out for 1-2 minutes. Currently complaining of left frontal headache Vital signs stable Physical examination is unremarkable Differential diagnosis include heat exertion, dehydration, electrolyte imbalance DIFFERENTIAL DIAGNOSIS INCLUDE HIS EXERTION, DEHYDRATION, ELECTROLYTE IMBALANCE BLOOD WORKUP INCLUDES CBC, CMP, MAGNESIUM 1.4, URINALYSIS SHOWED EVIDENCE OF SLIGHT INFECTION CHEST X-RAY Soft tissue density in the right hilum which may be a lymph node. 3 months follow-up advised. Otherwise, No acute cardiopulmonary pathology. CT HEAD WITHOUT CONTRAST SHOWED NO ACUTE ABNORMALITIES PATIENT RECEIVED 1 G OF TYLENOL, 1 L OF NORMAL SALINE IV WITH REMARKABLE IMPROVEMENT DIAGNOSIS EAT EXERTION, URINARY TRACT INFECTION-SUSPECTED THE PT WAS DISCHARGED TO HOME.THE PT,S CONDITION UPON DISCHARGE WAS FAIR,EDUCATION WAS PROVIDED TO THE PT IN REFERENCE TO THE FINAL IMPRESSION,DISCHARGE STUDY RESULTS,TREATMENT,PROGNOSIS AND NEED FOR FOLLOW UP . Lab Data 05/24/25 12:18 05/24/25 12:18 Labs: Lab Results 05/24/25 05/24/25 Range/Units 12:18 13:08 WBC 7.0 (4.8-10.8) K/mm3 RBC 3.87 L (4.20-5.40) M/mm3 Hgb 11.5 L (11.7-13.8) g/dL Hct 36.9 (35.0-42.0) % MCV 95.3 (78.0-102.0) fL MCH 29.7 (27.0-31.0) pg MCHC 31.2 L (32-36) g/dL RDW 13.3 (11.6-14.4) % Plt Count 253 (150-420) K/mm3 MPV 9.0 L (9.2-11.8) fl Immature Gran % (Auto) 0.6 H (0.0-0.0) % Neut % (Auto) 64.4 (50.0-70.0) % Lymph % (Auto) 24.8 (18.0-42.0) % Forest % (Auto) 7.5 (2.0-11.0) % Eos % (Auto) 2.1 (1.0-6.0) % Baso % (Auto) 0.6 (0.0-1.0) % Lymph # (Auto) 1.74 (1.10-4.50) K/mm3 Forest # (Auto) 0.53 (0.10-0.90) K/mm3 Eos # (Auto) 0.15 (0.02-0.50) K/mm3 Baso # (Auto) 0.04 (0.00-0.10) K/mm3 Abs Immat Gran (auto) 0.04 H (0.00-0.00) K/mm3 Absolute Neuts (auto) 4.53 (1.70-7.20) K/mm3 Absolute Nucleated RBC 0.00 (0.00-0.00) K/mm3 Nucleated RBC % 0.0 (0-0.0) % Sodium 137 (137-145) mmol/L Potassium 4.0 (3.4-5.0) mmol/L Chloride 106 (98-107) mmol/L Carbon Dioxide 26 (22-30) mmol/L Anion Gap 5 (4-12) mmol/L BUN 27 H (7-17) mg/dL Creatinine 0.93 (0.7-1.0) mg/dL Estim Creat Clear Calc 53 ml/min Estimated GFR 59 (59 - ) Glucose 120 H (65-110) mg/dL Calculated Osmolality 290 (285-295) mOsm/kg Calcium 9.0 (8.4-10.2) mg/dL Magnesium 1.4 L (1.6-2.3) mg/dL Total Bilirubin 0.7 (0.2-1.3) mg/dL AST 25 (14-36) U/L ALT 16 (6-35) U/L Alkaline Phosphatase 76 (38-126) U/L Troponin I < 0.012 (0.000-0.034) ng/mL Total Protein 6.8 (6.3-8.2) g/dL Albumin 3.8 (3.5-5.1) g/dL Urine Color Yellow (Yellow) Urine Appearance Sl cloudy A (Clear) Urine pH 6.0 (5.0-8.0) Ur Specific Griffin 1.020 (1.010-1.020) Urine Protein 1+ H (Negative) Urine Glucose (UA) Negative (Negative) Urine Ketones 1+ H (Negative) Ur Blood (Man) Negative (Negative) Urine Nitrate Negative (Negative) Urine Bilirubin 1+ H (Negative) Urine Urobilinogen 1.0 (0.2-1.0) mg/dL Leukocyte Esterase Rfl 1+ H (Negative) JOSEPH/UL Urine RBC None seen (0-2) /hpf Urine WBC 6-10 H (0-3) /hpf Ur Squamous Epith Cells Few (Few) /hpf Urine Bacteria 1+ H (None) /hpf Imaging Data Radiologist's impression: Impressions Chest X-Ray 05/24/25 12:46 IMPRESSION: Soft tissue density in the right hilum which may be a lymph node. 3 months follow-up advised. Otherwise, No acute cardiopulmonary pathology. Head CT 05/24/25 13:52 IMPRESSION: No evidence for acute intracranial hemorrhage or calvarial fracture. Discharge Plan Discharge Clinical Impression: Heat exhaustion, Mediastinal adenopathy Patient Disposition: Home Condition: Stable Instructions: Urinary Tract Infection in Women (DC), Heat Exhaustion (ED) Additional Instructions: RETURN IF SYMPTOMS ARE WORSENING , CALL YOUR FAMILY PHYSICIAN FOR APPOINTMENT, TAKE TYLENOL NEEDED FOR ACHES AND PAIN, CONTINUE HOME MEDICATIONS. CHEST X-RAY TODAY SHOWED SOFT TISSUE DENSITY IN THE RIGHT SIDE OF THE CHEST WHICH MAY BE A LYMPH NODE. THREE-MONTH FOLLOW-UP ADVISED. Patient Language: Greenlandic Prescriptions: New nitrofurantoin monohyd/m-cryst [Macrobid] 100 mg capsule 100 mg PO Q12H 5 Days Qty: 10 0RF Rx Instructions: must administer with a meal/food No Action lisinopril 10 mg tablet 10 mg PO DAILY Patient Comments: QAM turmeric root extract 500 mg capsule 1,000 mg PO DAILY multivit with min-folic acid 0.4 mg Tablet 1 tablet PO DAILY Follow-up/Referrals: Gustavo,MD Loi [Primary Care Provider] -
--- NOTE | 2025-05-24 12:04 | ECG_ITS ---
Test Date: 2025-05-24 12:22:14 Measurements Intervals [place] Rate: 76 P: 52 ME: 132 QRS: 39 QRSD: 96 T: 49 QT: 369 QTc: 415 Interpretive Statements SINUS RHYTHM DELAYED PRECORDIAL R/S TRANSITION BASELINE ARTIFACT- I, II, AVR, AVL BORDERLINE ECG Compared to ECG 02/22/2025 08:45:27 Myocardial infarct finding no longer present Electronically Signed On 05-24-2025 13:03:40 CDT by Kevin Eldridge D.O.
[2025-05-24] MEDS: ACETAMINOPHEN 500 MG TABLET 1000 MG PO (12:20)
[2025-05-24] MEDS: SODIUM CHLORIDE 0.9% IV 1,000 ML 999 ML IV CONT (12:21)
[2025-05-24 12:24] LABS: Basophils Absolute Auto 0.04 K/mm3 (0.00-0.10); Basophils Percent Auto 0.6 % (0.0-1.0); Eosinophils Absolute Auto 0.15 K/mm3 (0.02-0.50); Eosinophils Percent Auto 2.1 % (1.0-6.0); Hematocrit 36.9 % (35.0-42.0); Hemoglobin 11.5 g/dL (11.7-13.8); Immature Granulocyte Absolute 0.04 K/mm3 (0.00-0.00); Immature Granulocyte Percent A 0.6 % (0.0-0.0); Lymphocytes Absolute Auto 1.74 K/mm3 (1.10-4.50); Lymphocytes Percent Auto 24.8 % (18.0-42.0); Mean Corpuscular HGB Conc 31.2 g/dL (32-36); Mean Corpuscular Hemoglobin 29.7 pg (27.0-31.0); Mean Corpuscular Volume 95.3 fL (78.0-102.0); Monocytes Absolute Auto 0.53 K/mm3 (0.10-0.90); Monocytes Percent Auto 7.5 % (2.0-11.0); Neutrophils Absolute Auto 4.53 K/mm3 (1.70-7.20); Neutrophils Percent Auto 64.4 % (50.0-70.0); Platelet Count Result 253 K/mm3 (150-420); Red Blood Count 3.87 M/mm3 (4.20-5.40); Red Cell Distribution Width 13.3 % (11.6-14.4)
[2025-05-24 12:35] LABS: Alanine Aminotransferase 16 U/L (6-35); Albumin Level 3.8 g/dL (3.5-5.1); Alkaline Phosphatase 76 U/L (38-126); Anion Gap 5 mmol/L (4-12); Aspartate Amino Transferase 25 U/L (14-36); Bilirubin,Total 0.7 mg/dL (0.2-1.3); Blood Urea Nitrogen 27 mg/dL (7-17); Carbon Dioxide 26 mmol/L (22-30); Chloride 106 mmol/L (98-107); Estimated CRCL calculation 53 ml/min; Estimated Glomerular Filt Rate 59; Glucose 120 mg/dL (65-110); Osmolality Calculated 290 mOsm/kg (285-295); Sodium 137 mmol/L (137-145); Total Protein 6.8 g/dL (6.3-8.2)
[2025-05-24 12:41] LABS: Magnesium 1.4 mg/dL (1.6-2.3)
[2025-05-24 12:47] LABS: Troponin I < 0.012 ng/mL (0.000-0.034)
[2025-05-24 13:18] LABS: Add Urine Microscopic? YES; Appearance Urine Sl Cloudy (Clear); Bilirubin Urine 1+ (Negative); Blood Urine Negative (Negative); Color Urine Yellow (Yellow); Glucose Urine UA Negative (Negative); Ketones Urine 1+ (Negative); Leukocyte Esterase Ur 1+ LEU/UL (Negative); Nitrate Urine Negative (Negative); Protein Urine 1+ (Negative)
[2025-05-24 13:27] LABS: Bacteria Urine 1+ /hpf; RBC Urine None seen /hpf (0-2); Squamous Epithelial Cell Urine Few /hpf (Few)
--- NOTE | 2025-05-26 12:05 | PC.NURSE ---
FINAL URINE CULTURE MIXED GENITAL ALCIRA ISLOLATED PER DR SOTO NO FURTHER ORDERS
== END 2025-05-24 14:25 | disposition home or self-care (01) ==
PROVIDERS: Emergency Provider Emergency Medicine; PCP Internal Medicine
DX: T67.5XXA Heat exhaustion, unspecified, initial encounter (principal); R59.0 Localized enlarged lymph nodes; I10 Essential (primary) hypertension
CPT/HCPCS: 36415; 70450; 71045; 80053; 81001; 83735; 84484; 85025; 87086; 87088; 93005; 96360; 99284; A9270; J7030

== ENCOUNTER 2025-06-25 08:31 | Outpatient (CLI) | payer MEDICARE, SELFPAY ==
--- NOTE | ~2025-06-25 | MM_ITS ---
EXAMINATION: MM screening marie BI w melinda HISTORY: Screening TECHNIQUE: Craniocaudal and mediolateral oblique 3-D tomosynthesis images were obtained and synthetic 2-D images were generated. CAD analysis was submitted and interpreted. COMPARISON: Comparison to multiple prior studies sequentially, with oldest reviewed study dated 12/25. BREAST PARENCHYMAL COMPOSITION: Not Dense: The breasts are almost entirely fatty. FINDINGS: There is no evidence of suspicious mass, calcification, or architectural distortion to sugg est malignancy in either breast. There has been no suspicious interval change. IMPRESSION: 1. No mammographic evidence of malignancy. 2. Recommend routine screening mammography in one year. BI-RADS Category 1: Negative Reviewed, dictated and finalized at location A.
--- OUTSIDE RECORDS SUMMARY | 2025-06-25 08:33 | XMS_ITS | Data Portability ---
Author Organization [place] [facility], Main Office Address [address] [place] [address] Care Team Providers Care Rest Room Attendant Name Role Phone ANJANA CHEN Primary Care [...] Her x-rays show some degenerative change not [id number]. Recommended we try conservative treatment I injected with 20 mg Kenalog 4 cc 1% lidocaine the left knee. For prescription drug management will try Voltaren for pain and inflammation. I will see her back in a month for follow-up if she has any changes or problems she will call discussed. [email or web address] Not available 05/20/2023 11:43:58 06/20/2023 06/20/2023 Continue with current therapy diagnosis discussed see me in 6 months [email or web address] Not available 06/21/2023 18:26:23 06/24/2023 06/24/2023 Patient [...] If gets worse or changes will reassess. [email or web address] Not available 06/24/2023 11:12:53 12/12/2023 12/12/2023 Continue current therapy stay physically active by walking little bit of strength training follow-up in 6 months [email or web address] Not available 01/03/2024 08:51:05 Plan of Treatment [...] procedure, administere d by provider 2022 023 [email or web address] In-Office Order, Internal Use Only DO Not Attach Compendium DO Not Attach Compendium, Do Not Delete/merge, [address] 3 10:32:52 Surgeries None recorded. Imaging XR, knee 2022 023 alexy 158 [facility] [place], [facility] [address], [place], [address], 3 11:42:51 Medication Orders diclofenac sodium 75 mg tablet,latonia yed release 2022 023 alexy 158 [facility] [address], [facility] [place], [address], 3 11:10:35 Kenalog 10 mg/mL suspension for injection 2022 023 [id number] 223 [facility] 213, [facility] [place], [address], 4 07:40:33 ropivacaine (PF) 5 mg/mL (0.5 %) injection solution 2022 023 [id number] 223 [facility] 213, [address] [place], [address], 4 07:40:33 diclofenac sodium 75 mg tablet,latonia yed release 2022 Venkatesh Diop [facility], [address] [place], [address], 3 10:40:37 Patient TargetsNo targets recorded. Patient InstructionsNo instructions recorded. Reason for Referral None Reported. Results Created Date Observation Date Name Description Value Unit Range Abnormal Flag Note LastModifiedBy Organization Detail LastModifiedTime 12/12/19 24 12/12/2023 CBC/C OMPLE TE BLD COUNT W/DIF F white blood cells 6.5 x10'3 /uL 4.2-10 .8 Not Available [facility] (Lab) [address] [place], [address], 12/12/2023 13:48:27 12/12/19 24 12/12/2023 CBC/C OMPLE TE BLD COUNT W/DIF F red blood cells 4.03 x10'6 /uL 3.80-5 .20 Not Available [facility] (Lab) [address] [place], [address], 12/12/2023 13:48:27 12/12/19 24 12/12/2023 CBC/C OMPLE TE BLD COUNT W/DIF F hemoglobin 12.2 g/dL 12.0-1 5.6 Not Available [facility] (Lab) [address] [place], [address], 12/12/2023 13:48:27 12/12/19 24 12/12/2023 CBC/C OMPLE TE BLD COUNT W/DIF F hematocrit 40.4 % 35.7-4 5.7 Not Available [facility] (Lab) [address] [place], [address], 12/12/2023 13:48:27 12/12/19 24 12/12/2023 CBC/C OMPLE TE BLD COUNT W/DIF F mean red cell volume 100.2 fL 82.0-9 9.0 high Not Available [facility] (Lab) [address] [place], [address], 12/12/2023 13:48:27 12/12/19 24 12/12/2023 CBC/C OMPLE TE BLD COUNT W/DIF F mean red cell hemoglobin 30.3 pg 27.0-3 3.0 Not Available [facility] (Lab) [address] [place], [address], 12/12/2023 13:48:27 12/12/19 24 12/12/2023 CBC/C OMPLE TE BLD COUNT W/DIF F mean RBC HGB concentratio n 30.2 g/dL 31.0-3 6.0 low Not Available [facility] (Lab) [address] [place], [address], 12/12/2023 13:48:27 12/12/19 24 12/12/2023 CBC/C OMPLE TE BLD COUNT W/DIF F red cell distribution width 14.2 % 11.8-1 5.5 Not Available [facility] (Lab) [address] [place], [address], 12/12/2023 13:48:27 12/12/19 24 12/12/2023 CBC/C OMPLE TE BLD COUNT W/DIF F platelets 263 x10'3 /uL 150-40 0 Not Available [facility] (Lab) [address] [place], [address], 12/12/2023 13:48:27 12/12/19 24 12/12/2023 CBC/C OMPLE TE BLD COUNT W/DIF F mean platelet volume 9.8 fL 9.0-12 .4 Not Available [facility] (Lab) [address] [place], [address], 12/12/2023 13:48:27 12/12/19 24 12/12/2023 CBC/C OMPLE TE BLD COUNT W/DIF F neutrophils 60.1 % 39.0-7 2.0 Not Available [facility] (Lab) [address] [place], [address], 12/12/2023 13:48:27 12/12/19 24 12/12/2023 CBC/C OMPLE TE BLD COUNT W/DIF F lymphocytes 28.4 % 16.0-4 7.0 Not Available [facility] (Lab) [address] [place], [address], 12/12/2023 13:48:27 12/12/19 24 12/12/2023 CBC/C OMPLE TE BLD COUNT W/DIF F monocytes 8.1 % 5.0-12 .0 Not Available [facility] (Lab) [address] [place], [address], 12/12/2023 13:48:27 12/12/19 24 12/12/2023 CBC/C OMPLE TE BLD COUNT W/DIF F eosinophils 2.5 % 1.0-7. 0 Not Available [facility] (Lab) [address] [place], [address], 12/12/2023 13:48:27 12/12/19 24 12/12/2023 CBC/C OMPLE TE BLD COUNT W/DIF F basophils 0.6 % 0.0-2. 0 Not Available [facility] (Lab) [address] [place], [address], 12/12/2023 13:48:27 12/12/19 24 12/12/2023 CBC/C OMPLE TE BLD COUNT W/DIF F immature granulocytes 0.3 % 0.00-0 .50 Not Available [facility] (Lab) [address] [place], [address], 12/12/2023 13:48:27 12/12/19 24 12/12/2023 CBC/C OMPLE TE BLD COUNT W/DIF F neutrophils, absolute count 3.91 x10'3 /uL 1.5-8. 0 Not Available [facility] (Lab) [address] [place], [address], 12/12/2023 13:48:27 12/12/19 24 12/12/2023 CBC/C OMPLE TE BLD COUNT W/DIF F lymphocytes, absolute count 1.85 x10'3 /uL 1.07-3 .43 Not Available [facility] (Lab) [address] [facility], [address], 12/12/2023 13:48:27 12/12/19 24 12/12/2023 CBC/C OMPLE TE BLD COUNT W/DIF F monocytes, absolute count 0.53 x10'3 /uL 0.29-0 .99 Not Available [facility] (Lab) [address] [place], [address], 12/12/2023 13:48:27 12/12/19 24 12/12/2023 CBC/C OMPLE TE BLD COUNT W/DIF F eosinophils, absolute count 0.16 x10'3 /uL 0.02-0 .53 Not Available [facility] (Lab) [address] [place], [address], 12/12/2023 13:48:27 12/12/19 24 12/12/2023 CBC/C OMPLE TE BLD COUNT W/DIF F basophils, absolute count 0.04 x10'3 /uL 0.01-0 .08 Not Available [facility] (Lab) [address] [place], [address], 12/12/2023 13:48:27 12/12/19 24 12/12/2023 CBC/C OMPLE TE BLD COUNT W/DIF F immature granulocytes ,absolute 0.02 x10'3 /uL 0.00-0 .05 Not Available [facility] (Lab) [address] [place], [address], 12/12/2023 13:48:27 12/12/19 24 12/12/2023 CBC/C OMPLE TE BLD COUNT W/DIF F nucleated red blood cells 0.0 % -0 Not Available [facility] (Lab) [address] [place], [address], 12/12/2023 13:48:27 12/12/19 24 12/12/2023 CBC/C OMPLE TE BLD COUNT W/DIF F NRBC# 0.00 x10'3 /uL Not Available [facility] (Lab) [address] [place], [address], 12/12/2023 13:48:27 12/12/19 24 12/12/2023 LIPID PANEL cholesterol 160 mg/dL 140-19 9 NIH CHEL NSUS RECOM MENDA TION FOR TONYA STERO L: ADULT CHILD LOW RISK: <200 <170 BORDE RLINE : <200- 239 ----- HIGH RISK: >240 >200 Not Available [facility] (Lab) [address] [place], [address], 12/12/2023 13:56:46 12/12/19 24 12/12/2023 LIPID PANEL triglyceride s 79 mg/dL 0-150 NIH CHEL NSUS REPOR T RECOM MENDA TION FOR TRIGL YCERI GUIDO: ADULT CHILD LOW RISK: <150 ----- BODER LINE: 150-1 99 ----- HIGH RISK: >200 ----- Not Available [facility] (Lab) [address] [place], [address], 12/12/2023 13:56:46 12/12/19 24 12/12/2023 LIPID PANEL HDL cholesterol 79 mg/dL 40- Not Available [facility] (Lab) [address] [place], [address], 12/12/2023 13:56:46 12/12/19 24 12/12/2023 LIPID PANEL LDL cholesterol, calculated 65 mg/dL 0-130 NIH CHEL NSUS REPOR T RECOM MENDA TIONS FOR LDL: ADULT CHILD LOW RISK <130 <110 (OPTI MAL LDL) <100 ----- BORDE RLINE : 130-1 59 ----- HIGH RISK: >160 >130 A TRIGL YCERI DE RESUL T >400 INVAL IDATE S THE CALCU LATIO N FOR LDL FRACT IONAT ION - THE LDL RESUL T WILL NOT BE REPOR XAVIER. Not Available [facility] (Lab) [address] [place], [address], 12/12/2023 13:56:46 12/12/19 24 12/12/2023 COMPR EHENS NIELS METAB OLIC PANEL sodium 141 mmol/ L 137-14 5 Not Available [facility] (Lab) [address] [place], [address], 12/12/2023 13:56:51 12/12/19 24 12/12/2023 COMPR EHENS NIELS METAB OLIC PANEL potassium 4.4 mmol/ L 3.5-5. 1 Not Available [facility] (Lab) [address] [place], [address], 12/12/2023 13:56:51 12/12/19 24 12/12/2023 COMPR EHENS NIELS METAB OLIC PANEL chloride 106 mmol/ L 98-107 Not Available [facility] (Lab) [address] [place], [address], 12/12/2023 13:56:51 12/12/19 24 12/12/2023 COMPR EHENS NIELS METAB OLIC PANEL carbon dioxide 29 mmol/ L 22-30 Not Available [facility] (Lab) [address] [place], [address], 12/12/2023 13:56:51 12/12/19 24 12/12/2023 COMPR EHENS NIELS METAB OLIC PANEL anion gap 10.4 mmol/ L 14-22 low Not Available [facility] (Lab) [address] [place], [address], 12/12/2023 13:56:51 12/12/19 24 12/12/2023 COMPR EHENS NIELS METAB OLIC PANEL glucose 99 mg/dL 70-99 Not Available [facility] (Lab) [address] [place], [address], 12/12/2023 13:56:51 12/12/19 24 12/12/2023 COMPR EHENS NIELS METAB OLIC PANEL BUN 20 mg/dL 8-19 high Not Available [facility] (Lab) [address] [place], [address], 12/12/2023 13:56:51 12/12/19 24 12/12/2023 COMPR EHENS NIELS METAB OLIC PANEL creatinine 0.62 mg/dL 0.66-1 .25 low Not Available [facility] (Lab) [address] [place], [address], 12/12/2023 13:56:51 12/12/19 24 12/12/2023 COMPR EHENS NIELS METAB OLIC PANEL GFR >60 Refer ence Range : [place] GFR Healt hy Adult : >60 [...] of age, a pedia tric GFR calcu lator is avail able on the [facility] websi te: https ://samra w.pj loaizay.o rg/pr ofess ional s/kdo qi/gf r_cal culat or Not Available [facility] (Lab) [address] [place], [address], 12/12/2023 13:56:51 12/12/19 24 12/12/2023 COMPR EHENS NIELS METAB OLIC PANEL alkaline phosphatase 72 U/L 38-126 Not Available [facility] (Lab) [address] [place], [address], 12/12/2023 13:56:51 12/12/19 24 12/12/2023 COMPR EHENS NIELS METAB OLIC PANEL alanine aminotransfe rase 18 U/L 0-35 Not Available [facility] (Lab) [address] [place], [address], 12/12/2023 13:56:51 12/12/19 24 12/12/2023 COMPR EHENS NIELS METAB OLIC PANEL aspartate aminotransfe rase 25 U/L 15-37 Not Available [facility] (Lab) [address] [place], [address], 12/12/2023 13:56:51 12/12/19 24 12/12/2023 COMPR EHENS NIELS METAB OLIC PANEL bilirubin, total 0.60 mg/dL 0.20-1 .30 Not Available [facility] (Lab) [address] [place], [address], 12/12/2023 13:56:51 12/12/19 24 12/12/2023 COMPR EHENS NIELS METAB OLIC PANEL calcium 9.3 mg/dL 8.4-10 .2 Not Available [facility] (Lab) [address] [place], [address], 12/12/2023 13:56:51 12/12/19 24 12/12/2023 COMPR EHENS NIELS METAB OLIC PANEL total protein 7.1 g/dL 6.3-8. 2 Not Available [facility] (Lab) [address] [place], [address], 12/12/2023 13:56:51 12/12/19 24 12/12/2023 COMPR EHENS NIELS METAB OLIC PANEL albumin 4.0 g/dL 3.0-4. 4 Not Available [facility] (Lab) [address] [place], [address], 12/12/2023 13:56:51 12/12/19 24 12/12/2023 COMPR EHENS NIELS METAB OLIC PANEL globulin 3.1 g/dL 2.6-4. 2 Not Available [facility] (Lab) [address] [place], [address], 12/12/2023 13:56:51 12/12/19 24 12/12/2023 COMPR EHENS NIELS METAB OLIC PANEL A/G ratio 1.3 ratio 1.0-2. 0 Not Available [facility] (Lab) [address] [place], [address], 12/12/2023 13:56:51 04/17/20 23 04/17/2023 MAMMO , scree shahnaz, digit al, bilat eral No observ ation record ed. [email or web address] [place] [address] [address], [place], [address], 06/21/2023 09:34:28 05/20/20 23 XR, knee No observ ation record ed. [email or web address] [facility] Zheng [address], [place], [address], 05/20/2023 11:42:50 Result Notes None recorded. Problems Name Problem SNOMED Code Status Onset Date Resolution Date Notes Provider Name and Address Organization Details Recorded Time Benign essential hypertensi on 8257845 Active Not Available [facility] 4 07:40:33 Acquired trigger finger 6025528 Active Not Available [facility] 4 07:40:33 Peripheral venous insufficie ncy 64499845 Active Not Available [facility] 4 07:40:33 Pain in thumb 563178108 Active Not Available [facility] 4 07:40:33 Knee pain Active Not Available [facility] 4 07:40:34 Ureteric stone 46782576 Active Not Available [facility] 4 07:40:34 Diastolic dysfunctio n 0165849 Active Not Available [facility] 4 07:40:34 Upper respirator y infection 83955217 Active Not Available [facility] 4 07:40:34 Heart disease 09920276 Active Not Available [facility] 4 07:40:34 Carpal tunnel syndrome 56809921 Active Not Available [facility] 4 07:40:34 Pain of bilateral knee joints 1019678026732 04 Active 2021 Not Available [facility] 4 07:40:34 Chondromal acia of right patella 1075250921996 9108 Active 2021 Not Available [facility] 4 07:40:33 Tear of medial meniscus of knee 550510238 Active 2021 Not Available [facility] 4 07:40:34 Tear of lateral meniscus of knee 410405555 Active 2021 Not Available [facility] 4 07:40:34 Tear of lateral meniscus of knee 942211366 Active 2021 Not Available [facility] 4 07:40:34 Pain of left knee joint 1622139051357 07 Active 2021 Not Available [facility] 4 07:40:34 Tear of medial meniscus of knee 200515689 Active 2021 Not Available [facility] 4 07:40:33 COVID-19 341905370 Active 2021 Not Available [facility] 4 07:40:34 Osteoarthr itis 560788770 Active 2022 Not Available [facility] 4 07:40:34 Osteoarthr itis of right knee joint 7640504463262 00 Active 2022 Not Available [facility] 4 07:40:34 Problem Notes None recorded. Procedures Surgical History Date Name Laterality Status Provider Name and Address Organization Details Recorded Time 05/20/20 23 Ortho - Cortisone Injection completed Marco Antonio Soliz MD [address] [place] [address], [address], [facility] [employer] 05/20/2023 11:45:09 09/12/20 22 KNEE ARTHROSCOPY WITH MEDIAL MENISCECTOMY (SURG) completed Not Available [facility] 01/30/2023 01:31:46 09/11/20 22 KNEE ARTHROSCOPY WITH MEDIAL MENISCECTOMY (SURG) completed Not Available [facility] 01/30/2023 01:31:46 09/11/20 22 KNEE ARTHROSCOPY WITH MEDIAL MENISCECTOMY (SURG) completed Not Available [facility] 01/30/2023 01:31:46 02/16/20 21 Most Recent Bone Density completed Not Available [facility] 01/30/2023 00:58:34 02/06/20 18 Date of Last Colonoscopy completed Not Available [facility] 01/30/2023 00:58:34 07/23/20 02 colposcopy completed Not Available [facility] 00:58:42 MANAGER NIGHT Surgery completed Not Available [facility] 01/30/2023 00:58:42 Kidney Stones completed Not Available [facility] 01/30/2023 00:58:42 Imaging Results None [...] n rash Not available Not available 01/30/2023 55547 8003 SNOMED Not Available [facility] 3 01:31:03 2585 Bactrim medicatio n rash Not available Not available 01/30/2023 55487 9 RxNorm Not Available [facility] 3 01:31:03 Medications Name Sig Start [...] suspension for injection in office 2022 active [facility]: 0003- 0494- 20 Not Available Not Available [...] %) injection solution in office 2022 active [facility] 96525 -064- 01 Not Available Not Available Not [...] Updated DateTime 4 162.56 cm 36.7 kg/m2 70207.7 7 g 97.5 [degF] 78 /min 136/90 mm[Hg] Rita Jeffries Kailash [employer] [facility] 4 10:19:27 Date Recorded Body mass index (BMI) Body height Heart rate Body temperature Body weight Systolic And Diastolic Provider Name and Address Organization Details Last Updated DateTime 3 41.2 kg/m2 162.56 cm 72 /min 98.7 [degF] 997972. 17 g 120/76 mm[Hg] Not Available [facility] 3 01:02:22 Date Recorded Body height Body mass index (BMI) Body weight Provider Name and Address Organization Details Last Updated DateTime 05/20/2023 162.56 cm 38.6 kg/m2 780120.28 g Ruma Becerril Kailash [place] [employer] [facility] 05/20/2023 09:46:56 Date Recorded Body height Body mass index (BMI) Body weight Body temperature Heart rate Systolic And Diastolic Provider Name and Address Organization Details Last Updated DateTime 3 162.56 cm 38.8 kg/m2 747880. 88 g 97.4 [degF] 70 /min 136/80 mm[Hg] RANDY Montalvo [facility] [email or web address] [facility] 3 10:10:40 Date Recorded Body height Body mass index (BMI) Body weight Provider Name and Address Organization Details Last Updated DateTime 06/24/2023 162.56 cm 28.8 kg/m2 14138.52 g RANDY Phelps [facility] [email or web address] 06/24/2023 09:18:31 Social History Question Answer Notes LastModified by Organization Details LastModified Time Tobacco Smoking Status Never Smoker [email or web address] 12/12/2023 10:15:25 Do You Have An Advance Directive? No Patient Declined Informatio n. [id number] Information not available 01/30/2023 Are You Blind Or Do You Have Difficulty Seeing? No Information not available 12/12/2023 What Is Your Level Of Caffeine Consumption? Heavy [id number].0301 [id number] Information not available 01/30/2023 How Much Tobacco Do You Chew? None [id number] [id number] Information not available 01/30/2023 In The 14 [...] Of Diet Are You Following? REGULAR MIGRATION.0301 [id number] Information not available 01/30/2023 Which Illicit Or Recreational Drugs Have You Used? None Information not available 12/12/2023 What Is The Highest Grade Or Level Of School You Have Completed Or The Highest Degree You Have Received? [id number] Information not available 12/12/2023 Have There Been [...] Do You Have A Medical Power Of Hospitality Intern? No Information not available 12/12/2023 What Was The Date Of Your Most Recent Tobacco Screening? 12/12/2023 [email or web address] Information not available 12/12/2023 Have You Ever Been Counseled For Unhealthy Alcohol Use? No Information not available 12/12/2023 Do You Have Any Pets? Yes Information not available 12/12/2023 What Is Your Relationship Status? [id number].0301 [id number] Information not available 01/30/2023 Do You Use [...] Much Tobacco Do You Smoke? No [id number].0301 [id number] Information not available 01/30/2023 What Types Of [...] is your level of alcohol consumption? Occasional [id number] Information not available 01/30/2023 Do you or have you ever used smokeless tobacco? Never used smokeless tobacco [id number] Information not available 01/30/2023 Do you have transportation difficulties? No Information not available 12/12/2023 Are you able to walk? YESWOREST Information not available 12/12/2023 Do you have difficulty doing errands alone? No Information not available 12/12/2023 Are you able to care for yourself independently? Yes Information not available 12/12/2023 What is your occupation? Retired Information not available 12/12/2023 Do you have difficulty dressing, bathing, grooming, or toileting? No Information not available 12/12/2023 Do you or have you ever used e-cigarettes or vape? Never used electronic cigarettes Information not available 12/12/2023 What is your exercise level? None [id number] Information not available 01/30/2023 Mental Status Question Answer Note LastModified by Organizat ion Details LastModified Time Do you feel stressed (tense, restless, nervous, or anxious, or unable to sleep at night)? [id number] Information not available 12/12/2023 Do you have difficulty concentrating, remembering or making decisions? No Information no t available 12/12/2023 Family History Relationship Description Onset Age of this Age Resolved Age Notes LastModified by Organization Details LastModified Time Father Heart disease [id number].612 [id number] Not available 01/30/2023 00:58:45 Father Hypertensive disorder MIGRATION.252 [id number] Not available 01/30/2023 00:58:45 Father Kidney disease MIGRATION.613 [id number] Not available 01/30/2023 00:58:45 Mother Osteoporosis cyahl Not availab le 12/12/2023 10:15:25 Mother Hypertensive disorder MIGRATION.175 [id number] Not available 01/30/2023 00:58:45 Notes:GRANDMOTHER & AUNT [...] N CHRONIC PAIN SYNDROME N HYPOTHYROIDISM N CONSTIPATION N CAROTID BLOCKAGE N BACK / NECK PROBLEMS N HAVE YOU BEEN HOSPITALIZED OR SEEN IN [facility] IN THE PAST YEAR ? N ATHEROSCLEROSIS [...] 50 mcg/0.25mL dose 03/10/2021 completed Not Available [facility] 4 07:40:34 COVID-19, mRNA, LNP-S, PF, 100 mcg/0.5mL dose or 50 mcg/0.25mL dose 02/08/2021 completed Not Available [facility] 4 07:40:34 COVID-19, mRNA, LNP-S, bivalent, PF, 50 mcg/0.5 mL or 25mcg/0.25 mL dose 12/27/2022 completed Not Available [facility] 4 07:40:34 Tdap 10/08/2014 completed Not Available [facility] 12/16/2023 07:40:34 Past Encounters Encounter ID Performer Location Encounter Start Date Encounter Closed Date Diagnosis/Indication Diagnosis SNOMED-CT Code Diagnosis ICD10 Code Diagnosis Note [id number] Anjana Chen MD [facility] Internal Med [facility] 15 [address] [facility] [address] [place] [address] 01/30/2021 00:00:00 02/18/2021 13:50:36 [id number] Anjana Chen MD [facility] Internal Med [address] [place] [address] 08/03/2021 00:00:00 08/06/2021 20:42:37 [id number] Anjana Chen MD [facility] Internal Med [address] [place] [address] 03/01/2022 00:00:00 03/01/2022 13:22:34 [id number] Marco Antonio Soliz MD [facility] [place] [address] [place] [address] 03/08/2022 00:00:00 03/08/2022 11:18:56 [id number] Marco Antonio Soliz MD [facility] [place] [address] [place] [address] 03/19/2022 00:00:00 03/19/2022 11:47:59 [id number] Marco Antonio Soliz MD [facility] [place] [address] [place] [address] 04/16/2022 00:00:00 04/16/2022 09:22:09 [id number] Marco Antonio Soliz MD [facility] [place] [address] [place] [address] 05/28/2022 00:00:00 05/28/2022 09:36:34 [id number] Marco Antonio Soliz MD [facility] [place] [address] [place] [address] 07/26/2022 00:00:00 07/26/2022 13:01:01 [id number] Marco Antonio Soliz MD [facility] [place] [address] [place] [address] 08/02/2022 00:00:00 08/02/2022 10:48:03 [id number] Anjana Chen MD [facility] [place] [facility] 15 2043 [facility], [facility] [address] [place] [address] 08/16/2022 00:00:00 09/23/2022 21:07:54 [id number] Marco Antonio Soliz MD [facility] [place] [address] [place] [address] 09/24/2022 00:00:00 09/24/2022 11:09:36 [id number] Anjana Chen MD [facility] Internal Med [facility] [address] [facility] [place] [address] 12/20/2022 00:00:00 01/06/2023 22:23:11 [id number] Marco Antonio Soliz MD [facility] [facility] [address] [place] [address] 05/20/2023 09:21:24 05/20/2023 11:08:02 Pain of bilateral knee joints 2701279455 78574 M25.561 M25.562 Tear of la teral meniscus of knee 005275200 S83.282D Chondromal acia of right patella 2808387965 0709588 M22.41 [id number] Anjana Chen MD [facility] Internal Med [facility] [address] [facility] [place] [address] 06/20/2023 10:05:31 06/20/2023 10:45:42 Benign essential hypertension 7483383 I10 Diastolic dysfunction 35 94401 I51.9 Osteoarthritis 453576095 M19.90 [id number] Marco Antonio Soliz MD [facility] [address] [facility] [address] [place] [address] 06/24/2023 09:10:14 06/24/2023 11:13:34 Osteoarthritis of right knee joint 7743096009 41057 M17.11 Tear of la teral meniscus of knee 081296975 S83.282D [id number] Anjana Chen MD [facility] Internal Med [facility] [address] [place] [address] y [facility] [place] [address] 12/12/2023 10:14:20 12/12/2023 11:06:23 Benign essential hypertension 2790164 I10 Osteoarthritis 661984951 M19.90 Diastolic dysfunction 35 84905 I51.9 Health Concerns Section Related Observation LastModified by Organization Detai ls LastModified Time None Recorded Concern Status LastModified by Organization Details LastModified Time None Recorded Advance Directives Directive N: Patient declined informat ion. Payers Insurance Date Sequence Insurance Name Policy Number Policy Walsh Covered Member ID Walsh Member ID Guarantor Name 12/09/2023 1 [place] Dia Hall [id number] Dia Hall 01/13/2024 2 AARP (MEDICARE SUPPLEMENT) Dia Hall [id number] Dia Hall Notes Date Note Type Note [...] her left knee. Marco Antonio Soliz MD [facility] [address], [place], [address], [facility] 05/20/2023 11:45:46 06/20/2023 text/html Hypertension no headache or dizziness diastolic dysfunction no PND orthopnea osteoarthritis stable uses anti-inflammatories sparingly Anjana Chen MD [address], [place], [address], [email or web address] 06/21/2023 18:26:40 06/24/2023 text/html Patient returns knee pain LEFT. I scoped her knee 8 months ago over the last month the pain is begun returning primarily with activity. She has she has a catching and locking but mostly pain and aching in the knee. This is her left knee. Marco Antonio Soliz MD [address], [place], [address], [email or web address] 06/24/2023 11:13:25 12/12/2023 text/html Hypertension no headache or dizziness diastolic dysfunction no PND orthopnea osteoarthritis stable uses anti-inflammatories sparingly Anjana Chen MD [address], [place], [address], [email or web address] 01/03/2024 08:51:21 OBGyn Episode No OBEpisode recorded.
--- OUTSIDE RECORDS SUMMARY | 2025-06-25 08:33 | XMS_ITS | Data Portability ---
Author Organization CADENCE SANJANAAnshu Murphynuris Sanchez Address [address] [facility] [place] [address] Care Team Providers Care Dude Wrangler Name Role Phone ANJANA CHEN Primary Care Provider AMBAR TOMPKINS [employer] Supervisor Assessment Encounter Date Assessment Date Assessment LastModified [...] be looked at Not available 07/02/2024 18:36:08 01/18/2025 01/18/2025 blood work ordered continue current therapy assessments screenings and immunizations ordered and give him where appropriate and patient agreeable healthy lifestyle care instructions. She declined a DEXA she will follow up in 4 months declined flu declined pneumonia and declined Tdap [email or web address] Not available 02/01/2025 20:46:13 Plan of Treatment Reminders Order Date Submit Date Provider Last Modified By Organization Details Last Modified Time Details Appointments ANY 15 2024 09:30A M Anjana Chen MD Not available Not available Not available Lab lipid panel, serum 2024 025 [facility], [address] [place] [address], [address], 01/27/2025 17:27:06 CBC w/ auto diff 2024 025 [facility], [address] [place] [address], [address], 01/27/2025 17:27:06 CMP, serum or plasma 2024 025 [facility]), [address] [place], [address], 01/27/2025 17:27:05 Referral None recorded. Procedures colonosco py screening (PROC) 2023 024 [facility], [address], [address], [address], 10/01/2024 16:22:39 Surgeries None recorded. Imaging None recorded. Medication Orders None recorded. Patient TargetsNo targets recorded. Patient Instructions Encounter Date Encounter Id Patient Instructions Last Modified By Organization Details Last Modified Time 01/18/2025 [id number] A healthy lifestyle: care instructions Not available 01/18/2025 11:48:06 Medicare [facility] [facility] Preventive Checklist [email or web address] Not available 01/18/2025 11:48:06 Reason for Referral None Reported. Results Created Date Observation Date Name Description Value Unit Range Abnormal Flag Note LastModifiedBy Organization Detail LastModifiedTime 07/03/20 24 02/05/2018 colon oscop y proce dure (PROC ) No observ ation record ed. [facility] [address], [place], [address], 07/03/2024 15:58:13 07/03/20 24 04/17/2023 MAMMO , scree shahnaz, digit al, bilat eral No observ ation record ed. BAR[facility] Not Available 2023 15:58:14 02/05/20 25 02/04/2025 CT, abdom en + pelvi s, w/ contr ast No observ ation record ed. [facility] [address] [facility] [address], [place], [address], 02/05/2025 15:58:47 02/27/20 25 02/26/2025 elect rocar diogr am No observ ation record ed. [address], [place], [address], 03/01/2025 10:58:24 03/19/20 25 03/19/2025 gregorio can cardi olite stres s test (PROC ) No observ ation record ed. [address], [place], [address], 03/23/2025 15:12:20 03/19/20 25 03/19/2025 gregorio can cardi olite stres s test (PROC ) No observ ation record ed. [address], [place], [address], 03/23/2025 15:12:20 03/19/20 25 03/19/2025 US, echo ardio gram No observ ation record ed. [address], [place], [address], 03/26/2025 00:20:34 03/19/20 25 03/19/2025 gregorio can cardi olite stres s test (PROC ) No observ ation record ed. [address], [place], [address], 03/23/2025 15:12:21 05/24/20 25 05/24/2025 XR, chest No observ ation record ed. [facility] [address] [place], [address], 05/25/2025 12:06:14 05/24/20 25 05/24/2025 CT, brain , w/o contr ast No observ ation record ed. [facility] [address] [place], [address], 05/25/2025 12:07:19 Result Notes None recorded. Problems Name Problem SNOMED Code Status Onset Date Resolution Date Notes Provider Name and Address Organization Details Recorded Time Essential hypertension 79888345 Active 2023 Anjana Chen MD Attn: Rox schofield,[address] [facility], [place], [address], [place] [facility] 4 18:35:38 Osteoarthritis 315632717 Active 2023 Anjana Chen MD Attn: Rox schofield,[address] [facility], [place], [address], [place] [facility] 4 18:35:39 Peripheral venous insufficiency 68154791 Active 2023 Anjana Chen MD Attn: Rox schofield,[address] [facility], [place], [address], [place] [facility] 4 18:35:40 Hyperlipidemia 74765403 Active 2023 Anjana Chen MD Attn: Rox schofield,[address] [facility], [place], [address], [place] [facility] 4 18:35:43 Left ventricular diastolic dysfunction 600766586 Active 2023 Anjana Chen MD Attn: Rox schofield,[address] [facility], [place], [address], [place] [facility] 4 18:35:45 Pneumococcal vaccination declined 505874236 Active 2024 Anjana Chen MD Attn: Rox schofield,[address] [facility], [place], [address], [place] [facility] 5 20:46:41 Tetanus vaccination declined by patient 944378876 Active 2024 Anjana Chen MD Attn: Rox g,[address] [facility], [place], [address], [place] [facility] 5 20:46:41 Influenza vaccination declined 960385759 Active 2024 Anjana Chen MD Attn: Rox chandu,[address] [facility], [place], [address], [place] [facility] 5 20:46:43 Electrocardiog garland abnormal 099038884 Active 2024 VAL Steele, [facility] 15:12:33 Problem Notes None recorded. Procedures Surgical History Date Name Laterality Status Provider Name and Address Organization Details Recorded Time 12/02/19 15 Partial hysterectomy completed Tanja Soliz MA [facility] 06/29/2024 10:27:13 Imaging Results None recorded. Procedure Notes None recorded. Medical Equipment None Reported. Allergies Allergen ID Allergen Name Allergen Category Reaction Reaction Severity Criticality Documentation Date Start Date Code Code System Note Provider Name and Address Organization Details Recorded Time 117105 Bactrim medicatio n rash Not available Not available 01/18/2025 60544 9 RxNorm VAL Ernandez, [facility] 11:38:31 074138 Substance with sulfonami de structure and antibacte rial mechanism of action (substanc e) medicatio n rash Not available Not available 01/18/2025 03192 8003 SNOMED VAL Ernandez, [facility] 11:38:34 Medications Name Sig Start Date Stop Date Status Note LastModified by Organization Details LastModified Time lisinopril 10 mg tablet Take 1 tablet by mouth once daily 2023 active Not Available Not Available Not Avai lable diclofenac sodium 75 mg tablet,delay ed release TAKE 1 TABLET BY MOUTH TWICE DAILY 01/18 completed Not Available Not Available Not Available Vitals Date Recorded Pain severity - 0-10 verbal numeric rating [Score] - Reported Provider Name and Address Organization Details Last Updated DateTime 01/18/2025 Thomas Liu Tyree [facility] 01/18/2025 11:42:02 Date Recorded Body height Body mass index (BMI) Body weight Heart rate Oxygen saturation Oxygen saturation in Arterial blood by Pulse oximetry Systolic And Diastolic Provider Name and Address Organization Details Last Updated DateTime 162.56 cm 37.7 kg/m2 86594.8 8 g 75 /min 96 % 96 % 124/78 mm[Hg] Kiki Smith MA [facility] 5 11:38:17 Date Recorded Body height Body mass index (BMI) Body weight Oxygen saturation Oxygen saturation in Arterial blood by Pulse oximetry Heart rate Systolic And Diastolic Provider Name and Address Organization Details Last Updated DateTime 162.56 cm 36.9 kg/m2 35540.3 6 g 96 % 96 % 67 /min 126/74 mm[Hg] Tanja Soliz MA [facility] 10:29:32 Social History Question Answer Notes LastModified by Organizat ion Details LastModified Time Tobacco Smoking Status Never Smoker Tanja Soliz MA null, [facility] 06/29/2024 10:25:11 Do You Have [...] 7 Days, How Much Pain Have You Palmer? None Information not available 01/18/2025 In General, [...] Past 7 Days, How Often Have You Palmer Sleepy In The Daytime? Sometimes Information not [...] 06/29/2024 Are you able to care for yourself independently? Yes Information not available 06/29/2024 What is your exercise level? None active lifestyle Information not available 01/18/2025 Mental Status Question Answer Note LastModified by Organization D etails LastModified Time Do you feel stressed (tense, restless, nervous, or anxious, or unable to sleep at night)? XI6506-3 Information not available 06/29/2024 Family History Relationship [...] Skin Problems N Anemia N Heart Attack ([place]) N Diabetes N Seizures/Epilepsy N Have you had a colonoscopy in the last 1 0 years? Y Asthma N Allergies N Have you had a PSA blood test in the las t year? N Hepatitis N Heart Failure N Osteoporosis N Gynecological [...] SNOMED-CT Code Diagnosis ICD10 Code Diagnosis Note [id number] Anjana Chen MD [facility]aran Zheng [address] [place] [address] 06/29/2024 10:01:45 06/29/2024 10:41:01 Screening for malignant neoplasm of colon 807531199 Z12.11 Essential hypertension 78478747 I10 Osteoarthritis 648938097 M19.90 Peripheral venous insufficiency 26354871 I87.2 Hyperlipidemia 14626258 E78.5 Left ventr icular diastolic dysfunction 186518330 I51.9 [id number] Anjana Chen MD [facility] Sharan Zheng [address] [place] [address] 01/18/2025 11:01:56 01/18/2025 12:12:01 Body mass index 30+ - obesity 246437246 Z68.37 Obesity 697709827 E66.9 Adult heal th examination 893259933 Z00.00 Health Risk Assessment collected and reviewed Left ventr icular diastolic dysfunction 666524876 I51.9 Osteoarthritis 170557226 M19.90 Peripheral venous insufficiency 54193538 I87.2 Hyperlipidemia 50525177 E78.5 Essential hypertension 39575081 I10 Influenza vaccination declined 413679973 Z28.21 Tetanus va ccination declined by patient 740917776 Z28.21 Pneumococc al vaccination declined 358076406 Z28.21 Health Concerns Section Related Observation LastModified by Organization Detai ls LastModified Time None Recorded Concern Status LastModified by Organization Details LastModified Time None Recorded Advance Directives Directive N: Payers Insurance Date Sequence Insurance Name Policy Number Policy Walsh Covered Member ID Walsh Member ID Guarantor Name 01/15/2025 1 [place] [facility] [id number] [facility] 03/08/2025 2 AARP (MEDICARE SUPPLEMENT) [facility] [id number] [facility] 01/15/2025 [place] N[place] - [facility] - [facility] [id number] [facility] Notes Date Note Type Note Provider Name and Address Organization Details Recorded Time 06/29/2024 text/html 73-year-old following problems hypertension or chest pain or shortness breath palpitations. Osteoarthritis does use diclofenac sparingly. History of kidney stones stable peripheral venous insufficiency some swelling from time to time Anjana Chen MD Attn: [address] [place], [address], [facility] - [facility] 07/02/2024 18:36:28 01/18/2025 text/html MAW 2Reported by PatientSocial/Behavi oral HistoryFor diet and nutrition, patient reportshealthy diet. For fracture risk, patient reportsno history of fracturesandno sudden unexplained fractures.Mental Status:For concentration and memory, patient reportsno decreased concentrating ability,no memory lapses or loss, anddoes not forget words. For speech/motor difficulties, patient reportsno speech difficulties,no difficulty expressing formulated concepts,no difficulty with fine manipulative tasks,no difficulty writing/copying,no slowed reaction time, anddoes not knock things over when trying to pick them up.Functional AbilityFor vision, patient reportsworse with distance (glasses). For hearing, patient reportsno loss of hearing. For activities of daily living, patient reportsable to bathe with limited or no assistance,able to contol urination and bowels,able to dress with limited or no assistance,able to feed self with limited or no assistance,able to get out of chair or bed with limited or no assistance,able to groom with limited or no assistance, andable to toilet with limited or no assistance. For instrumental activities of daily living, patient reportsable to do house work with limited or no assistance,able to grocery shop with limited or no assistance,able to manage medications with limited or no assistance,able to manage money with limited or no assistance,able to prepare meals with limited or no assistance, andable to use the phone with limited or no assistance. For falls risk assessment, patient reportsno frequent falls while walking,no fall in the past year,no fall since last visit, andno dizziness/vertigo. For home safety, patient reportsno unsafe karie hazzards,no unsafe stairs,working smoke/co detectors,practicing 'safer sex',no fire arms,has hand bars in the bathroom/shower,good lighting in the home, andreviewed sun protection. hypertension has been controlled she has not had any problems with decompensated left ventricular diastolic dysfunction osteoarthritis in his doing okay peripheral venous insufficiency stable trying to follow low-fat for dyslipidemia Anjana Chen MD Attn: Accounting[address] [facility], [place], [address], [facility] 02/01/2025 20:47:06 OBGyn Episode No OBEpisode recorded.
== END 2025-06-25 08:32 | disposition home or self-care (01) ==
LOC: ANHIMG 08:32
PROVIDERS: PCP Internal Medicine; Visit Provider Obstetrics & Gynecology
DX: Z12.31 Encounter for screening mammogram for malignant neoplasm of breast (principal)
CPT/HCPCS: 77063; 77067

== ENCOUNTER 2025-08-04 08:23 | Outpatient (CLI) | payer MEDICARE, SELFPAY ==
--- NOTE | ~2025-08-04 | CT_ITS ---
Exam: CT chest, abdomen and pelvis with contrast Clinical History: [Intra-abdominal and pelvic swelling. Mass. Lump. ] Comparison: [ CT abdomen and pelvis 02/04/2025] Technique: Multiple axial CT images of the chest, abdomen and pelvis were obtained with IV contrast. Sagittal and coronal reformatted images were obtained. FINDINGS: Lungs and pleura: [ Tracheobronchial tree is patent. No pneumothorax. No pleural effusion. No focal pulmonary consolidation. No pulmonary mass.] Minimal atelectasis in the lower lungs. Mediastinum and pulmonary mami: [ No mass or adenopathy.] Axillary/intramammary and supraclavicular: [ No mass or adenopathy.] Heart and great vessels: [ Heart is mildly enlarged..[ [ No pericardial effusion.] [ No aneurysm.] Chest Wall: [ Unremarkable.] Liver: [Fatty liver.No mass.] [ No intrahepatic biliary duct dilatation.] Gallbladder: [ No wall thickening or stones.] Common bile duct: [ Normal caliber.] [ No stones.] Spleen: [ Within normal limits.] Pancreas: [ No mass. No pancreatic fluid collection.] Adrenals: [ No masses.] Kidneys: [ No masses. No hydronephrosis.][ There are a few too small to characterize low-attenuation lesions in the kidneys.] Lymph nodes: [ No adenopathy in the abdomen or pelvis.] Stomach, small bowel and colon: [ No bowel wall thickening or obstruction.] Small hiatal hernia. Diverticulosis. Moderate amount of stool. Small fat- containing left inguinal hernia. Peritoneum cavity: [ No mesenteric fat stranding or fluid.] Bladder: [ Unremarkable.] Osseous structures: [ No acute fracture or destructive lesion.] [ Multilevel degenerative change in the visualized spine.] Abdominal aorta: [ No aneurysm.] Additional findings: There is a 5.0 x 3.8 x 5.9 cm loculated fluid collection in a moderate-sized fat-containing right inguinal hernia. IMPRESSION: 1. There is a 5.0 x 3.8 x 5.9 cm loculated fluid collection in a moderate-sized fat-containing right inguinal hernia. Correlate clinically. 2. Small hiatal hernia. 3. Minimal atelectasis in the lung bases. Reviewed, dictated and finalized at location Q.
[2025-08-04 09:06] LABS: Estimated Glomerular Filt Rate > 60
== END 2025-08-04 08:24 | disposition home or self-care (01) ==
LOC: CHSIMG 08:26
PROVIDERS: PCP Internal Medicine; Visit Provider Internal Medicine
DX: R19.00 Intra-abdominal and pelvic swelling, mass and lump, unspecified site (principal); K40.90 Unilateral inguinal hernia, without obstruction or gangrene, not specified as recurrent; K44.9 Diaphragmatic hernia without obstruction or gangrene; J98.11 Atelectasis
CPT/HCPCS: 71260; 74177; Q9967